=== PATIENT | female | born 1975 | race Caucasian/White ===

== ENCOUNTER 2019-03-28 16:01 | Outpatient (RCR) | payer OTHER, SELFPAY ==
--- NOTE | 2019-03-28 16:38 | PTOPEVAL ---
Thank you for referring this patient to [facility]. Please review, sign, date and return this plan of care DONALD. I agree with and certify that the following plan of care is medically necessary. Referring Physician Date Admitting Provider: Attending Provider: PHYSICIAN NOT ON STAFF Referring Provider: *PT Outpatient Evaluation Start: 03/28/19 16:12 Freq: Status: Active Protocol: Document 03/28/19 16:12 [facility] (Rec: 03/28/19 16:37 [facility] [id number]) Therapy Assessment Status Assessment Status Assessment Status Evaluation Outpatient Past Medical History Past Medical History Reason Unable to Obtain see patient intake form. Evaluation Information Problem Diagnosis L hip pain Onset 02/21/19 Subjective Information patient reports she has been Query Text:As Reported By Patient/ having pain in the L hip off Family and on for many years (since high school). she reports she feels like her hip pops in and out of socket. she reports she is on her feet at work daily which does not help. patient reports she does not remember any specifi injury. she reports the pain does affect her sleep - hurts more when she is laying down. Diagnostic Tests X-Rays For This Problem Yes Prior Level of Function Comments Additional Prior Level of Function patient reports the pain has Comments been off and on for years, but reports it has been flared up fro several months now. she reports she has difficulty standing at work, getting into and out of her car, sleeping, and walking. Pain Assessment Timing of Pain Assessment Timing of Pain Assessment Assessment Pain Scale Pain Scale Used Numeric (1 - 10) Self Report Pain Assessment Left Hip(s) Reported Pain Level 5 Pain Description Aching,Dull,Throbbing Pain Frequency Acute,Chronic,Continuous Current Pain Intensity 5 Lowest Pain Intensity 4 Greatest Pain Intensity 7 Pain Aggravating Factors Walking,Weight Bearing/ Standing Pain Score Pain Score 5: Self Report Lower Extremity Range of Motion Hip Range of Motion Left Reason Not Measured WNL/Right Hip Flexion Range of Motion - Active 120 Hip Medial Rota
--- NOTE | 2019-04-12 07:16 | PCPTNOTE ---
04/12/19- pt was a no show yesterday 04/11/19. vm was left for pt to call and reschedule. -SAPPHIRE.
--- NOTE | 2019-04-14 07:54 | PCPTNOTE ---
patient did not show for scheduled appt. PETER
--- NOTE | 2019-06-21 07:52 | PCPTNOTE ---
06/21/19 - mrs. wang has not been to skilled PT in over 2 months. as of this date, she will be dc'd from skilled PT services and all progress towards goals will be taken from her most recent evaluation/note. DEBBIE
== END 2019-04-08 09:13 | disposition home or self-care (01) ==
LOC: CHSPT 16:01
DX: M16.12 Unilateral primary osteoarthritis, left hip (principal)
CPT/HCPCS: 97014; 97110; 97140; 97161; G0283

== ENCOUNTER 2019-10-24 10:47 | Emergency (ER) | payer OTHER, SELFPAY ==
--- NOTE | ~2019-10-24 | XR_ITS ---
EXAMINATION: XR wrist LT 2V EXAM DATE: 10/24/2019 11:18 INDICATION: Initial encounter following injury, with pain of the left wrist. 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 TECHNIQUE: Frontal and lateral projections of the left wrist. There is no prior study for compariso n. FINDINGS: Scapholunate joint space is maintained. There are no acute fractures or dislocations ident ified. There is no subcutaneous gas. The soft tissue is unremarkable. There are no radiopaque for eign bodies. There are no bony erosions identified. IMPRESSION: 1. Unremarkable XR wrist LT 2V exam. Reviewed, dictated and finalized at location B.
[2019-10-24 11:00] VITALS: BP 120/75; PULSE 109; RESP 17; TEMP 36.9; O2SAT 99
--- NOTE | 2019-10-24 11:25 | ED.UPPEXIN ---
HPI - Extremity Injury (Upper) General Chief Complaint: Extremity Injury, Upper Stated Complaint: L wrist Pain Source: patient Mode of arrival: ambulatory Limitations: no limitations History of Present Illness HPI narrative: this is a 44-year-old female that presents with history of left wrist pain with movement after she was wrestling with her and twisted her wrist approximately 2 days ago, currently there is some mild swelling and decreased range of motion there is no numbness or tingling has a strong brisk radial pulse. complaint: injury to: left Onset (ago): day(s) Other Extremity Injury: Left: wrist Other injuries: none Handedness: right Place: home Severity: mild Severity scale (1-10): 2 Relieving factors: none and rest Exacerbating factors: none Context: other (Wrestling with her ) Associated symptoms: denies other symptoms Related Data Home Medications Medication Instructions Recorded Confirmed No Home Medications 10/24/19 10/24/19 Allergies Allergy/AdvReac Type Severity Reaction Status Date / Time No Known Allergies Allergy Unverified 09/08/14 13:20 Review of Systems Review of Systems: All systems reviewed & are unremarkable except as noted in HPI and below PMFSH Past Medical History Medical History Patient denies medical problems Exam Const: General: no acute distress and alert Orientation/consciousness: patient oriented x3 HENMT: Head: normal to inspection Eyes: Conjunctivae: conjunctivae normal Pupils: Equal, round and reactive pupils present Neck: Neck: normal visual inspection Chest: Chest palpation & inspection: normal inspection of the chest Resp: Effort & Inspection: normal respiratory effort Auscultation: clear to auscultation bilaterally Cardio: Rate: regular rate Rhythm: regular rhythm GI: GI Palp: Yes Soft to palpation Back/Spine/Pelvis: Back: no CVA tenderness Skin: General skin exam: normal color Rashes: no rashes Neuro: General: patient oriented x3 Extrem: Other: positive Lorenzo test tenderness lateral aspect of her left wrist Psych: Mental Status: mental status grossly normal Affect: normal affect Course Course Emergency Course: offered patient pain medication which she declined at this time, and inform patient that her wrist x-ray was negative and that she would benefit from an Valente wrap. Vital Signs Vital signs: Vital Signs Temperature 36.9 C 10/24/19 11:00 Pulse Rate 109 H 10/24/19 11:00 Respiratory Rate 17 10/24/19 11:00 Blood Pressure 120/75 10/24/19 11:00 Pulse Oximetry 99 10/24/19 11:00 Temperature 36.9 C 10/24/19 11:00 Pulse Rate 109 H 10/24/19 11:00 Respiratory Rate 17 10/24/19 11:00 Blood Pressure 120/75 10/24/19 11:00 Pulse Oximetry 99 10/24/19 11:00 MDM - Extremity Injury (Upper) Imaging Data Attestation: I personally reviewed and interpreted this imaging study as follows: Critical Care Time Critical Care Time Critical Care Time: No Discharge Plan Discharge Clinical Impression: Tendonitis Patient Disposition: Home, Self-Care Condition: Stable Instructions: Antibiotic Form, Tendinitis (ED) Additional Instructions: can take [id number] ibuprofen as needed for pain, follow-up with primary care physician if symptoms persist or worsen. Prescriptions: No Action No Home Medications RF: 0 Follow-up/Referrals: Rolo Katz MD [Primary Care Provider] - Stand Alone Forms: Work/School Release IP Time of Disposition: 11:33
[2019-10-24 11:41] VITALS: RESP 16
== END 2019-10-24 11:45 | disposition home or self-care (01) ==
PROVIDERS: Emergency Provider Emergency Medicine; PCP Family Medicine
DX: M77.9 Enthesopathy, unspecified (principal)
CPT/HCPCS: 73100; 99283

== ENCOUNTER 2019-12-12 15:05 | Outpatient (CLI) | payer OTHER, SELFPAY ==
[2019-12-12 21:30] LABS: SARS-CoV-2 RNA PCR Negative
== END 2019-12-12 15:06 | disposition home or self-care (01) ==
PROVIDERS: PCP Family Medicine; Visit Provider Family Medicine
DX: Z20.828 Contact with and (suspected) exposure to other viral communicable diseases (principal)
CPT/HCPCS: 87635; C9803; U0003

== ENCOUNTER 2020-03-21 21:33 | Emergency (ER) | payer OTHER, SELFPAY ==
[2020-03-21 21:46] VITALS: BP 136/83; PULSE 111; RESP 20; TEMP 36.7; O2SAT 100
--- NOTE | 2020-03-21 21:59 | ED.DENTAL ---
HPI - Dental/Oral General Chief complaint: Dental/Oral Stated complaint: swelling in face Source: patient Mode of arrival: ambulatory Limitations: no limitations History of Present Illness HPI Narrative: Sanjuanita presented to the ED with pain in her #11 tooth as well as pain and swelling in her cheek that have been getting much worse. She has dental issues and is working on getting them fixed but has not had the root canal completed yet. No throat swelling or issues breathing. No fevers or chills. Related Data Allergies Allergy/AdvReac Type Severity Reaction Status Date / Time No Known Allergies Allergy Unverified 03/21/20 21:59 Review of Systems Constitutional: Constitutional: Denies chills and Denies fever(s) Eyes: Eyes: Reports no additional eye complaints ENT: Reports as per HPI Cardiovascular: Cardiovascular: Reports no additional cardiovascular complaints Respiratory: Respiratory: Reports no additional respiratory complaints Gastrointestinal: Gastrointestinal: Reports no additional gastrointestinal complaints Genitourinary: Genitourinary: Reports no additional female genitourinary complaints Musculoskeletal: Musculoskeletal: Reports no additional musculoskeletal complaints Integumentary/Breasts: Skin/Breast: Reports system reviewed and no additional complaints, except as docu Neurologic: Reports system reviewed and no additional complaints, except as documented Psychiatric: Psychiatric: Reports no additional psychiatric complaints Endocrine: Endocrine: Reports no additional endocrine complaints Hematologic/Lymphatic: Hematologic/Lymphatic: Reports no additional hematologic/lymphatic complaints Allergic/Immunologic: Allergic/Immunologic: Reports no additional allergic/immunologic complaints [facility]LY [facility] Past Medical History Medical History (Updated 03/21/20 @ 22:08 by Jericho Fitch DO) Patient denies medical problems Social History Social History Gender identity (if verbalized by the patient): Female Exam Const: General: no acute distress and alert Orientation/consciousness: patient oriented x3 Limitations: No altered mental status HENMT: Head: atraumatic and other (Swelling in left cheek ) Teeth and gingiva: abnormal tooth and associated gingiva (Gum swelling around teeth 10 and 11 and they are very TTP ), caries and poor dentition Eyes: Conjunctivae: conjunctivae normal Pupils: Equal, round and reactive pupils present Neck: Neck: normal visual inspection Chest: Chest palpation & inspection: normal inspection of the chest Resp: Effort & Inspection: normal respiratory effort Cardio: Rate: regular rate Skin: General skin exam: normal color Rashes: no rashes Neuro: General: patient oriented x3 and moves all extremities Extrem: General: normal to inspection Psych: Mental Status: mental status grossly normal Course Course Emergency Course: Sanjuanita was evaluated. She was given a Mead and a dose of Augmentin. Vital Signs Vital signs: Vital Signs Temperature 98.1 F 03/21/20 21:46 Pulse Rate 111 H 03/21/20 21:46 Respiratory Rate 03/21/20 21:46 Blood Pressure 136/83 03/21/20 21:46 Pulse Oximetry 100 03/21/20 21:46 Temperature 98.1 F 03/21/20 21:46 Pulse Rate 111 H 03/21/20 21:46 Respiratory Rate 03/21/20 21:46 Blood Pressure 136/83 03/21/20 21:46 Pulse Oximetry 100 03/21/20 21:46 Discharge Plan Discharge Clinical Impression: Dental abscess Patient Disposition: Home, Self-Care Condition: Stable Instructions: Antibiotic Form, Dental Abscess (ED) Additional Instructions: Please return to the ED for any new, concerning, or worsening symptoms. Please follow up with a dentist DONALD. Prescriptions: New amoxicillin-pot clavulanate [Augmentin] 875-125 mg tablet 1 tablet PO Q12H Qty: 10 RF: 0 hydrocodone-acetaminophen [[place]] 5-325 mg tablet 1 tablet PO Q8H
[2020-03-21] MEDS: AMOXICILLIN/CLAVULANATE K 875-125 MG TAB 1 TABLET PO (22:03)
[2020-03-21] MEDS: HYDROcodone/acetaminophen (*CRX) 5-325 MG TABLET 1 TAB PO (22:04)
[2020-03-21 22:15] VITALS: PULSE 100; RESP 20; O2SAT 100
== END 2020-03-21 22:19 | disposition home or self-care (01) ==
PROVIDERS: Emergency Provider Family Medicine; PCP Family Medicine
DX: K04.7 Periapical abscess without sinus (principal)
CPT/HCPCS: 99283; A9270

== ENCOUNTER 2020-05-17 11:12 | Outpatient (CLI) | payer OTHER, SELFPAY ==
[2020-05-18 18:47] LABS: SARS-CoV-2 RNA PCR Negative
== END 2020-05-17 11:13 | disposition home or self-care (01) ==
LOC: CHSLAB 11:17
PROVIDERS: PCP Family Medicine; Visit Provider Obstetrics & Gynecology
DX: Z20.822 Contact with and (suspected) exposure to COVID-19 (principal)
CPT/HCPCS: C9803; U0003; U0005

== ENCOUNTER 2020-05-28 15:52 | Outpatient (CLI) | payer OTHER, SELFPAY ==
--- NOTE | 2020-05-28 15:00 | ECG_ITS ---
Measurements Intervals [place] Rate: 104 P: 56 AL: 130 QRS: 84 QRSD: 93 T: 58 QT: 338 QTc: 446 Interpretive Statements SINUS TACHYCARDIA BASELINE ARTIFACT- I, III, AVR, AVL, AVF BORDERLINE ECG Electronically Signed On 05-28-2020 16:30:04 [employer] by Liam Landry D.O.
[2020-05-28 15:51] LABS: Basophils Absolute Auto 0.1 K/mm3 (0.0-0.1); Basophils Percent Auto 1.4 % (0.2-1.2); Eosinophils Absolute Auto 0.3 K/mm3 (0-0.3); Eosinophils Percent Auto 2.7 % (0-4.4); Hematocrit 32.8 % (37.0-47.0); Hemoglobin 10.3 g/dL (12.0-15.0); Immature Granulocyte Absolute 0.04 K/mm3 (0.00-0.031); Immature Granulocyte Percent A 0.4 % (0-0.5); Lymphocytes Absolute Auto 4.02 K/mm3 (0.9-3.2); Lymphocytes Percent Auto 39.2 % (18.3-44.2); Mean Corpuscular HGB Conc 31.4 g/dl (32-36); Mean Corpuscular Hemoglobin 28.3 pg (26-34); Mean Corpuscular Volume 90.1 fl (80-100); Mean Platelet Volume 9.1 fl (7.4-10.4); Monocytes Absolute Auto 0.9 K/mm3 (0.1-0.6); Monocytes Percent Auto 8.5 % (2.6-8.5); Neutrophils Absolute Auto 4.9 K/mm3 (1.3-6.7); Neutrophils Percent Auto 47.8 % (45.5-73.1); Platelet Count Result 565 k/mm3 (150-375); Red Blood Count 3.64 M/mm3 (4.2-5.4); Red Cell Distribution Width 13.9 % (11.5-14.5); White Blood Count 10.3 K/mm3 (4.5-10.0)
[2020-05-28 16:39] LABS: Ovalocytes 1+ (NORMAL); Platelet Estimate Increased (Adequate); Target Cells 1+ (NORMAL)
[2020-05-28 16:40] LABS: Atypical Lymphocytes Present; Stomatocytes 1+ (NORMAL)
== END 2020-05-28 15:53 | disposition home or self-care (01) ==
LOC: ANHSURGERY 09-20 15:52
PROVIDERS: PCP Family Medicine; Visit Provider Obstetrics & Gynecology
DX: Z01.818 Encounter for other preprocedural examination (principal); Z87.42 Personal history of other diseases of the female genital tract; F17.200 Nicotine dependence, unspecified, uncomplicated
CPT/HCPCS: 36415; 85025; 86850; 86900; 86901; 93005

== ENCOUNTER 2020-05-29 01:59 | Outpatient (CLI) | payer OTHER, SELFPAY ==
[2020-05-29 18:13] LABS: SARS-CoV-2 RNA PCR Negative
== END 2020-05-29 02:00 | disposition home or self-care (01) ==
LOC: ANHCOVIDDT 02:00
PROVIDERS: PCP Family Medicine; Visit Provider Obstetrics & Gynecology
DX: Z01.812 Encounter for preprocedural laboratory examination (principal); Z20.822 Contact with and (suspected) exposure to COVID-19
CPT/HCPCS: C9803; U0003; U0005

== ENCOUNTER 2020-06-01 02:08 | Day surgery (SDC) | payer OTHER, SELFPAY ==
[2020-05-24 14:01] VITALS: BMI 25.1
--- NOTE | 2020-05-29 13:57 | PM.IMHP ---
H&P: HPI History of Present Illness Date/Time: 05/29/20 13:57 Chief Complaint: bleeding Narrative: Sanjuanita Pedersen is a 44 year old female Multiparous patient who is admitted for robotic total vaginal hysterectomy and bilateral salpingectomies. She has a large fibroid uterus with resulting heavy bleeds. Risks and benefits of this procedure reviewed including under exclusive, aspiration pneumonia, bleeding, transfusion, perforation injury to bladder ureters or other internal organs with need for laparotomy. She received the ACOG handout entitled hysterectomy well as the event she handout. She had all questions answered. She asked to proceed Review of Systems Review of Systems: All systems reviewed & are unremarkable except as noted in HPI and below PMFSH Past Medical History Medical History Patient denies medical problems Social History Social History Smoking packs per day: 1 Smoking cigarettes per day: 20.0 Years smoked: 28 Smoking pack-years: 28.00 Smoking status: Current every day smoker Tobacco type: cigarettes Gender identity (if verbalized by the patient): Female Spiritual care concerns: No Meds Home Medications and Allergies Home Medications Medication Instructions Recorded Confirmed Type No Home Medications 05/24/20 05/24/20 History Allergies Allergy/AdvReac Type Severity Reaction Status Date / Time hydrocodone Allergy Nausea and Verified 05/24/20 13:44 Vomiting Exam Const: General: no acute distress Eyes: General: appearance normal, both eyes and all related structures Neck: Neck: supple and no JVD Thyroid: thyroid normal Resp: Effort & Inspection: normal respiratory effort Auscultation: clear to auscultation bilaterally Cardio: Rate: regular rate Rhythm: regular rhythm GI: Inspection: non-distended GI Palp: Yes Soft to palpation, No Tenderness to palpation present (GI) and No Guarding due to palpation present (GI) Auscultation: normal bowel sounds : General: Yes bladder normal to palpation External Female Exam: normal external appearance Speculum Exam - Vagina: normal appearance of the vagina Speculum Exam - Cervix: normal appearance of the cervix Bimanual exam- vagina & uterus: enlarged and nodular Bimanual Exam- Adnexa, other: no masses Skin: General skin exam: no rashes or lesions noted Extrem: General: normal to inspection and no edema Psych: Mental Status: mental status grossly normal Affect: normal affect Assessment and Plan Additional Plan impression: Symptomatic uterine fibroids Plan: Robotic total vaginal hysterectomy and bilateral salpingectomies 1
--- NOTE | 2020-05-30 15:57 | WPDANESEPPF ---
Anes - Initial Pre Proc Eval Procedure: Operation Date: 06/01/20 09:30 Proposed Procedures p Robotic Assisted Total Vaginal Hysterectomy with Bilateral Salpingectomy - Wagner Flores MD Date/Time: 05/30/20 15:57 Surgeon: Wagner Flores MD Pre Op Diagnosis: heavy bleeding, fibroids,dysmennorhea Patient Data Age: 44 Gender: F Height: 1.73 m Weight: 74.89 kg Allergies Allergy/AdvReac Type Severity Reaction Status Date / Time hydrocodone AdvReac Intermediate Nausea and Verified 06/01/20 07:54 Vomiting Home Medications Medication Instructions Recorded Confirmed Type hydrocodone-acetaminophen [[place]] 1 tablet PO Q4H PRN #30 tablet 06/01/20 Rx ibuprofen 400 mg PO Q6H PRN 06/01/20 06/01/20 History Patient hx anesthesia problems: none Family hx anesthesia problems: none [facility] Past Medical History Medical History (Updated 06/01/20 @ 06:37 by Wagner Flores MD) Asthma no inhalers Surgical History Surgical History (Updated 05/30/20 @ 15:57 by Patrick Arshad DO) History of cholecystectomy Social History Social History Smoking packs per day: 1 Smoking cigarettes per day: 20.0 Years smoked: 28 Smoking pack-years: 28.00 Smoking status: Current every day smoker Tobacco type: cigarettes Living arrangements: with family Gender identity (if verbalized by the patient): Female Spiritual care concerns: No Anes - Eval Final PreProcedure Day of Procedure 05/30/20 15:57 Patient weight: overweight Heart: regular rate and rhythm Lungs: clear to auscultation and normal air movement Airway: Mallampati scale class II Neurological: alert and oriented Last oral intake: >/= 8 hours ASA classification: III Emergent: no Anesthetic plan: proceed Anesthesia type and monitoring: general ETT and standard monitoring Informed Consent: The patient's anesthetic plan and its attendant risks and benefits were discussed with the patient/family/POA. Questions were solicited and answers provided to the satisfaction of the patient/family/POA.
[2020-06-01] VITALS (18 sets, daily range): BP systolic 93–135; BP diastolic 44–81; PULSE 62–92; RESP 12–18; TEMP 36.4–36.8; O2SAT 95–100; BMI 25.8
--- NOTE | 2020-06-01 06:36 | WPDHPUPDATE1 ---
History and Physical Update Update Date/Time: 06/01/20 06:36 History and Physical has been reviewed, including an updated exam of the patient. There are NO changes in the patient's condition. Risks, benefits, and alternatives have been discussed and questions answered. Patient agrees to proceed with procedure.
[2020-06-01] MEDS: LACTATED RINGERS 1,000 ML 30 ML IV CONT ×2 (08:24→10:45)
[2020-06-01] MEDS: ACETAMINOPHEN 500 MG TABLET 1000 MG PO (08:26)
--- NOTE | 2020-06-01 09:13 | SUR.PREOP ---
0830; SPOKE TO DR FREN[place]. PT TOOK 400MG ADVIL THIS MORNING AT 0600, HE STATES PT MAY HAVE KETOROLAC 15MG IV
[2020-06-01] MEDS: ceFAZolin 2 GM/D5W 50 ML 2 GM/50 ML BAG IVPB (09:17)
--- NOTE | 2020-06-01 10:23 | SUR.OPER ---
Urine output= 100ml Ebl=25ml
--- NOTE | 2020-06-01 10:33 | P.OP_ITS ---
Procedure Note - Detailed Date of procedure: 06/01/20 Pre-op diagnosis: heavy bleeding, fibroids,dysmennorhea Surgeon: Wagner Flores MD Postop diagnosis: Heavy bleeding/uterine fibroids/dysmenorrhea/enlarged uterus Procedure: Robotic total vaginal hysterectomy and bilateral salpingectomies Anesthesia: General endotracheal EBL: 25cc Findings: Markedly enlarged fibroid uterus normal-appearing ovaries and tubes Complications: None Description of procedure: The patient was prepped and draped in the normal sterile fashion and placed in the dorsal lithotomy position. Under excellent general endotracheal anesthesia weighted speculum placed in posterior fornix of vagina. The anterior lip of the cervix was grasped with a single-tooth tenaculum. The uterus sounded to 11cm. Serial dilatation with fragmented dilators performed. This was followed by passage of 10. CHEPE and the 4. And half cold cup. A 16 [place] catheter was placed. The remaining instruments vagina were removed. The gloves were changed. A supraumbilical incision was made. Veress needle passed in the abdomen. The abdomen was filled with CO2 gas [id number]. The 8mm trocar was advanced in the abdomen. Downside visualized and no injury seen. The patient placed in Trendelenburg and right and left lateral quadrant incisions were made. 8mm trocars were advanced under direct visualization assuring injury. And with an 8mm trocar was advanced in the right upper quadrant incision. The robot was docked. Next Attention was turned to the correctional substance abuse counselor. The left round ligament was grasped, burned, cut. A bladder flap was formed by sharply dissecting the bladder away from the uterus and reflecting into caudally. This was brought to the opposite round ligament which was, burned, cut. Next the left fallopian tube was sharply dissected using monopolar cautery away from the ovary. This was repeated on the contralateral side by dissecting the right fallopian tube away from the ovarian complex. Next the left utero-ovarian ligament was skeletonized to conserve the left ovary was clamped, burned, cut and brought to the level of the previously cut ligament. In like fashion conserving the right ovary the utero-ovarian ligament was clamped, burned, cut and brought to the level of the previously cut round ligament the left cardinal broad ligaments were then serially skeletonized down lateral edge of the uterus and cervix these were clamped, burned, cut. The uterine vessels on the left were noted to be large and tortuous these were individually clamped, burned, cut. Next the right cardinal and broad ligaments were serially skeletonized. These were clamped, burned, cut and brought down the lateral edge of the cervix and uterus until the uterine vessels could be seen these were individually clamped, burned, cut until the uterine vessels could be seen there were individually clamped, burned, cut. Excellent blanching of the uterus was seen. Blood loss was estimated 25cc a colpotomy incision was then made and the cervix uterus and tubes removed through the vagina.. The vagina was then closed with continuous running 0V lock from lateral edge to lateral edge and back to the midline. Hemostasis was assured. The raw surface areas were closed with hematuria. The robot was undocked. The gas removed from the abdomen. The trocars removed and the incisions closed with 4 O Monocryl glue. The patient was awakened. She went to recovery in satisfactory condition. All sponge, needle, instrument counts were correct. There were no immediate complications
[2020-06-01] MEDS: KETOROLAC 30 MG/ML VIAL (*BKC) IV PUSH ×2 (12:24→19:22)
[2020-06-01] MEDS: DEXTROSE 5%/LACTATED RINGERS 1,000 ML 125 ML IV CONT (12:28)
--- NOTE | 2020-06-01 12:29 | PC.NURSE ---
To room 289 per stretcher from PACU.
[2020-06-01] MEDS: DOCUSATE SODIUM 100 MG CAPSULE PO (17:10)
[2020-06-01] MEDS: MORPHINE SULFATE (*CRX) 4 MG/ML INJ IV PUSH (17:35)
--- NOTE | 2020-06-02 03:43 | PC.NURSE ---
[address] Praneeth Méndez to report patient wanting to go home. Dr. Praneeth Méndez states that patient may be discharged home, but must either keep in wayne catheter and return to office for removal on Thursday, or, may have catheter removed now and must void prior to leaving. Patient is to return to office in 2 weeks for post operative follow up visit. 0120 Discontinued saline lock and wayne catheter. 0240 Patient called out to say she could not void. Offered to have her continue to try or to replace wayne catheter. Patient refuses and wants to sign out. 0251 Patient exited her room dressed with bags packed. Signed AMA paper and left unit. [ End ]
--- NOTE | 2020-06-02 04:28 | PC.NURSE ---
0251 Patient left AMA. See previous note.
--- NOTE | 2020-06-02 06:35 | P.DS_ITS ---
DS: Admitting Diagnosis Admitting Diagnosis Admitting Diagnosis: Symptomatic fibroids with resultant anemia DS: Summary Hospital Course Hospital Course: patient underwent unremarkable robotic total vaginal hysterec emily and bilateral salpingectomy on 06/01. She decided to leave [place] low. She had her catheter removed but was unable to urinate but refused to stay. Time Spent with Patient Time attestation: Total time spent providing and/or coordinating discharge services: Exam Const: General: no acute distress Eyes: General: appearance normal, both eyes and all related structures Neck: Neck: supple and no JVD Thyroid: thyroid normal Resp: Effort & Inspection: normal respiratory effort Auscultation: clear to auscultation bilaterally Cardio: Rate: regular rate Rhythm: regular rhythm GI: Inspection: non-distended GI Palp: Yes Soft to palpation, No Tenderness to palpation present (GI) and No Guarding due to palpation present (GI) Auscultation: normal bowel sounds : General: Yes bladder normal to palpation External Female Exam: normal external appearance Speculum Exam - Vagina: normal vaginal discharge and No vaginal bleeding Speculum Exam - Cervix: nontender Bimanual exam- vagina & uterus: bladder normal to palpation and No Cervical tenderness present OB/external & speculum: No vaginal bleeding Skin: General skin exam: no rashes or lesions noted Extrem: General: normal to inspection and no edema Psych: Mental Status: mental status grossly normal Affect: normal affect DS: Data Data Completed and Pending Pending studies at discharge: Pending at discharge 06/01/20 10:11 Surgical [PTH] Routine Discharge Plan Discharge Patient Disposition: Home, Self-Care Discharge Instructions: Call for appointment to follow up with Dr. Praneeth Méndez in 2 weeks. Stand Alone Forms: General Discharge Instructions Follow-up/Referrals: Wagner Flores MD [Physician] - Discharge Orders: Discharge Order (Routine); Ordered 06/02/20 Ordered By: Wagner Flores Discharge Medications: New hydrocodone-acetaminophen [[place]] 5-325 mg tablet 1 tablet PO Q4H PRN (Reason: pain) Qty: 30 RF: 0 No Action ibuprofen 200 mg Tablet 400 mg PO Q6H PRN (Reason: Headache) RF: 0
== END 2020-06-02 02:51 | disposition home or self-care (01) ==
LOC: ANHSURGERY 07:38 → ANHOB2 12:08
PROVIDERS: PCP Family Medicine; Visit Provider Obstetrics & Gynecology
PROC: (CPT 58552; principal; 2020-06-01 09:30)
DX: N93.9 Abnormal uterine and vaginal bleeding, unspecified (principal); F17.210 Nicotine dependence, cigarettes, uncomplicated; N73.6 Female pelvic peritoneal adhesions (postinfective)
CPT/HCPCS: 58552; S2900; 88307; 99199; A9270; J0690; J1100; J1170; J1885; J2250; J2270; J2405; J2704; J2710; J3010; J7030; J7120; J7121

== ENCOUNTER 2020-09-26 14:08 | Outpatient (CLI) | payer OTHER, SELFPAY ==
--- NOTE | ~2020-09-26 | MM_ITS ---
EXAMINATION: MM scrn aga implant BI w roman HISTORY: Screening mammogram TECHNIQUE: Craniocaudal and mediolateral oblique 3-D tomosynthesis images with implant displacement a nd synthetic 2-D images were generated. Craniocaudal and mediolateral oblique views of the breasts wi thout implant displacement were obtained using full field digital mammography. CAD analysis was submi tted and interpreted. COMPARISON: No prior mammogram is available for comparison at this institution. BREAST PARENCHYMAL COMPOSITION: The breasts are heterogeneously dense, which may obscure small masses . FINDINGS: Status post bilateral augmentation mammoplasty There is no evidence of suspicious mass, gabriel cification, or architectural distortion to suggest malignancy in either breast. There has been no edwar picious interval change. IMPRESSION: 1. No mammographic evidence of malignancy. 2. Recommend routine screening mammography in one year. BI-RADS Category 1: Negative Reviewed, dictated and finalized at location A.
== END 2020-09-26 14:09 | disposition home or self-care (01) ==
LOC: ANHIMG 14:16
PROVIDERS: PCP Family Medicine; Visit Provider Obstetrics & Gynecology
DX: Z12.31 Encounter for screening mammogram for malignant neoplasm of breast (principal)
CPT/HCPCS: 77063; 77067

== ENCOUNTER 2020-11-19 08:20 | Outpatient (CLI) | payer OTHER, SELFPAY ==
--- NOTE | ~2020-11-19 | XR_ITS ---
EXAMINATION: XR lumbar spine min 4V DATE: 11/19/2020 09:06 INDICATION: Low back pain TECHNIQUE: Anteroposterior, lateral, and bilateral oblique views of the lumbar spine, and cone-down l ateral view of the lumbosacral junction were obtained. COMPARISON: CT, 08/10/2016 FINDINGS: There is no fracture, dislocation, or subluxation. The vertebral body heights and alignment are normal. There is mild loss of intervertebral disc space height at L5-S1. Small degenerative oste ophytes project from the anterior endplates of multiple vertebral bodies. There are four stones of t he right kidney measuring 7 mm. The bowel gas pattern is normal. Cholecystectomy clips are noted in t he right upper quadrant. IMPRESSION: 1. Mild lumbar spondylosis without acute findings. Reviewed, dictated and finalized at location B.
--- NOTE | ~2020-11-19 | XR_ITS ---
EXAMINATION: XR pelvis 1-2V INDICATION: Back and pelvic pain TECHNIQUE: AP view of the pelvis is obtained. COMPARISON: None available FINDINGS: Bone alignment is normal. There is no fracture. There is mild osteoarthritis of the hips. T he soft tissues are unremarkable. IMPRESSION: 1. No acute osseous abnormality. Reviewed, dictated and finalized at location B.
== END 2020-11-19 08:21 | disposition home or self-care (01) ==
LOC: CHSIMG 08:22
PROVIDERS: Visit Provider Orthopaedic Surgery
DX: M54.9 Dorsalgia, unspecified (principal); M25.559 Pain in unspecified hip
CPT/HCPCS: 72110; 72170

== ENCOUNTER 2021-01-26 07:21 | Outpatient (CLI) | payer OTHER, SELFPAY ==
--- NOTE | ~2021-01-26 | MR_ITS ---
EXAMINATION: MR lumbar spine wo con EXAM DATE: 01/26/2021 08:14 INDICATION: M54.9 - Dorsalgia, unspecified, low back and bilateral leg pain. TECHNIQUE: Multi-sequential, multiplanar MR images of the lumbar spine were obtained without contrast . Sagittal T1, T2, T2 fat saturation images. Axial T2 weighted images. Correlation is made to lumba r x-ray 11/19/2020. FINDINGS: There is mild thoracolumbar dextroscoliosis. There is 3 mm retrolisthesis L5 on S1 with mil d to moderate disc disease at this level. Mild disc disease at the other lumbar levels. The conus med ullaris terminates at the L1 level and has normal signal intensity and morphology. There are no susp icious marrow signal abnormalities. Paraspinal soft tissue is unremarkable. Level by level evaluation: T12-L1: Disc does not extend beyond the endplate margin. Facet arthropathy: Mild bilateral. Neural foraminal stenosis: No stenosis. Central canal stenosis: No stenosis. L1-L2: Disc does not extend beyond the endplate margin. Facet arthropathy: Mild bilateral. Neural foraminal stenosis: No stenosis. Central canal stenosis: No stenosis. L2-L3: There is a minimal diffuse disc bulge. Facet arthropathy: Mild bilateral. Neural foraminal stenosis: No stenosis. Central canal stenosis: No stenosis. L3-L4: There is a mild diffuse disc bulge. Facet arthropathy: Mild bilateral. Neural foraminal stenosis: Mild bilateral. Central canal stenosis: Mild. L4-L5: There is a mild diffuse disc bulge. Facet arthropathy: Mild bilateral. Neural foraminal stenosis: Mild right. Central canal stenosis: Mild. L5-S1: There is a mild to moderate diffuse disc bulge. Facet arthropathy: Mild bilateral. Neural foraminal stenosis: Mild bilateral. Central canal stenosis: Mild to moderate. IMPRESSION: 1. Mild to moderate lower lumbar spondylosis. Reviewed, dictated and finalized at location A.
== END 2021-01-26 07:22 | disposition home or self-care (01) ==
LOC: CHSIMG 07:22
PROVIDERS: Visit Provider Orthopaedic Surgery
DX: M54.9 Dorsalgia, unspecified (principal)
CPT/HCPCS: 72148

== ENCOUNTER 2021-07-18 07:24 | Outpatient (CLI) | payer OTHER, SELFPAY ==
--- NOTE | ~2021-07-18 | US_ITS ---
EXAMINATION: US arterial duplex LE DATE: 07/18/2021 07:53 INDICATION: Peripheral vascular disease TECHNIQUE: Multiple grayscale and Doppler ultrasound images of the arteries of the bilateral lower li mbs were obtained. COMPARISON: None FINDINGS: Right lower limb: Triphasic arterial waveforms with brisk systolic upstrokes at the right common femoral, profunda femo ral, (proximal mid and distal) superficial femoral, popliteal and (proximal and distal) posterior tib ial arteries and biphasic waveforms with brisk systolic upstroke at the right dorsalis pedis artery. No evident significant stenosis or abrupt change in peak systolic velocities to suggest a significant stenosis in the arteries of the right lower limb. Left lower limb: Triphasic arterial waveforms with brisk systolic upstrokes at the left common femoral, profunda femor al, (proximal mid and distal) superficial femoral, popliteal and (proximal and distal) posterior tibi al and dorsalis pedis arteries. No evident significant stenosis or abrupt change in peak systolic mark ocities to suggest a significant stenosis in the arteries of the left lower limb. IMPRESSION: 1. No significant arterial occlusive disease in either lower limb. Reviewed, dictated and finalized at location A.
== END 2021-07-18 07:25 | disposition home or self-care (01) ==
LOC: CHSIMG 07:25
PROVIDERS: PCP Physician Assistant; Visit Provider Physician Assistant
DX: I73.9 Peripheral vascular disease, unspecified (principal)
CPT/HCPCS: 93925

== ENCOUNTER 2021-08-20 07:42 | Outpatient (RCR) | payer OTHER, SELFPAY ==
--- NOTE | 2021-08-20 08:31 | PTOPEVAL ---
Thank you for referring Sanjuanita Pedersen to [facility].? The patient is scheduled to be seen for therapy? ____x/week for ___ weeks. Please review, sign, date and return this plan of care DONALD. I agree with and certify that the following plan of care is medically necessary. Referring Physician Date Admitting Provider: Attending Provider: JERSON HUDDLESTON Referring Provider: *PT Outpatient Evaluation Start: 08/20/21 07:21 Freq: Status: Active Protocol: Document 08/20/21 07:30 [facility] (Rec: 08/20/21 08:30 [facility] [id number]) Therapy Assessment Status Assessment Status Assessment Status Evaluation Outpatient Past Medical History Neurological History Hx Neurological Disorders No Significant History Cardiovascular History Hx Cardiac Disorders No Significant History Respiratory History Hx Asthma Yes: NO INHALERS Gastrointestinal History Hx Cholecystectomy Yes Genitourinary History Hx Kidney Stones Yes Musculoskeletal History Hx Arthritis Yes: GENERALIZED Hx Crutches or Walker Use Yes: CRUTCHES Query Text:If Yes, Enter Crutches, Walker, or Both in the Comment Hx Orthopedic Surgery Yes: TOE, NOSE Hematological History Hx Hematological Disorders No Significant History Endocrine History Hx Endocrine Disorders No Significant History HEENT History Hx Tonsillectomy Yes Hx Ear Surgery Yes Integumentary History Hx Skin Disorders No Significant History Reproductive History Hx Section Yes Hx Other Reproductive Disorders Yes: BREAST AUGMENTATION. HEAVY BLEEDING ,FIBROIDS Psychosocial History Hx Psychiatric Disorders No Significant History Pain History History of Any Previous or Ongoing No Significant History Instance of Pain Anesthesia History Hx Anesthesia Reactions No Significant History Evaluation Information Problem Diagnosis low back and L hip pain Onset 08/15/21 Additional Evaluation Detail LEFS = 32% functionally declined Subjective Information patient reports she is having Query Text:As Reported By Patient/ lower back and hip pain Family bilaterally. she reports her hips are worse than her lower back. she reports she has always had issues with her back and hip off and on. she reports the hips began hurting worse about a year ago. she reports she has worked jobs on her feet all her life. she
--- NOTE | 2021-10-15 15:27 | PTOPEVAL ---
Thank you for referring Sanjuanita Pedersen to [facility].? The patient is scheduled to be seen for therapy? ____x/week for ___ weeks. Please review, sign, date and return this plan of care DONALD. I agree with and certify that the following plan of care is medically necessary. Referring Physician Date Admitting Provider: Attending Provider: JERSON HUDDLESTON Referring Provider: *PT Outpatient Evaluation Start: 08/20/21 07:21 Freq: Status: Active Protocol: Document 10/15/21 13:00 [facility] (Rec: 10/15/21 14:20 [facility] [id number]) Therapy Assessment Status Assessment Status Assessment Status Re-evaluation Outpatient Past Medical History Neurological History Hx Neurological Disorders No Significant History Cardiovascular History Hx Cardiac Disorders No Significant History Respiratory History Hx Asthma Yes: NO INHALERS Gastrointestinal History Hx Cholecystectomy Yes Genitourinary History Hx Kidney Stones Yes Musculoskeletal History Hx Arthritis Yes: GENERALIZED Hx Crutches or Walker Use Yes: CRUTCHES Query Text:If Yes, Enter Crutches, Walker, or Both in the Comment Hx Orthopedic Surgery Yes: TOE, NOSE Hematological History Hx Hematological Disorders No Significant History Endocrine History Hx Endocrine Disorders No Significant History HEENT History Hx Tonsillectomy Yes Hx Ear Surgery Yes Integumentary History Hx Skin Disorders No Significant History Reproductive History Hx Section Yes Psychosocial History Hx Psychiatric Disorders No Significant History Pain History History of Any Previous or Ongoing No Significant History Instance of Pain Anesthesia History Hx Anesthesia Reactions No Significant History Evaluation Information Problem Diagnosis low back and L hip pain Onset 08/15/21 Additional Evaluation Detail LEFS = 48.7% functionally declined Subjective Information Pt reports that since Query Text:As Reported By Patient/ beginning therapy, she has Family been feeling better. She used to have to require the assistance of her daughter to get into and out of a vehicle. She does not believe that the injection she was given at the end of August has helped her much. However, she believes that therapy has helped her hip to feel better. She states that simply laying
== END 2021-11-12 14:47 | disposition home or self-care (01) ==
LOC: CHSPT 07:42
PROVIDERS: PCP Physician Assistant
DX: M25.552 Pain in left hip (principal)
CPT/HCPCS: 97014; 97110; 97140; 97161; G0283

== ENCOUNTER 2021-08-20 10:01 | Outpatient (CLI) | payer OTHER, SELFPAY ==
--- NOTE | ~2021-08-20 | XR_ITS ---
EXAMINATION: XR chest 2V DATE: 08/20/2021 10:48 INDICATION: Chronic cough TECHNIQUE: PA and lateral views of the chest were obtained. COMPARISON: Chest radiograph dated 01/13/2007 FINDINGS: The lungs remain clear with no focal airspace opacities, pulmonary edema, pleural effusion or pneumot horax. The cardiomediastinal silhouette is normal. Bilateral breast implants. Cholecystectomy clips i n the upper abdomen. Mild lower thoracic levocurvature. Mild to moderate midthoracic spondylosis with chronic appearing minimal to mild anterior wedging of a couple midthoracic vertebral bodies, likely T7 and T8. IMPRESSION: 1. No acute cardiopulmonary disease. Reviewed, dictated and finalized at location A.
--- NOTE | ~2021-08-20 | XR_ITS ---
EXAMINATION: XR hip LT min 2V DATE: 08/20/2021 10:49 INDICATION: Dorsalgia with pain radiating down the right leg. TECHNIQUE: 2 views of left hip were obtained. COMPARISON: Pelvis radiograph 11/19/2020 FINDINGS: Bone alignment is normal. No fracture. There is mild left hip osteoarthritis. IMPRESSION: 1. Mild left hip osteoarthritis. Reviewed, dictated and finalized at location B.
--- NOTE | ~2021-08-20 | XR_ITS ---
EXAMINATION: XR sacroiliac joints min 3V DATE: 08/20/2021 10:48 INDICATION: Dorsalgia. Pain down left leg. TECHNIQUE: 3 views of the sacroiliac joints were obtained. COMPARISON: Pelvis radiograph 11/19/2020 FINDINGS: Bone alignment is normal. No fracture. There is mild osteoarthritis of the sacroiliac joint s. No evidence of inflammatory arthropathy. There are stones in right kidney. IMPRESSION: 1. Mild osteoarthritis of the sacroiliac joints. Reviewed, dictated and finalized at location B.
== END 2021-08-20 10:02 | disposition home or self-care (01) ==
LOC: CHSLAB 10:06 → CHSIMG 10:07
PROVIDERS: PCP Physician Assistant
DX: M25.552 Pain in left hip (principal); M54.9 Dorsalgia, unspecified; R05.3 Chronic cough
CPT/HCPCS: 71046; 72202; 73502

== ENCOUNTER 2021-09-08 15:13 | Emergency (ER) | payer OTHER, SELFPAY ==
[2021-09-08 15:40] VITALS: BP 152/97; PULSE 99; RESP 18; TEMP 36.3; O2SAT 100
--- NOTE | 2021-09-08 15:59 | ED.GENADULT ---
HPI - General Adult General Chief complaint: Ear Stated complaint: left ear pain Source: patient and family Mode of arrival: ambulatory Limitations: no limitations History of Present Illness HPI narrative: Sanjuanita is a 45F with a PMH of dental infections, asthma and back pain that presented to the ED with left ear pain worsening throughout the day. The ear is swollen and painful and is TTP. No drainage, fevers, chills or hearing changes. Related Data Home Medications Medication Instructions Recorded Confirmed furosemide 20 mg PO DAILY 09/08/21 09/08/21 Allergies Allergy/AdvReac Type Severity Reaction Status Date / Time hydrocodone AdvReac Intermediate Nausea and Verified 09/08/21 15:48 Vomiting Review of Systems Constitutional: Constitutional: Reports no additional constitutional complaints Eyes: Eyes: Reports no additional eye complaints ENT: Reports as per HPI Cardiovascular: Cardiovascular: Reports no additional cardiovascular complaints Respiratory: Respiratory: Reports no additional respiratory complaints Gastrointestinal: Gastrointestinal: Reports no additional gastrointestinal complaints Genitourinary: Genitourinary: Reports no additional female genitourinary complaints Musculoskeletal: Musculoskeletal: Reports no additional musculoskeletal complaints Integumentary/Breasts: Skin/Breast: Reports system reviewed and no additional complaints, except as docu Neurologic: Reports system reviewed and no additional complaints, except as documented Psychiatric: Psychiatric: Reports no additional psychiatric complaints Endocrine: Endocrine: Reports no additional endocrine complaints Hematologic/Lymphatic: Hematologic/Lymphatic: Reports no additional hematologic/lymphatic complaints Allergic/Immunologic: Allergic/Immunologic: Reports no additional allergic/immunologic complaints [facility] Past Medical History Medical History Asthma no inhalers Iliotibial band syndrome of both sides Lumbar radiculopathy, acute Vision changes Weight gain Surgical History Surgical History History of breast augmentation History of section History of cholecystectomy History of colonoscopy History of laparoscopy History of myringotomy History of robot-assisted laparoscopic hysterectomy History of surgery Fistulectomy History of tonsillectomy and adenoidectomy Family History Family History Other Arthritis Hypertension Paget disease of bone Social History Social History Smoking packs per day: 0.75 Smoking cigarettes per day: 15.0 Years smoked: 30 Smoking pack-years: 22.50 Tobacco type: cigarettes Alcohol intake: current Drinks per week: 3 Substance use: current Substance use type: does not use 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[employer] Gender identity (if verbalized by the patient): Female Spiritual care concerns: No Exam Const: General: no acute distress Orientation/consciousness: patient oriented x3 HENMT: Other: Left ear external canal was erythematous, swollen, TTP and had pre-auricular lymphadenopathy Eyes: Conjunctivae: conjunctivae normal Pupils: Equal, round and reactive pupils present Neck: Neck: normal visual inspection Chest: Chest palpation & inspection: normal inspection of the chest Resp: Effort & Inspection: normal respiratory effort, not labored and not tachypneic Cardio: Rate: regular rate Skin: General skin exam: normal color Rashes: no rashes Neuro: General: patient oriented x3 and moves all extremities Extrem: General: normal to inspection Psych: Mental Status: mental status grossly normal Course Course Emergency Course: Given toradol for pain and cipro PO (no ear drops in the ED) Gretel
[2021-09-08] MEDS: KETOROLAC 30 MG/ML VIAL (*BKC) IM (16:13)
[2021-09-08] MEDS: CIPROFLOXACIN 500 MG TAB PO (16:13)
== END 2021-09-08 16:25 | disposition home or self-care (01) ==
PROVIDERS: Emergency Provider Family Medicine; PCP Physician Assistant
DX: H60.92 Unspecified otitis externa, left ear (principal)
CPT/HCPCS: 96372; 99283; A9270; J1885

== ENCOUNTER 2021-12-24 18:09 | Outpatient (CLI) | payer OTHER, SELFPAY ==
[2021-12-24 18:49] LABS: Thyroid Stimulating Hormone 3.01 uIU/mL (0.36-3.74)
== END 2021-12-24 18:10 | disposition home or self-care (01) ==
LOC: CHSLAB 18:11
PROVIDERS: PCP Internal Medicine Endocrinology, Diabetes & Metabolism; Visit Provider Internal Medicine Endocrinology, Diabetes & Metabolism
DX: R79.89 Other specified abnormal findings of blood chemistry (principal)
CPT/HCPCS: 36415; 84443

== ENCOUNTER 2022-02-21 01:24 | Observation (INO) | payer OTHER, SELFPAY ==
--- NOTE | ~2022-02-21 | CT_ITS ---
EXAMINATION: CT abdomen pelvis w con DATE: 02/21/2022 04:08 INDICATION: Right upper and left upper quadrant abdominal pain. TECHNIQUE: Computed tomography (CT) of the abdomen and pelvis was performed with 100 cc Omnipaque 350 intravenous contrast. The dose-length product was 560.12 mGy-cm. Automated exposure control and iter ative reconstruction technique were employed. COMPARISON: CT dated 08/10/2016. FINDINGS: Lung bases are unremarkable. No significant pleural or pericardial effusion. Heart size nor mal. There is enlargement of the pancreas with surrounding fluid, consistent with acute pancreatitis. No evidence for pancreatic necrosis, abscess or pseudocyst formation. Status post cholecystectomy. There are right renal calcifications which are stable, possibly stones w ithin calyceal diverticula. No hydronephrosis. The liver, spleen, adrenal glands and left kidney are unremarkable. Nonobstructive bowel gas pattern. Normal appendix. No abnormal pelvic masses or fluid c ollections. Mild lumbar spondylosis. Mild osteoarthritis of the hips. There is dextroscoliosis. Small fat-containing umbilical hernia. There are breast implants. IMPRESSION: 1. Acute uncomplicated pancreatitis. 2: Right renal calcifications, possibly stones within calyceal diverticula. Reviewed, dictated and finalized at location A.
[2022-02-21 01:25] VITALS: BP 128/81; PULSE 108; RESP 18; TEMP 35.9; O2SAT 100
[2022-02-21] MEDS: SODIUM CHLORIDE 0.9% IV 1,000 ML 125 ML IV CONT (01:45)
[2022-02-21] MEDS: KETOROLAC 30 MG/ML VIAL (*BKC) IV PUSH (01:45)
[2022-02-21 03:25] VITALS: BP 125/84; PULSE 86; RESP 16; O2SAT 100
[2022-02-21] MEDS: HYDROmorphone HCL INJ (*CRX) 2 MG/ML VIAL 1 MG IV PUSH (03:45)
[2022-02-21 04:08] LABS: Alanine Aminotransferase 21 U/L (14-59); Albumin Level 3.4 g/dL (3.4-5.0); Alkaline Phosphatase 75 U/L (46-116); Anion Gap 5 mmol/L (8-16); Aspartate Amino Transferase 14 U/L (15-37); Bilirubin,Total 0.5 mg/dL (0.00-1.00); Blood Urea Nitrogen 14 mg/dL (7-18); Calcium 8.7 mg/dL (8.5-10.1); Carbon Dioxide 30 mmol/L (21-32); Chloride 101 mmol/L (98-108); Estimated Glomerular Filt Rate > 60; Glucose 90 mg/dL (70-99); Lactic Acid Reflex 1.3 mmol/L (0.4-2.0); Osmolality Calculated 282 mOsm/kg (285-295); Potassium 3.8 mmol/L (3.5-5.1); Sodium 136 mmol/L (136-145); Total Protein 6.8 g/dL (6.4-8.2); Troponin I 4.8 ng/L (0.00-60.4)
[2022-02-21 04:09] LABS: Lipase > 1500 U/L (73-393)
[2022-02-21 04:10] LABS: Basophils Absolute Auto 0.08 K/mm3 (0.00-0.10); Basophils Percent Auto 0.6 % (0.0-1.0); Eosinophils Absolute Auto 0.15 K/mm3 (0.02-0.50); Eosinophils Percent Auto 1.1 % (1.0-6.0); Hematocrit 42.3 % (35.0-49.0); Hemoglobin 13.9 g/dL (12.0-15.0); Immature Granulocyte Absolute 0.17 K/mm3 (0.00-0.00); Immature Granulocyte Percent A 1.2 % (0.0-0.0); Lymphocytes Absolute Auto 3.05 K/mm3 (1.10-4.50); Lymphocytes Percent Auto 21.5 % (18.0-42.0); Mean Corpuscular HGB Conc 32.9 g/dL (32.0-36.0); Mean Corpuscular Hemoglobin 30.5 pg (27.0-31.0); Mean Platelet Volume 9.3 fl (9.2-11.8); Monocytes Absolute Auto 1.01 K/mm3 (0.10-0.90); Monocytes Percent Auto 7.1 % (2.0-11.0); Neutrophils Absolute Auto 9.7 K/mm3 (1.7-7.2); Neutrophils Percent Auto 68.5 % (50.0-70.0); Platelet Count Result 424 K/mm3 (150-420); Red Blood Count 4.55 M/mm3 (4.20-5.40); Red Cell Distribution Width 12.6 % (11.6-14.4); White Blood Count 14.2 K/mm3 (4.8-10.8)
--- NOTE | 2022-02-21 04:17 | PC.NURSE ---
pt is currently resting on stretcher, nad noted. pt is awaiting erp decision at this time. ivf infusing as ordered without difficulty. pt reports pain has improved post medication. will continue to monitor.
--- NOTE | 2022-02-21 04:24 | ECG_ITS ---
Measurements Intervals [place] Rate: 78 P: -36 VT: 124 QRS: 85 QRSD: 105 T: 73 QT: 383 QTc: 438 Interpretive Statements SINUS RHYTHM INCOMPLETE RIGHT BUNDLE BRANCH BLOCK [90+ ms QRS DURATION, TERMINAL R IN V1/V2, 40+ ms S IN I/aVL/V4/V5/V6] CANNOT RULE OUT SEPTAL MYOCARDIAL INFARCTION , OF INDETERMINATE AGE [40+ ms Q WAVE IN V1/V2] COMPARED TO ECG 05/28/2020 16:04:55 HEART RATE IS REDUCED NO OTHER SIGNIFICANT CHANGE Electronically Signed On 02-21-2022 14:15:27 CDT by Nura Syed M.D.
--- NOTE | 2022-02-21 04:26 | PC.NURSE ---
0210 PT IS AWARE OF NEED FOR URINE SPECIMEN, CUP AT BEDSIDE. PT HAS IVF INFUSING ORDERED WITHOUT DIFFICULTY. WILL CONTINUE TO MONITOR. LATE ENTRIES DUE TO COMPUTERS BEING DOWN.
--- NOTE | 2022-02-21 04:27 | PC.NURSE ---
0230 CT NOTIFIED PT IS READY [address] AT THIS TIME, REPORTED PAIN WAS RETURNING, ERP NOTIFIED AND MEDICATIONS TO BE GIVEN UPON PT RETURN TO ER. WILL CONTINUE TO MONITOR. 0415 PT IS RESTING WITHOUT DIFFICULTY.
[2022-02-21 04:45] VITALS: BP 111/67; PULSE 77; RESP 14; O2SAT 100
--- NOTE | 2022-02-21 05:54 | ED.ABDPAIN ---
HPI - Abdominal Pain General Chief Complaint: Abdominal Pain Stated Complaint: Sickness Time Seen by Provider: 02/21/22 05:50 Source: patient Mode of arrival: ambulatory Limitations: no limitations History of Present Illness HPI narrative: this is a 46 year female with a history hypothyroidism and hypertension presents to the ER with abdominal pain and bloating sensation and fullness started earlier this morning patient tried to take [id number] preparations medications with minimal relief there is some nausea with no vomiting no diarrhea constipation there is no dysuria or hematuria no fever chills. The patient has a moderate alcohol history, status post cholecystectomy. MD elicited complaint: abdominal pain Onset (ago): hour(s) Pain Consistency: constant Location: [facility] Severity: severe Pain scale (0-10): 9 Quality: fullness Radiation: back Migration to: no migration Exacerbating factors: eating Related Data Home Medications Medication Instructions Recorded Confirmed furosemide 20 mg tablet 20 mg PO DAILY 09/08/21 02/21/22 levothyroxine 25 mcg tablet 25 mcg PO DAILY 02/21/22 02/21/22 lisinopril 10 mg tablet 10 mg PO DAILY 02/21/22 02/21/22 Allergies Allergy/AdvReac Type Severity Reaction Status Date / Time hydrocodone AdvReac Intermediate Nausea and Verified 02/21/22 04:16 Vomiting Review of Systems Review of Systems: All systems reviewed & are unremarkable except as noted in HPI and below PMFSH Past Medical History Medical History Acetabular labrum tear Asthma no inhalers Iliotibial band syndrome of both sides Lumbar radiculopathy, acute Vision changes Weight gain Surgical History Surgical History History of breast augmentation History of section History of cholecystectomy History of colonoscopy History of laparoscopy History of myringotomy History of robot-assisted laparoscopic hysterectomy History of surgery Fistulectomy History of tonsillectomy and adenoidectomy Family History Family History Other Arthritis Hypertension Paget disease of bone Social History Social History Smoking packs per day: 0.75 Smoking cigarettes per day: 15.0 Years smoked: 30 Smoking pack-years: 22.50 Smoking status: Current every day smoker Tobacco type: cigarettes Alcohol intake: current Drinks per week: 3 Substance use: current Substance use type: does not use 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[employer] Gender identity (if verbalized by the patient): Female Spiritual care concerns: No Exam Const: General: healthy appearing, no acute distress and alert Limitations: no limitations HENMT: Head: normal to inspection Face/Nose/Sinus: Normal external nose present Face and sinus: normal facial exam Mouth: Yes Normal oral and palatal mucosa present Eyes: Conjunctivae: conjunctivae normal Pupils: Equal, round and reactive pupils present Neck: Neck: normal visual inspection, no lymphadenopathy and no meningeal signs Chest: Chest palpation & inspection: normal inspection of the chest Resp: Effort & Inspection: normal respiratory effort Auscultation: clear to auscultation bilaterally Cardio: Rate: regular rate Rhythm: regular rhythm GI: GI Palp: Yes Soft to palpation, Yes Tenderness to palpation present (GI) and Yes Guarding due to palpation present (GI) : General: Yes bladder normal to palpation Back/Spine/Pelvis: Back: no CVA tenderness Skin: General skin exam: normal color Rashes: no rashes Wounds: no wounds Neuro: General: patient oriented x3, moves all extremities, no meningeal signs and no focal motor deficits Cranial nerves: Yes Nystagmus not present Extrem: General: normal to inspection, no clubbing, cy
--- NOTE | 2022-02-21 06:31 | PC.NURSE ---
pt has been accepted for admission to room 204. pt is resting without distress. will continue to monitor.
--- NOTE | 2022-02-21 06:38 | PC.NURSE ---
see down time forms
[2022-02-21 06:50] VITALS: BP 110/70; PULSE 70; RESP 14; O2SAT 99
--- NOTE | 2022-02-21 07:10 | PC.NURSE ---
Patient arrived on unit at 0710 via w/c from ED. Patient able to transfer from w/c to bed without assistance. Patient has I pad and cell phone with her in her room. Patient orientated to bed controls, hospital environment and call light. Verbalized understanding.
[2022-02-21] MEDS: HYDROmorphone HCL INJ (*CRX) 2 MG/ML VIAL 0.5 MG IV PUSH ×3 (09:08→18:17)
[2022-02-21 09:27] VITALS: BMI 24.1
--- NOTE | 2022-02-21 15:13 | PC.NURSE ---
Patient NPO all day r/t diagnosis. Tolerating well. Pain well controlled at this time. Patient resting comfortably.
[2022-02-21 16:00] VITALS: BP 117/69; PULSE 68; RESP 16; TEMP 36.3; O2SAT 98
--- NOTE | 2022-02-21 20:50 | PC.NURSE ---
Pt has stated twice now that if the DIRECTOR VISUAL is not present by 08:00 02/22/2022 she will sign AMA papers and leave. This RN communicated to the pt understanding of pt wanting to practice autonomy and explained that this RN will do with the greatest to his ability to make sure her stay is comfortable and needs are met. Charge nurse Bety ROMAN notified of pt statements. Pt is otherwise in a cooperative mood.
[2022-02-21] MEDS: MORPHINE SULFATE (*CRX) 2 MG/ML INJ IV PUSH (20:55)
[2022-02-21] MEDS: diphenhydrAMINE HCl INJ 50 MG/ML VIAL 25 MG IV PUSH (20:59)
[2022-02-21 23:02] VITALS: BP 105/66; PULSE 89; RESP 16; TEMP 36.5; O2SAT 98
[2022-02-22] MEDS: HYDROmorphone HCL INJ (*CRX) 2 MG/ML VIAL 0.5 MG IV PUSH ×3 (00:12→07:39)
[2022-02-22] MEDS: MORPHINE SULFATE (*CRX) 2 MG/ML INJ IV PUSH (02:20)
--- NOTE | 2022-02-22 02:39 | PC.NURSE ---
Pt expressed concern about her urine and stated My urine is potent. This RN communicated to charge nurse Bety ROMAN about pt's concerns and Luiz [employer] was messaged requesting an order for an UA at 02:33. Awaiting further orders.
[2022-02-22 05:35] LABS: Add Urine Microscopic? YES; Appearance Urine Cloudy (Clear); Bilirubin Urine Negative (Negative); Blood Urine 1+ (Negative); Color Urine Yellow (Yellow); Glucose Urine UA Negative (Negative); Ketones Urine Trace (Negative); Leukocyte Esterase Ur Negative (Negative); Nitrate Urine Positive (Negative); Protein Urine Negative (Negative); Specific Grav Ur 1.015 (1.010-1.020); Urobilinogen Urine 0.2 mg/dL (0.2-1.0)
[2022-02-22 05:41] LABS: Bacteria Urine 3+ /hpf; RBC Urine 21-50 /hpf (0-2); Squamous Epithelial Cell Urine Few /hpf (Few)
[2022-02-22 06:52] LABS: Hematocrit 43.2 % (35.0-49.0); Mean Corpuscular HGB Conc 32.4 g/dL (32.0-36.0); Mean Corpuscular Hemoglobin 30.9 pg (27.0-31.0); Mean Corpuscular Volume 95.4 fL (78.0-102.0); Platelet Count Result 410 K/mm3 (150-420); Red Blood Count 4.53 M/mm3 (4.20-5.40); Red Cell Distribution Width 12.9 % (11.6-14.4); White Blood Count 11.8 K/mm3 (4.8-10.8)
[2022-02-22 07:08] LABS: Alanine Aminotransferase 24 U/L (14-59); Albumin Level 3.2 g/dL (3.4-5.0); Alkaline Phosphatase 80 U/L (46-116); Anion Gap 7 mmol/L (8-16); Aspartate Amino Transferase 16 U/L (15-37); Bilirubin,Total 0.9 mg/dL (0.00-1.00); Blood Urea Nitrogen 18 mg/dL (7-18); Calcium 8.1 mg/dL (8.5-10.1); Carbon Dioxide 28 mmol/L (21-32); Chloride 104 mmol/L (98-108); Estimated CRCL calculation 86 ml/min; Estimated Glomerular Filt Rate > 60; Glucose 55 mg/dL (70-99); Magnesium 1.9 mg/dL (1.8-2.4); Osmolality Calculated 287 mOsm/kg (285-295); Potassium 4.2 mmol/L (3.5-5.1); Sodium 139 mmol/L (136-145); Total Protein 6.6 g/dL (6.4-8.2)
[2022-02-22 07:19] LABS: Lipase 4107 U/L (73-393)
--- NOTE | 2022-02-22 07:34 | PM.SD2 ---
Same Day Admit/Disch: HPI History of Present Illness Chief complaint: Acute Pancreatitis Narrative: Sanjuanita Pedersen is a 46 year old female that reported to the emergency department with abdominal pain and lower back pain. Patient has a past medical history of hypertension and occasional peripheral edema. According to patient she woke up yesterday morning with pain to her lower back in pain to her upper right and left quadrant of her abdomen. She denies any other associated symptoms. Imaging indicated acute pancreatitis without complications and a renal stone which is not new to the patient. Patient notes that she has a kidney stone and a cyst that is not new to her. WBCs 14.2, hemoglobin 13.9, hematocrit 42.3, platelets 424, sodium 136, potassium 3.8, BUN 14, creatinine 0.73, lactic acid 1.3, total bilirubin 0.5, AST 14, ALT 21, troponin 4.8, lipase 1500. Patient is very aggravated and notes that if we will let her go smoke a cigarette she will remain as an inpatient today explained hospital policies. Patient has to leave AMA. Patient will be given pain medication along with Levaquin to treat her urinary tract infection along with her pancreatitis she was instructed to drink plenty of fluids. [facility] Past Medical History Medical History Acetabular labrum tear Asthma no inhalers Iliotibial band syndrome of both sides Lumbar radiculopathy, acute Vision changes Weight gain Surgical History Surgical History History of breast augmentation History of section History of cholecystectomy History of colonoscopy History of laparoscopy History of myringotomy History of robot-assisted laparoscopic hysterectomy History of surgery Fistulectomy History of tonsillectomy and adenoidectomy Family History Family History Other Arthritis Hypertension Paget disease of bone Social History Social History Smoking packs per day: 0.75 Smoking cigarettes per day: 15.0 Years smoked: 30 Smoking pack-years: 22.50 Smoking status: Current every day smoker Tobacco type: cigarettes Second hand tobacco smoke exposure: Yes Alcohol intake: current Drinks per week: 1 Substance use: former Substance use type: former substance user Other substance usage details: cocaine Additional occupation/education comments: [employer] Gender identity (if verbalized by the patient): Female Spiritual care concerns: No Same Day Admit/Disch: Med Pre-admit Medications Home Medications Medication Instructions Recorded Confirmed Type furosemide 20 mg tablet 20 mg PO DAILY 09/08/21 02/21/22 History lisinopril 10 mg tablet 10 mg PO DAILY 02/21/22 02/21/22 History levofloxacin 750 mg tablet 750 mg PO DAILY 10 days #10 tabs 02/22/22 Rx tramadol 100 mg tablet 100 mg PO Q4-6H PRN pain #10 tabs 02/22/22 Rx Exam Narrative: GENERAL: This is a well-nourished, well-developed patient, in no apparent distress. HEAD: normocephalic, atraumatic. EYES: PERRL. Sclera clear/white. Vision is grossly intact. EARS: External ears normal, auditory canals clear and without drainage, TMs normal without perforation. Hearing grossly intact. NOSE: External nose normal with no obvious nasal discharge, nares without redness, no rhinorrhea. THROAT: Mucous membranes moist, posterior pharynx clear. NECK: Neck supple, non-tender without lymphadenopathy, masses or thyromegaly. CARDIOVASCULAR: Regular rate and rhythm without murmurs, gallops, or rubs. RESPIRATORY: Clear to auscultation. Breath sounds equal bilaterally. No wheezes, rales, or rhonchi. GASTROINTESTINAL: Epigastric with right upper quadrant tenderness bowel sounds are active. No hepato-splenomegaly, or palpable masses. No guarding. SKIN: warm, intact with no suspiciou
[2022-02-22 07:35] VITALS: BP 112/64; PULSE 92; RESP 18; TEMP 36.3; O2SAT 100
[2022-02-22] MEDS: levoFLOXacin 500 MG TABLET PO (07:42)
--- NOTE | 2022-02-22 08:30 | PC.NURSE ---
Luiz MANAGER LABOR DELIVERY spoke with patient about care plan. Patient states she wants to leave now. States I appreciate what you all have done for me, but I have to be able to smoke. Patient offered nicotine patch, denied it. This nurse discussed what AMA means and the risks associated. Patient states understanding. IV site removed, tip intact. dressing applied to site. All belongings gathered together and sent home with patient. AMA paper work signed by gila, witnessed by this nurse and signed by Luiz CARDENAS. Patient denies any questions at discharge.
--- NOTE | 2022-02-24 11:23 | PC.NURSE ---
Pt states she received and understood her discharge instructions. Pt states she is not on thyroid medicine and wants it removed from her medication reconciliation.
== END 2022-02-22 08:30 | disposition left against medical advice (07) ==
LOC: CHSED 06:29 → CHS2ND 06:39
PROVIDERS: Nurse Practitioner; Admitting Provider Internal Medicine; Emergency Provider Emergency Medicine; PCP Internal Medicine Endocrinology, Diabetes & Metabolism; Visit Provider Internal Medicine
DX: K85.90 Acute pancreatitis without necrosis or infection, unspecified (principal); N39.0 Urinary tract infection, site not specified; E03.9 Hypothyroidism, unspecified; I10 Essential (primary) hypertension; J45.909 Unspecified asthma, uncomplicated; N20.0 Calculus of kidney; B96.20 Unspecified Escherichia coli [E. coli] as the cause of diseases classified elsewhere; F17.210 Nicotine dependence, cigarettes, uncomplicated; Z90.49 Acquired absence of other specified parts of digestive tract
CPT/HCPCS: 36415; 74177; 80053; 81001; 83605; 83690; 83735; 84484; 85025; 85027; 87077; 87086; 87088; 87186; 93005; 96361; 96374; 96375; 96376; 99285; A9270; G0378; G0379; J1170; J1200; J1885; J2270; J7030; Q9967

== ENCOUNTER 2022-05-14 07:54 | Outpatient (RCR) | payer OTHER, SELFPAY ==
--- NOTE | 2022-05-14 07:34 | PTOPEVAL1 ---
Assessment and note entered by Nura Villanueva Evaluation Information Assessment Status Evaluation Diagnosis right shoulder pain Onset 03/14/22 Subjective Information Pt. reports that she woke with right shoulder pain about 2 months ago. She describes pain in both the front and back of the right shoulder. She states that reaching behind her back and reaching overhead increase her pain. She states that putting on a bra is painful and difficult. She reports that she cannot sleep on the right side due to pain. She reports that her activity level has decreased due to shoulder pain. She reports that her goal is to reduce her pain in the right shoulder. Pt. is left hand dominant. Reported Pain Level Pain Score 2: Self Report Assessment PT Clinical Summary Pt. is a 46 year old female who enters the clinic with right shoulder pain. She presents with indications of impingement syndrome on this date. Pt. currently presents with right shoulder stiffness, impaired postural awareness, weakness and pain. Continued treatment is indicated in order to improve these areas to allow for improved comfort with IADL performance. Plan of Care Interventions Electrical Stimulation,Hot Pack/Cold Pack,Manual Therapy,Neuro Re-education,Therapeutic Activities, Therapeutic Exercise PT Services Indicated Yes Treatment Frequency and 2x/week x 10 visits Duration These treatments will address the objective and functional deficits as defined above. The patient will be advanced safely and appropriately in order for the patient to progress towards his/her prior level of function. Additional exercises will be introduced and as well as a comprehensive home exercise program upon discharge, if needed, ?to ensure carryover of functional gains achieved in the clinic. This treatment plan has been reviewed and agreement upon by the patient.
--- NOTE | 2022-06-30 12:48 | PCPTNOTE ---
Pt. attended 1 treatment session on 05/14/22. She has failed to return to the clinic and cannot be contacted via telephone. Refer to intial evaluation for pt. discharge status.
== END 2022-05-14 15:47 | disposition home or self-care (01) ==
LOC: CHSPT 07:54
PROVIDERS: Visit Provider Orthopaedic Surgery
DX: M25.811 Other specified joint disorders, right shoulder (principal); M75.81 Other shoulder lesions, right shoulder
CPT/HCPCS: 97014; 97110; 97161; G0283

== ENCOUNTER 2023-06-27 23:42 | Observation (INO) | payer OTHER, SELFPAY ==
--- NOTE | ~2023-06-27 | CT_ITS ---
EXAMINATION: CT abdomen pelvis w con DATE: 06/28/2023 01:38 INDICATION: Generalized abdominal pain TECHNIQUE: Computed tomography (CT) of the abdomen and pelvis was performed with 100 cc Omnipaque 350 intravenous contrast. The dose-length product was 490.75 mGy-cm. Automated exposure control and iter ative reconstruction technique were employed. COMPARISON: CT dated 02/21/2022 FINDINGS: There is dependent atelectasis. There are groundglass opacities in the lower lobes. There a re breast implants. Heart size normal. There is thickening of the pancreas with surrounding fluid, consistent with acute pancreatitis. No ev idence for pancreatic necrosis or pseudocyst formation. There are calyceal cyst stones in the right k [place]ney. The liver, spleen, left adrenal gland and left kidney are unremarkable. Status post cholecyste ctomy. Small fat-containing umbilical hernia. There is low-density mass right adrenal gland mass nina uring 2.2 cm, likely benign adenoma. IMPRESSION: 1. Acute pancreatitis. Reviewed, dictated and finalized at location A. DELIVERY PROFESSIONAL IMPRESSION: 1. Acute pancreatitis.
[2023-06-27 23:42] VITALS: TEMP 36.4
[2023-06-28] VITALS (34 sets, daily range): BP systolic 107–138; BP diastolic 59–86; PULSE 68–86; RESP 16–18; TEMP 36.2–37; O2SAT 82–100; BMI 28.1
--- NOTE | 2023-06-28 00:18 | PC.NURSE ---
PT ON BEDSIDE COMMODE, DELAY WITH TX DUE TO PT REQUESTING COMMODE. PT HAS BEEN INSTRUCTED MULTIPLE TIMES TO CHANGE INTO HOSPITAL GOWN FOR TREATMENT. PT REMAINS IN STREET CLOTHES. WILL CONTINUE TO MONITOR.
[2023-06-28] MEDS: SODIUM CHLORIDE 0.9% IV 1,000 ML 999 ML IV CONT ×2 (00:33→04:40)
[2023-06-28] MEDS: ONDANSETRON INJ 4 MG/2 ML VIAL IV PUSH (00:35)
[2023-06-28] MEDS: MORPHINE SULFATE (*CRX) 4 MG/ML INJ IV PUSH (00:36)
--- NOTE | 2023-06-28 00:45 | PC.NURSE ---
PT IS NOW LYING STILL ON STRETCHER, REPORTS PAIN IS MUCH BETTER 2/10. PT HAS IVF INFUSING ORDERED WITHOUT DIFFICULTY. PT IS AWAITING LAB RESULTS AND CT. PT IS PLACED ON O2 DUE TO STAT OF 82% POST MORPHINE ADMINISTRATION. WILL CONTINUE TO MONITOR.
[2023-06-28 00:54] LABS: Hematocrit 40.8 % (35.0-49.0); Hemoglobin 13.1 g/dL (12.0-15.0); Mean Corpuscular HGB Conc 32.1 g/dL (32.0-36.0); Mean Corpuscular Hemoglobin 29.5 pg (27.0-31.0); Mean Corpuscular Volume 91.9 fL (78.0-102.0); Mean Platelet Volume 9.1 fl (9.2-11.8); Platelet Count Result 392 K/mm3 (150-420); Red Blood Count 4.44 M/mm3 (4.20-5.40); Red Cell Distribution Width 13.3 % (11.6-14.4); White Blood Count 15.5 K/mm3 (4.8-10.8)
[2023-06-28 00:59] LABS: Alanine Aminotransferase 65 U/L (14-59); Albumin Level 3.4 g/dL (3.4-5.0); Alkaline Phosphatase 73 U/L (46-116); Anion Gap 6 mmol/L (8-16); Aspartate Amino Transferase 46 U/L (15-37); Bilirubin,Total 0.3 mg/dL (0.00-1.00); Blood Urea Nitrogen 18 mg/dL (7-18); Calcium 8.5 mg/dL (8.5-10.1); Carbon Dioxide 30 mmol/L (21-32); Chloride 101 mmol/L (98-108); Estimated CRCL calculation 64 ml/min; Estimated Glomerular Filt Rate > 60; Glucose 104 mg/dL (70-99); Osmolality Calculated 285 mOsm/kg (285-295); Potassium 3.7 mmol/L (3.5-5.1); Sodium 137 mmol/L (136-145); Total Protein 6.8 g/dL (6.4-8.2)
[2023-06-28 01:02] LABS: Lactic Acid Reflex 0.9 mmol/L (0.4-2.0)
[2023-06-28 01:06] LABS: Bilirubin Urine Negative (Negative); Blood Urine 2+ (Negative); Glucose Urine UA Negative (Negative); Ketones Urine Trace (Negative); Leukocyte Esterase Ur 3+ LEU/UL (Negative); Nitrate Urine Positive (Negative); Protein Urine Negative (Negative); Urobilinogen Urine 0.2 mg/dL (0.2-1.0)
[2023-06-28 01:14] LABS: Add Urine Microscopic? YES; Amorphous Sediment Urine Heavy; Appearance Urine Turbid (Clear); Bacteria Urine 2+ /hpf; Color Urine Yellow (Yellow); Squamous Epithelial Cell Urine Occasional /hpf (Few)
[2023-06-28 01:17] LABS: Lipase 1930 U/L (16-77)
--- NOTE | 2023-06-28 01:36 | PC.NURSE ---
PT IS RESTING ON STRETCHER, HAS RETURNED FROM CT. MOTHER IS AT BEDSIDE. PT IS AWAITING RESULTS AT THIS TIME. WILL CONTINUE TO MONITOR.
[2023-06-28 01:48] LABS: Total Cells Counted 100
[2023-06-28 01:49] LABS: Band Neutrophils Percent 0 % (0-6); Basophils Absolute Manual 0.15 K/mm3 (0-0.1); Basophils Percent Manual 1 % (0-1); Eosinophils Absolute Manual 0.31 K/mm3 (0.02-0.5); Eosinophils Percent Manual 2 % (1-6); Lymphocytes Absolute Manual 5.42 K/mm3 (1.1-4.5); Lymphocytes Percent Manual 35 % (18-44); Monocytes Absolute Manual 1.08 K/mm3 (0.1-0.90); Monocytes Percent Manual 7 % (3-9); Neutrophils Absolute Manual 8.52 K/mm3 (1.7-7.2); Neutrophils Percent Manual 55 % (46-73); Platelet Estimate Adequate (Adequate); Schistocytes None Seen (NORMAL)
--- NOTE | 2023-06-28 02:50 | PC.NURSE ---
NO CHANGE IN PT STATUS. MOTHER REMAINS AT BEDSIDE. PT IS CURRENTLY SLEEPING ON STRETCHER. PT IS WAITING CT RESULTS. WILL CONTINUE TO MONITOR.
--- NOTE | 2023-06-28 04:14 | PC.NURSE ---
no change in pt status. pt is sleeping on stretcher with mother at bedside. ct results were finalized and erp has reviewed. pt is to be admitted to [facility] for treatment. pt to be admitted to room 204. will continue to monitor.
--- NOTE | 2023-06-28 04:15 | ED.ABDPAIN ---
HPI - Abdominal Pain General Chief Complaint: Abdominal Pain Stated Complaint: ABD Pain Time Seen by Provider: 06/28/23 00:00 Source: patient Mode of arrival: ambulatory Limitations: no limitations History of Present Illness HPI narrative: Year old female with a significant past medical history that presents today for abdominal pain. Patient does have a history pancreatitis she is a drinker. She states this feels the same like last time she had pancreatitis. She says she has abdominal pain that is diffuse. She does admit to drinking recently. She denies any other systemic symptoms. MD elicited complaint: abdominal pain Pertinent past history: other (Pancreatitis) Onset (ago): hour(s) Pain Consistency: constant Location: diffuse Severity: severe Pain scale (0-10): 8 Quality: cramping and stabbing Exacerbating factors: eating and movement Relieving factors: rest Associated symptoms: denies other symptoms Treatments prior to arrival: NSAIDs Related Data Home Medications Medication Instructions Recorded Confirmed No Home Medications 06/27/23 06/27/23 Allergies Allergy/AdvReac Type Severity Reaction Status Date / Time hydrocodone AdvReac Intermediate Nausea and Verified 06/27/23 23:46 Vomiting Review of Systems Review of Systems: All systems reviewed & are unremarkable except as noted in HPI and below Constitutional: Constitutional: Reports no additional constitutional complaints Eyes: Eyes: Reports no additional eye complaints ENT: Reports system reviewed and no additional complaints, except as documented Cardiovascular: Cardiovascular: Reports no additional cardiovascular complaints Respiratory: Respiratory: Reports no additional respiratory complaints Gastrointestinal: Gastrointestinal: Reports as per HPI Genitourinary: Genitourinary: Reports no additional female genitourinary complaints Musculoskeletal: Musculoskeletal: Reports no additional musculoskeletal complaints Integumentary/Breasts: Skin/Breast: Reports system reviewed and no additional complaints, except as docu Neurologic: Reports system reviewed and no additional complaints, except as documented Psychiatric: Psychiatric: Reports no additional psychiatric complaints Endocrine: Endocrine: Reports no additional endocrine complaints Hematologic/Lymphatic: Hematologic/Lymphatic: Reports no additional hematologic/lymphatic complaints Allergic/Immunologic: Allergic/Immunologic: Reports no additional allergic/immunologic complaints PMFSH Past Medical History Medical History Acetabular labrum tear Asthma no inhalers Iliotibial band syndrome of both sides Impingement of right shoulder Lumbar radiculopathy, acute Pancreatitis Right rotator cuff tendinitis Vision changes Weight gain Surgical History Surgical History History of breast augmentation History of section History of cholecystectomy History of colonoscopy History of laparoscopy History of myringotomy History of robot-assisted laparoscopic hysterectomy History of surgery Fistulectomy History of tonsillectomy and adenoidectomy Family History Family History Other Arthritis Hypertension Paget disease of bone Social History Social History Smoking packs per day: 1 Smoking cigarettes per day: 20.0 Years smoked: 30 Smoking pack-years: 30.00 Smoking status: Current every day smoker Tobacco type: cigarettes Second hand tobacco smoke exposure: Yes Alcohol intake: current Drinks per week: 1 Substance use: former Substance use type: does not use Other substance usage details: cocaine Do You Feel Safe in your Home?: Yes Lack of Transportation: No Lack of Food: Sometimes True Current Housing: I Have Housing Concer
[2023-06-28] MEDS: MORPHINE SULFATE (*CRX) 2 MG/ML INJ IV PUSH ×2 (05:26→09:50)
--- NOTE | 2023-06-28 07:41 | PM.IMHP ---
H&P: HPI History of Present Illness Date/Time: 06/28/23 07:41 Chief Complaint: Abdominal pain Narrative: This is a 47-year-old female With a significant past medical history of asthma, Pancreatitis, half a pack per day smoker who presented to the hospital today with abdominal pain. patient stated that she started have an abdominal pain yesterday with associated nausea and abdominal bloating. she is reporting some flank pain. She denies any fever, chills, vomiting, diarrhea, chest pain, shortness a breath. She does endorse constipation, abdominal pain, nausea. She states she had 1 episode of acute pancreatitis a couple years back which was the last 1 she was worked up for. She does see GI doctor however she has not been to the GI doctor in a while. She does get regular colonoscopies with polyp removal every 2 years as she has had polyps adenomas. She does report some leg swelling in the past as well and was supposed to follow-up with a warp yarn sorter but could never find the time to get to [place] and see the doctor. She states her only past medical history is asthma which she does not take an inhaler for. I talked to her about the use of a rescue inhaler especially with spring season coming up. We will discharge her with 1 tomorrow. Workup in the hospital includes a CT of the abdomen pelvis with contrast which revealed acute pancreatitis. Initial labs revealed a white blood cell count of 15.5, absolute neutrophils 8.52, AST 46, ALT 65, total bili 0.3, lipase 1930. Patient also had a UA which shows trace ketones, 2+ blood, positive nitrate, 3+ leukocytes, 6-10 urine RBCs, 10-15 urine wbc's, 2+ bacteria. Urine culture was obtained and is pending. Patient was given 2 L of normal saline while in the ED along with pain medication and nausea medication. She was not started on any antibiotics at that time. I went ahead and ordered Rocephin 1 g daily while we await the urine cultures. When reviewing her past history she did have E coli in her urine on 02/22/2022. Review of Systems Review of Systems: All systems reviewed & are unremarkable except as noted in HPI and below Constitutional: Constitutional: Reports as per HPI and Reports no additional constitutional complaints Eyes: Eyes: Reports as per HPI and Reports no additional eye complaints ENT: Reports system reviewed and no additional complaints, except as documented and Reports as per HPI Cardiovascular: Cardiovascular: Reports as per HPI and Reports no additional cardiovascular complaints Respiratory: Respiratory: Reports as per HPI and Reports no additional respiratory complaints Gastrointestinal: Gastrointestinal: Reports as per HPI and Reports no additional gastrointestinal complaints Genitourinary: Genitourinary: Reports no additional female genitourinary complaints and Reports as per HPI Musculoskeletal: Musculoskeletal: Reports no additional musculoskeletal complaints and Reports as per HPI Integumentary/Breasts: Skin/Breast: Reports system reviewed and no additional complaints, except as docu and Reports as per HPI Neurologic: Reports system reviewed and no additional complaints, except as documented and Reports as per HPI Psychiatric: Psychiatric: Reports no additional psychiatric complaints and Reports as per HPI [facility] Past Medical History Medical History Acetabular labrum tear Asthma no inhalers Iliotibial band syndrome of both sides Impingement of right shoulder Lumbar radiculopathy, acute Pancreatitis Right rotator cuff tendinitis Vision changes Weight gain Surgical History Surgical History History of breast augmentation History of section History of cholecystectomy History of colonoscopy History of laparoscopy History of myringotomy History of robot-assisted laparoscopic hysterectomy History of surgery Fistulectomy History of t
[2023-06-28] MEDS: FUROSEMIDE 10 MG TABLET PO (16:22)
--- NOTE | 2023-06-28 17:23 | PC.NURSE ---
Pt called out and stated she wanted her IV out and to go home. This RN went to the room and pt stated she wanted to leave. She said there was no problems, she just wanted to be at home. Pt's IV was removed and risk and benefits were explained regarding leaving AMA. Pt signed paperwork and ambulated self out of hospital. RONALD Albert notified by charge nurse.
--- NOTE | 2023-06-29 11:05 | P.PNCROSS_ITS ---
Event Note Event Note Event Note: I was called by nursing and they stated that patient left AMA of unknown reaso n. She was being treated for acute urinary tract infection and acute pancreatitis. She was on Rocephin IV and urine cultures were pending at the time of her leaving. Cefdinir and rescue inhaler for her asthma were called in to her pharmacy hopefully she did pick those up and is continuing them at home. Urine culture today is still pending. Final diagnosis: acute urinary tract infection, acute pancreatitis
--- NOTE | 2023-06-29 11:43 | PC.NURSE ---
Discharge call back attempted, phone not accepting calls at this time
--- NOTE | 2023-06-30 09:09 | PC.NURSE ---
Discharge call back attempted, not accepting calls
--- NOTE | 2023-07-02 09:10 | PC.NURSE ---
Unable to contact for dc call back, phone is not accepting callers
== END 2023-06-28 17:23 | disposition left against medical advice (07) ==
LOC: CHSED 06-28 04:15 → CHS2ND 06-28 04:18
PROVIDERS: Admitting Provider Internal Medicine; Emergency Provider Family Medicine; Visit Provider Internal Medicine
DX: N39.0 Urinary tract infection, site not specified (principal); K85.90 Acute pancreatitis without necrosis or infection, unspecified; F17.210 Nicotine dependence, cigarettes, uncomplicated
CPT/HCPCS: 36415; 74177; 80053; 81001; 83605; 83690; 85025; 87077; 87086; 87088; 87186; 96361; 96365; 96374; 96375; 96376; 99285; A9270; G0378; G0379; J0696; J2270; J2405; J7030; Q9967

== ENCOUNTER 2023-11-25 21:58 | Emergency (ER) | payer OTHER, SELFPAY ==
--- NOTE | ~2023-11-25 | XR_ITS ---
EXAMINATION: XR chest 1V portable Exam Date/Time: 11/25/2023 23:00 CDT HISTORY: left chest pain Comparison: 08/20/2021. RESULT: Lines, tubes, and devices: Bilateral breast implants. Lungs and pleura: Clear. Cardiomediastinal silhouette: Stable. Other: No acute osseous or upper abdominal finding. IMPRESSION: No acute cardiopulmonary process. Reviewed, dictated and finalized at location K.
[2023-11-25 22:00] VITALS: BP 143/96; PULSE 107; RESP 20; TEMP 36.5; O2SAT 100
--- NOTE | 2023-11-25 22:38 | ED.NECK ---
HPI - Neck Pain/Injury General Chief Complaint: Neck Pain/Injury Stated Complaint: shoulder pain Source: patient Mode of arrival: ambulatory Limitations: no limitations History of Present Illness HPI Narrative: 39 old smoker with history of COPD/ asthma, pancreatitis, colonic polyps, chronic back pain, rotator cuff tendinitis presents to the ED with Related Data Home Medications Medication Instructions Recorded Confirmed No Home Medications 06/27/23 06/27/23 Allergies Allergy/AdvReac Type Severity Reaction Status Date / Time hydrocodone AdvReac Intermediate Nausea and Verified 06/27/23 23:46 Vomiting PMFSH Past Medical History Medical History Acetabular labrum tear Asthma no inhalers Iliotibial band syndrome of both sides Impingement of right shoulder Lumbar radiculopathy, acute Pancreatitis Right rotator cuff tendinitis Vision changes Weight gain Surgical History Surgical History History of breast augmentation History of section History of cholecystectomy History of colonoscopy History of laparoscopy History of myringotomy History of robot-assisted laparoscopic hysterectomy History of surgery Fistulectomy History of tonsillectomy and adenoidectomy Family History Family History Other Arthritis Hypertension Paget disease of bone Social History Social History Smoking packs per day: 1 Smoking cigarettes per day: 20.0 Years smoked: 30 Smoking pack-years: 30.00 Smoking status: Current every day smoker Tobacco type: cigarettes Second hand tobacco smoke exposure: Yes Alcohol intake: current Drinks per week: 1 Substance use: former Substance use type: does not use Other substance usage details: cocaine Do You Feel Safe in your Home?: Yes Lack of Transportation: No Lack of Food: Sometimes True Current Housing: I Have Housing Concerned About Future Housing: No Difficulty Paying Gas/Electric Bills: No Difficulty Paying for Meds: No Currently Unemployed: No Education: Trade/Vocational Certificate Difficulty w/ Childcare or Family Care: No Living arrangements: with family Occupation/Education: occupation 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 Gender identity (if verbalized by the patient): Female Spiritual care concerns: No Course Vital Signs Vital signs: Vital Signs Temperature 36.5 C 11/25/23 22:00 Pulse Rate 107 H 11/25/23 22:00 Respiratory Rate 20 11/25/23 22:00 Blood Pressure 143/96 H 11/25/23 22:00 Pulse Oximetry 100 11/25/23 22:00 Oxygen Delivery Room Air 11/25/23 22:00 Temperature 36.5 C 11/25/23 22:00 Pulse Rate 107 H 11/25/23 22:00 Respiratory Rate 20 11/25/23 22:00 Blood Pressure 143/96 H 11/25/23 22:00 Pulse Oximetry 100 11/25/23 22:00 Oxygen Delivery Room Air 11/25/23 22:00 Discharge Plan Discharge Prescriptions: No Action No Home Medications Follow-up/Referrals: UNKNOWN,DOCTOR [Non-Staff] -
--- NOTE | 2023-11-25 22:49 | PC.NURSE ---
2234 dr bermudez in with pt [id number] report to JIM gonzalez. pt updated on staff change. no needs at this time
--- NOTE | 2023-11-25 22:49 | ED.CHESTPAIN ---
HPI - Chest Pain General Chief Complaint: Neck Pain/Injury Stated Complaint: shoulder pain Source: patient Mode of arrival: ambulatory Limitations: no limitations History of Present Illness HPI narrative: 48-year-old female smoker with a history of asthma / COPD, colonic polyps, back pain, rotator cuff tendinitis presents to the ED with a 1 day history of -- left-sided chest pain which starts around the clavicle and radiates down. Pain is pleuritic and made worse by deep breathing and coughing. -- Nonproductive cough no fever or chills. No mucopurulent sputum. No shortness of breath MD complaint: chest pain Onset (ago): hour(s) ( 12 hours) Timing of current episode: episodic Prior episodes: No Onset: during rest Pain location: left chest Pain radiation: none Severity: severe Quality: sharp Exacerbating factors: inspiration Associated symptoms: cough Treatment prior to arrival: none Risk Factors Coronary artery disease risk factors: smoking history Related Data On Oral Contraceptives: No Allergies Allergy/AdvReac Type Severity Reaction Status Date / Time hydrocodone AdvReac Intermediate Nausea and Verified 06/27/23 23:46 Vomiting Review of Systems Review of Systems: All systems reviewed & are unremarkable except as noted in HPI and below Constitutional: Constitutional: Reports as per HPI and Reports no additional constitutional complaints Eyes: Eyes: Reports as per HPI and Reports no additional eye complaints ENT: Reports system reviewed and no additional complaints, except as documented and Reports as per HPI Cardiovascular: Cardiovascular: Reports as per HPI, Reports no additional cardiovascular complaints and Reports chest pain Respiratory: Respiratory: Reports as per HPI and Reports no additional respiratory complaints Comments: left chest wall pain which is made worse by deep breathing/ coughing Gastrointestinal: Gastrointestinal: Reports as per HPI and Reports no additional gastrointestinal complaints Genitourinary: Genitourinary: Reports no additional female genitourinary complaints and Reports as per HPI Musculoskeletal: Musculoskeletal: Reports no additional musculoskeletal complaints and Reports as per HPI Integumentary/Breasts: Skin/Breast: Reports system reviewed and no additional complaints, except as docu and Reports as per HPI Neurologic: Reports system reviewed and no additional complaints, except as documented and Reports as per HPI Psychiatric: Psychiatric: Reports no additional psychiatric complaints and Reports as per HPI Endocrine: Endocrine: Reports no additional endocrine complaints and Reports as per HPI Hematologic/Lymphatic: Hematologic/Lymphatic: Reports no additional hematologic/lymphatic complaints and Reports as per HPI Allergic/Immunologic: Allergic/Immunologic: Reports no additional allergic/immunologic complaints and Reports as per HPI [facility] Past Medical History Medical History Acetabular labrum tear Asthma no inhalers Iliotibial band syndrome of both sides Impingement of right shoulder Lumbar radiculopathy, acute Pancreatitis Right rotator cuff tendinitis Vision changes Weight gain Surgical History Surgical History History of breast augmentation History of section History of cholecystectomy History of colonoscopy History of laparoscopy History of myringotomy History of robot-assisted laparoscopic hysterectomy History of surgery Fistulectomy History of tonsillectomy and adenoidectomy Family History Family History Other Arthritis Hypertension Paget disease of bone Social History Social History Smoking packs per day: 1 Smoking cigarettes per day: 20.0 Years smoked: 30 Smoking pack-years: 30.[address]
--- NOTE | 2023-11-25 22:55 | ECG_ITS ---
Test Date: 2023-11-25 23:03:21 Measurements Intervals [place] Rate: 100 P: 24 NE: 132 QRS: 62 QRSD: 99 T: 56 QT: 347 QTc: 448 Interpretive Statements SINUS TACHYCARDIA BASELINE ARTIFACT- I, II, AVR, AVL BORDERLINE ECG No previous ECG available for comparison Electronically Signed On 11-26-2023 06:19:58 CDT by Liam Landry D.O.
[2023-11-25] MEDS: KETOROLAC 30 MG/ML VIAL (*BKC) IM (23:07)
[2023-11-25 23:12] LABS: Basophils Absolute Auto 0.08 K/mm3 (0.00-0.10); Basophils Percent Auto 0.5 % (0.0-1.0); Eosinophils Absolute Auto 0.12 K/mm3 (0.02-0.50); Eosinophils Percent Auto 0.8 % (1.0-6.0); Hemoglobin 13.8 g/dL (12.0-15.0); Immature Granulocyte Absolute 0.05 K/mm3 (0.00-0.00); Immature Granulocyte Percent A 0.3 % (0.0-0.0); Lymphocytes Absolute Auto 3.05 K/mm3 (1.10-4.50); Lymphocytes Percent Auto 19.6 % (18.0-42.0); Mean Corpuscular HGB Conc 33.7 g/dL (32-36); Mean Corpuscular Hemoglobin 31.7 pg (27.0-31.0); Mean Platelet Volume 8.9 fl (9.2-11.8); Monocytes Absolute Auto 1.73 K/mm3 (0.10-0.90); Monocytes Percent Auto 11.1 % (2.0-11.0); Neutrophils Absolute Auto 10.51 K/mm3 (1.70-7.20); Neutrophils Percent Auto 67.7 % (50.0-70.0); Platelet Count Result 373 K/mm3 (150-420); Red Blood Count 4.36 M/mm3 (4.20-5.40); Red Cell Distribution Width 13.3 % (11.6-14.4); White Blood Count 15.5 K/mm3 (4.8-10.8)
[2023-11-25 23:17] VITALS: BP 139/88; PULSE 101; RESP 18; O2SAT 100
[2023-11-25 23:32] LABS: Alanine Aminotransferase 51 U/L (14-59); Albumin Level 3.4 g/dL (3.4-5.0); Alkaline Phosphatase 93 U/L (46-116); Anion Gap 4 mmol/L (4-12); Aspartate Amino Transferase 29 U/L (15-37); Bilirubin,Total 0.3 mg/dL (0.00-1.00); Blood Urea Nitrogen 15 mg/dL (7-18); Calcium 8.9 mg/dL (8.5-10.1); Carbon Dioxide 31 mmol/L (21-32); Chloride 102 mmol/L (98-108); Estimated CRCL calculation 84 ml/min; Estimated Glomerular Filt Rate > 60; Glucose 69 mg/dL (70-99); Lactic Acid Reflex 1.2 mmol/L (0.4-2.0); Osmolality Calculated 282 mOsm/kg (285-295); Potassium 4.2 mmol/L (3.5-5.1); Sodium 137 mmol/L (136-145); Total Protein 6.8 g/dL (6.4-8.2)
[2023-11-25 23:33] LABS: Troponin I < 4.0 ng/L (0.00-60.4)
[2023-11-25 23:48] LABS: Influenza A QL RT-PCR Negative (Negative); Influenza B QL RT-PCR Negative (Negative); RSV RNA, RT-PCR Negative (Negative); SARS-CoV-2 RNA PCR Negative (Negative)
[2023-11-26] VITALS: BP 126/75; PULSE 83; RESP 18; O2SAT 100
[2023-11-26] MEDS: IPRATROPIUM 0.5 MG/ALBUTEROL SULFATE 2.5 MG AMPUL.NEB 3 ML INHALATION (00:19)
[2023-11-26] MEDS: AZITHROMYCIN 250 MG TABLET 500 MG PO (00:20)
[2023-11-26 00:43] VITALS: BP 111/74; PULSE 92; RESP 16; O2SAT 100
== END 2023-11-26 00:45 | disposition home or self-care (01) ==
PROVIDERS: Emergency Provider Internal Medicine Critical Care Medicine; PCP Physician Assistant
DX: R09.1 Pleurisy (principal); J44.9 Chronic obstructive pulmonary disease, unspecified; F17.210 Nicotine dependence, cigarettes, uncomplicated; Z20.822 Contact with and (suspected) exposure to COVID-19
CPT/HCPCS: 36415; 71045; 80053; 83605; 84484; 85025; 87637; 93005; 96372; 99284; A9270; J1885

== ENCOUNTER 2024-07-14 12:14 | Emergency (ER) | payer OTHER, SELFPAY ==
--- NOTE | ~2024-07-14 | XR_ITS ---
EXAMINATION: XR foot LT min 3V DATE: 07/14/2024 12:57 INDICATION: Left foot and ankle injury. TECHNIQUE: 4 views of left foot were obtained. COMPARISON: None. FINDINGS: Alignment is normal. No fracture. There is moderate osteoarthritis of first metatarsophalan geal joint and first interphalangeal joint. IMPRESSION: 1. Polyarticular osteoarthritis. Reviewed, dictated and finalized at location B.
--- NOTE | ~2024-07-14 | XR_ITS ---
Left ankle Technique: AP, oblique, and lateral views were obtained. Clinical History: Injury Findings: No acute fracture or dislocation is seen. Osseous alignment is anatomic. Ankle mortise and other visualized joint spaces are preserved. Soft tissues are otherwise unremarkable. Impression: Unremarkable left ankle. Reviewed, dictated and finalized at location . Impression: Unremarkable left ankle.
[2024-07-14 12:18] VITALS: BP 123/84; PULSE 106; RESP 18; TEMP 36.1; O2SAT 99
--- NOTE | 2024-07-14 13:09 | ED.LOWEXIN ---
HPI - Extremity Injury (Lower) General Chief Complaint: Extremity Injury, Lower Stated Complaint: foot swelling Source: patient Mode of arrival: ambulatory Limitations: no limitations History of Present Illness HPI Narrative: this is a 48-year-old female with no significant past medical history presents with some left foot and ankle swelling with erythema and redness after she tripped over a dog's leash yesterday, patient has swelling and pain with palpation and movement otherwise there is no calf pain or tenderness no calf swelling no fever chills no shortness of breath. MD complaint: ankle injury and foot injury Onset (ago): day(s) Injury: Left: ankle ( Redness with swelling and tenderness) and foot Severity: mild Severity scale (1-10): 3 Relieving factors: NSAID and immobilization Related Data Allergies Allergy/AdvReac Type Severity Reaction Status Date / Time hydrocodone AdvReac Intermediate Nausea and Verified 07/14/24 13:12 Vomiting Review of Systems Review of Systems: All systems reviewed & are unremarkable except as noted in HPI and below PMFSH Past Medical History Medical History Pancreatitis Right rotator cuff tendinitis Impingement of right shoulder Acetabular labrum tear Vision changes Weight gain Iliotibial band syndrome of both sides Lumbar radiculopathy, acute Asthma no inhalers Surgical History Surgical History History of laparoscopy History of section History of tonsillectomy and adenoidectomy History of myringotomy History of colonoscopy History of surgery Fistulectomy History of breast augmentation History of robot-assisted laparoscopic hysterectomy History of cholecystectomy Family History Family History Other Arthritis Hypertension Paget disease of bone Social History Social History Smoking packs per day: 1 Smoking cigarettes per day: 20.0 Years smoked: 30 Smoking pack-years: 30.00 Smoking status: Current every day smoker Tobacco type: cigarettes Second hand tobacco smoke exposure: Yes Alcohol intake: current Drinks per week: 1 Substance use: former Substance use type: does not use Other substance usage details: cocaine Do You Feel Safe in your Home?: Yes Lack of Transportation: No Lack of Food: Sometimes True Current Housing: I Have Housing Concerned About Future Housing: No Difficulty Paying Gas/Electric Bills: No Difficulty Paying for Meds: No Currently Unemployed: No Education: Trade/Vocational Certificate Difficulty w/ Childcare or Family Care: No Living arrangements: with family Occupation/Education: occupation 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 Gender identity (if verbalized by the patient): Female Spiritual care concerns: No Exam Const: General: healthy appearing and no acute distress Nutritional Appearance: well nourished Orientation/consciousness: patient oriented x3 Limitations: no limitations Resp: Effort & Inspection: normal respiratory effort Auscultation: clear to auscultation bilaterally Cardio: Rate: regular rate Rhythm: regular rhythm GI: GI Palp: Yes Soft to palpation Auscultation: normal bowel sounds Urinary Catheter: Urinary Catheter: patent and draining Back/Spine/Pelvis: Back: no CVA tenderness Skin: Other: erythema around the left foot and ankle with swelling and pain with palpation Extrem: General: no pedal edema Course Course Emergency Course: x-rays performed show no acute fractures will send prescription antibiotics patient's pharmacy. Advised follow-up with primary Vital Signs Vital signs: Vital Signs Temperature 36.1 C L 07/14/24 12:18 Pulse Rate 106 H 07/14/24 12:18 Respiratory Rate 18 07/14/24 12:18 Blood Pressure 123/84 07/14/24 12:18 Pulse Oximetry 99 07/14/24 12:18 Oxygen Delivery Room Air 07/14/24 12:18 Temperature 36.1 C L 07/14/24 12:18 Pulse Rate 106 H 07/14/24 12:18 Respiratory Rate 18 07/14/24 12:18 Blood Pressure 123/84 07/14/24 12:18 Pulse Oximetry 99 07/14/24 12:18 Oxygen Delivery Room Air 07/14/24 12:18 Critical Care Time Critical Care Time Critical Care Time: No Discharge Plan Discharge Clinical Impression: Ankle sprain Qualifiers: Encounter type: initial encounter Involved ligament of ankle: unspecified ligament Laterality: left Qualified Code(s): S93.402A - Sprain of unspecified ligament of left ankle, initial encounter Cellulitis Qualifiers: Site of cellulitis: extremity Site of cellulitis of extremity: lower extremity Laterality: left Qualified Code(s): L03.116 - Cellulitis of left lower limb Patient Disposition: Home, Self-Care Condition: Stable Instructions: Antibiotic Form, Ankle Sprain (ED), Cellulitis (ED) Additional Instructions: advise follow-up within 1 to 2 weeks with primary, take medication as prescribed. Patient Language: Romanian Prescriptions: New amoxicillin-pot clavulanate [Augmentin] 500-125 mg tablet 1 tablet PO TID Qty: 30 0RF No Action azithromycin [Zithromax] 250 mg tablet 250 mg PO DAILY 4 Days Qty: 4 0RF Rx Instructions: start on day 2 of therapy albuterol sulfate 90 mcg/actuation HFA aerosol inhaler 1 inh inhalation QID PRN (Reason: shortness of breath or wheezing) Qty: 8.5 0RF Follow-up/Referrals: Emilio,KOBE Pierre [Primary Care Provider] - Time of Disposition: 13:14
[2024-07-14 13:20] VITALS: BP 110/83; PULSE 101; RESP 20; TEMP 36.4; O2SAT 100
--- OUTSIDE RECORDS SUMMARY | 2024-07-14 13:49 | XMS_ITS ---
Care Plan - [facility] Created on: July 14, 2024 DANA WONG : 1975 Sex: Female Author Organization [facility] Address [address] [place] [id number] Phone Care Team Providers Care Assembly Inspector Name Role Phone SABAS RODRÍGUEZ PA-C Primary Care Provider [phone] ZEKE GOMEZ MD Unavailable [phone]
--- OUTSIDE RECORDS SUMMARY | 2024-07-14 13:49 | XMS_ITS | Clinical Summary ---
Author Organization [facility] Address [address] [place] [address] Phone Care Team Providers Care Core Analysis Operator Name Role Phone MARCOS TAYLOR, SABAS Primary Care Provider [phone] ZEKE GOMEZ MD Unavailable [phone] Reason for Visit and Chief Complaint CHART UPDATE Problems Includes: Problems addressed during this encounter and other active Problems No Active Problems Plan of Treatment Referrals To Diagnosis Orthopedic [facility] - [address] [place] [id number] - Unspecified sprain of left hip, sequela Note: Dr Yosi Paredes [place] hip report and last chart notes Last Documented On 4 1:10PM ; [facility] Assessments Includes: Assessments from this encounter Findings - [S73.102S - Unspecified sprain of left hip, sequela] Sprain of the left hip - Last Documented On 11/08/2021 11:39AM ; [facility] Medical Equipment - Implanted Devices Includes: Current Devices No Medical Equipment Recorded Medications Includes: Medications discussed during this encounter and other current Medications Current Medications (continue as prescribed) Furosemide 20 MG Oral Tablet 10/10/2021 Provider: Diagnosis: Last Documented On 2 3:55PM By JERSON STOREY ; [facility] Medications Administered Includes: Administered Medications from this encounter No Administered Medications Recorded Results Includes: Results discussed during this encounter No Results Recorded For Specified Dates History of Present Illness Includes: History of Present Illness from this encounter No History of Present Illness Recorded Social History Description Last Updated Current smoker 08/15/2021 Last Documented On 2 11:32AM ; [facility] Alcohol Social 08/15/2021 Last Documented On 2 11:32AM ; [facility] 08/15/2021 Last Documented On 2 11:32AM ; [facility] Not using drugs 08/15/2021 Last Documented On 2 11:32AM ; [facility] Occupation 08/15/2021 Last Documented On 2 11:32AM ; [facility] Tobacco use 08/15/2021 Last Documented On 2 11:32AM ; [facility] Smoking Status Unknown Procedures and Surgical History Surgical History Last Updated History of cholecystectomy 08/15/2021 Last Documented On 2 11:32AM ; [facility] History of hysterectomy 08/15/2021 Last Documented On 2 11:32AM ; [facility] History of tonsillectomy 08/15/2021 Last Documented On 2 11:32AM ; [facility] Prior surgery Ears [id number] ~Tonsinils 1979 ~Toes 1981 ~Colonoscopy *10 ~Csection 2006 ~Hysterectomy 2020 ~BLT breast 2008 08/15/2021 Last Documented On 2 11:32AM ; [facility] Medical History Includes: Medical History addressed during this encounter Description Last Updated Denies a fear of falling. 08/15/2021 Last Documented On 2 11:32AM ; [facility] Has had no fall in the last 12 months. 0 08/15/2021 Last Documented On 2 11:32AM ; [facility] Currently wearing eyeglasses 08/15/2021 Last Documented On 2 11:32AM ; [facility] Exposure to dust 08/15/2021 Last Documented On 2 11:32AM ; [facility] Exposure to fumes 08/15/2021 Last Documented On 2 11:32AM ; [facility] History of extraction of wisdom tooth Last Documented On 2 11:32AM ; [facility] Last mammogram date: 202008/15/2021 Last Documented On 2 11:32AM ; [facility] Surgery 08/15/2021 Last Documented On 2 11:32AM ; [facility] Family History Includes: Family History addressed during this encounter Description Last Updated Family history of alcoholism 08/15/2021 Last Documented On 2 11:32AM ; [facility] Family history of diabetes mellitus 08/02 Last Documented On 2 11:32AM ; [facility] Family history of genetic disease 2021 Last Documented On 2 11:32AM ; [facility] Family history of heart disease 08/16/19 22 Last Documented On 2 11:32AM ; [facility] Family history of kidney disease 022 Last Documented On 2 11:32AM ; [facility] Family history of mental illness (not in tellectual disabilities) 08/15/2021 Last Documented On 2 11:32AM ; [facility] Family medical history Pagets Mother, Gr andmother, and multiple others 08/15/2021 Last Documented On 2 11:32AM ; [facility] Father 0.73 years old 08/15/2021 Last Documented On 2 11:32AM ; [facility] Mother 73 years old 08/15/2021 Last Documented On 2 11:32AM ; [facility] No family history of defects 08/15 Last Documented On 2 11:32AM ; [facility] No family history of bleeding problems 0 08/15/2021 Last Documented On 2 11:32AM ; [facility] No family history of cancer 08/15/2021 Last Documented On 2 11:32AM ; [facility] Review of Systems Includes: Review of Systems from this encounter No Review of Systems Recorded Mental Status Includes: Mental Status from this encounter No Mental Status Recorded Functional Status Includes: Functional Status from this encounter No Functional Status Recorded Physical Exam Includes: Physical Exam from this encounter No Physical Exam Recorded Allergies Includes: Active Allergies No Known Allergies Encounters Encounter Provider Location Date Check-In Time Check-Out Time Diagnosis CHART UPDATE 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
--- OUTSIDE RECORDS SUMMARY | 2024-07-14 13:49 | XMS_ITS | Clinical Summary ---
Author Organization [facility] Address [address] [place] [address] Phone Care Team Providers Care Restaurant District Manager Name Role Phone MARCOS TAYLOR, SABAS Primary Care Provider [phone] ZEKE GOMEZ MD Unavailable [phone] Reason for Visit and Chief Complaint The Chief Complaint is: Ref by M52.599 Hip Blt hips. and lumbar spine Problems Includes: Problems addressed during this encounter and other active Problems No Active Problems Plan of Treatment Referrals To Diagnosis Pain Management [facility] - [address] [place] [address] - Pain in left hip Note: consent for Left Hip I ntra-articular steroid inijection under ultrasound guidanceNo hold NSAIDs/ASA Last Documented On 2 11:14AM ; [facility] Instructions to patient Intervention and counseling on cessation of tobacco use : Patient recieved smoking cessation handout Last Documented On 2 8:51AM ; [facility] Assessments Includes: Assessments from this encounter Findings - [R60.9 - Edema, unspecified] Edema - Last Documented On 08/16/2021 1:51PM ; [facility] - [M25.552 - Pain in left hip] Left Hip pain - Last Documented On 08/16/2021 1:51PM ; [facility] - [M54.9 - Dorsalgia, unspecified] DORSALGIA - Last Documented On 08/16/2021 1:51PM ; [facility] - [M51.26 - Other intervertebral disc displacement, lumbar region] Bulging lumbar disc - Last Documented On 08/16/2021 1:51PM ; [facility] - [M47.896 - Other spondylosis, lumbar region] Lumbar spondylosis - Last Documented On 08/16/2021 1:51PM ; [facility] - [M48.07 - Spinal stenosis, lumbosacral region] Lumbosacral spinal stenosis - Last Documented On 08/16/2021 1:51PM ; [facility] Instructions Includes: Instructions from this encounter Instructions to patient Intervention and counseling on cessation of tobacco use : Patient recieved smoking cessation handout Last Documented On 2 8:51AM ; [facility] Medical Equipment - Implanted Devices Includes: Current Devices No Medical Equipment Recorded Medications Includes: Medications discussed during this encounter and other current Medications New / Renewed during this visit DELLA CORONEL on 08/15/2021 hydroCHLOROthiazide 25 MG Or al Tablet Provider: DELLA CORONEL 30 day supply: 30 tablet, 0 refills Diagnosis: Edema, unspecified One tablet daily Pharmacy: [address] [id number] - Last Documented On 2 3:33PM By JERSON HULL ; [facility] Current Medications (continue as prescribed) Furosemide 20 MG Oral Tablet 10/10/2021 Provider: Diagnosis: Last Documented On 2 3:55PM By JERSON HULL ; [facility] Medications Administered Includes: Administered Medications from this encounter No Administered Medications Recorded Vital Signs Includes: Vital Signs from this encounter Vital Name 08/15/2021 08:53A Blood Pressure Sitting L 124/82 BP Cuff Size Regular Pulse Rate-Sitting (bpm) 88 Temp-Temporal 97.7 Height (in) 68 Weight (lb) 161 Body Mass Index (kg/m2) 24.5 Body Surface Area (m2) 1.9 Pain Level 3 Oxygen Saturation (%) 99 Last Documented: On 08/15/2021 8:55AM ; [facility] Results Includes: Results discussed during this encounter No Results Recorded For Specified Dates History of Present Illness Includes: History of Present Illness from this encounter HPI PHQ-9 Score: 8 Date:08/15/2021PI Score: Date:MiDAS Score: Date:SOAPP-R Score: 11 Moderate Date:08/15/2021ain Location: Blt hips, Lumbar back. Quality: Aches, Radiation: NOSeverity: Timing: Over a yearAssociated Sx: NoAggravating Factors:Driving, Sitting for long periods of time. Alleviating Factors: Movieng positions. Past Tx: injections in lower back., physical therapy, no pain management. DANA WONG is a 45 year old female. - Allergy list reviewed - Problem list reviewed - Medication reconciliation performed - Medication list reviewed - Primary Care Provider: Sabas Jhaveri - Last dose of medication? - No vertigo Discussion: Patient presents today for chronic low back and hip pain. She was referred by the orthopedic surgeon. She states she has had chronic low back pain for several years. Her back pain is mostly axial in nature however she does get some numbness and tingling in her feet that may be related to her back. She denies diabetes, no history of B12 deficiency, or excessive alcohol use. However, most bothersome to her is her left hip pain. 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 She had no specific injury to these areas. She reports clicking occasionally in the left hip. No locking. Her pain wakes her up at night at times. She has not had physical therapy. An x-ray of her pelvis was unremarkable. When she has severe pain she will take Tylenol or use Voltaren gel or bio freeze. She does not like taking medication so does not take anything very often. 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 We discussed starting PT and scheduling her for a steroid injection in the left hip to see if this helps with pain. Imaging: All relevant imaging available was personally reviewed with the patient today with the following tests and results noted: X-ray lumbar spine 11/19/2020 Impression: Mild lumbar spondylosis without acute findings. X-ray pelvis 11/19/2020 Impression: No acute osseous abnormality. Mild bilateral hip osteoarthritis. MRI lumbar spine 01/26/2021 Impression: Mild to moderate lower lumbar spondylosis. Mild neural foraminal stenosis and mild central canal stenosis noted at L3-4 and L4-5. Mild bilateral neural foraminal stenosis and mild to moderate canal canal stenosis at L5 - S1. Social History Description Last Updated Current smoker 08/15/2021 Last Documented On 2 1:51PM ; [facility] Alcohol Social 08/15/2021 Last Documented On 2 1:51PM ; [facility] 08/15/2021 Last Documented On 2 1:51PM ; [facility] Not using drugs 08/15/2021 Last Documented On 2 1:51PM ; [facility] Occupation 08/15/2021 Last Documented On 2 1:51PM ; [facility] Tobacco use 08/15/2021 Last Documented On 2 1:51PM ; [facility] Smoking Status Unknown Procedures and Surgical History Includes: Procedures from this encounter Procedures Code Diagnosis Performing Provider Service L ocation Service Date intervention and counseling on cessation of tobacco use : Patient recieved smoking cessation handout 4000F Last Documented On 2 8:51AM ; [facility] use of tobacco assessment performed 1000F Last Documented On 2 8:34AM ; [facility] review of medications documented 1160F Last Documented On 2 8:34AM ; [facility] screening for adult depression: impressi on and score eight Last Documented On 2 8:51AM ; [facility] standardized depression screening: posit mariola for symptoms Last Documented On 2 8:51AM ; [facility] Clinical summary provided to patient Last Documented On 2 8:34AM ; [facility] Surgical History Last Updated History of cholecystectomy 08/15/2021 Last Documented On 2 1:51PM ; [facility] History of hysterectomy 08/15/2021 Last Documented On 2 1:51PM ; [facility] History of tonsillectomy 08/15/2021 Last Documented On 2 1:51PM ; [facility] Prior surgery Ears [id number] ~Tonsinils 1979 ~Toes 1981 ~Colonoscopy *10 ~Csection 2006 ~Hysterectomy 2020 ~BLT breast 2008 08/15/2021 Last Documented On 2 1:51PM ; [facility] Medical History Includes: Medical History addressed during this encounter Description Last Updated Denies a fear of falling. 08/15/2021 Last Documented On 2 1:51PM ; [facility] Has had no fall in the last 12 months. 0 08/15/2021 Last Documented On 2 1:51PM ; [facility] Currently wearing eyeglasses 08/15/2021 Last Documented On 2 1:51PM ; [facility] Exposure to dust 08/15/2021 Last Documented On 2 1:51PM ; [facility] Exposure to fumes 08/15/2021 Last Documented On 2 1:51PM ; [facility] History of extraction of wisdom tooth Last Documented On 2 1:51PM ; [facility] Last mammogram date: 202008/15/2021 Last Documented On 2 1:51PM ; [facility] Surgery 08/15/2021 Last Documented On 2 1:51PM ; [facility] Family History Includes: Family History addressed during this encounter Description Last Updated Family history of alcoholism 08/15/2021 Last Documented On 2 1:51PM ; [facility] Family history of diabetes mellitus 08/02 Last Documented On 2 1:51PM ; [facility] Family history of genetic disease 2021 Last Documented On 2 1:51PM ; [facility] Family history of heart disease 08/16/19 22 Last Documented On 2 1:51PM ; [facility] Family history of kidney disease 022 Last Documented On 2 1:51PM ; [facility] Family history of mental illness (not in tellectual disabilities) 08/15/2021 Last Documented On 2 1:51PM ; [facility] Family medical history Pagets Mother, Gr andmother, and multiple others 08/15/2021 Last Documented On 2 1:51PM ; [facility] Father 0.73 years old 08/15/2021 Last Documented On 2 1:51PM ; [facility] Mother 73 years old 08/15/2021 Last Documented On 2 1:51PM ; [facility] No family history of defects 08/15 Last Documented On 2 1:51PM ; [facility] No family history of bleeding problems 0 08/15/2021 Last Documented On 2 1:51PM ; [facility] No family history of cancer 08/15/2021 Last Documented On 2 1:51PM ; [facility] Review of Systems Includes: Review of Systems from this encounter Systemic: No systemic symptoms other then noted. Feeling tired. No recent weight loss. Head: No head symptoms other then noted. Neck: No neck pain. Otolaryngeal: No otolaryngeal symptoms other than noted. Hearing loss. Cardiovascular: No cardiovascular symptoms other than noted. Pulmonary: No pulmonary symptoms other than noted. Gastrointestinal: No difficulty chewing and no dysphagia. Nausea. Genitourinary: No genitourinary symptoms other than noted. Endocrine: No endocrine symptoms other than noted. Muscle weakness. Hematologic: No easy bleeding and no tendency for easy bruising. Musculoskeletal: No musculoskeletal symptoms other than noted. Back pain, muscle aches, pain localized to one or more joints, and joint swelling localized to one or more joints. Neurological: No neurological symptoms other than noted and no fainting passing out with needles or medical procedures. Numbness. Psychological: No sleep apnea. Skin: No skin symptoms other than noted. Mental Status Includes: Mental Status from this encounter No Mental Status Recorded Functional Status Includes: Functional Status from this encounter No Functional Status Recorded Physical Exam Includes: Physical Exam from this encounter Allergies Includes: Active Allergies No Known Allergies Encounters Encounter Provider Location Date Check-In Time Check-Out Time Diagnosis PAIN MANAGEMENT NEW CONSULT JERSON HUDDLESTON [employer], REGIONAL GEODETIC ADVISOR-BC [facility] ON 022 8:33AM 10:00AM Left Hip Pain,Bulging Intervertebral Disc Lumbar,Spinal Stenosis Lumbosacral,Lumba r Spondylosis,Edema ,Dorsalgia Insurance Includes: Active Insurance Policies Plan Name Member ID Group # Subscriber Relationship Effect mariola Dates - [facility] [id number] DANA WONG Self Clinical Notes Includes: Clinical Notes from this encounter No Clinical Notes Recorded
--- OUTSIDE RECORDS SUMMARY | 2024-07-14 13:49 | XMS_ITS | Clinical Summary ---
Author Organization [facility] Address [address] [place] [address] Care Team Providers Care Dietary Assistant Name Role Phone Trina Tracy MD Unavailable [phone] Wagner Jhaveri Primary Care Provider [phone] Allergies Active Allergy Reactions Criticality Noted Date Comments Adhesive Itching,Swelling Medium 09/22/2016 Rash Hydrocodone Nausea & Vomiting Low 12/13/2021 Medications ciprofloxacin-de xAMETHasone (CIPRODEX) otic suspension 2 Active furosemide (LASIX) 20 mg tablet 2 Active hydroCHLOROthiaz malachi (HYDRODIURIL) 25 mg tablet 2 Active lisinopriL (PRINIVIL,ZESTRI L) 10 mg tablet 2 Active meloxicam (MOBIC) 15 mg tabletIndication s:Left hip pain,Labral tear of hip, degenerative Take 1 tablet (15 mg total) by mouth daily 30 tablet 1 2 Active Additional Information Patient not taking.Reported on 12/26/2021 Active Problems Problem Noted Date Diagnosed Date Elevated TSH 05/21/2021 Assessment & Plan (12/26/2021 1:47 PM CDT): Patient with family history of thyroid disease. She was found to have TSH of 6. On 04/15/21 No thyromegaly Repeat labs : TSH 4.9 with normal free T4 on 05/09/21 TSH normal at 3.0 on 12/23/21 Plan: Patient informed that her thyroid levels are normal, and she doesn't need treatment at this point. She may develop thyroid dysfunction in the future I recommend annual TSH for screening. I will be happy to see her in the future if needed. 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 She was found to have TSH of 6. On 04/15/21 No thyromegaly This could be subclinical hypothyroidism Plan: The abnormality on thyroid test reviewed and explained to patient We will re-check levels in June Discussed with patient that she may need to start thyroid hormone replacement if tests confirmed diagnosis and levels getting worse. Follow up and further recommendation will be decided after we obtain above test results. Bilateral edema of lower extremity 09/22/2016 Smoker 09/22/2016 Surgical History Surgery Date Site/Laterality Comments MYRINGOTOMY TONSILLECTOMY AND ADENOIDECTOMY SECTION COMBINED AUGMENTATION MAMMAPLASTY AND ABDOMINOPLASTY COLONOSCOPY Medical History Medical History Date Comments Hypertension Poor circulation Peripheral neuropathy Kidney stone Depression Family History Medical History Relation Name Comments Alcohol abuse Other Diabetes Other Hypertension Other Lung disease Other Relation Name Status Comments Other Social History Tobacco Use Types Packs/Day Years Used Date Smoking Tobacco: Every Day Smokeless Tobacco: Never Personal Safety Answer Date Recorded Getting School Help Needed Not on file 07/04 Comments Unknown Sex and Gender Information Value Date Recorded Sex Assigned at Not on file Legal Sex Female 9:46 AM 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 Gender Identity Not on file Sexual Orientation Not on file Obstetrics History Last Filed Vital Signs Vital Sign Reading Time Taken Comments Blood Pressure 132/70 12/26/2021 1:24 PM CDT Pulse 103 12/13/2021 11:56 AM CDT Temperature - - Respiratory Rate - - Oxygen Saturation - - Inhaled Oxygen Concentration - - Weight 77.5 kg (170 lb 12.8 oz) 12/26/2021 1:24 PM CDT Height 172.7 cm (5' 8 ) 12/26/2021 1:24 PM CDT Body Mass Index 25.97 12/26/2021 1:24 PM CDT Plan of Treatment Health Maintenance Due Date Last Done Comments Breast Cancer Screening-Mammogram 1974 Cervical Cancer Screening 1974 Colon Cancer Screening-Colonoscopy 1974 Depression Screening 1974 Hepatitis C Screening 1974 DTaP/Tdap/Td Vaccine (1 - Tdap) 1985 Hepatitis B Screening 1992 Regular Well Visit/Exam 18-64 1992 Pneumococcal vaccine <65 (1 of 2 - PCV) 1993 Influenza Vaccine (#1) 2024 04/08/2017 Insurance [facility] Care Teams Dietary Assistant Relationship Specialty Start Date End Date Wagner Jhaveri PA [address] [place] [address] PCP - General Family Practice 09/11/21 Trina Tracy MD Surgeon Vascular Surgery 09/11/21
--- OUTSIDE RECORDS SUMMARY | 2024-07-14 13:49 | XMS_ITS | Clinical Summary ---
Author Organization [facility] Address [address] [place] [address] Phone Care Team Providers Care Dispatcher [employer] Name Role Phone SABAS RODRÍGUEZ PA-C Primary Care Provider [phone] ZEKE ARCINIEGA MD Unavailable [phone] Reason for Visit and Chief Complaint The Chief Complaint is: pt here for LT hip steroid injection with ultrasound Problems Includes: Problems addressed during this encounter and other active Problems No Active Problems Plan of Treatment PROCEDURE: LEFT INTRA-ARTICULAR HIP STEROID INJECTION UNDER ULTRASOUND GUIDANCE INFORMED CONSENT: The procedure was described in detail to the patient. Alternatives to procedure, including doing nothing, and potential benefits described in detail. Risks explained included but were not limited to systemic or local infection, bleeding/bruising, deformity, allergic reaction to medication, failure to treat pain, increased pain, need for hospitalization, surgery or decreased mobility. The patient has also had an explanation of the side effects of corticosteroid. Allergies confirmed. The patient has had an opportunity to have all questions answered both on the day of initial consultation and again today. The patient wishes to proceed, agrees that potential for benefit outweighs the risk of harm, PROCEDURE IN DETAIL: The patient assumed the supine position with left thigh flexed at 15 degrees. Area widely cleansed with chlorhexidine prep solution using aseptic technique and draped in a sterile fashion. Anesthesia was provided by infiltration of 0.5% PF lidocaine via 27-gauge, 1.5 inch standard needle. Under ultrasound visualization in the transverse axial view using the curvalinear transducer at 10-12MHz, a 22g 3.5 inch quincke spinal needle was advanced until periosteum was contacted at the juncture of the femoral head and neck. After negative aspiration for blood or bodily fluid, a 10ml solution containing 10mg PF dexamethasone mixed with 0.5% Bupivacaine was injected into the appropriate tissue plane as verified by live ultrasonography. Needle withdrawn completely intact without difficulty. The patient appeared to tolerate the procedure well. Sterile bandage was applied. No evidence of complication. Post-procedural instructions, including wound care, activity restrictiojns, explanation of signs and symptoms of complications such as infection, emergency instructions and follow up, were conveyed to the patient. All questions answered to the patient's satisfaction. Patient was discharged after an appropriate recovery period under their own power with no evidence of complication. - Last Documented On 08/28/2021 3:39PM ; [facility] Assessments Includes: Assessments from this encounter Findings - [M16.9 - Osteoarthritis of hip, unspecified] Osteoarthritis of left hip - Last Documented On 08/28/2021 3:39PM ; [facility] - [M25.552 - Pain in left hip] Left Hip pain - Last Documented On 08/28/2021 3:39PM ; [facility] Medical Equipment - Implanted Devices Includes: Current Devices No Medical Equipment Recorded Medications Includes: Medications discussed during this encounter and other current Medications Current Medications (continue as prescribed) Furosemide 20 MG Oral Tablet 10/10/2021 Provider: Diagnosis: Last Documented On 2 3:55PM By [facility] ; [facility] Medications Administered Includes: Administered Medications from this encounter Medications Administered Diagnosis Date Pro vider Xylocaine 1% IJ SOLN 08/28/2021 ZEKE ARCINIEGA MD administered by Dr. Arciniega for local Last Documented On 2 2:16PM By Michelle Chase RN ; [facility] Sodium Chloride 0.9% IJ SOLN 08/28/2021 ZEKE ARCINIEGA MD administered by Dr. Arciniega for local Last Documented On 2 2:18PM By Michelle Chase RN ; [facility] dexAMETHasone Sodium Phosphate 10 MG/ML IJ SOLN 08/28/2021 ZEKE ARCINIEGA MD administered by Dr. Arciniega in left hip Last Documented On 2 2:19PM By Michelle Chase RN ; [facility] Xylocaine 2% IJ SOLN 08/28/2021 ZEKE ARCINIEGA MD administered by Dr. Arciniega in left hip Last Documented On 2 2:20PM By Michelle Chase RN ; [facility] Vital Signs Includes: Vital Signs from this encounter Vital Name 08/28/2021 01:51P Blood Pressure Sitting R 129/95 BP Cuff Size Regular Pulse Rate-Sitting (bpm) 84 Pulse Rhythm Regular Respiration Rate (breaths/min) 20 Height (in) 68 Weight (lb) 160 Body Mass Index (kg/m2) 24.3 Body Surface Area (m2) 1.9 Pain Level 4 Oxygen Saturation (%) 99 Last Documented: On 08/28/2021 1:52PM ; [facility] Results Includes: Results discussed during this encounter No Results Recorded For Specified Dates History of Present Illness Includes: History of Present Illness from this encounter DENNY WONG is a 45 year old female. - Allergy list reviewed - Medication list reviewed Social History Description Last Updated Current smoker 08/15/2021 Last Documented On 2 1:49PM ; [facility] Alcohol Social 08/15/2021 Last Documented On 2 1:49PM ; [facility] 08/15/2021 Last Documented On 2 1:49PM ; [facility] Not using drugs 08/15/2021 Last Documented On 2 1:49PM ; [facility] Occupation 08/15/2021 Last Documented On 2 1:49PM ; [facility] Tobacco use 08/15/2021 Last Documented On 2 1:49PM ; [facility] Smoking Status Unknown Procedures and Surgical History Includes: Procedures from this encounter Procedures Code Diagnosis Performing Provider Service L ocation Service Date use of tobacco assessment performed 1000F Last Documented On 2 1:51PM ; [facility] review of medications documented 1160F Last Documented On 2 1:51PM ; [facility] Surgical History Last Updated History of cholecystectomy 08/15/2021 Last Documented On 2 1:49PM ; [facility] History of hysterectomy 08/15/2021 Last Documented On 2 1:49PM ; [facility] History of tonsillectomy 08/15/2021 Last Documented On 2 1:49PM ; [facility] Prior surgery Ears 8417-6979 ~Tonsinils 1979 ~Toes 1981 ~Colonoscopy *10 ~Csection 2007 ~Hysterectomy 2020 ~BLT breast 2008 08/15/2021 Last Documented On 2 1:49PM ; [facility] Medical History Includes: Medical History addressed during this encounter Description Last Updated Denies a fear of falling. 08/15/2021 Last Documented On 2 1:49PM ; [facility] Has had no fall in the last 12 months. 0 08/15/2021 Last Documented On 2 1:49PM ; [facility] Currently wearing eyeglasses 08/15/2021 Last Documented On 2 1:49PM ; [facility] Exposure to dust 08/15/2021 Last Documented On 2 1:49PM ; [facility] Exposure to fumes 08/15/2021 Last Documented On 2 1:49PM ; [facility] History of extraction of wisdom tooth Last Documented On 2 1:49PM ; [facility] Last mammogram date: 202008/15/2021 Last Documented On 2 1:49PM ; [facility] Surgery 08/15/2021 Last Documented On 2 1:49PM ; [facility] Family History Includes: Family History addressed during this encounter Description Last Updated Family history of alcoholism 08/15/2021 Last Documented On 2 1:49PM ; [facility] Family history of diabetes mellitus 08/02 Last Documented On 2 1:49PM ; [facility] Family history of genetic disease 2021 Last Documented On 2 1:49PM ; [facility] Family history of heart disease 08/16/19 22 Last Documented On 2 1:49PM ; [facility] Family history of kidney disease 022 Last Documented On 2 1:49PM ; [facility] Family history of mental illness (not in tellectual disabilities) 08/15/2021 Last Documented On 2 1:49PM ; [facility] Family medical history Pagets Mother, Gr andmother, and multiple others 08/15/2021 Last Documented On 2 1:49PM ; [facility] Father 0.73 years old 08/15/2021 Last Documented On 2 1:49PM ; [facility] Mother 73 years old 08/15/2021 Last Documented On 2 1:49PM ; [facility] No family history of defects 08/15 Last Documented On 2 1:49PM ; [facility] No family history of bleeding problems 0 08/15/2021 Last Documented On 2 1:49PM ; [facility] No family history of cancer 08/15/2021 Last Documented On 2 1:49PM ; [facility] Review of Systems Includes: Review of [...] Location Date Check-In Time Check-Out Time Diagnosis INJECTION ZEKE ARCINIEGA MD [facility] 08/29/19 22 1:34PM 2:14PM Osteoarthritis Hip Left,Left Hip Pain Insurance Includes: Active Insurance Policies Plan Name Member ID Group # Subscriber Relationship Effect mariola Dates - [facility] [id number] DANA WONG Self Clinical Notes Includes: Clinical Notes from this encounter No Clinical Notes Recorded
--- OUTSIDE RECORDS SUMMARY | 2024-07-14 13:49 | XMS_ITS | Referral Summary ---
Author Organization [facility] Address [address] [place] [address] Care Team Providers Care Payment Analyst Name Role Phone Trina Tracy MD Unavailable [phone] Wagner Jhaveri Primary Care Provider [phone] Allergies Active Allergy Reactions Criticality Noted Date [...] needed. Assessment & Plan (05/21/2021 3:15 PM BUSINESS ADMINISTRATION PROGRAM CHAIR): Patient with family history of thyroid disease. [...] edema of lower extremity 09/22/2016 Smoker 09/22/2016 Social History Tobacco Use Types Packs/Day Years Used Date Smoking Tobacco: Every Day Smokeless Tobacco: Never Personal Safety Answer Date Recorded Getting School Help Needed Not on file 07/04 Comments Unknown Sex and Gender Information Value Date Recorded Sex Assigned at Not on file Legal Sex Female 9:46 AM BUSINESS ADMINISTRATION PROGRAM CHAIR Gender Identity Not on file Sexual Orientation Not on file Last Filed Vital Signs Vital Sign Reading [...] 12/26/2021 1:24 PM CDT Plan of Treatment Not on file Insurance [facility] Care Teams Payment Analyst Relationship Specialty Start Date End Date Wagner Jhaveri PA [address] [place] [address] PCP - General Family Practice 09/11/21 Trina Tracy MD Surgeon Vascular Surgery 09/11/21
--- OUTSIDE RECORDS SUMMARY | 2024-07-14 13:49 | XMS_ITS | Data Portability ---
Author Organization [facility] Address [address] [facility] [place] [address] Care Team Providers Care Software Controls Engineer Name Role Phone SABAS JHAVERI Primary Care Provider Assessment No assessment recorded. Plan of Treatment Reminders Order Date Submit Date Provider Last Modified By Organization Details Last Modified Time Details Appointments ANY 15 2024 11:00A Reggie Jhaveri PA-C Not available Not available Not available Lab uric acid, serum or plasma 2024 025 [facility], [address] [place] [address], [address], 07/14/2024 12:41:36 CBC 2024 025 [facility], [address] [place] [address] 2, [place], [address], 07/14/2024 12:41:36 CMP, serum or plasma 2024 025 [facility], [address] [place] [address] [address], [place], [address], 07/14/2024 12:41:35 lipid panel, serum 2024 025 [facility], [address] [facility], [facility] [address], [place], [address], 07/14/2024 12:41:35 HbA1c (hemoglo bin A1c), blood 2024 025 [facility] In-Office Order, Internal Use Only DO Not Attach Compendium DO Not Attach Compendium, Do Not Delete/merge, [id number] 07/14/2024 13:02:23 amylase + lipase, serum 2024 025 [facility], [address] [facility] [address], [place], [address], 07/14/2024 12:41:36 amylase + lipase, serum 2021 022 [email or web address], [address] [facility] [address], [place], [address], 07/08/2022 16:38:[address] referral 2021 022 jarrett Marsh, [address] [place] [address], [facility] [address], [place], [address], 04/21/2022 12:45:40 Procedures None recorded . Surgeries None recorded . Imaging None recorded . Medication Orders ondanset kailash HCl 4 mg tablet 2023 024 [email or web address], [address], [place], [id number], 07/14/2024 12:10:42 Cipro 500 mg tablet 2023 024 [email or web address] [facility], [address], [place], [id number], 07/14/2024 12:10:39 Guaiatus sin AC 10 mg-100 mg/5 mL oral liquid 2022 023 [email or web address] [facility], [address], [place], [id number], 01/13/2023 15:37:40 Patient TargetsNo targets recorded. Patient Instructions Encounter Date Encounter Id Patient Instructions Last Modified By Organization Details Last Modified Time 08/08/2022 [id number] osteoarthritis: care instructions jnanney Not available 08/08/2022 14:49:12 A healthy lifestyle: care instructions jnanney Not available 08/08/2022 14:45:31 01/13/2023 [id number] A healthy lifestyle: care instructions jnanney Not available 01/13/2023 15:54:51 07/01/2023 [id number] A healthy lifestyle: care instructions jnanney Not available 07/01/2023 12:09:09 nausea and vomiting: care instructions jnanney Not available 07/01/2023 12:09:09 pancreatitis: care instructions jnanney Not available 07/01/2023 12:09:09 07/14/2024 [id number] A healthy lifestyle: care instructions jnanney Not available 07/14/2024 12:36:29 pancreatitis: care instructions jnanney Not available 07/14/2024 12:41:28 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 [address] [place], [address], 11/26/2023 09:18:23 07/15/1907/14/2024 imagi ng/di agnos tic resul t No observ ation record ed. [facility] [address] [place], [address], 07/14/2024 14:36:21 07/15/1907/14/2024 imagi ng/di agnos tic resul t No observ ation record ed. [facility] [address] [place], [address], 07/14/2024 14:36:22 Result Notes None recorded. Procedures Surgical History Date Name Laterality Status Provider Name and Address Organization Details Recorded Time 10/03/19 22 Date of Last Mammogram completed Kaela Ontiveros [place] [facility] 03/03/2022 14:49:26 05/04/19 21 Date of Last Pap Smear completed Tabitha Pimentel MA [facility] 04/02/2021 10:09:12 05/04/19 21 Total hysterectomy completed Tabitha Pimentel MA [facility] 12/01/2023 14:49:43 01/03/20 20 colonoscopy completed Tabitha Pimentel [facility] 04/02/2021 10:12:50 05/04/19 14 Cholecystectomy completed Tabitha Pimentel MA [facility] 04/02/2021 10:11:45 05/04/19 08 Breast augmentation w/implt completed Tabitha Pimentel MA [facility] 04/02/2021 10:13:45 tonsilectomy/adenoi ds completed Tabitha Pimentel MA [facility] 04/02/2021 10:12:04 Imaging Results Imaging Date Name Status LastModified by Organiz ation Details LastModified Time 11/25/2023 [email or web address] [address] [place], [address], 11/26/2023 09:18:23 07/14/2024 imaging/diag nostic result active [facility] [address] [place], [address], 07/14/2024 14:36:21 07/14/2024 imaging/diag nostic result active [facility] [address] [place], [address], 07/14/2024 14:36:22 Procedure Notes None recorded. Medical Equipment None Reported. Allergies Allergen ID Allergen Name Allergen Category Reaction Reaction Severity Criticality Documentation Date Start Date Code Code System Note Provider Name and Address Organization Details Recorded Time 325221 acetamino phen / hydrocodo ne medicatio n nausea Not available Not available 04/02/2021 35606 2 RxNorm Not Available Not Available Not Available Medications Name Sig Start Date Stop Date Status Note LastModified by Organization Details LastModified Time medroxyprog esterone 10 mg tablet 04/02 completed Not Available Not Available Not Available ondansetron HCl 4 mg tablet Take 1 tablet twice a day by oral route for 10 days. 07/14 completed Not Available Not Available Not Available ciprofloxac in 500 mg tablet Take 1 tablet every 12 hours by oral route for 10 days. 07/14 completed Not Available Not Available Not Available sulfamethox azole 800 mg-trimetho prim 160 mg tablet 04/02 completed Not Available Not Available Not Available tramadol 50 mg tablet 03/03 completed Not Available Not Available Not Available levothyroxi ne 25 mcg tablet Take 1 tablet every day by oral route for 90 days. 08/23 completed Not Available Not Available Not Available lisinopril 10 mg tablet 01/13 completed Not Available Not Available Not Available hydroxyzine HCl 25 mg tablet Take 1 tablet 3 times a day by oral route as directed for 30 days. 07/01 completed Not Available Not Available Not Available codeine 10 mg-guaifene sin 100 mg/5 mL oral liquid Take 10 mL every 4 hours by oral route as needed. 01/13 completed Not Available Not Available Not Available hydrochloro thiazide 25 mg tablet TAKE ONE TABLET BY MOUTH DAILY 03/03 completed Not Available Not Available Not Available furosemide 20 mg tablet TAKE ONE TABLET BY MOUTH DAILY 07/01 completed Not Available Not Available Not Available levofloxaci n 750 mg tablet 03/03 completed Not Available Not Available Not Available naproxen 500 mg tablet 01/13 completed Not Available Not Available Not Available amoxicillin 875 mg-potassiu m clavulanate 125 mg tablet 01/13 completed Not Available Not Available Not Available ciprofloxac in 0.3 %-dexametha sone 0.1 % ear drops,suspe nsion 03/03 completed Not Available Not Available Not Available Paxlovid 300 mg (150 mg x 2)-100 mg tablets in a dose pack TAKE 3 TABLETS BY MOUTH TWICE A DAY X 5 DAYS DIRECTED 01/13 completed Not Available Not Available Not Available Vitals Date Recorded Body height Body mass index (BMI) Body weight Body temperature Oxygen saturation Oxygen saturation in Arterial blood by Pulse oximetry Heart rate Systolic blood pressure Diastolic blood pressure Provider Name and Address Organization Details Last Updated DateTime 2 173.99 cm 25.5 kg/m2 18636.7 g 97.9 [degF] 95 % 95 % 109 /min 126 mm[Hg] 68 mm[Hg] Kaela meza MA [facility] 2 14:49:02 Date Recorded Body height Body mass index (BMI) Body weight Oxygen saturation Oxygen saturation in Arterial blood by Pulse oximetry Heart rate Body temperature Systolic blood pressure Diastolic blood pressure Provider Name and Address Organization Details Last Updated DateTime 3 173.99 cm 25.9 kg/m2 89867.4 8 g 98 % 98 % 78 /min 98.2 [degF] 119 mm[Hg] 81 mm[Hg] Kaela meza MA [facility] 3 14:30:37 Date Recorded Body height Body mass index (BMI) Body weight Oxygen saturation Oxygen saturation in Arterial blood by Pulse oximetry Heart rate Systolic blood pressure Diastolic blood pressure Provider Name and Address Organization Details Last Updated DateTime 3 173.99 cm 24.1 kg/m2 91709.3 7 g 100 % 100 % 114 /min 113 mm[Hg] 81 mm[Hg] Tabitha Pimentel MA [facility] 3 15:41:44 Date Recorded Body height Body mass index (BMI) Body weight Oxygen saturation Oxygen saturation in Arterial blood by Pulse oximetry Heart rate Respiratory rate Body temperature Systolic blood pressure Diastolic blood pressure Provider Name and Address Organization Details Last Updated DateTime 4 173.99 cm 25.2 kg/m2 74262.5 2 g 100 % 100 % 89 /min 18 /min 97.6 [degF] 140 mm[Hg] 92 mm[Hg] Andreia Bill MA [facility] 4 11:53:12 Date Recorded Body height Body mass index (BMI) Body weight Oxygen saturation Oxygen saturation in Arterial blood by Pulse oximetry Heart rate Respiratory rate Systolic blood pressure Diastolic blood pressure Provider Name and Address Organization Details Last Updated DateTime 5 173.99 cm 28.6 kg/m2 47341.1 4 g 98 % 98 % 97 /min 16 /min 130 mm[Hg] 82 mm[Hg] Andreia Bill MA [facility] 5 12:13:29 Social History Question Answer Notes LastModified by Organizat ion Details LastModified Time Tobacco Smoking Status Current Every Day Smoker Tabitha Pimentel MA [facility], [place] [facility] 04/02/2021 10:10:18 What Is Your Level Of Alcohol Consumption? Occasional Rarely Information not available 07/01/2023 Are You Blind Or Do You Have Difficulty Seeing? Yes Glasses Information not available 03/03/2022 What Is Your Level Of Caffeine Consumption? Moderate Information not available 04/02/2021 In The 14 Days Before Symptom Onset, Have You Had Close Contact With A Laboratory-confir med COVID-19 While That Case Was Ill? No Information not available 04/02/2021 In The 14 Days Before Symptom Onset, Have You Had Close Contact With A Person Who Is Under Investigation For COVID-19 While That Person Was Ill? No Information not available 04/02/2021 Have You Been To An Area Known To Be High Risk For COVID-19? No Information not available 04/02/2021 Are You Currently Employed? Yes Information not available 04/02/2021 Are You Deaf Or Do You Have Serious Difficulty Hearing? No Information not available 03/03/2022 What Type Of Diet Are You Following? REGULAR Information not available 04/02/2021 What Is Your Occupation? [employer] Information not available 07/01/2023 What Was The Date Of Your Most Recent Tobacco Screening? 07/14/2024 Information not available 07/14/2024 What Is Your Relationship Status? Information not available 04/02/2021 Do You Have Smoke And Carbon Monoxide Detectors In Your Home? Yes Information not available 04/02/2021 Are You Passively Exposed To Smoke? Yes Information no t available 04/02/2021 How Much Tobacco Do You Smoke? 0.5 PPD Information not available 07/01/2023 Do You Feel Stressed (tense, Restless, Nervous, Or Anxious, Or Unable To Sleep At Night)? [id number] Information not available 04/02/2021 Do You Use Any Illicit Or Recreational Drugs? No Information not available 04/02/2021 Has Tobacco Cessation Counseling Been Provided? Yes Information not available 04/02/2021 On What Date Was Tobacco Cessation Counseling Provided? 07/14/2024 Information not available 07/14/2024 Do You Or Have You Ever Used Any Other Forms Of Tobacco Or Nicotine? No Information not available 04/02/2021 Sex: Female Functional Status Question Answer Note LastModified by Organizat ion Details LastModified Time Are you able to care for yourself? Yes Information not available 04/02/2021 What is your exercise level? Occasional Information not available 03/03/2022 Mental Status None recorded. Family History Nothing Reported. Medical History Condition Response Coronary Artery Disease N Other N Atrial Fibrillation N High Blood Pressure N Depression Y COPD Y Blood Clots N Anxiety Disorder N Muscle, Joint, or Bone Problems Y Acid Reflux (GERD) N Cancer Y Stroke N ADHD Y High Cholesterol N Liver Disease Y Schizophrenia N Headaches N Thyroid Problems N Kidney or Bladder Problems N GI Problems Y Eating Disorder N Skin Problems N Anemia Y Heart Attack ([place]) N Diabetes N Seizures/Epilepsy N Asthma Y Allergies Y Substance Abuse Y Hepatitis N Heart Failure N Osteoporosis N Gynecological History Statement/Question Response Date of Last Pap Smear 05/04/2020 Date of Last Mammogram 10/02/2021 Date of LMP 05/04/2020 Obstetrics History GPAL:G 0 P 0 0 0 0 Immunizations Vaccine Type Date Status Note Provider Nam e and Address Organization Details Recorded Time Influenza, split virus, quadrivalent, PF 12/20/2022 completed Tabitha Pimentel MA [facility] [place] [facility] 12/22/2022 10:20:01 Past Encounters Encounter ID Performer Location Encounter Start Date Encounter Closed Date Diagnosis/Indication Diagnosis SNOMED-CT Code Diagnosis ICD10 Code Diagnosis Note [id number] Tabitha Pimentel MA [facility] [address] [place] [address] 04/02/2021 10:03:23 04/02/2021 12:05:38 Adult health examination 875330859 Z00.00 Long-term drug therapy 822321395 Z79.899 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 Chronic ob structive pulmonary disease 96447818 J41.0 [id number] Sabas Jhaveri PA-C [facility] [address] [place] [address] 04/23/2021 17:24:09 04/23/2021 19:13:43 Thyroid stimulating hormone level above reference range 277128827 R79.89 [id number] Sabas Jhaveri PA-C [facility] [address] [place] [address] 06/24/2021 17:17:04 06/24/2021 18:06:10 Peripheral vascular disease 419843786 I73.89 Pain in le ft lower limb 096938295 M79.605 Peripheral arterial insufficiency 1082379391 72365 I73.9 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.3 [id number] Sabas Jhaveri PA-C [facility] [address] [place] [address] 08/23/2021 10:42:03 08/23/2021 11:32:39 Edema of lower extremity 516258348 R60.0 Peripheral vascular disease 744460603 I73.89 [id number] Sabas Jhaveri PA-C [facility] [address] [place] [address] 03/03/2022 14:42:15 03/03/2022 15:27:48 History of pancreatitis 2961500778 9107 Z87.19 lipase was extremely elevated [id number] Sabas Jhaveri PA-C [facility] [address] [place] [address] 08/08/2022 14:26:15 08/11/2022 12:17:23 Persistent cough 972364788 R05.3 Overweight 573454317 E66 .3 Osteoarthritis 256933192 M15.0 [id number] Sabas Jhaveri PA-C [facility] [address] [place] [address] 01/13/2023 15:30:03 01/15/2023 15:30:53 COVID-19 396656731 U07.1 Overweight 664817172 E66 .3 [id number] CLAUDIA Mccabe [facility] [address] [place] [address] 07/01/2023 11:30:07 07/02/2023 11:34:31 Acute urinary tract infection 612489623 N10 Acute pancreatitis 81453 6007 K85.00 urged patient to return to hospital but she refuses Nausea 150319725 R11.0 Overweight 700552374 E66 .3 [id number] Sabas Jhaveri PA-C [facility] [address] [facility] [place] [address] 07/14/2024 12:04:54 07/14/2024 12:42:42 Pain of left ankle joint 2646043031 0942315 M25.572 go to ER rule out DVT gout or injury Overweight 941365251 E66 .3 Chronic pancreatitis 235 555547 K86.1 Health Concerns Section Related Observation LastModified by Organization Detai ls LastModified Time None Recorded Concern Status LastModified by Organization Details LastModified Time None Recorded Advance Directives Directive None Recorded Payers Encounter Date Sequence Insurance Name Policy Number Policy Blas Covered Member ID Blas Member ID Guarantor Name 03/03/[address] [facility] ON OR AFTER 11/01/20 (MEDICAID REPLACEMENT - HMO) Sanjuanita Dequasie [id number] Sanjuanita Dequasie 08/08/[address] [facility] ON OR AFTER 11/01/20 (MEDICAID REPLACEMENT - HMO) Sanjuanita Dequasie [id number] Sanjuanita Dequasie 01/13/[address] [facility] ON OR AFTER 11/01/20 (MEDICAID REPLACEMENT - HMO) Sanjuanita Dequasie [id number] Sanjuanita Dequasie 07/01/[address] [facility] ON OR AFTER 11/01/20 (MEDICAID REPLACEMENT - HMO) Sanjuanita Dequasie [id number] Sanjuanita Dequasie 07/14/[address] [facility] ON OR AFTER 11/01/20 (MEDICAID REPLACEMENT - HMO) Sanjuanita Dequasie [id number] Sanjuanita Dequasie Notes Date Note Type Note Provider Name and Address Organization Details Recorded Time 03/03/2022 text/html hospital follow...pancrea titis...kidney stones...left ama...last week...no ETOH use... Sabas Jhaveri PA-C Attn: Accounting,[address] [facility], [place], [address], [facility] 03/03/2022 15:12:54 08/08/2022 text/html cough wont stop...impingeme nt in rt shoulder..injure d rt ring finger somehow... Sabas Jhaveri PA-C Attn: Accounting,[address] [facility], [place], [place], [address] [place] [address], [facility] 08/08/2022 14:50:47 01/13/2023 text/html paperwork for med time off... Sabas Jhaveri PA-C Attn: Accounting,[address] [place], [place], [address] [place] [address], [facility] 01/13/2023 15:54:54 07/01/2023 text/html reports severe pancreatitis..al so reports uti...was admitted got rocephin and morphine then checked out ama... Sabas Jhaveri PA-C Attn: Accounting,[address] [place], [address], [facility] 07/01/2023 12:10:21 07/14/2024 text/html last night her dog ([place] Islander Bulldog) hit her ankle with a chain and caused immediate pain and today redness and swelling... Sabas Jhaveri PA-C Attn: Accounting,[address] [place], [address], [facility] 07/14/2024 12:42:38 OBGyn Episode No OBEpisode recorded.
--- OUTSIDE RECORDS SUMMARY | 2024-07-14 13:49 | XMS_ITS ---
Author Organization [facility] Address [address] [place] [address] Phone Care Team Providers Care Geospatial Analyst Name Role Phone MARCOS TAYLOR, SABAS Primary Care Provider [phone] ZEKE ARCINIEGA MD Unavailable [phone] Problems Includes: Active, inactive, and resolved Problems No Active Problems Plan of Treatment Referrals To Diagnosis Pain Management [facility] - [address] [place] [address] - Pain in left hip Note: consent for Left Hip I ntra-articular steroid inijection under ultrasound guidanceNo hold NSAIDs/ASA Last Documented On 2 11:14AM ; [facility] [address] [place] [id number] - Unspecified sprain of left hip, sequela Note: Dr Yosi Paredes RI hip report and last chart notes Last Documented On 4 1:10PM ; [facility] Instructions to patient Intervention and counseling on cessation of tobacco use : Patient recieved smoking cessation handout Last Documented On 2 3:05PM ; [facility] Intervention and counseling on cessation of tobacco use : Patient recieved smoking cessation handout Last Documented On 2 8:51AM ; [facility] Assessments Includes: Assessments for all patient encounters Findings Encounter Date [S73.102S - Unspecified spra in of left hip, sequela] sprain of the left hip CHART UPDATE with JERSON HUDDLESTON SUTURE WINDER HAND-FPA, AIRPORT SALES AGENT-BC 11/08/2021 Last Documented On 2 11:39AM ; [facility] Bulging lumbar disc PAIN MANAGEMENT FOLL OW UP with JERSON G FLAQUITO SUTURE WINDER HAND-FPA, AIRPORT SALES AGENT-BC 10/10/2021 Last Documented On 2 4:19PM ; [facility] DORSALGIA PAIN MANAGEMENT FOLLOW UP with Reggie Ely FLAQUITO SUTURE WINDER HAND-FPA, AIRPORT SALES AGENT-BC 10/10/2021 Last Documented On 2 4:19PM ; [facility] Left Hip pain PAIN MANAGEMENT FOLL OW UP with JERSON G FLAQUITO SUTURE WINDER HAND-FPA, AIRPORT SALES AGENT-BC 10/10/2021 Last Documented On 2 4:19PM ; [facility] Lumbar spondylosis PAIN MANAGEMENT FOLL OW UP with JERSON G FLAQUITO SUTURE WINDER HAND-FPA, AIRPORT SALES AGENT-BC 10/10/2021 Last Documented On 2 4:19PM ; [facility] Lumbosacral spinal stenosis PAIN MANAGEM ENT FOLLOW UP with JERSON G FLAQUITO SUTURE WINDER HAND-FPA, AIRPORT SALES AGENT-BC 10/10/2021 Last Documented On 2 4:19PM ; [facility] Nicotine dependence PAIN MANAGEMENT FOLL OW UP with JERSON G FLAQUITO SUTURE WINDER HAND-FPA, AIRPORT SALES AGENT-BC 10/10/2021 Last Documented On 2 4:19PM ; [facility] Sacroiliitis PAIN MANAGEMENT FOLL OW UP with JERSON G FLAQUITO SUTURE WINDER HAND-FPA, AIRPORT SALES AGENT-BC 10/10/2021 Last Documented On 2 4:19PM ; [facility] Left Hip pain INJECTION with ZEKE ARCINIEGA MD 08/28/2021 Last Documented On 2 3:39PM ; [facility] Osteoarthritis of left hip INJECTION with SARAI ARCINIEGA MD 08/28/2021 Last Documented On 2 3:39PM ; [facility] Bulging lumbar disc PAIN MANAGEMENT NEW CONSULT with JERSON G FLAQUITO SUTURE WINDER HAND-FPA, AIRPORT SALES AGENT-BC 08/15/2021 Last Documented On 2 1:51PM ; [facility] DORSALGIA PAIN MANAGEMENT NEW CONSULT with JERSON G FLAQUITO SUTURE WINDER HAND-FPA, AIRPORT SALES AGENT-BC 08/15/2021 Last Documented On 2 1:51PM ; [facility] Edema PAIN MANAGEMENT NEW CONSULT with JERSON HUDDLESTON APRN-FPEricka AIRPORT SALES AGENT-BC 08/15/2021 Last Documented On 2 1:51PM ; [facility] Left Hip pain PAIN MANAGEMENT NEW CONSULT with JERSON HUDDLESTON SUTURE WINDER HAND-FPEricka, AIRPORT SALES AGENT-BC 08/15/2021 Last Documented On 2 1:51PM ; [facility] Lumbar spondylosis PAIN MANAGEMENT NEW CONSULT with JERSON Jhoana FLAQUITO SUTURE WINDER HAND-FPA, AIRPORT SALES AGENT-BC 08/15/2021 Last Documented On 2 1:51PM ; [facility] Lumbosacral spinal stenosis PAIN MANAGEM ENT NEW CONSULT with JERSON HUDDLESTON SUTURE WINDER HAND-FPEricka, AIRPORT SALES AGENT-BC 08/15/2021 Last Documented On 2 1:51PM ; [facility] Instructions Includes: Instructions for all patient encounters Instructions to patient Intervention and counseling on cessation of tobacco use : Patient recieved smoking cessation handout Last Documented On 2 3:05PM ; [facility] Intervention and counseling on cessation of tobacco use : Patient recieved smoking cessation handout Last Documented On 2 8:51AM ; [facility] Medical Equipment - Implanted Devices Includes: Current and historical Devices No Medical Equipment Recorded Medications Includes: Current and historical Medications Current Medications (continue as prescribed) Furosemide 20 MG Oral Tablet 10/10/2021 Provider: Diagnosis: Last Documented On 2 3:55PM By JERSON HULL ; [facility] Past Medications on file hydroCHLOROthiazide 25 MG Oral Tablet 08/15/2021 - 08/15/2021 Provider: DELLA CORONEL Diagnosis: Edema, unspecifi ed One tablet daily Last Documented On 2 1:51PM By JERSON HULL ; [facility] hydroCHLOROthiazide 25 MG Oral Tablet 08/15/2021 - 10/10/2021 Provider: DELLA CORONEL Diagnosis: Edema, unspecifi ed One tablet daily Last Documented On 2 3:33PM By JERSON PUENTEP-BC ; [facility] Medications Administered Includes: Administered Medications in patient's chart Medications Administered Diagnosis Date Pro vider Xylocaine 1% IJ SOLN 08/28/2021 ZEKE ARCINIEGA MD administered by Dr. Arciniega for local Last Documented On 2 2:16PM By Michelle Chase RN ; [facility] Sodium Chloride 0.9% IJ SOLN 08/28/2021 ZEKE ARCINIEGA MD administered by Dr. Arciniega for local Last Documented On 2 2:18PM By Michelle Chase RN ; [facility] dexAMETHasone Sodium Phosphate 10 MG/ML IJ SOLN 08/28/2021 ZEKE ARCINIEGA MD administered by Dr. Arciniega in left hip Last Documented On 2 2:19PM By Michelle Chase RN ; [facility] Xylocaine 2% IJ SOLN 08/28/2021 ZEKE ARCINIEGA MD administered by Dr. Arciniega in left hip Last Documented On 2 2:20PM By Michelle Chase RN ; [facility] Results Includes: Results from 07/15/2023 through 07/14/2024 No Results Recorded For Specified Dates History of Present Illness History of Present Illness not supported for this document type No History of Present Illness Recorded Social History Description Last Updated Current smoker 08/15/2021 Last Documented On 2 1:51PM ; [facility] Alcohol Social 08/15/2021 Last Documented On 2 1:51PM ; [facility] 08/15/2021 Last Documented On 2 1:51PM ; [facility] Not using drugs 08/15/2021 Last Documented On 2 1:51PM ; [facility] Occupation 08/15/2021 Last Documented On 2 1:51PM ; [facility] Tobacco use 08/15/2021 Last Documented On 2 1:51PM ; [facility] Smoking Status Unknown Procedures and Surgical History Surgical History Last Updated History of cholecystectomy 08/15/2021 Last Documented On 2 1:51PM ; [facility] History of hysterectomy 08/15/2021 Last Documented On 2 1:51PM ; [facility] History of tonsillectomy 08/15/2021 Last Documented On 2 1:51PM ; [facility] Prior surgery Ears [id number] ~Tonsinils 1979 ~Toes 1981 ~Colonoscopy *10 ~Csection 2007 ~Hysterectomy 2020 ~BLT breast 2008 08/15/2021 Last Documented On 2 1:51PM ; [facility] Medical History Includes: Medical History in patient's chart Description Last Updated Denies a fear of falling. 08/15/2021 Last Documented On 2 1:51PM ; [facility] Has had no fall in the last 12 months. 0 08/15/2021 Last Documented On 2 1:51PM ; [facility] Currently wearing eyeglasses 08/15/2021 Last Documented On 2 1:51PM ; [facility] Exposure to dust 08/15/2021 Last Documented On 2 1:51PM ; [facility] Exposure to fumes 08/15/2021 Last Documented On 2 1:51PM ; [facility] History of extraction of wisdom tooth Last Documented On 2 1:51PM ; [facility] Last mammogram date: 202008/15/2021 Last Documented On 2 1:51PM ; [facility] Surgery 08/15/2021 Last Documented On 2 1:51PM ; [facility] Family History Includes: Family History in patient's chart Description Last Updated Family history of alcoholism 08/15/2021 Last Documented On 2 1:51PM ; [facility] Family history of diabetes mellitus 08/02 Last Documented On 2 1:51PM ; [facility] Family history of genetic disease 2021 Last Documented On 2 1:51PM ; [facility] Family history of heart disease 08/16/19 22 Last Documented On 2 1:51PM ; [facility] Family history of kidney disease 022 Last Documented On 2 1:51PM ; [facility] Family history of mental illness (not in tellectual disabilities) 08/15/2021 Last Documented On 2 1:51PM ; [facility] Family medical history Pagets Mother, Gr andmother, and multiple others 08/15/2021 Last Documented On 2 1:51PM ; [facility] Father 0.73 years old 08/15/2021 Last Documented On 2 1:51PM ; [facility] Mother 73 years old 08/15/2021 Last Documented On 2 1:51PM ; [facility] No family history of defects 08/15 Last Documented On 2 1:51PM ; [facility] No family history of bleeding problems 0 08/15/2021 Last Documented On 2 1:51PM ; [facility] No family history of cancer 08/15/2021 Last Documented On 2 1:51PM ; [facility] Review of Systems Review of Systems not supported for this document type No Review of Systems Recorded Mental Status No Mental Status Recorded Functional Status No Functional Status Recorded Physical Exam Physical Exam not supported for this document type No Physical Exam Recorded Allergies Includes: Active, inactive, and resolved Allergies No Known Allergies Insurance Includes: Active Insurance Policies Plan Name Member ID Group # Subscriber Relationship Effect mariola Dates - [facility] [id number] DANA WONG Self Clinical Notes Includes: Signed Clinical Notes starting from 05/23/2022 No Clinical Notes Recorded
--- OUTSIDE RECORDS SUMMARY | 2024-07-14 13:49 | XMS_ITS | Clinical Summary ---
Author Organization [facility] Address [address] [place] [address] Phone Care Team Providers Care Batch Unit Treater Name Role Phone MARCOS TAYLOR, SABAS Primary Care Provider [phone] ZEKE GOMEZ MD Unavailable [phone] Reason for Visit and Chief Complaint The Chief Complaint is: Follow up afterL hip injection 08/28/2021 ~0% with 0% ongoing Problems Includes: Problems addressed during this encounter and other active Problems No Active Problems Plan of Treatment Instructions to patient Intervention and counseling on cessation of tobacco use : Patient recieved smoking cessation handout Last Documented On 3:05PM ; [facility] Assessments Includes: Assessments from this encounter Findings - [M46.1 - Sacroiliitis, not elsewhere classified] Sacroiliitis - Last Documented On 10/10/2021 4:19PM ; [facility] - [M25.552 - Pain in left hip] Left Hip pain - Last Documented On 10/10/2021 4:19PM ; [facility] - [M54.9 - Dorsalgia, unspecified] DORSALGIA - Last Documented On 10/10/2021 4:19PM ; [facility] - [M51.26 - Other intervertebral disc displacement, lumbar region] Bulging lumbar disc - Last Documented On 10/10/2021 4:19PM ; [facility] - [M47.896 - Other spondylosis, lumbar region] Lumbar spondylosis - Last Documented On 10/10/2021 4:19PM ; [facility] - [M48.07 - Spinal stenosis, lumbosacral region] Lumbosacral spinal stenosis - Last Documented On 10/10/2021 4:19PM ; [facility] - [F17.200 - Nicotine dependence, unspecified, uncomplicated] Nicotine dependence - Last Documented On 10/10/2021 4:19PM ; [facility] Instructions Includes: Instructions from this encounter Instructions to patient Intervention and counseling on cessation of tobacco use : Patient recieved smoking cessation handout Last Documented On 2 3:05PM ; [facility] Medical Equipment - Implanted Devices Includes: Current Devices No Medical Equipment Recorded Medications Includes: Medications discussed during this encounter and other current Medications Discontinued / Stopped on this date DELLA CORONEL on 08/15/2021 hydroCHLOROthiazide 25 MG Or al Tablet Provider: DELLA CORONEL Diagnosis: Edema, unspecifi ed Last Documented On 2 3:33PM By JERSON HULL ; [facility] Current Medications (continue as prescribed) Furosemide 20 MG Oral Tablet 10/10/2021 Provider: Diagnosis: Last Documented On 2 3:55PM By JERSON HULL ; [facility] Medications Administered Includes: Administered Medications from this encounter No Administered Medications Recorded Vital Signs Includes: Vital Signs from this encounter Vital Name 10/10/2021 03:09P Blood Pressure Sitting L 126/80 BP Cuff Size Regular Pulse Rate-Sitting (bpm) 106 Temp-Temporal 98.1 Height (in) 68 Pain Level 6 Oxygen Saturation (%) 99 Last Documented: On 10/10/2021 3:12PM ; [facility] Results Includes: Results discussed during this [...] lower back., physical therapy, no pain management. L hip Intra-articular steroid injection 08/28/21 DANA WONG is a 46 year old female. - Allergy list reviewed - Problem list reviewed - Medication reconciliation performed - Medication list reviewed - Primary Care Provider: Sabas Jhaveri - Prescription Drug Monitoring Program website checked. 06/08/2021 - How much of the medication are you taking a day? Noone - Last dose of medication? - No vertigo Discussion: Patient presents today for a follow-up of her left hip pain. Unfortunately, the intra-articular steroid injection that she received did not help her at all. She is benefiting from physical therapy. She has noted a little bit of improvement in her pain and range of motion. She continues to take Tylenol or Ibuprofen and uses Voltaren gel as needed. She has been in PT for more than 6 weeks attending two visits weekly. We will get a MRI for further evaluation of this patients' hip pain. We can consider femoral obturator nerve block with progression to RFA. FIRST VISIT: Patient presents today for chronic low back [...] hip pain. 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 X-ray L Hip 08/20/2018 Impression: Mild left hip osteoarthritis X-ray lumbar spine 11/19/2020 Impression: Mild lumbar [...] Current smoker 08/15/2021 Last Documented On 2 3:05PM ; [facility] Alcohol Social 08/15/2021 Last Documented On 2 3:05PM ; [facility] 08/15/2021 Last Documented On 2 3:05PM ; [facility] Not using drugs 08/15/2021 Last Documented On 2 3:05PM ; [facility] Occupation 08/15/2021 Last Documented On 2 3:05PM ; [facility] Tobacco use 08/15/2021 Last Documented On 2 3:05PM ; [facility] Smoking Status Unknown Procedures and Surgical History Includes: Procedures from this encounter Procedures Code Diagnosis Performing Provider Service L ocation Service Date intervention and counseling on cessation of tobacco use : Patient recieved smoking cessation handout 4000F Last Documented On 2 3:05PM ; [facility] use of tobacco assessment performed 1000F Last Documented On 2 3:05PM ; [facility] patient screened for future fall risk: documentation of any fall with injury in past year 1100F Last Documented On 2 3:07PM ; [facility] review of medications documented 1160F Last Documented On 2 3:05PM ; [facility] screening for adult depression: impressi on and score eight Last Documented On 2 3:05PM ; [facility] standardized depression screening: posit mariola for symptoms Last Documented On 2 3:05PM ; [facility] Clinical summary provided to patient Last Documented On 2 3:05PM ; [facility] Surgical History Last Updated History of cholecystectomy 08/15/2021 Last Documented On 2 3:05PM ; [facility] History of hysterectomy 08/15/2021 Last Documented On 2 3:05PM ; [facility] History of tonsillectomy 08/15/2021 Last Documented On 2 3:05PM ; [facility] Prior surgery Ears [id number] ~Tonsinils 1979 ~Toes 1981 ~Colonoscopy *10 ~Csection 2006 ~Hysterectomy 2020 ~BLT breast 2008 08/15/2021 Last Documented On 2 3:05PM ; [facility] Medical History Includes: Medical History addressed during this encounter Description Last Updated Denies a fear of falling. 08/15/2021 Last Documented On 2 3:05PM ; [facility] Has had no fall in the last 12 months. 0 08/15/2021 Last Documented On 2 3:05PM ; [facility] Currently wearing eyeglasses 08/15/2021 Last Documented On 2 3:05PM ; [facility] Exposure to dust 08/15/2021 Last Documented On 2 3:05PM ; [facility] Exposure to fumes 08/15/2021 Last Documented On 2 3:05PM ; [facility] History of extraction of wisdom tooth Last Documented On 2 3:05PM ; [facility] Last mammogram date: 202008/15/2021 Last Documented On 2 3:05PM ; [facility] Surgery 08/15/2021 Last Documented On 2 3:05PM ; [facility] Family History Includes: Family History addressed during this encounter Description Last Updated Family history of alcoholism 08/15/2021 Last Documented On 2 3:05PM ; [facility] Family history of diabetes mellitus 08/02 Last Documented On 2 3:05PM ; [facility] Family history of genetic disease 2021 Last Documented On 2 3:05PM ; [facility] Family history of heart disease 08/16/19 Last Documented On 2 3:05PM ; [facility] Family history of kidney disease 022 Last Documented On 2 3:05PM ; [facility] Family history of mental illness (not in tellectual disabilities) 08/15/2021 Last Documented On 2 3:05PM ; [facility] Family medical history Pagets Mother, Gr andmother, and multiple others 08/15/2021 Last Documented On 2 3:05PM ; [facility] Father 0.73 years old 08/15/2021 Last Documented On 2 3:05PM ; [facility] Mother 73 years old 08/15/2021 Last Documented On 2 3:05PM ; [facility] No family history of defects 08/15 Last Documented On 2 3:05PM ; [facility] No family history of bleeding problems 0 08/15/2021 Last Documented On 2 3:05PM ; [facility] No family history of cancer 08/15/2021 Last Documented On 2 3:05PM ; [facility] Review of Systems Includes: Review of [...] Check-In Time Check-Out Time Diagnosis PAIN MANAGEMENT FOLLOW UP JERSON HUDDLESTON CORPORATE AFFAIRS MANAGER-FPA, SQL SERVER ARCHITECT-BC [facility] ON 022 3:01PM 3:41PM Lumbar Spondylosis,Bulgi ng Intervertebral Disc Lumbar,Spinal Stenosis Lumbosacral,Left Hip Pain,Dorsalgia,Sa croiliitis,Nicoti ne Dependence Insurance Includes: Active Insurance Policies Plan Name Member ID Group # Subscriber Relationship Effect mariola Dates 1 - [facility] [id number] DANA WONG Self Clinical Notes Includes: Clinical Notes from this encounter No Clinical Notes Recorded
--- OUTSIDE RECORDS SUMMARY | 2024-07-14 13:49 | XMS_ITS | Clinical Summary ---
Author Organization [facility] Address [address] [place] [phone] Phone Care Team Providers Care Conceptor Name Role Phone MARCOS TAYLOR, SABAS Primary Care Provider [phone] ZEKE GOMEZ MD Unavailable [phone] Reason for Visit and Chief Complaint * PHONE CALL Problems Includes: Problems addressed during this encounter and other active Problems No Active Problems Plan of Treatment No Plan of Treatment Recorded Assessments Includes: Assessments from this encounter No Assessments Recorded Medical Equipment - Implanted Devices Includes: Current Devices No Medical Equipment Recorded Medications Includes: Medications discussed during this encounter and other current Medications Current Medications (continue as prescribed) Furosemide 20 MG Oral Tablet 10/10/2021 Provider: Diagnosis: Last Documented On 2 3:55PM By JERSON STOREY ; [facility] Medications Administered Includes: Administered Medications from this encounter No Administered Medications Recorded Results Includes: Results discussed during this encounter No Results Recorded For Specified Dates History of Present Illness Includes: History of Present Illness from this encounter No History of Present Illness Recorded Social History Description Last Updated Current smoker 08/15/2021 Last Documented On 2 12:58PM ; [facility] Alcohol Social 08/15/2021 Last Documented On 2 12:58PM ; [facility] 08/15/2021 Last Documented On 2 12:58PM ; [facility] Not using drugs 08/15/2021 Last Documented On 2 12:58PM ; [facility] Occupation 08/15/2021 Last Documented On 2 12:58PM ; [facility] Tobacco use 08/15/2021 Last Documented On 2 12:58PM ; [facility] Smoking Status Unknown Procedures and Surgical History Surgical History Last Updated History of cholecystectomy 08/15/2021 Last Documented On 2 12:58PM ; [facility] History of hysterectomy 08/15/2021 Last Documented On 2 12:58PM ; [facility] History of tonsillectomy 08/15/2021 Last Documented On 2 12:58PM ; [facility] Prior surgery Ears [id number] ~Tonsinils 1980 ~Toes 1981 ~Colonoscopy *10 ~Csection 2007 ~Hysterectomy 2020 ~BLT breast 2008 08/15/2021 Last Documented On 2 12:58PM ; [facility] Medical History Includes: Medical History addressed during this encounter Description Last Updated Denies a fear of falling. 08/15/2021 Last Documented On 2 12:58PM ; [facility] Has had no fall in the last 12 months. 0 08/15/2021 Last Documented On 2 12:58PM ; [facility] Currently wearing eyeglasses 08/15/2021 Last Documented On 2 12:58PM ; [facility] Exposure to dust 08/15/2021 Last Documented On 2 12:58PM ; [facility] Exposure to fumes 08/15/2021 Last Documented On 2 12:58PM ; [facility] History of extraction of wisdom tooth Last Documented On 2 12:58PM ; [facility] Last mammogram date: 202008/15/2021 Last Documented On 2 12:58PM ; [facility] Surgery 08/15/2021 Last Documented On 2 12:58PM ; [facility] Family History Includes: Family History addressed during this encounter Description Last Updated Family history of alcoholism 08/15/2021 Last Documented On 2 12:58PM ; [facility] Family history of diabetes mellitus 08/02 Last Documented On 2 12:58PM ; [facility] Family history of genetic disease 2021 Last Documented On 2 12:58PM ; [facility] Family history of heart disease 08/16/19 22 Last Documented On 2 12:58PM ; [facility] Family history of kidney disease 022 Last Documented On 2 12:58PM ; [facility] Family history of mental illness (not in tellectual disabilities) 08/15/2021 Last Documented On 2 12:58PM ; [facility] Family medical history Pagets Mother, Gr andmother, and multiple others 08/15/2021 Last Documented On 2 12:58PM ; [facility] Father 0.73 years old 08/15/2021 Last Documented On 2 12:58PM ; [facility] Mother 73 years old 08/15/2021 Last Documented On 2 12:58PM ; [facility] No family history of defects 08/15 Last Documented On 2 12:58PM ; [facility] No family history of bleeding problems 0 08/15/2021 Last Documented On 2 12:58PM ; [facility] No family history of cancer 08/15/2021 Last Documented On 2 12:58PM ; [facility] Review of Systems Includes: Review of Systems [...] Location Date Check-In Time Check-Out Time Diagnosis * PHONE CALL JERSON Jhaona H[employer]DLE[employer] PRINT LINE TAILER-FPA, REHAB AIDE-BC 10/29/2021 12:58PM 11:59PM Insurance Includes: Active Insurance Policies Plan Name Member ID Group # Subscriber Relationship Effect mariola Dates - [facility] [id number] DANA WONG Self Clinical Notes Includes: Clinical Notes from this encounter No Clinical Notes Recorded
--- OUTSIDE RECORDS SUMMARY | 2024-07-14 13:50 | XMS_ITS | Encounter Summary ---
Author Organization [facility] Address [facility] [place] [address] Care Team Providers Care Retail Business Development Manager Name Role Phone Joe Shepard MD Primary Care Provider [phone] Juan Manuel Elam MD Unavailable Encounter Details Date Type Department Care Team (Late st Contact Info) Description 10/09/2018 Abstract SFL CONVERSION [address] [place] [address] , Generic MD Nicolas Social History Tobacco Use Types Packs/Day Years Used Date Smoking Tobacco: Every Day Cigarettes Smokeless Tobacco: Never Alcohol Use Standard Drinks/Week Comments No 0 (1 standard drink = 0.6 oz pur e alcohol) Comments Unknown Sex and Gender Information Value Date Recorded Sex Assigned at Not on file Legal Sex Female 5:21 PM CDT Gender Identity Not on file Sexual Orientation Not on file documented as of this encounter Plan of Treatment Not on file documented as of this encounter Visit Diagnoses Not on filedocumented in this encounter Care Teams Retail Business Development Manager Relationship Specialty Start Date End Date Joe Shepard MD [address] [place] [phone] PCP - General FAMILY PRACTICE 09/18/16 [place] [phone] INTERNAL MEDICINE 09/18/16 documented as of this encounter
--- OUTSIDE RECORDS SUMMARY | 2024-07-14 13:50 | XMS_ITS | Continuity of Care Document ---
Author Organization [facility] Address [address] [place] [address] Care Team Providers Care Packing Room Worker Name Role Phone SABAS JHAVERI Primary Care Provider [phone] Assessment No assessment recorded. Plan of Treatment Reminders Order Date Submit Date Provider Last Modified By Organization Details Last Modified Time Details Appointments ANY 15 2024 11:00A Reggie Jhaveri PA-C Not available Not available Not available Lab uric acid, serum or plasma 2024 025 [facility], [address] [place] [address], [address], 07/14/2024 12:41:36 CBC 2024 025 [facility], [address] [place] [address] 2, [place], [address], 07/14/2024 12:41:36 CMP, serum or plasma 2024 025 [facility], [address] [place] [address] 2, [place], [address], 07/14/2024 12:41:35 lipid panel, serum 2024 025 [facility], [address] [facility], [facility] [address], [place], [address], 07/14/2024 12:41:35 HbA1c (hemoglo bin A1c), blood 2024 025 [facility] In-Office Order, Internal Use Only DO Not Attach Compendium DO Not Attach Compendium, Do Not Delete/merge, [id number] 07/14/2024 13:02:23 amylase + lipase, serum 2024 025 [facility], [address] [place] [address] 2, [place], [address], 07/14/2024 12:41:36 Referral None recorded . Procedures None recorded . Surgeries None recorded . Imaging None recorded . Medication Orders None recorded . Patient TargetsNo targets recorded. Patient Instructions Encounter Date Encounter Id Patient Instructions Last Modified By Organization Details Last Modified Time 07/14/2024 [id number] A healthy lifestyle: care instructions jnanney Not available 07/14/2024 12:36:29 pancreatitis: care instructions jnanney Not available 07/14/2024 12:41:28 Reason for Referral None Reported. Results Created Date Observation Date Name Description Value Unit Range Abnormal Flag Note LastModifiedBy Organization Detail LastModifiedTime 07/15/1907/14/2024 imagi ng/di agnos tic resul t No observ ation record ed. [facility] [address] [place], [address], 07/14/2024 14:36:21 07/15/19 25 07/14/2024 imagi ng/di agnos tic resul t No observ ation record ed. [facility] [address] [place], [address], 07/14/2024 14:36:22 Result Notes None recorded. Procedures Surgical History Date Name Laterality Status Provider Name and Address Organization Details Recorded Time 10/03/19 22 Date of Last Mammogram completed HEIDI Diaz 03/03/2022 14:49:26 05/04/19 21 Date of Last Pap Smear completed HEIDI Andrew 04/02/2021 10:09:12 05/04/19 21 Total hysterectomy completed HEIDI Andrew 12/01/2023 14:49:43 01/03/20 20 colonoscopy completed HEIDI Andrew 04/02/2021 10:12:50 05/04/19 14 Cholecystectomy completed HEIDI AndrewF 04/02/2021 10:11:45 05/04/19 08 Breast augmentation w/implt completed Tabitha Pimentel [place] - [facility] 04/02/2021 10:13:45 tonsilectomy/adenoi ds completed HEIDI Andrew - [facility] 04/02/2021 10:12:04 Imaging Results None recorded. Procedure Notes None recorded. Medical Equipment None Reported. Allergies Allergen ID Allergen Name Allergen Category Reaction Reaction Severity Criticality Documentation Date Start Date Code Code System Note Provider Name and Address Organization Details Recorded Time 607470 acetamino phen / hydrocodo ne medicatio n nausea Not available Not available 04/02/2021 72456 2 RxNorm Not Available Not Available Not [...] Available Not Available Not Available amoxicillin 875 mg-potluu m clavulanate 125 mg tablet 01/13 completed [...] Updated DateTime 5 173.99 cm 28.6 kg/m2 34699.1 4 g 98 % 98 % 97 /min 16 /min 130 mm[Hg] 82 mm[Hg] Andreia Bill MA [facility] 5 12:13:29 Social History Question Answer Notes LastModified by Organizat ion Details LastModified Time Tobacco Smoking Status Current Every Day Smoker Tabitha Pimentel MA [facility], [place] - [facility] 04/02/2021 10:10:18 What Is Your [...] Anxious, Or Unable To Sleep At Night)? [id number] Information not available 04/02/2021 Do You Use [...] Response Coronary Artery Disease N Other N High Blood Pressure N Atrial Fibrillation N Kidney or Bladder Problems N Thyroid Problems N Depression Y COPD Y Blood Clots N GI Problems Y Skin Problems N Eating Disorder N Anemia Y Heart Attack (PA) N Anxiety Disorder N Diabetes N Muscle, Joint, or Bone Problems Y Seizures/Epilepsy N Acid Reflux (GERD) N Cancer Y Stroke N Asthma Y Allergies Y ADHD Y Substance Abuse Y High Cholesterol N Hepatitis N Liver Disease Y Headaches N Schizophrenia N Osteoporosis N Heart Failure N Gynecological History Statement/Question Response Date of Last Pap Smear 05/04/2020 Date of Last Mammogram 10/02/2021 Date of LMP 05/04/2020 Obstetrics History GPAL:G 0 P 0 0 0 0 Immunizations Vaccine Type Date Status Note Provider Nam e and Address Organization Details Recorded Time Influenza, split virus, quadrivalent, PF 12/20/2022 completed Tabitha Pimentel [place], [place] - [facility] 12/22/2022 10:20:01 Past Encounters Encounter ID Performer Location Encounter Start Date Encounter Closed Date Diagnosis/Indication Diagnosis SNOMED-CT Code Diagnosis ICD10 Code Diagnosis Note [id number] Sabas Jhaveri PA-C [facility] [address] [place] [address] 07/14/2024 12:04:54 07/14/2024 12:42:42 Pain of left ankle joint 2970855796 2433786 M25.572 go to ER rule out DVT gout or injury Overweight 722924727 E66 .3 Chronic pancreatitis 235 457100 K86.1 Health Concerns Section Related Observation LastModified by Organization Detai ls LastModified Time None Recorded Concern Status LastModified by Organization Details LastModified Time None Recorded Payers Encounter Date Sequence Insurance Name Policy Number Policy Blas Covered Member ID Blas Member ID Guarantor Name 07/14/2024 1 [facility] - DOS ON OR AFTER 20 (MEDICAID REPLACEMENT - HMO) Sanjuanita Dequasie [id number] Sanjuanita Dequasie Notes Date Note Type Note Provider Name and Address Organization Details Recorded Time 07/14/2024 text/html last night her dog (Croatian Bulldog) hit her ankle with a chain and caused immediate pain and today redness and swelling... Sabas Jhaveri PA-C Attn: Accounting,[address] [facility], [place], [address], [facility] 07/14/2024 12:42:38 OBGyn Episode No OBEpisode recorded.
--- OUTSIDE RECORDS SUMMARY | 2024-07-14 13:50 | XMS_ITS | Clinical Summary ---
Author Organization [facility] Address [facility] [place] [address] Care Team Providers Care Senior Production Manager Name Role Phone Joe Shepard MD Primary Care Provider [phone] Juan Manuel Elam MD Unavailable Allergies Active Allergy Reactions Criticality Noted Date Comments Tape Itching,Swelling 09/22/2016 Rash Medications furosemide 40 MG tablet Take 40 mg by mouth daily. Active COMPRESSION STOCKINGS 20-30 mmhg Compression Stocking Knee High Dx I83.893 R60.9 1 Container 6 7 Active Active Problems Problem Noted Date Diagnosed Date Bilateral edema of lower extremity 09/22/2016 Smoker 09/22/2016 Family History Relation Status Comments Father Alive Maternal Grandfather Maternal Grandmother Mother Alive Paternal Grandfather Paternal Grandmother Social History Tobacco Use Types Packs/Day Years [...] Sign Reading Time Taken Comments Blood Pressure 120/72 09/22/2016 2:38 PM CDT Pulse 76 09/22/2016 2:37 PM CDT Temperature - - Respiratory Rate 16 09/22/2016 2:37 PM CDT Oxygen Saturation - - Inhaled Oxygen Concentration - - Weight 70.3 kg (155 lb) 09/22/2016 2:37 PM CDT Height 172.7 cm (5' 8 ) 09/22/2016 2:37 PM CDT Body Mass Index 23.57 09/22/2016 2:37 PM CDT Plan of Treatment Health Maintenance Due Date Last Done Comments Cervical Cancer Screening Pa p Smear (Age 30 to 64) Every 3 Years 1974 Colorectal Cancer Screening Colonoscopy (10 Years) 1974 Annual Physical 1977 Pneumococcal Vaccine: Pediat rics (0 to 5 Years) and At-Risk Patients (6 to 64 Years) (1 of 2 - PCV) 1980 Hepatitis C 1992 DTaP, Tdap and Td Vaccines ( 1 - Tdap) 1993 Hepatitis B Vaccines (1 of 3 - 19+ 3-dose series) 1993 Cervical Cancer Screening Pa p with HPV Testing (Age 30 to 64) Every 5 Years 2004 Cervical Cancer Screening with HPV 2004 Mammogram Screening 2014 COVID-19 Vaccine ( - 2023-2 5 season) 2024 Influenza Adult (#1) 2024 Meningococcal B Vaccine Aged Out No l onger eligible based on patient's age to complete this topic Meningococcal Vaccine Aged Out No raz mariann eligible based on patient's age to complete this topic RSV Immunizations Under 20 Months Aged Out No longer eligible based on patient's age to complete this topic Procedures Procedure Name Priority Date/Time Associated Diagnosis Comments COLONOSCOPY Routine DISTRICT COURT JUDGE from Last 3 Months or Most Recently Relevant to Health Maintenance Results * Colonoscopy ( DISTRICT COURT JUDGE) Narrative [facility] TO EPIC CONVERSION - DISTRICT COURT JUDGE Documented hx of procedure Procedure Note Md Generic Conversion, - 03/07/2018 Documented hx of procedure us Generic Conversion Md MD [place] PROCEDURE ORDERABLES Final Result [facility] TO EPIC CONVERSION from Last 3 Months or Most Recently Relevant to Health Maintenance Insurance MEDICAID MEDICAID Member Subscriber Plan / Payer (Ef fective 2017-Present) Name:Sanjuanita Pedersen Relation to Subscriber:Self Name:Sanjuanita Pedersen Payer ID:Not on file Group ID:Not on file Type:Not on file [address] Care Teams Senior Production Manager Relationship Specialty Start Date End Date Joe Shepard MD [address] [place] [phone] PCP - General FAMILY PRACTICE 09/18/16 Juan Manuel Elam MD [address] [place] [phone] INTERNAL MEDICINE 09/18/16
== END 2024-07-14 13:27 | disposition home or self-care (01) ==
PROVIDERS: Emergency Provider Emergency Medicine; PCP Physician Assistant
DX: S93.402A Sprain of unspecified ligament of left ankle, initial encounter (principal); L03.116 Cellulitis of left lower limb; F17.210 Nicotine dependence, cigarettes, uncomplicated; W01.0XXA Fall on same level from slipping, tripping and stumbling without subsequent striking against object, initial encounter
CPT/HCPCS: 73610; 73630; 99283

== ENCOUNTER 2024-07-26 17:26 | Outpatient (CLI) | payer OTHER, SELFPAY ==
[2024-07-26 18:44] LABS: Erythrocyte Sedimentation Rate 17 mm/hr (0-15)
--- OUTSIDE RECORDS SUMMARY | 2024-07-26 18:49 | XMS_ITS | Clinical Summary ---
Author Organization [facility] Address [address] [place] [address] Phone Care Team Providers Care Assistant Professor Of Criminal Justice Name Role Phone MARCOS TAYLOR, SABAS Primary Care Provider [phone] ZEKE GOMEZ MD Unavailable [phone] Reason for Visit and Chief [...] On 2 3:55PM By JERSON STOREY ; [facility] Medications Administered Includes: Administered Medications from this encounter No Administered Medications Recorded Results Includes: Results discussed during this encounter No Results Recorded For Specified Dates History of Present Illness Includes: History of Present Illness from this encounter No History of Present Illness Recorded Social History Description Last Updated Current smoker 08/15/2021 Last Documented On 2 12:58PM ; [facility] Alcohol Social 08/15/2021 Last Documented On 2 12:58PM ; [facility] 08/15/2021 Last Documented On 2 12:58PM ; [facility] Not using drugs 08/15/2021 Last Documented On 2 12:58PM ; [facility] Occupation 08/15/2021 Last Documented On 2 12:58PM ; [facility] Tobacco use 08/15/2021 Last Documented On 2 12:58PM ; [facility] Smoking Status Unknown Procedures and Surgical History Surgical History Last Updated History of cholecystectomy 08/15/2021 Last Documented On 2 12:58PM ; [facility] History of hysterectomy 08/15/2021 Last Documented On 2 12:58PM ; [facility] History of tonsillectomy 08/15/2021 Last Documented On 2 12:58PM ; [facility] Prior surgery Ears [id number] ~Tonsinils 1980 ~Toes 1981 ~Colonoscopy *10 ~Csection 2007 ~Hysterectomy 2020 ~BLT breast 2008 08/15/2021 Last Documented On 2 12:58PM ; [facility] Medical History Includes: Medical History addressed during this encounter Description Last Updated Denies a fear of falling. 08/15/2021 Last Documented On 2 12:58PM ; [facility] Has had no fall in the last 12 months. 0 08/15/2021 Last Documented On 2 12:58PM ; [facility] Currently wearing eyeglasses 08/15/2021 Last Documented On 2 12:58PM ; [facility] Exposure to dust 08/15/2021 Last Documented On 2 12:58PM ; [facility] Exposure to fumes 08/15/2021 Last Documented On 2 12:58PM ; [facility] History of extraction of wisdom tooth Last Documented On 2 12:58PM ; [facility] Last mammogram date: 202008/15/2021 Last Documented On 2 12:58PM ; [facility] Surgery 08/15/2021 Last Documented On 2 12:58PM ; [facility] Family History Includes: Family History addressed during this encounter Description Last Updated Family history of alcoholism 08/15/2021 Last Documented On 2 12:58PM ; [facility] Family history of diabetes mellitus 08/02 Last Documented On 2 12:58PM ; [facility] Family history of genetic disease 2021 Last Documented On 2 12:58PM ; [facility] Family history of heart disease 08/16/19 22 Last Documented On 2 12:58PM ; [facility] Family history of kidney disease 022 Last Documented On 2 12:58PM ; [facility] Family history of mental illness (not in tellectual disabilities) 08/15/2021 Last Documented On 2 12:58PM ; [facility] Family medical history Pagets Mother, Gr andmother, and multiple others 08/15/2021 Last Documented On 2 12:58PM ; [facility] Father 0.73 years old 08/15/2021 Last Documented On 2 12:58PM ; [facility] Mother 73 years old 08/15/2021 Last Documented On 2 12:58PM ; [facility] No family history of defects 08/15 Last Documented On 2 12:58PM ; [facility] No family history of bleeding problems 0 08/15/2021 Last Documented On 2 12:58PM ; [facility] No family history of cancer 08/15/2021 Last Documented On 2 12:58PM ; [facility] Review of Systems Includes: Review of [...] Check-Out Time Diagnosis * PHONE CALL JERSON Jhoana H[employer]DLE[employer] SENIOR INTEGRATION DEVELOPER-FPA, ENVIRONMENTAL HEALTH SAFETY MANAGER-BC 10/29/2021 12:58PM 11:59PM Insurance Includes: Active Insurance Policies Plan Name Member ID Group # Subscriber Relationship Effect mariola Dates - [facility] [id number] DANA WONG Self Clinical Notes Includes: Clinical Notes from this encounter No Clinical Notes Recorded
--- OUTSIDE RECORDS SUMMARY | 2024-07-26 18:50 | XMS_ITS ---
Care Plan - [facility] Created on: July 26, 2024 DANA WONG : 1975 Sex: Female Author Organization [facility] Address [address] [place] [phone] Phone Care Team Providers Care Smoking Pipe Repairer Name Role Phone SABAS RODRÍGUEZ PA-C Primary Care Provider [phone] ZEKE GOMEZ MD Unavailable [phone]
--- OUTSIDE RECORDS SUMMARY | 2024-07-26 18:50 | XMS_ITS | Clinical Summary ---
Author Organization [facility] Address [address] [place] [address] Phone Care Team Providers Care Oracle Adf Developer Name Role Phone MARCOS TAYLOR, SABAS Primary Care Provider [phone] ZEKE GOMEZ MD Unavailable [phone] Reason for Visit and Chief Complaint CHART UPDATE Problems Includes: Problems addressed during this encounter and other active Problems No Active Problems Plan of Treatment Referrals To Diagnosis Orthopedic [facility] - [address] [place] [id number] - Unspecified sprain of left hip, sequela Note: Dr Yosi Paredes [place] hip report and last chart notes Last Documented On 4 1:10PM ; [facility] Assessments Includes: Assessments from this encounter Findings - [S73.102S - Unspecified sprain of left hip, sequela] Sprain of the left hip - Last Documented On 11/08/2021 11:39AM ; [facility] Medical Equipment - Implanted Devices Includes: Current Devices No Medical Equipment Recorded Medications Includes: Medications discussed during this encounter and other current Medications Current Medications (continue as prescribed) Furosemide 20 MG Oral Tablet 10/10/2021 Provider: Diagnosis: Last Documented On 2 3:55PM By JERSON STOREY ; [facility] Medications Administered Includes: Administered Medications from this encounter No Administered Medications Recorded Results Includes: Results discussed during this encounter No Results Recorded For Specified Dates History of Present Illness Includes: History of Present Illness from this encounter No History of Present Illness Recorded Social History Description Last Updated Current smoker 08/15/2021 Last Documented On 2 11:32AM ; [facility] Alcohol Social 08/15/2021 Last Documented On 2 11:32AM ; [facility] 08/15/2021 Last Documented On 2 11:32AM ; [facility] Not using drugs 08/15/2021 Last Documented On 2 11:32AM ; [facility] Occupation 08/15/2021 Last Documented On 2 11:32AM ; [facility] Tobacco use 08/15/2021 Last Documented On 2 11:32AM ; [facility] Smoking Status Unknown Procedures and Surgical History Surgical History Last Updated History of cholecystectomy 08/15/2021 Last Documented On 2 11:32AM ; [facility] History of hysterectomy 08/15/2021 Last Documented On 2 11:32AM ; [facility] History of tonsillectomy 08/15/2021 Last Documented On 2 11:32AM ; [facility] Prior surgery Ears [id number] ~Tonsinils 1979 ~Toes 1981 ~Colonoscopy *10 ~Csection 2006 ~Hysterectomy 2020 ~BLT breast 2008 08/15/2021 Last Documented On 2 11:32AM ; [facility] Medical History Includes: Medical History addressed during this encounter Description Last Updated Denies a fear of falling. 08/15/2021 Last Documented On 2 11:32AM ; [facility] Has had no fall in the last 12 months. 0 08/15/2021 Last Documented On 2 11:32AM ; [facility] Currently wearing eyeglasses 08/15/2021 Last Documented On 2 11:32AM ; [facility] Exposure to dust 08/15/2021 Last Documented On 2 11:32AM ; [facility] Exposure to fumes 08/15/2021 Last Documented On 2 11:32AM ; [facility] History of extraction of wisdom tooth Last Documented On 2 11:32AM ; [facility] Last mammogram date: 202008/15/2021 Last Documented On 2 11:32AM ; [facility] Surgery 08/15/2021 Last Documented On 2 11:32AM ; [facility] Family History Includes: Family History addressed during this encounter Description Last Updated Family history of alcoholism 08/15/2021 Last Documented On 2 11:32AM ; [facility] Family history of diabetes mellitus 08/02 Last Documented On 2 11:32AM ; [facility] Family history of genetic disease 2021 Last Documented On 2 11:32AM ; [facility] Family history of heart disease 08/16/19 22 Last Documented On 2 11:32AM ; [facility] Family history of kidney disease 022 Last Documented On 2 11:32AM ; [facility] Family history of mental illness (not in tellectual disabilities) 08/15/2021 Last Documented On 2 11:32AM ; [facility] Family medical history Pagets Mother, Gr andmother, and multiple others 08/15/2021 Last Documented On 2 11:32AM ; [facility] Father 0.73 years old 08/15/2021 Last Documented On 2 11:32AM ; [facility] Mother 73 years old 08/15/2021 Last Documented On 2 11:32AM ; [facility] No family history of defects 08/15 Last Documented On 2 11:32AM ; [facility] No family history of bleeding problems 0 08/15/2021 Last Documented On 2 11:32AM ; [facility] No family history of cancer 08/15/2021 Last Documented On 2 11:32AM ; [facility] Review of Systems Includes: Review [...] Check-Out Time Diagnosis CHART UPDATE JERSON HUDDLESTON CONTENT EDITOR-FPA, GRAV[employer] METER OBSERVER-BC 2 11:32AM 11:59PM Hip Sprain Left Insurance Includes: Active Insurance Policies Plan Name Member ID Group # Subscriber Relationship Effect mariola Dates 1 - [facility] [id number] DANA WONG Self Clinical Notes Includes: Clinical Notes from this encounter No Clinical Notes Recorded
--- OUTSIDE RECORDS SUMMARY | 2024-07-26 18:50 | XMS_ITS | Data Portability ---
[facility] Address [address] [facility] [address] Care Team Providers Care Acquisition Marketing Coordinator Name Role Phone SABAS JHAVERI Primary Care Provider Assessment No assessment recorded. Plan of Treatment Reminders Order Date Submit Date Provider Last Modified By Organization Details Last Modified Time Details Appointments ANY 15 2024 04:30P M Sabas Jhaveri PA-C Not available Not available Not available Lab ESR (erythro cyte sediment ation rate), blood 2024 025 [facility], [address] [place] [address], [id number], 07/26/2024 17:59:54 uric acid, serum or plasma 2024 025 [facility], [address] [place] [address], [address], 07/15/2024 06:21:11 CBC 2024 025 [facility], [address] [place] [address], [address], 07/15/2024 06:21:12 CMP, serum or plasma 2024 025 [facility], [address] [place] [address], [address], 07/15/2024 06:21:09 lipid panel, serum 2024 025 [facility], [address] [place] [address], [id number], 07/15/2024 06:21:08 HbA1c (hemoglo bin A1c), blood 2024 025 [facility] In-Office Order, Internal Use Only DO Not Attach Compendium DO Not Attach Compendium, Do Not Delete/merge, [id number] 07/14/2024 13:02:23 amylase + lipase, serum 2024 025 [facility], [address] [place] [address], [address], 07/15/2024 13:11:24 Referral None recorded . Procedures None recorded . Surgeries None recorded . Imaging None recorded . Medication Orders Depo-Med rol 80 mg/mL suspensi on for injectio n 2024 025 [email or web address] Not available 07/26/2024 18:13:52 ondanset kailash HCl 4 mg tablet 2023 024 [email or web address] [facility], [address], [place], [id number], 07/14/2024 12:10:42 Cipro 500 mg tablet 2023 024 [email or web address] [facility], [facility] [address], [place], [id number], 07/14/2024 12:10:39 Guaiatus sin AC 10 mg-100 mg/5 mL oral liquid 2022 023 [email or web address] [facility], [address], [place], [id number], 01/13/2023 15:37:40 Patient TargetsNo targets recorded. Patient Instructions Encounter Date Encounter Id Patient Instructions Last Modified By Organization Details Last Modified Time 08/08/2022 [id number] osteoarthritis: care instructions jnanney Not available 08/08/2022 14:49:12 A healthy lifestyle: care instructions jnanney Not available 08/08/2022 14:45:31 01/13/2023 [id number] A healthy lifestyle: care instructions jnanney Not available 01/13/2023 15:54:51 07/01/2023 [id number] A healthy lifestyle: care instructions jnanney Not available 07/01/2023 12:09:09 nausea and vomiting: care instructions jnanney Not available 07/01/2023 12:09:09 pancreatitis: care instructions jnanney Not available 07/01/2023 12:09:09 07/14/2024 [id number] A healthy lifestyle: care instructions jnanney Not available 07/14/2024 12:36:29 pancreatitis: care instructions jnanney Not available 07/14/2024 12:41:28 07/26/2024 [id number] A healthy lifestyle: care instructions jnanney Not available 07/26/2024 18:00:04 Reason for Referral None Reported. Results Created Date Observation Date Name Description Value Unit Range Abnormal Flag Note LastModifiedBy Organization Detail LastModifiedTime 07/15/1907/15/2024 LIPID PANEL cholesterol, total 180 mg/dL 100-19 9 Not Available [address], [address], 07/15/2024 06:21:08 07/15/1907/15/2024 LIPID PANEL triglyceride s 93 mg/dL 0-149 Not Available [address], [address], 07/15/2024 06:21:08 07/15/1907/15/2024 LIPID PANEL HDL cholesterol 63 mg/dL 40-999 Not Available [address], [address], 07/15/2024 06:21:08 07/15/1907/15/2024 LIPID PANEL VLDL cholesterol gabriel 19 mg/dL 5-40 Not Available [address], [address], 07/15/2024 06:21:08 07/15/1907/15/2024 LIPID PANEL LDL chol calc (nih) 111 mg/dL 0-99 above high normal Not Available [address], [address], 07/15/2024 06:21:08 07/15/19 25 07/15/2024 COMP. METAB OLIC PANEL (14) glucose 84 mg/dL 70-99 Not Available [address], [address], 07/15/2024 06:21:09 07/15/19 25 07/15/2024 COMP. METAB OLIC PANEL (14) BUN 14 mg/dL 6-24 Not Available [address], [address], 07/15/2024 06:21:09 07/15/19 25 07/15/2024 COMP. METAB OLIC PANEL (14) creatinine 0.74 mg/dL 0.76-1 .27 below low normal Not Available [address], [address], 07/15/2024 06:21:09 07/15/1907/15/2024 COMP. METAB OLIC PANEL (14) eGFR 99 >=60 Units for eGFR value s are mL/mi n/1.7 3 The eGFR Calcu latio n has not been valid ated for patie nts under the age of 18. If test resul ts are displ ayed for a patie nt under the age of 18, disre barbara that value . Not Available [address], [address], 07/15/2024 06:21:09 07/15/1907/15/2024 COMP. METAB OLIC PANEL (14) BUN/creatini ne ratio 19 9-23 Not Available [address], [address], 07/15/2024 06:21:09 07/15/19 25 07/15/2024 COMP. METAB OLIC PANEL (14) sodium 142 mmol/ L 134-14 4 Not Available [address], [address], 07/15/2024 06:21:09 07/15/19 25 07/15/2024 COMP. METAB OLIC PANEL (14) potassium 4.6 mmol/ L 3.5-5. 2 Not Available [address], [address], 07/15/2024 06:21:09 07/15/1907/15/2024 COMP. METAB OLIC PANEL (14) chloride 104 mmol/ L 96-106 Not Available [address], [address], 07/15/2024 06:21:09 07/15/19 25 07/15/2024 COMP. METAB OLIC PANEL (14) carbon dioxide, total 25 mmol/ L 20-29 Not Available [address], [address], 07/15/2024 06:21:09 07/15/19 25 07/15/2024 COMP. METAB OLIC PANEL (14) calcium 9.3 mg/dL 8.7-10 .2 Not Available [address], [address], 07/15/2024 06:21:09 07/15/1907/15/2024 COMP. METAB OLIC PANEL (14) protein, total 6.8 g/dL 6.0-8. 5 Not Available [address], [address], 07/15/2024 06:21:09 07/15/19 25 07/15/2024 COMP. METAB OLIC PANEL (14) albumin 4.3 g/dL 3.9-4. 9 Not Available [address], [address], 07/15/2024 06:21:09 07/15/19 25 07/15/2024 COMP. METAB OLIC PANEL (14) globulin, total 2.5 g/dL 1.5-4. 5 Not Available [address], [address], 07/15/2024 06:21:09 07/15/19 25 07/15/2024 COMP. METAB OLIC PANEL (14) A/G ratio 2.0 1.2-2. 2 Not Available [address], [address], 07/15/2024 06:21:09 07/15/19 25 07/15/2024 COMP. METAB OLIC PANEL (14) bilirubin, total 0.6 mg/dL 0.0-1. 2 Not Available [address], [address], 07/15/2024 06:21:09 07/15/19 25 07/15/2024 COMP. METAB OLIC PANEL (14) alkaline phosphatase 109 IU/L 44-121 Not Available [address], [address], 07/15/2024 06:21:09 07/15/19 25 07/15/2024 COMP. METAB OLIC PANEL (14) AST (SGOT) 27 U/L 0-40 Not Available [address], [address], 07/15/2024 06:21:09 07/15/19 25 07/15/2024 COMP. METAB OLIC PANEL (14) ALT (SGPT) 35 IU/L 0-32 above high normal Not Available [address], [address], 07/15/2024 06:21:09 07/15/19 25 07/15/2024 CARDI OVASC ULAR REPOR T interpretati on Note Suppl summer aj is avail able. Not Available [address], [address], 07/15/2024 06:21:10 07/15/19 25 07/15/2024 CARDI OVASC ULAR REPOR T pdf . Not Available [facility] & [address], [address], 07/15/2024 06:21:10 07/15/1907/15/2024 URIC ACID uric acid 4.7 mg/dL 2.5-7. 1 Not Available [address], [address], 07/15/2024 06:21:11 07/15/19 25 07/14/2024 CBC, PLATE LET, NO DIFFE RENTI AL WBC 11.4 x10e3 /uL 3.4-10 .8 above high normal Not Available [address], [address], 07/15/2024 06:21:12 07/15/19 25 07/14/2024 CBC, PLATE LET, NO DIFFE RENTI AL RBC 4.93 x10e6 /uL 3.77-5 .28 Not Available [address], [address], 07/15/2024 06:21:12 07/15/1907/14/2024 CBC, PLATE LET, NO DIFFE RENTI AL hemoglobin 15.3 g/dL 11.1-1 5.9 Not Available [address], [address], 07/15/2024 06:21:12 07/15/19 25 07/14/2024 CBC, PLATE LET, NO DIFFE RENTI AL hematocrit 46.3 % 34.0-4 6.6 Not Available [address], [address], 07/15/2024 06:21:12 07/15/1907/14/2024 CBC, PLATE LET, NO DIFFE RENTI AL MCV 94 fL 79-97 Not Available [address], [address], 07/15/2024 06:21:12 07/15/1907/14/2024 CBC, PLATE LET, NO DIFFE RENTI AL MCH 31.0 pg 26.6-3 3.0 Not Available [address], [address], 07/15/2024 06:21:12 07/15/1907/14/2024 CBC, PLATE LET, NO DIFFE RENTI AL MCHC 33.0 g/dL 31.5-3 5.7 Not Available [address], [address], 07/15/2024 06:21:12 07/15/1907/14/2024 CBC, PLATE LET, NO DIFFE RENTI AL RDW 13.8 % 11.5-1 4.5 Not Available [address], [address], 07/15/2024 06:21:12 07/15/1907/14/2024 CBC, PLATE LET, NO DIFFE RENTI AL platelets 479 x10e3 /uL 150-45 0 above high normal Mean Plate let Volum e 9.3 fL 8.9-1 2.7 N Not Available [address], [address], 07/15/2024 06:21:12 07/15/1907/14/2024 CBC, PLATE LET, NO DIFFE RENTI AL NRBC 0 % 0-0 Not Available [facility] [address] [facility], [place], [address], 07/15/2024 06:21:12 07/15/19 25 07/15/2024 NUVIA+L IPASE amylase 51 U/L 31-110 Not Available [facility] ([facility]) [address] [place], [address], 07/15/2024 13:11:24 07/15/19 25 07/15/2024 NUVIA+L IPASE lipase 37 U/L 14-72 Not Available [facility] ([facility]) [address] [place], [address], 07/15/2024 13:11:24 07/15/19 25 07/14/2024 HbA1c (hemo globi n A1c), blood HbA1c 5.5 Not Available In-Office Order Internal Use Only DO Not Attach Compendium DO Not Attach Compendium, Do Not Delete/merge, [id number] 07/14/2024 12:40:43 11/26/19 24 11/25/2023 [facility] [address] [place], [address], 11/26/2023 09:18:23 07/15/19 25 07/14/2024 XR, ankle No observ [facility]ion [facility] [address] [place], [address], 07/14/2024 15:18:33 07/15/19 25 07/14/2024 XR, foot No observ ation record ed. [facility] [address] [place], [address], 07/14/2024 15:18:48 Result Notes None recorded. Procedures Surgical History Date Name Laterality Status Provider Name and Address Organization Details Recorded Time 10/03/19 22 Date of Last Mammogram completed Kaela Ontiveros MA [facility] 03/03/2022 14:49:26 05/04/19 21 Date of Last Pap Smear completed Tabitha Pimentel MA [facility] 04/02/2021 10:09:12 05/04/19 21 Total hysterectomy completed Tabitha Pimentel MA [facility] 12/01/2023 14:49:43 01/03/20 20 colonoscopy completed Tabitha Pimentel MA [facility] 04/02/2021 10:12:50 05/04/19 14 Cholecystectomy completed Tabitha Pimentel MA [facility] 04/02/2021 10:11:45 05/04/19 08 Breast augmentation w/implt completed Tabitha Pimentel MA [facility] 04/02/2021 10:13:45 tonsilectomy/adenoi ds completed Tabitha Pimentel MA [facility] 04/02/2021 10:12:04 Imaging Results Imaging Date Name Status LastModified by Organiz ation Details LastModified Time 11/25/2023 XR, chest completed [facility] [address] [place], [address], 11/26/2023 09:18:23 07/14/2024 XR, ankle completed [facility] [address] [place], [address], 07/14/2024 15:18:33 07/14/2024 XR, foot completed [facility] [address] [place], [address], 07/14/2024 15:18:48 Procedure Notes None recorded. Medical Equipment None Reported. Allergies Allergen ID Allergen Name Allergen Category Reaction Reaction Severity Criticality Documentation Date Start Date Code Code System Note Provider Name and Address Organization Details Recorded Time 441023 acetamino phen / hydrocodo ne medicatio n nausea Not available Not available 04/02/2021 49298 2 RxNorm Not Available Not Available Not [...] completed Not Available Not Available Not Available Depo-Medrol 80 mg/mL suspension for injection Take 1 mL by injection route. 2024 active Not Available Not Available Not Avai lable levothyroxi ne 25 mcg tablet Take 1 [...] Updated DateTime 3 173.99 cm 25.9 kg/m2 07321.4 8 g 98 % 98 % 78 /min 98.2 [degF] 119 mm[Hg] 81 mm[Hg] Kaela meza MA [facility] 3 14:30:37 Date Recorded Body height Body mass index (BMI) Body weight Oxygen saturation Oxygen saturation in Arterial blood by Pulse oximetry Heart rate Systolic blood pressure Diastolic blood pressure Provider Name and Address Organization Details Last Updated DateTime 3 173.99 cm 24.1 kg/m2 77890.3 7 g 100 % 100 % 114 /min 113 mm[Hg] 81 mm[Hg] Tabitha Pimentel MA [facility] 3 15:41:44 Date Recorded Body height Body mass index (BMI) Body weight Oxygen saturation Oxygen saturation in Arterial blood by Pulse oximetry Heart rate Respiratory rate Body temperature Systolic blood pressure Diastolic blood pressure Provider Name and Address Organization Details Last Updated DateTime 4 173.99 cm 25.2 kg/m2 45489.5 2 g 100 % 100 % 89 /min 18 /min 97.6 [degF] 140 mm[Hg] 92 mm[Hg] Andreia Bill MA [facility] 4 11:53:12 Date Recorded Body height Body mass index (BMI) Body weight Oxygen saturation Oxygen saturation in Arterial blood by Pulse oximetry Heart rate Respiratory rate Systolic blood pressure Diastolic blood pressure Provider Name and Address Organization Details Last Updated DateTime 5 173.99 cm 28.6 kg/m2 27838.1 4 g 98 % 98 % 97 /min 16 /min 130 mm[Hg] 82 mm[Hg] Andreia Bill MA [facility] 5 12:13:29 Date Recorded Body height Body mass index (BMI) Body weight Respiratory rate Oxygen saturation Oxygen saturation in Arterial blood by Pulse oximetry Heart rate Systolic blood pressure Diastolic blood pressure Provider Name and Address Organization Details Last Updated DateTime 5 173.99 cm 28.7 kg/m2 74801.0 2 g 16 /min 98 % 98 % 92 /min 126 mm[Hg] 80 mm[Hg] Andreia Bill [place] - [facility] 5 17:30:39 Social History Question Answer Notes LastModified by Organizat ion Details LastModified Time Tobacco Smoking Status Current Every Day Smoker Tabitha Pimentel [place] null, [place] [facility] 04/02/2021 10:10:18 What Is Your [...] Date Of Your Most Recent Tobacco Screening? 07/26/2024 Information not available 07/26/2024 What Is Your Relationship Status? Information not [...] Anxious, Or Unable To Sleep At Night)? [id number] Information not available 04/02/2021 Do You Use Any Illicit Or Recreational Drugs? No Information not available 04/02/2021 Has Tobacco Cessation Counseling Been Provided? Yes Information not available 04/02/2021 On What Date Was Tobacco Cessation Counseling Provided? 07/26/2024 Information not available 07/26/2024 Do You Or Have You Ever Used [...] Skin Problems N Anemia Y Heart Attack ([place]) N Diabetes N Seizures/Epilepsy N Asthma Y [...] Influenza, split virus, quadrivalent, PF 12/20/2022 completed HEIDI Andrew [place] - [facility] 12/22/2022 10:20:01 Past Encounters Encounter ID Performer Location Encounter Start Date Encounter Closed Date Diagnosis/Indication Diagnosis SNOMED-CT Code Diagnosis ICD10 Code Diagnosis Note [id number] Tabitha Pimentel MA [facility] [address] [place] [address] 04/02/2021 10:03:23 04/02/2021 12:05:38 Adult health examination 281674235 Z00.00 Long-term drug therapy 496480476 Z79.899 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 Chronic ob structive pulmonary disease 85793811 J41.0 [id number] Sabas Jhaveri PA-C [facility] [address] [place] [address] 04/23/2021 17:24:09 04/23/2021 19:13:43 Thyroid stimulating hormone level above reference range 471502429 R79.89 [id number] Sabas Jhaveri PA-C [facility] [address] [place] [address] 06/24/2021 17:17:04 06/24/2021 18:06:10 Peripheral vascular disease 019609449 I73.89 Pain in le ft lower limb 831141614 M79.605 Peripheral arterial insufficiency 6282296532 70568 I73.9 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 [id number] Sabas Jhaveri PA-C [facility] [address] [place] [address] 08/23/2021 10:42:03 08/23/2021 11:32:39 Edema of lower extremity 742861408 R60.0 Peripheral vascular disease 014113210 I73.89 [id number] Sabas Jhaveri PA-C [facility] [address] [place] [address] 03/03/2022 14:42:15 03/03/2022 15:27:48 History of pancreatitis 8787057319 9107 Z87.19 lipase was extremely elevated [id number] Sabas Jhaveri PA-C [facility] [address] [place] [address] 08/08/2022 14:26:15 08/11/2022 12:17:23 Persistent cough 824130658 R05.3 Overweight 738841976 E66 .3 Osteoarthritis 555736584 M15.0 [id number] Sabas Jhaveri PA-C [facility] [address] [place] [address] 01/13/2023 15:30:03 01/15/2023 15:30:53 COVID-19 913009966 U07.1 Overweight 099632103 E66 .3 [id number] Sabas Jhaveri PA-C [facility] [address] [place] [address] 07/01/2023 11:30:07 07/02/2023 11:34:31 Acute urinary tract infection 732464419 N10 Acute pancreatitis 43059 6007 K85.00 urged patient to return to hospital but she refuses Nausea 062612592 R11.0 Overweight 192951087 E66 .3 [id number] Sabas Jhaveri PA-C [facility] [address] [place] [address] 07/14/2024 12:04:54 07/15/2024 08:49:51 Pain of left ankle joint 1497301304 4640764 M25.572 go to ER rule out DVT gout or injury Overweight 060369107 E66 .3 Chronic pancreatitis 235 800329 K86.1 [id number] Sabas Jhaveri PA-C [facility] [address] [place] [address] 07/26/2024 17:25:07 07/26/2024 18:01:52 Bilateral foot joint pain 7417985137 4005820 M79.672 Overweight 851559162 E66 .3 Health Concerns Section Related Observation LastModified by Organization Detai ls LastModified Time None Recorded Concern Status LastModified by Organization Details LastModified Time None Recorded Advance Directives Directive None Recorded Payers Encounter Date Sequence Insurance Name Policy Number Policy Blas Covered Member ID Blas Member ID Guarantor Name 08/08/2022 1 [facility] ON OR AFTER 11/01/20 (MEDICAID REPLACEMENT - HMO) Sanjuanita Dequasie [id number] Sanjuanita Dequasie 01/13/2023 1 [facility] ON OR AFTER 11/01/20 (MEDICAID REPLACEMENT - HMO) Sanjuanita Dequasie [id number] Sanjuanita Dequasie 07/01/2023 1 [facility] ON OR AFTER 11/01/20 (MEDICAID REPLACEMENT - HMO) Sanjuanita Dequasie [id number] Sanjuanita Dequasie 07/14/2024 1 [facility] - DOS ON OR AFTER 20 (MEDICAID REPLACEMENT - HMO) Sanjuanita Dequasie [id number] Sanjuanita Dequasie 07/26/2024 1 [facility] - DOS ON OR AFTER 20 (MEDICAID REPLACEMENT - HMO) Sanjuanita Dequasie [id number] Sanjuanita Dequasie Notes Date Note Type Note Provider Name and Address Organization Details Recorded Time 08/08/2022 text/html cough wont stop...impingeme nt in rt shoulder..injure d rt ring finger somehow... Sabas Jhaveri PA-C Attn: [facility],[address] [place], [address], [facility] 08/08/2022 14:50:47 01/13/2023 text/html paperwork for med time off... Sabas Jhaveri PA-C Attn: [facility],[address] [place], [address], [facility] 01/13/2023 15:54:54 07/01/2023 text/html reports severe pancreatitis..al so reports uti...was admitted got rocephin and morphine then checked out ama... Sabas Jhaveri PA-C Attn: [facility],[address] [place], [address], [facility] 07/01/2023 12:10:21 07/14/2024 text/html last night her dog (Hungarian Bulldog) hit her ankle with a chain and caused immediate pain and today redness and swelling... Sabas Jhaveri PA-C Attn: [facility],[address] [place], [address], [facility] 07/14/2024 12:42:38 07/26/2024 text/html see note from 3-13...now both feet are red and a little puffy...painful and parts are numb Sabas Jhaveri PA-C Attn: [facility],[address] [place], [address], [place] - [facility] 07/26/2024 18:01:49 OBGyn Episode No OBEpisode recorded.
--- OUTSIDE RECORDS SUMMARY | 2024-07-26 18:50 | XMS_ITS ---
Author Organization [facility] Address [address] [place] [address] Phone Care Team Providers Care Wallpaperer Name Role Phone MARCOS TAYLOR, SABAS Primary Care Provider [phone] ZEKE ARCINIEGA MD Unavailable [phone] Problems Includes: Active, inactive, and resolved Problems No Active Problems Plan of Treatment Referrals To Diagnosis Pain Management [facility] - [address] [place] [address] - Pain in left hip Note: consent for Left Hip I ntra-articular steroid inijection under ultrasound guidanceNo hold NSAIDs/ASA Last Documented On 2 11:14AM ; [facility] Orthopedic [facility] - [facility] [address] [place] [id number] - Unspecified sprain of left hip, sequela Note: Dr Yosi Paredes RI hip report and last chart notes Last Documented On 4 1:10PM ; [facility] Instructions to patient Intervention and counseling on cessation of tobacco use : Patient recieved smoking cessation handout Last Documented On 2 3:05PM ; [facility] Intervention and counseling on cessation of tobacco use : Patient recieved smoking cessation handout Last Documented On 2 8:51AM ; [facility] Assessments Includes: Assessments for all patient encounters Findings Encounter Date [S73.102S - Unspecified spra in of left hip, sequela] sprain of the left hip CHART UPDATE with JERSON HUDDLESTON BUSINESS SERVICES DIRECTOR-FPA, THERMITE BOMB LOADER-BC 11/08/2021 Last Documented On 2 11:39AM ; [facility] Bulging lumbar disc PAIN MANAGEMENT FOLL OW UP with JERSON G FLAQUITO BUSINESS SERVICES DIRECTOR-FPA, THERMITE BOMB LOADER-BC 10/10/2021 Last Documented On 2 4:19PM ; [facility] DORSALGIA PAIN MANAGEMENT FOLLOW UP with Reggie Ely FLAQUITO BUSINESS SERVICES DIRECTOR-FPA, THERMITE BOMB LOADER-BC 10/10/2021 Last Documented On 2 4:19PM ; [facility] Left Hip pain PAIN MANAGEMENT FOLL OW UP with JERSON G FLAQUITO BUSINESS SERVICES DIRECTOR-FPA, THERMITE BOMB LOADER-BC 10/10/2021 Last Documented On 2 4:19PM ; [facility] Lumbar spondylosis PAIN MANAGEMENT FOLL OW UP with JERSON G FLAQUITO BUSINESS SERVICES DIRECTOR-FPA, THERMITE BOMB LOADER-BC 10/10/2021 Last Documented On 2 4:19PM ; [facility] Lumbosacral spinal stenosis PAIN MANAGEM ENT FOLLOW UP with JERSON G FLAQUITO BUSINESS SERVICES DIRECTOR-FPA, THERMITE BOMB LOADER-BC 10/10/2021 Last Documented On 2 4:19PM ; [facility] Nicotine dependence PAIN MANAGEMENT FOLL OW UP with JERSON G FLAQUITO BUSINESS SERVICES DIRECTOR-FPA, THERMITE BOMB LOADER-BC 10/10/2021 Last Documented On 2 4:19PM ; [facility] Sacroiliitis PAIN MANAGEMENT FOLL OW UP with JERSON G FLAQUITO BUSINESS SERVICES DIRECTOR-FPA, THERMITE BOMB LOADER-BC 10/10/2021 Last Documented On 2 4:19PM ; [facility] Left Hip pain INJECTION with ZEKE ARCINIEGA MD 08/28/2021 Last Documented On 2 3:39PM ; [facility] Osteoarthritis of left hip INJECTION with SARAI ARCINIEGA MD 08/28/2021 Last Documented On 2 3:39PM ; [facility] Bulging lumbar disc PAIN MANAGEMENT NEW CONSULT with JERSON G FLAQUITO BUSINESS SERVICES DIRECTOR-FPA, THERMITE BOMB LOADER-BC 08/15/2021 Last Documented On 2 1:51PM ; [facility] DORSALGIA PAIN MANAGEMENT NEW CONSULT with JERSON G FLAQUITO BUSINESS SERVICES DIRECTOR-FPA, THERMITE BOMB LOADER-BC 08/15/2021 Last Documented On 2 1:51PM ; [facility] Edema PAIN MANAGEMENT NEW CONSULT with JERSON HUDDLESTON APRN-FPEricka THERMITE BOMB LOADER-BC 08/15/2021 Last Documented On 2 1:51PM ; [facility] Left Hip pain PAIN MANAGEMENT NEW CONSULT with JERSON HUDDLESTON BUSINESS SERVICES DIRECTOR-FPEricka, THERMITE BOMB LOADER-BC 08/15/2021 Last Documented On 2 1:51PM ; [facility] Lumbar spondylosis PAIN MANAGEMENT NEW CONSULT with JERSON Jhoana FLAQUITO BUSINESS SERVICES DIRECTOR-FPA, THERMITE BOMB LOADER-BC 08/15/2021 Last Documented On 2 1:51PM ; [facility] Lumbosacral spinal stenosis PAIN MANAGEM ENT NEW CONSULT with JERSON HUDDLESTON BUSINESS SERVICES DIRECTOR-FPEricka, THERMITE BOMB LOADER-BC 08/15/2021 Last Documented On 2 1:51PM ; [facility] Instructions Includes: Instructions for all patient encounters Instructions to patient Intervention and counseling on cessation of tobacco use : Patient recieved smoking cessation handout Last Documented On 2 3:05PM ; [facility] Intervention and counseling on cessation of tobacco use : Patient recieved smoking cessation handout Last Documented On 2 8:51AM ; [facility] Medical Equipment - Implanted Devices Includes: Current and historical Devices No Medical Equipment Recorded Medications Includes: Current and historical Medications Current Medications (continue as prescribed) Furosemide 20 MG Oral Tablet 10/10/2021 Provider: Diagnosis: Last Documented On 2 3:55PM By JERSON HULL ; [facility] Past Medications on file hydroCHLOROthiazide 25 MG Oral Tablet 08/15/2021 - 08/15/2021 Provider: DELLA CORONEL Diagnosis: Edema, unspecifi ed One tablet daily Last Documented On 2 1:51PM By JERSON HULL ; [facility] hydroCHLOROthiazide 25 MG Oral Tablet 08/15/2021 - 10/10/2021 Provider: DELLA CORONEL Diagnosis: Edema, unspecifi ed One tablet daily Last Documented On 2 3:33PM By JERSON PUENTEP-BC ; [facility] Medications Administered Includes: Administered Medications in patient's chart Medications Administered Diagnosis Date Pro vider Xylocaine 1% IJ SOLN 08/28/2021 ZEKE ARCINIEGA MD administered by Dr. Arciniega for local Last Documented On 2 2:16PM By Michelle Chase RN ; [facility] Sodium Chloride 0.9% IJ SOLN 08/28/2021 ZEKE ARCINIEGA MD administered by Dr. Arciniega for local Last Documented On 2 2:18PM By Michelle Chase RN ; [facility] dexAMETHasone Sodium Phosphate 10 MG/ML IJ SOLN 08/28/2021 ZEKE ARCINIEGA MD administered by Dr. Arciniega in left hip Last Documented On 2 2:19PM By Michelle Chase RN ; [facility] Xylocaine 2% IJ SOLN 08/28/2021 ZEKE ARCINIEGA MD administered by Dr. Arciniega in left hip Last Documented On 2 2:20PM By Michelle Chase RN ; [facility] Results Includes: Results from 07/27/2023 through 07/26/2024 No Results Recorded For Specified Dates History of Present Illness History of Present Illness not supported for this document type No History of Present Illness Recorded Social History Description Last Updated Current smoker 08/15/2021 Last Documented On 2 1:51PM ; [facility] Alcohol Social 08/15/2021 Last Documented On 2 1:51PM ; [facility] 08/15/2021 Last Documented On 2 1:51PM ; [facility] Not using drugs 08/15/2021 Last Documented On 2 1:51PM ; [facility] Occupation 08/15/2021 Last Documented On 2 1:51PM ; [facility] Tobacco use 08/15/2021 Last Documented On 2 1:51PM ; [facility] Smoking Status Unknown Procedures and Surgical History Surgical History Last Updated History of cholecystectomy 08/15/2021 Last Documented On 2 1:51PM ; [facility] History of hysterectomy 08/15/2021 Last Documented On 2 1:51PM ; [facility] History of tonsillectomy 08/15/2021 Last Documented On 2 1:51PM ; [facility] Prior surgery Ears [id number] ~Tonsinils 1979 ~Toes 1981 ~Colonoscopy *10 ~Csection 2007 ~Hysterectomy 2020 ~BLT breast 2008 08/15/2021 Last Documented On 2 1:51PM ; [facility] Medical History Includes: Medical History in patient's chart Description Last Updated Denies a fear of falling. 08/15/2021 Last Documented On 2 1:51PM ; [facility] Has had no fall in the last 12 months. 0 08/15/2021 Last Documented On 2 1:51PM ; [facility] Currently wearing eyeglasses 08/15/2021 Last Documented On 2 1:51PM ; [facility] Exposure to dust 08/15/2021 Last Documented On 2 1:51PM ; [facility] Exposure to fumes 08/15/2021 Last Documented On 2 1:51PM ; [facility] History of extraction of wisdom tooth Last Documented On 2 1:51PM ; [facility] Last mammogram date: 202008/15/2021 Last Documented On 2 1:51PM ; [facility] Surgery 08/15/2021 Last Documented On 2 1:51PM ; [facility] Family History Includes: Family History in patient's chart Description Last Updated Family history of alcoholism 08/15/2021 Last Documented On 2 1:51PM ; [facility] Family history of diabetes mellitus 08/02 Last Documented On 2 1:51PM ; [facility] Family history of genetic disease 2021 Last Documented On 2 1:51PM ; [facility] Family history of heart disease 08/16/19 22 Last Documented On 2 1:51PM ; [facility] Family history of kidney disease 022 Last Documented On 2 1:51PM ; [facility] Family history of mental illness (not in tellectual disabilities) 08/15/2021 Last Documented On 2 1:51PM ; [facility] Family medical history Pagets Mother, Gr andmother, and multiple others 08/15/2021 Last Documented On 2 1:51PM ; [facility] Father 0.73 years old 08/15/2021 Last Documented On 2 1:51PM ; [facility] Mother 73 years old 08/15/2021 Last Documented On 2 1:51PM ; [facility] No family history of defects 08/15 Last Documented On 2 1:51PM ; [facility] No family history of bleeding problems 0 08/15/2021 Last Documented On 2 1:51PM ; [facility] No family history of cancer 08/15/2021 Last Documented On 2 1:51PM ; [facility] Review of Systems Review of Systems not [...] # Subscriber Relationship Effect mariola Dates - [facility] [id number] DANA WONG Self Clinical Notes Includes: Signed Clinical Notes starting from 05/23/2022 No Clinical Notes Recorded
--- OUTSIDE RECORDS SUMMARY | 2024-07-26 18:50 | XMS_ITS | Clinical Summary ---
Author Organization [facility] Medical [facility] Building A Address [address] [place] [address] Care Team Providers Care Bender Machine Operator Name Role Phone Trina Tracy MD Unavailable [phone] Wagner Jhaveri Primary Care Provider [phone] Allergies Active Allergy Reactions Criticality Noted Date [...] needed. Assessment & Plan (05/21/2021 3:15 PM JIG BORE OPERATOR): Patient with family history of thyroid disease. [...] on file Legal Sex Female 9:46 AM JIG BORE OPERATOR Gender Identity Not on file Sexual Orientation [...] 1993 Influenza Vaccine (#1) 2024 04/08/2017 Insurance [facility] Care Teams Bender Machine Operator Relationship Specialty Start Date End Date Wagner Jhaveri PA [address] [place] [address] PCP - General Family Practice 09/11/21 Trina Tracy MD Surgeon Vascular Surgery 09/11/21
--- OUTSIDE RECORDS SUMMARY | 2024-07-26 18:50 | XMS_ITS | Clinical Summary ---
Author Organization [facility] Address [address] [place] [address] Phone Care Team Providers Care Nat Instructor Name Role Phone SABAS RODRÍGUEZ PA-C Primary Care Provider [phone] ZEKE ARCINIEGA MD Unavailable [phone] Reason for Visit and Chief [...] - Last Documented On 08/28/2021 3:39PM ; [facility] Assessments Includes: Assessments from this encounter Findings - [M16.9 - Osteoarthritis of hip, unspecified] Osteoarthritis of left hip - Last Documented On 08/28/2021 3:39PM ; [facility] - [M25.552 - Pain in left hip] Left Hip pain - Last Documented On 08/28/2021 3:39PM ; [facility] Medical Equipment - Implanted Devices Includes: Current Devices No Medical Equipment Recorded Medications Includes: Medications discussed during this encounter and other current Medications Current Medications (continue as prescribed) Furosemide 20 MG Oral Tablet 10/10/2021 Provider: Diagnosis: Last Documented On 2 3:55PM By JERSON HUDDLESTON [facility] ; [facility] Medications Administered Includes: Administered Medications from this encounter Medications Administered Diagnosis Date Pro vider Xylocaine 1% IJ SOLN 08/28/2021 ZEKE ARCINIEGA MD administered by Dr. Arciniega for local Last Documented On 2 2:16PM By Michelle Chase RN ; [facility] Sodium Chloride 0.9% IJ SOLN 08/28/2021 ZEKE ARCINIEGA MD administered by Dr. Arciniega for local Last Documented On 2 2:18PM By Michelle Chase RN ; [facility] dexAMETHasone Sodium Phosphate 10 MG/ML IJ SOLN 08/28/2021 ZEKE ARCINIEGA MD administered by Dr. Arciniega in left hip Last Documented On 2 2:19PM By Michelle Chase RN ; [facility] Xylocaine 2% IJ SOLN 08/28/2021 ZEKE ARCINIEGA MD administered by Dr. Arciniega in left hip Last Documented On 2 2:20PM By Michelle Chase RN ; [facility] Vital Signs Includes: Vital Signs from this encounter Vital Name 08/28/2021 01:51P Blood Pressure Sitting R 129/95 BP Cuff Size Regular Pulse Rate-Sitting (bpm) 84 Pulse Rhythm Regular Respiration Rate (breaths/min) 20 Height (in) 68 Weight (lb) 160 Body Mass Index (kg/m2) 24.3 Body Surface Area (m2) 1.9 Pain Level 4 Oxygen Saturation (%) 99 Last Documented: On 08/28/2021 1:52PM ; [facility] Results Includes: Results discussed during this encounter No Results Recorded For Specified Dates History of Present Illness Includes: History of Present Illness from this encounter DENNY WONG is a 45 year old female. - Allergy list reviewed - Medication list reviewed Social History Description Last Updated Current smoker 08/15/2021 Last Documented On 2 1:49PM ; [facility] Alcohol Social 08/15/2021 Last Documented On 2 1:49PM ; [facility] 08/15/2021 Last Documented On 2 1:49PM ; [facility] Not using drugs 08/15/2021 Last Documented On 2 1:49PM ; [facility] Occupation 08/15/2021 Last Documented On 2 1:49PM ; [facility] Tobacco use 08/15/2021 Last Documented On 2 1:49PM ; [facility] Smoking Status Unknown Procedures and Surgical History Includes: Procedures from this encounter Procedures Code Diagnosis Performing Provider Service L ocation Service Date use of tobacco assessment performed 1000F Last Documented On 2 1:51PM ; [facility] review of medications documented 1160F Last Documented On 2 1:51PM ; [facility] Surgical History Last Updated History of cholecystectomy 08/15/2021 Last Documented On 2 1:49PM ; [facility] History of hysterectomy 08/15/2021 Last Documented On 2 1:49PM ; [facility] History of tonsillectomy 08/15/2021 Last Documented On 2 1:49PM ; [facility] Prior surgery Ears [id number] ~Tonsinils 1979 ~Toes 1981 ~Colonoscopy *10 ~Csection 2007 ~Hysterectomy 2020 ~BLT breast 2008 08/15/2021 Last Documented On 2 1:49PM ; [facility] Medical History Includes: Medical History addressed during this encounter Description Last Updated Denies a fear of falling. 08/15/2021 Last Documented On 2 1:49PM ; [facility] Has had no fall in the last 12 months. 0 08/15/2021 Last Documented On 2 1:49PM ; [facility] Currently wearing eyeglasses 08/15/2021 Last Documented On 2 1:49PM ; [facility] Exposure to dust 08/15/2021 Last Documented On 2 1:49PM ; [facility] Exposure to fumes 08/15/2021 Last Documented On 2 1:49PM ; [facility] History of extraction of wisdom tooth Last Documented On 2 1:49PM ; [facility] Last mammogram date: 202008/15/2021 Last Documented On 2 1:49PM ; [facility] Surgery 08/15/2021 Last Documented On 2 1:49PM ; [facility] Family History Includes: Family History addressed during this encounter Description Last Updated Family history of alcoholism 08/15/2021 Last Documented On 2 1:49PM ; [facility] Family history of diabetes mellitus 08/02 Last Documented On 2 1:49PM ; [facility] Family history of genetic disease 2021 Last Documented On 2 1:49PM ; [facility] Family history of heart disease 08/16/19 22 Last Documented On 2 1:49PM ; [facility] Family history of kidney disease 022 Last Documented On 2 1:49PM ; [facility] Family history of mental illness (not in tellectual disabilities) 08/15/2021 Last Documented On 2 1:49PM ; [facility] Family medical history Pagets Mother, Gr andmother, and multiple others 08/15/2021 Last Documented On 2 1:49PM ; [facility] Father 0.73 years old 08/15/2021 Last Documented On 2 1:49PM ; [facility] Mother 73 years old 08/15/2021 Last Documented On 2 1:49PM ; [facility] No family history of defects 08/15 Last Documented On 2 1:49PM ; [facility] No family history of bleeding problems 0 08/15/2021 Last Documented On 2 1:49PM ; [facility] No family history of cancer 08/15/2021 Last Documented On 2 1:49PM ; [facility] Review of Systems Includes: Review of Systems [...] Check-Out Time Diagnosis INJECTION ZEKE ARCINIEGA MD [facility] 08/29/19 22 1:34PM 2:14PM Osteoarthritis Hip Left,Left Hip Pain Insurance Includes: Active Insurance Policies Plan Name Member ID Group # Subscriber Relationship Effect mariola Dates - [facility] [id number] DANA WONG Self Clinical Notes Includes: Clinical Notes from this encounter No Clinical Notes Recorded
--- OUTSIDE RECORDS SUMMARY | 2024-07-26 18:50 | XMS_ITS | Clinical Summary ---
Author Organization [facility] Address [address] [place] [address] Phone Care Team Providers Care Hooker Operator Name Role Phone MARCOS TAYLOR, SABAS Primary Care Provider [phone] ZEKE GOMEZ MD Unavailable [phone] Reason for Visit and Chief Complaint The Chief Complaint is: Ref by M52.599 Hip Blt hips. and lumbar spine Problems Includes: Problems addressed during this encounter and other active Problems No Active Problems Plan of Treatment Referrals To Diagnosis Pain Management [facility] - [address] [place] [address] - Pain in left hip Note: consent for Left Hip I ntra-articular steroid inijection under ultrasound guidanceNo hold NSAIDs/ASA Last Documented On 2 11:14AM ; [facility] Instructions to patient Intervention and counseling on cessation of tobacco use : Patient recieved smoking cessation handout Last Documented On 2 8:51AM ; [facility] Assessments Includes: Assessments from this encounter Findings - [R60.9 - Edema, unspecified] Edema - Last Documented On 08/16/2021 1:51PM ; [facility] - [M25.552 - Pain in left hip] Left Hip pain - Last Documented On 08/16/2021 1:51PM ; [facility] - [M54.9 - Dorsalgia, unspecified] DORSALGIA - Last Documented On 08/16/2021 1:51PM ; [facility] - [M51.26 - Other intervertebral disc displacement, lumbar region] Bulging lumbar disc - Last Documented On 08/16/2021 1:51PM ; [facility] - [M47.896 - Other spondylosis, lumbar region] Lumbar spondylosis - Last Documented On 08/16/2021 1:51PM ; [facility] - [M48.07 - Spinal stenosis, lumbosacral region] Lumbosacral spinal stenosis - Last Documented On 08/16/2021 1:51PM ; [facility] Instructions Includes: Instructions from this encounter Instructions to patient Intervention and counseling on cessation of tobacco use : Patient recieved smoking cessation handout Last Documented On 2 8:51AM ; [facility] Medical Equipment - Implanted Devices Includes: Current Devices No Medical Equipment Recorded Medications Includes: Medications discussed during this encounter and other current Medications New / Renewed during this visit DELLA CORONEL on 08/15/2021 hydroCHLOROthiazide 25 MG Or al Tablet Provider: DELLA CORONEL 30 day supply: 30 tablet, 0 refills Diagnosis: Edema, unspecified One tablet daily Pharmacy: [address] [id number] - Last Documented On 2 3:33PM By JERSON HULL ; [facility] Current Medications (continue as prescribed) Furosemide 20 MG Oral Tablet 10/10/2021 Provider: Diagnosis: Last Documented On 2 3:55PM By JERSON HULL ; [facility] Medications Administered Includes: Administered Medications from [...] 99 Last Documented: On 08/15/2021 8:55AM ; [facility] Results Includes: Results discussed during this encounter [...] hip pain. 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 [...] 08/15/2021 Last Documented On 2 1:51PM ; [facility] Alcohol Social 08/15/2021 Last Documented On 2 1:51PM ; [facility] 08/15/2021 Last Documented On 2 1:51PM ; [facility] Not using drugs 08/15/2021 Last Documented On 2 1:51PM ; [facility] Occupation 08/15/2021 Last Documented On 2 1:51PM ; [facility] Tobacco use 08/15/2021 Last Documented On 2 1:51PM ; [facility] Smoking Status Unknown Procedures and Surgical History Includes: Procedures from this encounter Procedures Code Diagnosis Performing Provider Service L ocation Service Date intervention and counseling on cessation of tobacco use : Patient recieved smoking cessation handout 4000F Last Documented On 2 8:51AM ; [facility] use of tobacco assessment performed 1000F Last Documented On 2 8:34AM ; [facility] review of medications documented 1160F Last Documented On 2 8:34AM ; [facility] screening for adult depression: impressi on and score eight Last Documented On 2 8:51AM ; [facility] standardized depression screening: posit mariola for symptoms Last Documented On 2 8:51AM ; [facility] Clinical summary provided to patient Last Documented On 2 8:34AM ; [facility] Surgical History Last Updated History of cholecystectomy 08/15/2021 Last Documented On 2 1:51PM ; [facility] History of hysterectomy 08/15/2021 Last Documented On 2 1:51PM ; [facility] History of tonsillectomy 08/15/2021 Last Documented On 2 1:51PM ; [facility] Prior surgery Ears [id number] ~Tonsinils 1979 ~Toes 1981 ~Colonoscopy *10 ~Csection 2006 ~Hysterectomy 2020 ~BLT breast 2008 08/15/2021 Last Documented On 2 1:51PM ; [facility] Medical History Includes: Medical History addressed during this encounter Description Last Updated Denies a fear of falling. 08/15/2021 Last Documented On 2 1:51PM ; [facility] Has had no fall in the last 12 months. 0 08/15/2021 Last Documented On 2 1:51PM ; [facility] Currently wearing eyeglasses 08/15/2021 Last Documented On 2 1:51PM ; [facility] Exposure to dust 08/15/2021 Last Documented On 2 1:51PM ; [facility] Exposure to fumes 08/15/2021 Last Documented On 2 1:51PM ; [facility] History of extraction of wisdom tooth Last Documented On 2 1:51PM ; [facility] Last mammogram date: 202008/15/2021 Last Documented On 2 1:51PM ; [facility] Surgery 08/15/2021 Last Documented On 2 1:51PM ; [facility] Family History Includes: Family History addressed during this encounter Description Last Updated Family history of alcoholism 08/15/2021 Last Documented On 2 1:51PM ; [facility] Family history of diabetes mellitus 08/02 Last Documented On 2 1:51PM ; [facility] Family history of genetic disease 2021 Last Documented On 2 1:51PM ; [facility] Family history of heart disease 08/16/19 22 Last Documented On 2 1:51PM ; [facility] Family history of kidney disease 022 Last Documented On 2 1:51PM ; [facility] Family history of mental illness (not in tellectual disabilities) 08/15/2021 Last Documented On 2 1:51PM ; [facility] Family medical history Pagets Mother, Gr andmother, and multiple others 08/15/2021 Last Documented On 2 1:51PM ; [facility] Father 0.73 years old 08/15/2021 Last Documented On 2 1:51PM ; [facility] Mother 73 years old 08/15/2021 Last Documented On 2 1:51PM ; [facility] No family history of defects 08/15 Last Documented On 2 1:51PM ; [facility] No family history of bleeding problems 0 08/15/2021 Last Documented On 2 1:51PM ; [facility] No family history of cancer 08/15/2021 Last Documented On 2 1:51PM ; [facility] Review of Systems Includes: Review [...] Diagnosis PAIN MANAGEMENT NEW CONSULT JERSON HUDDLESTON PEANUT SEPARATOR-FPA, SAND CONDITIONER MACHINE-BC [facility] ON 022 8:33AM 10:00AM Left Hip Pain,Bulging Intervertebral Disc Lumbar,Spinal Stenosis Lumbosacral,Lumba r Spondylosis,Edema ,Dorsalgia Insurance Includes: Active Insurance Policies Plan Name Member ID Group # Subscriber Relationship Effect mariola Dates - [facility] [id number] DANA WONG Self Clinical Notes Includes: Clinical Notes from this encounter No Clinical Notes Recorded
--- OUTSIDE RECORDS SUMMARY | 2024-07-26 18:50 | XMS_ITS | Continuity of Care Document ---
Author Organization [facility] Address [address] [place] [address] Care Team Providers Care Flavor Room Worker Name Role Phone SABAS JHAVERI Primary Care Provider [phone] Assessment No assessment recorded. Plan of Treatment Reminders Order Date Submit Date Provider Last Modified By Organization Details Last Modified Time Details Appointments ANY 15 2024 04:30P M Sabas Jhaveri PA-C Not available Not available Not available Lab ESR (erythro cyte sediment ation rate), blood 2024 025 [facility], [address] [place] [address], [address], 07/26/2024 17:59:54 Referral None recorded . Procedures None recorded . Surgeries None recorded . Imaging None recorded . Medication Orders Depo-Med rol 80 mg/mL suspensi on for injectio n 2024 025 [email or web address] Not available 07/26/2024 18:13:52 Patient TargetsNo targets recorded. Patient Instructions Encounter Date Encounter Id Patient Instructions Last Modified By Organization Details Last Modified Time 07/26/2024 [id number] A healthy lifestyle: care instructions [email or web address] Not available 07/26/2024 18:00:04 Reason for Referral None Reported. Results Created Date Observation Date Name Description Value Unit Range Abnormal Flag Note LastModifiedBy Organization Detail LastModifiedTime 07/15/1907/14/2024 XR, ankle No observ ation record ed. [email or web address] [facility] [address] [facility], [place], [address], 07/14/2024 15:18:33 07/15/1907/14/2024 XR, foot No observ ation record ed. [email or web address] [address] [place], [address], 07/14/2024 15:18:48 Result Notes None recorded. Procedures Surgical History Date Name Laterality Status Provider Name and Address Organization Details Recorded Time 10/03/19 22 Date of Last Mammogram completed Kaela Ontiveros MA [facility] 03/03/2022 14:49:26 05/04/19 21 Date of Last Pap Smear completed HEIDI Andrew [facility] 04/02/2021 10:09:12 05/04/19 21 Total hysterectomy completed HEIDI Andrew [facility] 12/01/2023 14:49:43 01/03/20 20 colonoscopy completed HEIDI Andrew [facility] 04/02/2021 10:12:50 05/04/19 14 Cholecystectomy completed HEIDI Andrew [facility] 04/02/2021 10:11:45 05/04/19 08 Breast augmentation w/implt completed Tabitha Pimentel MA [facility] 04/02/2021 10:13:45 tonsilectomy/adenoi ds completed HEIDI Andrew [facility] 04/02/2021 10:12:04 Imaging Results None recorded. Procedure Notes None recorded. Medical Equipment None Reported. Allergies Allergen ID Allergen Name Allergen Category Reaction Reaction Severity Criticality Documentation Date Start Date Code Code System Note Provider Name and Address Organization Details Recorded Time 146847 acetamino phen / hydrocodo ne medicatio n nausea Not available Not available 04/02/2021 09351 2 RxNorm Not Available Not Available Not [...] Updated DateTime 5 173.99 cm 28.7 kg/m2 32504.0 2 g 16 /min 98 % 98 % 92 /min 126 mm[Hg] 80 mm[Hg] Andreia Bill MA [facility] 17:30:39 Social History Question Answer Notes LastModified by Organizat ion Details LastModified Time Tobacco Smoking Status Current Every Day Smoker Tabitha Pimentel MA null, [facility] 04/02/2021 10:10:18 What Is Your Level Of [...] Anxious, Or Unable To Sleep At Night)? [id number] Information not available 04/02/2021 Do You Use [...] High Blood Pressure N Atrial Fibrillation N Thyroid Problems N Kidney or Bladder Problems N GI Problems Y Depression Y COPD Y Blood Clots N Skin Problems N Eating Disorder N Anemia Y Heart Attack (NE) N Diabetes N Anxiety Disorder N Muscle, Joint, or Bone Problems Y Seizures/Epilepsy N Acid Reflux (GERD) N Cancer Y Stroke N Asthma Y Allergies Y ADHD Y Substance Abuse Y High Cholesterol N Hepatitis N Liver Disease Y Schizophrenia N Headaches N Osteoporosis N Heart Failure N Gynecological History Statement/Question Response Date of Last Pap Smear 05/04/2020 Date of Last Mammogram 10/02/2021 Date of LMP 05/04/2020 Obstetrics History GPAL:G 0 P 0 0 0 0 Immunizations Vaccine Type Date Status Note Provider Nam e and Address Organization Details Recorded Time Influenza, split virus, quadrivalent, PF 12/20/2022 completed Tabitha Pimentel [place] null, [place] - [facility] 12/22/2022 10:20:01 Past Encounters Encounter ID Performer Location Encounter Start Date Encounter Closed Date Diagnosis/Indication Diagnosis SNOMED-CT Code Diagnosis ICD10 Code Diagnosis Note [id number] Sabas Jhaveri PA-C [facility] [address] [place] [address] 07/14/2024 12:04:54 07/15/2024 08:49:51 Pain of left ankle joint [id number] 4036217 M25.572 go to ER rule out DVT gout or injury Overweight 239839866 E66 .3 Chronic pancreatitis 235 619809 K86.1 [id number] Sabas Jhaveri PA-C [facility] [address] [facility] [place] [address] 07/26/2024 17:25:07 07/26/2024 18:01:52 Bilateral foot joint pain [id number] 3752564 M79.672 Overweight 835219291 E66 .3 Health Concerns Section Related Observation LastModified by Organization Detai ls LastModified Time None Recorded Concern Status LastModified by Organization Details LastModified Time None Recorded Payers Encounter Date Sequence Insurance Name Policy Number Policy Blas Covered Member ID Blas Member ID Guarantor Name 07/26/2024 1 [facility] ON OR AFTER 11/01/20 (MEDICAID REPLACEMENT - HMO) Sanjuanita Pedersen [id number] Sanjuanita Pedersen Notes Date Note Type Note Provider Name and Address Organization Details Recorded Time 07/26/2024 text/html see note from 3-13...now both feet are red and a little puffy...painfu l and parts are numb Sabas Jhaveri PA-C Attn: Accounting,[address] [place], [address], [facility] 07/26/2024 18:01:49 OBGyn Episode No OBEpisode recorded.
--- OUTSIDE RECORDS SUMMARY | 2024-07-26 18:50 | XMS_ITS | Referral Summary ---
Author Organization [facility] Address [address] [place] [address] Care Team Providers Care Switch Cleaner Name Role Phone Trina Tracy MD Unavailable [phone] Wagner Jhaveri Primary Care Provider [phone] Allergies Active Allergy Reactions Criticality Noted Date [...] needed. Assessment & Plan (05/21/2021 3:15 PM PACKING LINE WORKER): Patient with family history of thyroid disease. [...] on file Legal Sex Female 9:46 AM PACKING LINE WORKER Gender Identity Not on file Sexual Orientation [...] Plan of Treatment Not on file Insurance [facility] Care Teams Switch Cleaner Relationship Specialty Start Date End Date Wagner Jhaveri PA [address] [place] [address] PCP - General Family Practice 09/11/21 Trina Tracy MD Surgeon Vascular Surgery 09/11/21
--- OUTSIDE RECORDS SUMMARY | 2024-07-26 18:50 | XMS_ITS | Clinical Summary ---
Author Organization [facility] Address [address] [place] [address] Phone Care Team Providers Care E Commerce Solution Architect Name Role Phone MARCOS TAYLOR, SABAS Primary Care Provider [phone] ZEKE GOMEZ MD Unavailable [phone] Reason for Visit and Chief Complaint The Chief Complaint is: Follow up afterL hip injection 08/28/2021 ~0% with 0% ongoing Problems Includes: Problems addressed during this encounter and other active Problems No Active Problems Plan of Treatment Instructions to patient Intervention and counseling on cessation of tobacco use : Patient recieved smoking cessation handout Last Documented On 3:05PM ; [facility] Assessments Includes: Assessments from this encounter Findings - [M46.1 - Sacroiliitis, not elsewhere classified] Sacroiliitis - Last Documented On 10/10/2021 4:19PM ; [facility] - [M25.552 - Pain in left hip] Left Hip pain - Last Documented On 10/10/2021 4:19PM ; [facility] - [M54.9 - Dorsalgia, unspecified] DORSALGIA - Last Documented On 10/10/2021 4:19PM ; [facility] - [M51.26 - Other intervertebral disc displacement, lumbar region] Bulging lumbar disc - Last Documented On 10/10/2021 4:19PM ; [facility] - [M47.896 - Other spondylosis, lumbar region] Lumbar spondylosis - Last Documented On 10/10/2021 4:19PM ; [facility] - [M48.07 - Spinal stenosis, lumbosacral region] Lumbosacral spinal stenosis - Last Documented On 10/10/2021 4:19PM ; [facility] - [F17.200 - Nicotine dependence, unspecified, uncomplicated] Nicotine dependence - Last Documented On 10/10/2021 4:19PM ; [facility] Instructions Includes: Instructions from this encounter Instructions to patient Intervention and counseling on cessation of tobacco use : Patient recieved smoking cessation handout Last Documented On 2 3:05PM ; [facility] Medical Equipment - Implanted Devices Includes: Current Devices No Medical Equipment Recorded Medications Includes: Medications discussed during this encounter and other current Medications Discontinued / Stopped on this date DELLA CORONEL on 08/15/2021 hydroCHLOROthiazide 25 MG Or al Tablet Provider: DELLA CORONEL Diagnosis: Edema, unspecifi ed Last Documented On 2 3:33PM By JERSON HULL ; [facility] Current Medications (continue as prescribed) Furosemide 20 MG Oral Tablet 10/10/2021 Provider: Diagnosis: Last Documented On 2 3:55PM By JERSON HULL ; [facility] Medications Administered Includes: Administered Medications from this encounter No Administered Medications Recorded Vital Signs Includes: Vital Signs from this encounter Vital Name 10/10/2021 03:09P Blood Pressure Sitting L 126/80 BP Cuff Size Regular Pulse Rate-Sitting (bpm) 106 Temp-Temporal 98.1 Height (in) 68 Pain Level 6 Oxygen Saturation (%) 99 Last Documented: On 10/10/2021 3:12PM ; [facility] Results Includes: Results discussed during this [...] 08/15/2021 Last Documented On 2 3:05PM ; [facility] Alcohol Social 08/15/2021 Last Documented On 2 3:05PM ; [facility] 08/15/2021 Last Documented On 2 3:05PM ; [facility] Not using drugs 08/15/2021 Last Documented On 2 3:05PM ; [facility] Occupation 08/15/2021 Last Documented On 2 3:05PM ; [facility] Tobacco use 08/15/2021 Last Documented On 2 3:05PM ; [facility] Smoking Status Unknown Procedures and Surgical History Includes: Procedures from this encounter Procedures Code Diagnosis Performing Provider Service L ocation Service Date intervention and counseling on cessation of tobacco use : Patient recieved smoking cessation handout 4000F Last Documented On 2 3:05PM ; [facility] use of tobacco assessment performed 1000F Last Documented On 2 3:05PM ; [facility] patient screened for future fall risk: documentation of any fall with injury in past year 1100F Last Documented On 2 3:07PM ; [facility] review of medications documented 1160F Last Documented On 2 3:05PM ; [facility] screening for adult depression: impressi on and score eight Last Documented On 2 3:05PM ; [facility] standardized depression screening: posit mariola for symptoms Last Documented On 2 3:05PM ; [facility] Clinical summary provided to patient Last Documented On 2 3:05PM ; [facility] Surgical History Last Updated History of cholecystectomy 08/15/2021 Last Documented On 2 3:05PM ; [facility] History of hysterectomy 08/15/2021 Last Documented On 2 3:05PM ; [facility] History of tonsillectomy 08/15/2021 Last Documented On 2 3:05PM ; [facility] Prior surgery Ears 2645-1884 ~Tonsinils 1979 ~Toes 1981 ~Colonoscopy *10 ~Csection 2006 ~Hysterectomy 2020 ~BLT breast 2008 08/15/2021 Last Documented On 2 3:05PM ; [facility] Medical History Includes: Medical History addressed during this encounter Description Last Updated Denies a fear of falling. 08/15/2021 Last Documented On 2 3:05PM ; [facility] Has had no fall in the last 12 months. 0 08/15/2021 Last Documented On 2 3:05PM ; [facility] Currently wearing eyeglasses 08/15/2021 Last Documented On 2 3:05PM ; [facility] Exposure to dust 08/15/2021 Last Documented On 2 3:05PM ; [facility] Exposure to fumes 08/15/2021 Last Documented On 2 3:05PM ; [facility] History of extraction of wisdom tooth Last Documented On 2 3:05PM ; [facility] Last mammogram date: 202008/15/2021 Last Documented On 2 3:05PM ; [facility] Surgery 08/15/2021 Last Documented On 2 3:05PM ; [facility] Family History Includes: Family History addressed during this encounter Description Last Updated Family history of alcoholism 08/15/2021 Last Documented On 2 3:05PM ; [facility] Family history of diabetes mellitus 08/02 Last Documented On 2 3:05PM ; [facility] Family history of genetic disease 2021 Last Documented On 2 3:05PM ; [facility] Family history of heart disease 08/16/19 Last Documented On 2 3:05PM ; [facility] Family history of kidney disease 022 Last Documented On 2 3:05PM ; [facility] Family history of mental illness (not in tellectual disabilities) 08/15/2021 Last Documented On 2 3:05PM ; [facility] Family medical history Pagets Mother, Gr andmother, and multiple others 08/15/2021 Last Documented On 2 3:05PM ; [facility] Father 0.73 years old 08/15/2021 Last Documented On 2 3:05PM ; [facility] Mother 73 years old 08/15/2021 Last Documented On 2 3:05PM ; [facility] No family history of defects 08/15 Last Documented On 2 3:05PM ; [facility] No family history of bleeding problems 0 08/15/2021 Last Documented On 2 3:05PM ; [facility] No family history of cancer 08/15/2021 Last Documented On 2 3:05PM ; [facility] Review of Systems Includes: Review of [...] Diagnosis PAIN MANAGEMENT FOLLOW UP JERSON HUDDLESTON ENGLISH ADJUNCT FACULTY-FPA, MANAGER INSTALLATION-BC [facility] ON 022 3:01PM 3:41PM Lumbar Spondylosis,Bulgi ng Intervertebral Disc Lumbar,Spinal Stenosis Lumbosacral,Left Hip Pain,Dorsalgia,Sa croiliitis,Nicoti ne Dependence Insurance Includes: Active Insurance Policies Plan Name Member ID Group # Subscriber Relationship Effect mariola Dates 1 - [facility] [id number] DANA WONG Self Clinical Notes Includes: Clinical Notes from this encounter No Clinical Notes Recorded
--- OUTSIDE RECORDS SUMMARY | 2024-07-26 18:51 | XMS_ITS | Clinical Summary ---
Author Organization [facility] Address [facility] [place] [address] Care Team Providers Care Catcher Filter Tip Name Role Phone Joe Shepard MD Primary Care Provider [phone] Juan Manuel Elam MD Unavailable Allergies Active [...] Priority Date/Time Associated Diagnosis Comments COLONOSCOPY Routine FIXED WING PILOT from Last 3 Months or Most Recently Relevant to Health Maintenance Results * Colonoscopy ( FIXED WING PILOT) Narrative [facility] TO EPIC CONVERSION - FIXED WING PILOT Documented hx of procedure Procedure Note Md [...] ID:Not on file Type:Not on file [address] Care Teams Catcher Filter Tip Relationship Specialty Start Date End Date Joe Shepard MD [address] [place] [phone] PCP - General FAMILY PRACTICE 09/18/16 Juan Manuel Elam MD [address] [place] [address] [phone] INTERNAL MEDICINE 09/18/16
--- OUTSIDE RECORDS SUMMARY | 2024-07-26 18:51 | XMS_ITS | Encounter Summary ---
Author Organization [facility] Address [facility] [place] [address] Care Team Providers Care Chicle Grinder Feeder Name Role Phone Joe Shepard MD Primary Care Provider [phone] Juan Manuel Elam MD Unavailable Encounter Details Date Type Department Care Team (Late st Contact Info) Description 10/09/2018 Abstract SFL CONVERSION [address] [place] [address] , Generic MD Nicolas Social History [...] on filedocumented in this encounter Care Teams Chicle Grinder Feeder Relationship Specialty Start Date End Date Joe Shepard MD [address] [place] [place] [id number] PCP - General FAMILY PRACTICE 09/18/16 Juan [place] [phone] INTERNAL MEDICINE 09/18/16 documented as of this encounter
== END 2024-07-26 17:27 | disposition home or self-care (01) ==
LOC: CHSLAB 17:27
PROVIDERS: PCP Physician Assistant; Visit Provider Physician Assistant
DX: M79.672 Pain in left foot (principal)
CPT/HCPCS: 36415; 85652

== ENCOUNTER 2024-08-30 12:31 | Outpatient (CLI) | payer OTHER, SELFPAY ==
--- NOTE | ~2024-08-30 | US_ITS ---
EXAMINATION: US venous doppler LE RT DATE: 08/30/2024 12:57 INDICATION: Lower limb swelling TECHNIQUE: Grayscale ultrasound images without and with compression and Doppler ultrasound images of the right lower extremity veins were obtained. COMPARISON: None. FINDINGS: The visualized portions of right common femoral vein, profunda (deep) femoral vein, femoral vein, pop liteal vein, posterior tibial veins, peroneal veins, gastrocnemius vein and greater saphenous vein ou tflow are patent. IMPRESSION: 1. No deep venous thrombosis in the right lower limb. Reviewed, dictated and finalized at location B.
--- OUTSIDE RECORDS SUMMARY | 2024-08-30 13:31 | XMS_ITS ---
Author Organization [facility] Address [address] [place] [address] Phone Care Team Providers Care Junction Maker Name Role Phone MARCOS TAYLOR, SABAS Primary Care Provider [phone] ZEKE ARCINIEGA MD Unavailable [phone] Problems Includes: Active, inactive, and resolved Problems No Active Problems Plan of Treatment Referrals To Diagnosis Pain Management [facility] - [address] [place] [address] - Pain in left hip Note: consent for Left Hip I ntra-articular steroid inijection under ultrasound guidanceNo hold NSAIDs/ASA Last Documented On 2 11:14AM ; [facility] Orthopedic [facility] [address] [place] [id number] - Unspecified sprain of left hip, sequela Note: Dr Yosi Paredes RI hip report and last chart notes Last Documented On 4 1:10PM ; [facility] Instructions to patient Intervention and counseling on cessation of tobacco use : Patient recieved smoking cessation handout Last Documented On 2 3:05PM ; [facility] Intervention and counseling on cessation of tobacco use : Patient recieved smoking cessation handout Last Documented On 2 8:51AM ; [facility] Assessments Includes: Assessments for all patient encounters Findings Encounter Date [S73.102S - Unspecified spra in of left hip, sequela] sprain of the left hip CHART UPDATE with JERSON HUDDLESTON TOBACCO DRUMMER-FPA, ROLLING UP MACHINE OPERATOR-BC 11/08/2021 Last Documented On 2 11:39AM ; [facility] Bulging lumbar disc PAIN MANAGEMENT FOLL OW UP with JERSON G FLAQUITO TOBACCO DRUMMER-FPA, ROLLING UP MACHINE OPERATOR-BC 10/10/2021 Last Documented On 2 4:19PM ; [facility] DORSALGIA PAIN MANAGEMENT FOLLOW UP with Reggie Ely FLAQUITO TOBACCO DRUMMER-FPA, ROLLING UP MACHINE OPERATOR-BC 10/10/2021 Last Documented On 2 4:19PM ; [facility] Left Hip pain PAIN MANAGEMENT FOLL OW UP with JERSON G FLAQUITO TOBACCO DRUMMER-FPA, ROLLING UP MACHINE OPERATOR-BC 10/10/2021 Last Documented On 2 4:19PM ; [facility] Lumbar spondylosis PAIN MANAGEMENT FOLL OW UP with JERSON G FLAQUITO TOBACCO DRUMMER-FPA, ROLLING UP MACHINE OPERATOR-BC 10/10/2021 Last Documented On 2 4:19PM ; [facility] Lumbosacral spinal stenosis PAIN MANAGEM ENT FOLLOW UP with JERSON G FLAQUITO TOBACCO DRUMMER-FPA, ROLLING UP MACHINE OPERATOR-BC 10/10/2021 Last Documented On 2 4:19PM ; [facility] Nicotine dependence PAIN MANAGEMENT FOLL OW UP with JERSON G FLAQUITO TOBACCO DRUMMER-FPA, ROLLING UP MACHINE OPERATOR-BC 10/10/2021 Last Documented On 2 4:19PM ; [facility] Sacroiliitis PAIN MANAGEMENT FOLL OW UP with JERSON G FLAQUITO TOBACCO DRUMMER-FPA, ROLLING UP MACHINE OPERATOR-BC 10/10/2021 Last Documented On 2 4:19PM ; [facility] Left Hip pain INJECTION with ZEKE ARCINIEGA MD 08/28/2021 Last Documented On 2 3:39PM ; [facility] Osteoarthritis of left hip INJECTION with SARAI ARCINIEGA MD 08/28/2021 Last Documented On 2 3:39PM ; [facility] Bulging lumbar disc PAIN MANAGEMENT NEW CONSULT with JERSON G FLAQUITO TOBACCO DRUMMER-FPA, ROLLING UP MACHINE OPERATOR-BC 08/15/2021 Last Documented On 2 1:51PM ; [facility] DORSALGIA PAIN MANAGEMENT NEW CONSULT with JERSON G FLAQUITO TOBACCO DRUMMER-FPA, ROLLING UP MACHINE OPERATOR-BC 08/15/2021 Last Documented On 2 1:51PM ; [facility] Edema PAIN MANAGEMENT NEW CONSULT with JERSON HUDDLESTON APRN-FPEricka ROLLING UP MACHINE OPERATOR-BC 08/15/2021 Last Documented On 2 1:51PM ; [facility] Left Hip pain PAIN MANAGEMENT NEW CONSULT with JERSON HUDDLESTON TOBACCO DRUMMER-FPEricka, ROLLING UP MACHINE OPERATOR-BC 08/15/2021 Last Documented On 2 1:51PM ; [facility] Lumbar spondylosis PAIN MANAGEMENT NEW CONSULT with JERSON Jhoana FLAQUITO TOBACCO DRUMMER-FPA, ROLLING UP MACHINE OPERATOR-BC 08/15/2021 Last Documented On 2 1:51PM ; [facility] Lumbosacral spinal stenosis PAIN MANAGEM ENT NEW CONSULT with JERSON HUDDLESTON TOBACCO DRUMMER-FPEricka, ROLLING UP MACHINE OPERATOR-BC 08/15/2021 Last Documented On 2 1:51PM ; [facility] Instructions Includes: Instructions for all patient encounters Instructions to patient Intervention and counseling on cessation of tobacco use : Patient recieved smoking cessation handout Last Documented On 2 3:05PM ; [facility] Intervention and counseling on cessation of tobacco use : Patient recieved smoking cessation handout Last Documented On 2 8:51AM ; [facility] Medical Equipment - Implanted Devices Includes: Current and historical Devices No Medical Equipment Recorded Medications Includes: Current and historical Medications Current Medications (continue as prescribed) Furosemide 20 MG Oral Tablet 10/10/2021 Provider: Diagnosis: Last Documented On 2 3:55PM By JERSON HULL ; [facility] Past Medications on file hydroCHLOROthiazide 25 MG Oral Tablet 08/15/2021 - 08/15/2021 Provider: DELLA CORONEL Diagnosis: Edema, unspecifi ed One tablet daily Last Documented On 2 1:51PM By JERSON HULL ; [facility] hydroCHLOROthiazide 25 MG Oral Tablet 08/15/2021 - 10/10/2021 Provider: DELLA CORONEL Diagnosis: Edema, unspecifi ed One tablet daily Last Documented On 2 3:33PM By JERSON PUENTEP-BC ; [facility] Medications Administered Includes: Administered Medications in patient's chart Medications Administered Diagnosis Date Pro vider Xylocaine 1% IJ SOLN 08/28/2021 ZEKE ARCINIEGA MD administered by Dr. Arciniega for local Last Documented On 2 2:16PM By Michelle Chase RN ; [facility] Sodium Chloride 0.9% IJ SOLN 08/28/2021 ZEKE ARCINIEGA MD administered by Dr. Arciniega for local Last Documented On 2 2:18PM By Michelle Chase RN ; [facility] dexAMETHasone Sodium Phosphate 10 MG/ML IJ SOLN 08/28/2021 ZEKE ARCINIEGA MD administered by Dr. Arciniega in left hip Last Documented On 2 2:19PM By Michelle Chase RN ; [facility] Xylocaine 2% IJ SOLN 08/28/2021 ZEKE ARCINIEGA MD administered by Dr. Arciniega in left hip Last Documented On 2 2:20PM By Michelle Chase RN ; [facility] Results Includes: Results from 08/31/2023 through 08/30/2024 No Results Recorded For Specified Dates History of Present Illness History of Present Illness not supported for this document type No History of Present Illness Recorded Social History Description Last Updated Current smoker 08/15/2021 Last Documented On 2 1:51PM ; [facility] Alcohol Social 08/15/2021 Last Documented On 2 1:51PM ; [facility] 08/15/2021 Last Documented On 2 1:51PM ; [facility] Not using drugs 08/15/2021 Last Documented On 2 1:51PM ; [facility] Occupation 08/15/2021 Last Documented On 2 1:51PM ; [facility] Tobacco use 08/15/2021 Last Documented On 2 1:51PM ; [facility] Smoking Status Unknown Procedures and Surgical History Surgical History Last Updated History of cholecystectomy 08/15/2021 Last Documented On 2 1:51PM ; [facility] History of hysterectomy 08/15/2021 Last Documented On 2 1:51PM ; [facility] History of tonsillectomy 08/15/2021 Last Documented On 2 1:51PM ; [facility] Prior surgery Ears [id number] ~Tonsinils 1979 ~Toes 1981 ~Colonoscopy *10 ~Csection 2007 ~Hysterectomy 2020 ~BLT breast 2008 08/15/2021 Last Documented On 2 1:51PM ; [facility] Medical History Includes: Medical History in patient's chart Description Last Updated Denies a fear of falling. 08/15/2021 Last Documented On 2 1:51PM ; [facility] Has had no fall in the last 12 months. 0 08/15/2021 Last Documented On 2 1:51PM ; [facility] Currently wearing eyeglasses 08/15/2021 Last Documented On 2 1:51PM ; [facility] Exposure to dust 08/15/2021 Last Documented On 2 1:51PM ; [facility] Exposure to fumes 08/15/2021 Last Documented On 2 1:51PM ; [facility] History of extraction of wisdom tooth Last Documented On 2 1:51PM ; [facility] Last mammogram date: 202008/15/2021 Last Documented On 2 1:51PM ; [facility] Surgery 08/15/2021 Last Documented On 2 1:51PM ; [facility] Family History Includes: Family History in patient's chart Description Last Updated Family history of alcoholism 08/15/2021 Last Documented On 2 1:51PM ; [facility] Family history of diabetes mellitus 08/02 Last Documented On 2 1:51PM ; [facility] Family history of genetic disease 2021 Last Documented On 2 1:51PM ; [facility] Family history of heart disease 08/16/19 22 Last Documented On 2 1:51PM ; [facility] Family history of kidney disease 022 Last Documented On 2 1:51PM ; [facility] Family history of mental illness (not in tellectual disabilities) 08/15/2021 Last Documented On 2 1:51PM ; [facility] Family medical history Pagets Mother, Gr andmother, and multiple others 08/15/2021 Last Documented On 2 1:51PM ; [facility] Father 0.73 years old 08/15/2021 Last Documented On 2 1:51PM ; [facility] Mother 73 years old 08/15/2021 Last Documented On 2 1:51PM ; [facility] No family history of defects 08/15 Last Documented On 2 1:51PM ; [facility] No family history of bleeding problems 0 08/15/2021 Last Documented On 2 1:51PM ; [facility] No family history of cancer 08/15/2021 Last Documented On 2 1:51PM ; [facility] Review of Systems Review of Systems not [...] # Subscriber Relationship Effect mariola Dates - [facility] [id number] DANA WONG Self Clinical Notes Includes: Signed Clinical Notes starting from 05/23/2022 No Clinical Notes Recorded
--- OUTSIDE RECORDS SUMMARY | 2024-08-30 13:31 | XMS_ITS | Clinical Summary ---
Author Organization [facility] Address [address] [place] [phone] Phone Care Team Providers Care Sap Bobj Developer Name Role Phone MARCOS TAYLOR, SABAS Primary Care Provider [phone] ZEKE GOMEZ MD Unavailable [phone] Reason for Visit and Chief [...] On 2 3:55PM By JERSON STOREY ; [facility] Medications Administered Includes: Administered Medications from this encounter No Administered Medications Recorded Results Includes: Results discussed during this encounter No Results Recorded For Specified Dates History of Present Illness Includes: History of Present Illness from this encounter No History of Present Illness Recorded Social History Description Last Updated Current smoker 08/15/2021 Last Documented On 2 12:58PM ; [facility] Alcohol Social 08/15/2021 Last Documented On 2 12:58PM ; [facility] 08/15/2021 Last Documented On 2 12:58PM ; [facility] Not using drugs 08/15/2021 Last Documented On 2 12:58PM ; [facility] Occupation 08/15/2021 Last Documented On 2 12:58PM ; [facility] Tobacco use 08/15/2021 Last Documented On 2 12:58PM ; [facility] Smoking Status Unknown Procedures and Surgical History Surgical History Last Updated History of cholecystectomy 08/15/2021 Last Documented On 2 12:58PM ; [facility] History of hysterectomy 08/15/2021 Last Documented On 2 12:58PM ; [facility] History of tonsillectomy 08/15/2021 Last Documented On 2 12:58PM ; [facility] Prior surgery Ears [id number] ~Tonsinils 1980 ~Toes 1981 ~Colonoscopy *10 ~Csection 2007 ~Hysterectomy 2020 ~BLT breast 2008 08/15/2021 Last Documented On 2 12:58PM ; [facility] Medical History Includes: Medical History addressed during this encounter Description Last Updated Denies a fear of falling. 08/15/2021 Last Documented On 2 12:58PM ; [facility] Has had no fall in the last 12 months. 0 08/15/2021 Last Documented On 2 12:58PM ; [facility] Currently wearing eyeglasses 08/15/2021 Last Documented On 2 12:58PM ; [facility] Exposure to dust 08/15/2021 Last Documented On 2 12:58PM ; [facility] Exposure to fumes 08/15/2021 Last Documented On 2 12:58PM ; [facility] History of extraction of wisdom tooth Last Documented On 2 12:58PM ; [facility] Last mammogram date: 202008/15/2021 Last Documented On 2 12:58PM ; [facility] Surgery 08/15/2021 Last Documented On 2 12:58PM ; [facility] Family History Includes: Family History addressed during this encounter Description Last Updated Family history of alcoholism 08/15/2021 Last Documented On 2 12:58PM ; [facility] Family history of diabetes mellitus 08/02 Last Documented On 2 12:58PM ; [facility] Family history of genetic disease 2021 Last Documented On 2 12:58PM ; [facility] Family history of heart disease 08/16/19 22 Last Documented On 2 12:58PM ; [facility] Family history of kidney disease 022 Last Documented On 2 12:58PM ; [facility] Family history of mental illness (not in tellectual disabilities) 08/15/2021 Last Documented On 2 12:58PM ; [facility] Family medical history Pagets Mother, Gr andmother, and multiple others 08/15/2021 Last Documented On 2 12:58PM ; [facility] Father 0.73 years old 08/15/2021 Last Documented On 2 12:58PM ; [facility] Mother 73 years old 08/15/2021 Last Documented On 2 12:58PM ; [facility] No family history of defects 08/15 Last Documented On 2 12:58PM ; [facility] No family history of bleeding problems 0 08/15/2021 Last Documented On 2 12:58PM ; [facility] No family history of cancer 08/15/2021 Last Documented On 2 12:58PM ; [facility] Review of Systems Includes: Review [...] * PHONE CALL JERSON Jhoana HUDDLESTON SENIOR SYSTEMS ARCHITECT-FPA, CLOTH CUTTING MACHINE OPERATOR-BC 10/29/2021 12:58PM 11:59PM Insurance Includes: Active Insurance Policies Plan Name Member ID Group # Subscriber Relationship Effect mariola Dates - [facility] [id number] DANA WONG Self Clinical Notes Includes: Clinical Notes from this encounter No Clinical Notes Recorded
--- OUTSIDE RECORDS SUMMARY | 2024-08-30 13:31 | XMS_ITS ---
Care Plan - [facility] Created on: August 30, 2024 DANA WONG : 1975 Sex: Female Author Organization [facility] Address [address] [place] [phone] Phone Care Team Providers Care Chief Safety Officer Name Role Phone SABAS RODRÍGUEZ PA-C Primary Care Provider [phone] ZEKE GOMEZ MD Unavailable [phone]
--- OUTSIDE RECORDS SUMMARY | 2024-08-30 13:31 | XMS_ITS | Data Portability ---
Author Organization [facility] Address [address] [place] [address] Care Team Providers Care Estimating Manager Name Role Phone SABAS JHAVERI Primary Care Provider [phone] Assessment No assessment recorded. Plan of Treatment Reminders Order Date Submit Date Provider Last Modified By Organization Details Last Modified Time Details Appointments None recorde d. Lab ESR (erythr ocyte sedimen tation rate), blood 2024 025 [facility], [address] [place] [address], [address], 5 07:44:10 uric acid, serum or plasma 2024 025 [facility], [address] [place] [address], [address], 5 06:21:11 CBC 2024 025 [facility], [address] [place] [address] 2, [place], [address], 5 06:21:12 CMP, serum or plasma 2024 025 [facility], [address] [facility] [place], [address], 5 06:21:09 lipid panel, serum 2024 025 [facility], [address] [facility], [facility], [place], [address], 5 06:21:08 HbA1c (hemogl obin A1c), blood 2024 025 [facility] In-Office Order, Internal Use Only DO Not Attach Compendium DO Not Attach Compendium, Do Not Delete/merge, [id number] 13:02:23 amylase + lipase, serum 2024 025 [facility], [address] [facility], [facility] 2, [place], [address], 5 13:11:24 Referral vascula r surgeon referra l 2024 025 [facility], [address] , [facility] [address], [place], [address], 5 09:25:14 Procedures None recorde d. Surgeries None recorde d. Imaging US, doppler , venous [address] [facility], [address] [place], [address], 5 09:25:14 Medication Orders furosem malachi 20 mg tablet 2024 025 [facility], [address], [place], [id number], 5 12:16:15 Depo-Me drol 80 mg/mL suspens ion for injecti on 2024 025 dturnerma Not available 11:46:34 ondanse shavon HCl 4 mg tablet 2023 024 [email or web address] [facility], [address], [place], [id number], 5 12:10:42 Cipro 500 mg tablet 2023 024 [email or web address] [facility], [address], [place], [id number], 12:10:39 Patient TargetsNo targets recorded. Patient Instructions Encounter Date Encounter Id Patient Instructions Last Modified By Organization Details Last Modified Time 01/13/2023 [id number] A healthy lifestyle: care instructions jnanney Not available 01/13/2023 15:54:51 07/01/2023 [id number] A healthy lifestyle: care instructions jnanney Not available 07/01/2023 12:09:09 nausea and vomiting: care instructions jnanney Not available 07/01/2023 12:09:09 pancreatitis: care instructions jnanney Not available 07/01/2023 12:09:09 07/14/2024 [id number] A healthy lifestyle: care instructions jnanney Not available 07/14/2024 12:36:29 pancreatitis: care instructions jnanney Not available 07/14/2024 12:41:28 07/26/2024 [id number] A healthy lifestyle: care instructions jnanney Not available 07/26/2024 18:00:04 Reason for Referral Vascular Surgeon 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 Referring Physician: Sabas Jhaveri, Family Medicine, Encounter Date: 08/23/2024 Results Created Date Observation Date Name Description Value Unit Range Abnormal Flag Note LastModifiedBy Organization Detail LastModifiedTime 07/15/1907/15/2024 LIPID PANEL cholesterol, total 180 mg/dL 100-19 9 Not Available [facility] [address] [place], [address], 07/15/2024 06:21:08 07/15/1907/15/2024 LIPID PANEL triglyceride s 93 mg/dL 0-149 Not Available [facility] [address] [place], [address], 07/15/2024 06:21:08 07/15/1907/15/2024 LIPID PANEL HDL cholesterol 63 mg/dL 40-999 Not Available [facility] [address] [place], [address], 07/15/2024 06:21:08 07/15/19 07/15/2024 LIPID PANEL VLDL cholesterol gabriel 19 mg/dL 5-40 Not Available [address], [address], 07/15/2024 06:21:08 07/15/19 25 07/15/2024 LIPID PANEL LDL chol calc (nih) 111 mg/dL 0-99 above high normal Not Available [address], [address], 07/15/2024 06:21:08 07/15/19 25 07/15/2024 COMP. METAB OLIC PANEL (14) glucose 84 mg/dL 70-99 Not Available [address], [address], 07/15/2024 06:21:09 07/15/19 25 07/15/2024 COMP. METAB OLIC PANEL (14) BUN 14 mg/dL 6-24 Not Available [address], [address], 07/15/2024 06:21:09 07/15/19 25 07/15/2024 COMP. METAB OLIC PANEL (14) creatinine 0.74 mg/dL 0.76-1 .27 below low normal Not Available [address], [address], 07/15/2024 06:21:09 07/15/1907/15/2024 COMP. METAB OLIC PANEL (14) eGFR 99 >=60 Units for eGFR value s are mL/mi n/1.7 3 The eGFR Calcu latio n has not been valid ated for patie nts under the age of 18. If test resul ts are displ ayed for a patie nt under the age of 18, disre barbara that value . Not Available [address], [address], 07/15/2024 06:21:09 07/15/19 25 07/15/2024 COMP. METAB OLIC PANEL (14) BUN/creatini ne ratio 19 9-23 Not Available [address], [address], 07/15/2024 06:21:09 07/15/19 25 07/15/2024 COMP. METAB OLIC PANEL (14) sodium 142 mmol/ L 134-14 4 Not Available [address], [address], 07/15/2024 06:21:09 07/15/19 25 07/15/2024 COMP. METAB OLIC PANEL (14) potassium 4.6 mmol/ L 3.5-5. 2 Not Available [address], [address], 07/15/2024 06:21:09 07/15/19 25 07/15/2024 COMP. METAB OLIC PANEL (14) chloride 104 mmol/ L 96-106 Not Available [address], [address], 07/15/2024 06:21:09 07/15/19 25 07/15/2024 COMP. METAB OLIC PANEL (14) carbon dioxide, total 25 mmol/ L 20-29 Not Available [address], [address], 07/15/2024 06:21:09 07/15/19 25 07/15/2024 COMP. METAB OLIC PANEL (14) calcium 9.3 mg/dL 8.7-10 .2 Not Available [address], [address], 07/15/2024 06:21:09 07/15/19 25 07/15/2024 COMP. METAB OLIC PANEL (14) protein, total 6.8 g/dL 6.0-8. 5 Not Available [address], [address], 07/15/2024 06:21:09 07/15/19 25 07/15/2024 COMP. METAB OLIC PANEL (14) albumin 4.3 g/dL 3.9-4. 9 Not Available [address], [address], 07/15/2024 06:21:09 07/15/19 25 07/15/2024 COMP. METAB OLIC PANEL (14) globulin, total 2.5 g/dL 1.5-4. 5 Not Available [address], [address], 07/15/2024 06:21:09 07/15/19 25 07/15/2024 COMP. METAB OLIC PANEL (14) A/G ratio 2.0 1.2-2. 2 Not Available [address], [address], 07/15/2024 06:21:09 07/15/1907/15/2024 COMP. METAB OLIC PANEL (14) bilirubin, total 0.6 mg/dL 0.0-1. 2 Not Available [address], [address], 07/15/2024 06:21:09 07/15/19 25 07/15/2024 COMP. METAB OLIC PANEL (14) alkaline phosphatase 109 IU/L 44-121 Not Available [address], [address], 07/15/2024 06:21:09 07/15/19 25 07/15/2024 COMP. METAB OLIC PANEL (14) AST (SGOT) 27 U/L 0-40 Not Available [address], [address], 07/15/2024 06:21:09 07/15/19 25 07/15/2024 COMP. METAB OLIC PANEL (14) ALT (SGPT) 35 IU/L 0-32 above high normal Not Available [facility] & [address], [address], 07/15/2024 06:21:09 07/15/1907/15/2024 CARDI OVASC ULAR REPOR T interpretati on Note Suppl emevangelist al repor t is avail able. Not Available [address], [address], 07/15/2024 06:21:10 07/15/1907/15/2024 CARDI OVASC ULAR REPOR T pdf . Not Available [address], [address], 07/15/2024 06:21:10 07/15/1907/15/2024 URIC ACID uric acid 4.7 mg/dL 2.5-7. 1 Not Available [address], [address], 07/15/2024 06:21:11 07/15/19 25 07/14/2024 CBC, PLATE LET, NO DIFFE RENTI AL WBC 11.4 x10e3 /uL 3.4-10 .8 above high normal Not Available [address], [address], 07/15/2024 06:21:12 07/15/1907/14/2024 CBC, PLATE LET, NO DIFFE RENTI AL RBC 4.93 x10e6 /uL 3.77-5 .28 Not Available [address], [address], 07/15/2024 06:21:12 07/15/1907/14/2024 CBC, PLATE LET, NO DIFFE RENTI AL hemoglobin 15.3 g/dL 11.1-1 5.9 Not Available [address], [address], 07/15/2024 06:21:12 07/15/1907/14/2024 CBC, PLATE LET, NO DIFFE RENTI AL hematocrit 46.3 % 34.0-4 6.6 Not Available [address], [address], 07/15/2024 06:21:12 07/15/1907/14/2024 CBC, PLATE LET, NO DIFFE RENTI AL MCV 94 fL 79-97 Not Available [address], [address], 07/15/2024 06:21:12 07/15/1907/14/2024 CBC, PLATE LET, NO DIFFE RENTI AL MCH 31.0 pg 26.6-3 3.0 Not Available [address], [address], 07/15/2024 06:21:12 07/15/1907/14/2024 CBC, PLATE LET, NO DIFFE RENTI AL MCHC 33.0 g/dL 31.5-3 5.7 Not Available [address], [address], 07/15/2024 06:21:12 07/15/1907/14/2024 CBC, PLATE LET, NO DIFFE RENTI AL RDW 13.8 % 11.5-1 4.5 Not Available [address], [address], 07/15/2024 06:21:12 07/15/1907/14/2024 CBC, PLATE LET, NO DIFFE RENTI AL platelets 479 x10e3 /uL 150-45 0 above high normal Mean Plate let Volum e 9.3 fL 8.9-1 2.7 N Not Available [facility] [address] [place], [address], 07/15/2024 06:21:12 07/15/19 25 07/14/2024 CBC, PLATE LET, NO DIFFE RENTI AL NRBC 0 % 0-0 Not Available [facility] [address] [place], [address], 07/15/2024 06:21:12 07/15/19 25 07/15/2024 NUVIA+L IPASE amylase 51 U/L 31-110 Not Available [facility]) [address] [facility] [address], [place], [address], 07/15/2024 13:11:24 07/15/19 25 07/15/2024 NUVIA+L IPASE lipase 37 U/L 14-72 Not Available [facility] ([facility]) [address] [facility] [address], [place], [address], 07/15/2024 13:11:24 07/15/19 25 07/14/2024 HbA1c (hemo globi n A1c), blood HbA1c 5.5 Not Available In-Office Order Internal Use Only DO Not Attach Compendium DO Not Attach Compendium, Do Not Delete/merge, [id number] 07/14/2024 12:40:43 11/26/19 24 11/25/2023 XR, chest [facility] [address] [place], [address], 11/26/2023 09:18:23 07/15/19 25 07/14/2024 XR, ankle No observ [facility]ion record ed. [facility] [address] [place], [address], 07/14/2024 15:18:33 07/15/19 25 07/14/2024 XR, foot No observ ation record ed. [facility] [address] [place], [address], 07/14/2024 15:18:48 Result Notes None recorded. Procedures Surgical History Date Name Laterality Status Provider Name and Address Organization Details Recorded Time 10/03/19 22 Date of Last Mammogram completed Kaela Ontiveros MA [facility] 03/03/2022 14:49:26 05/04/19 21 Date of Last Pap Smear completed Tabitha Pimentel MA [facility] 04/02/2021 10:09:12 05/04/19 21 Total hysterectomy completed Tabitha Pimentel MA [facility] 12/01/2023 14:49:43 01/03/20 20 colonoscopy completed Tabitha Pimentel MA [facility] 04/02/2021 10:12:50 05/04/19 14 Cholecystectomy completed Tabitha Pimentel MA [facility] 04/02/2021 10:11:45 05/04/19 08 Breast augmentation w/implt completed Tabitha Pimentel MA [facility] 04/02/2021 10:13:45 tonsilectomy/adenoi ds completed Tabitha Pimentel MA [facility] 04/02/2021 10:12:04 Imaging Results Imaging Date Name Status LastModified by Organiz [facility] Details LastModified Time 11/25/2023 XR, chest completed [facility] [address] [place], [address], 11/26/2023 09:18:23 07/14/2024 XR, ankle completed [facility] [address] [place], [address], 07/14/2024 15:18:33 07/14/2024 XR, foot completed [facility] [address] [place], [address], 07/14/2024 15:18:48 Procedure Notes None recorded. Medical Equipment None Reported. Allergies Allergen ID Allergen Name Allergen Category Reaction Reaction Severity Criticality Documentation Date Start Date Code Code System Note Provider Name and Address Organization Details Recorded Time 502655 acetamino phen / hydrocodo ne medicatio n nausea Not available Not available 04/02/2021 52977 2 RxNorm Not Available Not Available Not [...] injection Take 1 mL by injection route. 08/23 completed Not Available Not Available Not [...] Available Not Available furosemide 20 mg tablet Take 1 tablet every day by oral route for 90 days. 2024 active Not Available Not Available Not Avai lable levofloxaci n 750 mg tablet 03/03 completed [...] Updated DateTime 3 173.99 cm 24.1 kg/m2 84639.3 7 g 100 % 100 % 114 /min 113 mm[Hg] 81 mm[Hg] Tabitha Pimentel [place] [facility] 3 15:41:44 Date Recorded Body height Body mass index (BMI) Body weight Oxygen saturation Oxygen saturation in Arterial blood by Pulse oximetry Heart rate Respiratory rate Body temperature Systolic blood pressure Diastolic blood pressure Provider Name and Address Organization Details Last Updated DateTime 4 173.99 cm 25.2 kg/m2 04528.5 2 g 100 % 100 % 89 /min 18 /min 97.6 [degF] 140 mm[Hg] 92 mm[Hg] Andreia Bill [place] [facility] 4 11:53:12 Date Recorded Body height Body mass index (BMI) Body weight Oxygen saturation Oxygen saturation in Arterial blood by Pulse oximetry Heart rate Respiratory rate Systolic blood pressure Diastolic blood pressure Provider Name and Address Organization Details Last Updated DateTime 5 173.99 cm 28.6 kg/m2 18338.1 4 g 98 % 98 % 97 /min 16 /min 130 mm[Hg] 82 mm[Hg] Andreia Bill [place] [facility] 5 12:13:29 Date Recorded Body height Body mass index (BMI) Body weight Respiratory rate Oxygen saturation Oxygen saturation in Arterial blood by Pulse oximetry Heart rate Systolic blood pressure Diastolic blood pressure Provider Name and Address Organization Details Last Updated DateTime 5 173.99 cm 28.7 kg/m2 86894.0 2 g 16 /min 98 % 98 % 92 /min 126 mm[Hg] 80 mm[Hg] Anrdeia Bill MA [facility] 5 17:30:39 Date Recorded Body height Body mass index (BMI) Body weight Oxygen saturation Oxygen saturation in Arterial blood by Pulse oximetry Heart rate Systolic blood pressure Diastolic blood pressure Provider Name and Address Organization Details Last Updated DateTime 5 173.99 cm 29.5 kg/m2 90901.7 g 98 % 98 % 98 /min 128 mm[Hg] 78 mm[Hg] Tabitha Pimentel MA [facility] 5 11:48:41 Social History Question Answer Notes LastModified by Organizat ion Details LastModified Time Tobacco Smoking Status Current Every Day Smoker Tabitha Pimentel MA null, [facility] 04/02/2021 10:10:18 What Is Your Level Of [...] Date Of Your Most Recent Tobacco Screening? 08/23/2024 Information not available 08/23/2024 What Is Your Relationship Status? Information not [...] Anxious, Or Unable To Sleep At Night)? [id number] Information not available 04/02/2021 Do You Use Any Illicit Or Recreational Drugs? No Information not available 04/02/2021 Has Tobacco Cessation Counseling Been Provided? Yes Information not available 04/02/2021 On What Date Was Tobacco Cessation Counseling Provided? 08/23/2024 Information not available 08/23/2024 Do You Or Have You Ever Used Any Other Forms Of Tobacco Or Nicotine? No Information not available 04/02/2021 Sex: Female Functional Status Question Answer Note LastModified by Tiger Pistol[employer] ion Details LastModified Time Are you able to care for yourself? Yes Information not available 04/02/2021 What is your exercise level? Occasional Information not available 03/03/2022 Mental Status None recorded. Family History Nothing Reported. Medical History Condition Response Coronary Artery Disease N Other N Atrial Fibrillation N High Blood Pressure N Thyroid Problems N Kidney or Bladder Problems N GI Problems Y Depression Y COPD Y Blood Clots N Eating Disorder N Skin Problems N Anemia Y Heart Attack (ND) N Anxiety Disorder N Diabetes N Muscle, Joint, or Bone Problems Y Seizures/Epilepsy N Acid Reflux (GERD) N Cancer Y Stroke N Asthma Y Allergies Y ADHD Y Substance Abuse Y High Cholesterol N Hepatitis N Liver Disease Y Schizophrenia N Headaches N Heart Failure N Osteoporosis N Gynecological History Statement/Question Response Date of Last Pap Smear 05/04/2020 Date of Last Mammogram 10/02/2021 Date of LMP 05/04/2020 Obstetrics History GPAL:G 0 P 0 0 0 0 Immunizations Vaccine Type Date Status Note Provider Nam e and Address Organization Details Recorded Time Influenza, split virus, quadrivalent, PF 12/20/2022 completed Tabitha Pimentel MA [facility], [place] [facility] 12/22/2022 10:20:01 Past Encounters Encounter ID Performer Location Encounter Start Date Encounter Closed Date Diagnosis/Indication Diagnosis SNOMED-CT Code Diagnosis ICD10 Code Diagnosis Note [id number] Tabitha Pimentel MA [facility] [address] [place] [address] 04/02/2021 10:03:23 04/02/2021 12:05:38 Adult health examination 436236723 Z00.00 Long-term drug therapy 575653625 Z79.899 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 Chronic ob structive pulmonary disease 46004548 J41.0 [id number] Sabas Jhaveri PA-C [facility] [address] [place] [address] 04/23/2021 17:24:09 04/23/2021 19:13:43 Thyroid stimulating hormone level above reference range 417926280 R79.89 [id number] Sabas Jhaveri PA-C [facility] [address] [place] [address] 06/24/2021 17:17:04 06/24/2021 18:06:10 Peripheral vascular disease 438106550 I73.89 Pain in le ft lower limb 861862609 M79.605 Peripheral arterial insufficiency 1631554884 59541 I73.9 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 [id number] Sabas Jhaveri PA-C [address] [address] 08/23/2021 10:42:03 08/23/2021 11:32:39 Edema of lower extremity 739379370 R60.0 Peripheral vascular disease 433012810 I73.89 [id number] Sabas Jhaveri PA-C [address] [address] 03/03/2022 14:42:15 03/03/2022 15:27:48 History of pancreatitis 4741494798 9107 Z87.19 lipase was extremely elevated [id number] Sabas Jhaveri PA-C [facility] [address] [place] [address] 08/08/2022 14:26:15 08/11/2022 12:17:23 Persistent cough 338860496 R05.3 Overweight 863046537 E66 .3 Osteoarthritis 258036859 M15.0 [id number] Sabas Jhaveri PA-C [facility] [address] [place] [address] 01/13/2023 15:30:03 01/15/2023 15:30:53 COVID-19 965481704 U07.1 Overweight 766372708 E66 .3 [id number] Sabas Jhaveri PA-C [facility] [address] [place] [address] 07/01/2023 11:30:07 07/02/2023 11:34:31 Acute urinary tract infection 118225487 N10 Acute pancreatitis 80948 6007 K85.00 urged patient to return to hospital but she refuses Nausea 693566618 R11.0 Overweight 822205067 E66 .3 [id number] Sabas Jhaveri PA-C [facility] [address] [place] [address] 07/14/2024 12:04:54 07/15/2024 08:49:51 Pain of left ankle joint 9685953132 4994290 M25.572 go to ER rule out DVT gout or injury Overweight 142572871 E66 .3 Chronic pancreatitis 235 354138 K86.1 [id number] CLAUDIA Mccabe [facility] [address] [place] [address] 07/26/2024 17:25:07 07/29/2024 09:14:12 Bilateral foot joint pain 5802312037 2387319 M79.672 Overweight 473332620 E66 .3 [id number] Sabas Jhaveri PA-C [facility] [address] [place] [address] 08/23/2024 11:40:51 08/26/2024 09:25:14 Idiopathic livedo reticularis 321468642 R23.1 Bilateral lower limb edema 121681021 R60.0 Edema of l ower extremity 057403221 R60.0 Health Concerns Section Related Observation LastModified by Organization Detai ls LastModified Time None Recorded Concern Status LastModified by Organization Details LastModified Time None Recorded Advance Directives Directive None Recorded Payers Encounter Date Sequence Insurance Name Policy Number Policy Blas Covered Member ID Blas Member ID Guarantor Name 01/13/2023 1 [facility] ON OR AFTER 11/01/20 (MEDICAID REPLACEMENT - HMO) Sanjuanita Dequasie [id number] Sanjuanita Dequasie 07/01/2023 1 [facility] ON OR AFTER 11/01/20 (MEDICAID REPLACEMENT - HMO) Sanjuanita Dequasie [id number] Sanjuanita Dequasie 07/14/2024 1 [facility] ON OR AFTER 11/01/20 (MEDICAID REPLACEMENT - HMO) Sanjuanita Dequasie [id number] Sanjuanita Dequasie 07/26/2024 1 [facility] ON OR AFTER 11/01/20 (MEDICAID REPLACEMENT - HMO) Sanjuanita Dequasie [id number] Sanjuanita Dequasie 08/23/2024 1 [facility] ON OR AFTER 11/01/20 (MEDICAID REPLACEMENT - HMO) Sanjuanita Dequasie [id number] Sanjuanita Dequasie Notes Date Note Type Note Provider Name and Address Organization Details Recorded Time 01/13/2023 text/html paperwork for med time off... Sabas Jhaveri PA-C Attn: Accounting,[address] [place], [address], [facility] 01/13/2023 15:54:54 07/01/2023 text/html reports severe pancreatitis..al so reports uti...was admitted got rocephin and morphine then checked out ama... Sabas Jhaveri PA-C Attn: Accounting,[address] [place], [address], [facility] 07/01/2023 12:10:21 07/14/2024 text/html last night her dog (Burmese Bulldog) hit her ankle with a chain and caused immediate pain and today redness and swelling... Sabas Jhaveri PA-C Attn: Accounting,[address] [facility] [place], [address], [facility] 07/14/2024 12:42:38 07/26/2024 text/html see note from 3-13...now both feet are red and a little puffy...painful and parts are numb Sabas Jhaveri PA-C Attn: Accounting,[address] [place], [address], [facility] 07/26/2024 18:01:49 08/23/2024 text/html now rt foot is swollen...edema. ..bilateral skin mottling and delayed cap refill... Sabas Jhaveri PA-C Attn: Accounting,[address] [place], [address], [facility] 08/23/2024 12:15:48 OBGyn Episode No OBEpisode recorded.
--- OUTSIDE RECORDS SUMMARY | 2024-08-30 13:31 | XMS_ITS | Clinical Summary ---
Author Organization [facility] Address [address] [place] [address] Phone Care Team Providers Care Skiing Instructor Name Role Phone MARCOS TAYLOR, SABAS Primary Care Provider [phone] ZEKE GOMEZ MD Unavailable [phone] Reason for Visit and Chief Complaint CHART UPDATE Problems Includes: Problems addressed during this encounter and other active Problems No Active Problems Plan of Treatment Referrals To Diagnosis Orthopedic [facility] - [address] [place] [id number] - Unspecified sprain of left hip, sequela Note: Dr Yosi Paredes RI hip report and last chart notes Last Documented On 4 1:10PM ; [facility] Assessments Includes: Assessments from this encounter Findings - [S73.102S - Unspecified sprain of left hip, sequela] Sprain of the left hip - Last Documented On 11/08/2021 11:39AM ; [facility] Medical Equipment - Implanted Devices Includes: Current Devices No Medical Equipment Recorded Medications Includes: Medications discussed during this encounter and other current Medications Current Medications (continue as prescribed) Furosemide 20 MG Oral Tablet 10/10/2021 Provider: Diagnosis: Last Documented On 2 3:55PM By JERSON STOREY ; [facility] Medications Administered Includes: Administered Medications from this encounter No Administered Medications Recorded Results Includes: Results discussed during this encounter No Results Recorded For Specified Dates History of Present Illness Includes: History of Present Illness from this encounter No History of Present Illness Recorded Social History Description Last Updated Current smoker 08/15/2021 Last Documented On 2 11:32AM ; [facility] Alcohol Social 08/15/2021 Last Documented On 2 11:32AM ; [facility] 08/15/2021 Last Documented On 2 11:32AM ; [facility] Not using drugs 08/15/2021 Last Documented On 2 11:32AM ; [facility] Occupation 08/15/2021 Last Documented On 2 11:32AM ; [facility] Tobacco use 08/15/2021 Last Documented On 2 11:32AM ; [facility] Smoking Status Unknown Procedures and Surgical History Surgical History Last Updated History of cholecystectomy 08/15/2021 Last Documented On 2 11:32AM ; [facility] History of hysterectomy 08/15/2021 Last Documented On 2 11:32AM ; [facility] History of tonsillectomy 08/15/2021 Last Documented On 2 11:32AM ; [facility] Prior surgery Ears [id number] ~Tonsinils 1979 ~Toes 1981 ~Colonoscopy *10 ~Csection 2006 ~Hysterectomy 2020 ~BLT breast 2008 08/15/2021 Last Documented On 2 11:32AM ; [facility] Medical History Includes: Medical History addressed during this encounter Description Last Updated Denies a fear of falling. 08/15/2021 Last Documented On 2 11:32AM ; [facility] Has had no fall in the last 12 months. 0 08/15/2021 Last Documented On 2 11:32AM ; [facility] Currently wearing eyeglasses 08/15/2021 Last Documented On 2 11:32AM ; [facility] Exposure to dust 08/15/2021 Last Documented On 2 11:32AM ; [facility] Exposure to fumes 08/15/2021 Last Documented On 2 11:32AM ; [facility] History of extraction of wisdom tooth Last Documented On 2 11:32AM ; [facility] Last mammogram date: 202008/15/2021 Last Documented On 2 11:32AM ; [facility] Surgery 08/15/2021 Last Documented On 2 11:32AM ; [facility] Family History Includes: Family History addressed during this encounter Description Last Updated Family history of alcoholism 08/15/2021 Last Documented On 2 11:32AM ; [facility] Family history of diabetes mellitus 08/02 Last Documented On 2 11:32AM ; [facility] Family history of genetic disease 2021 Last Documented On 2 11:32AM ; [facility] Family history of heart disease 08/16/19 22 Last Documented On 2 11:32AM ; [facility] Family history of kidney disease 022 Last Documented On 2 11:32AM ; [facility] Family history of mental illness (not in tellectual disabilities) 08/15/2021 Last Documented On 2 11:32AM ; [facility] Family medical history Pagets Mother, Gr andmother, and multiple others 08/15/2021 Last Documented On 2 11:32AM ; [facility] Father 0.73 years old 08/15/2021 Last Documented On 2 11:32AM ; [facility] Mother 73 years old 08/15/2021 Last Documented On 2 11:32AM ; [facility] No family history of defects 08/15 Last Documented On 2 11:32AM ; [facility] No family history of bleeding problems 0 08/15/2021 Last Documented On 2 11:32AM ; [facility] No family history of cancer 08/15/2021 Last Documented On 2 11:32AM ; [facility] Review of Systems Includes: Review [...] Check-Out Time Diagnosis CHART UPDATE JERSON HUDDLESTON TUNNEL ELASTIC OPERATOR ZIGZAG-FPA, BRIM BLOCKER-BC 2 11:32AM 11:59PM Hip Sprain Left Insurance Includes: Active Insurance Policies Plan Name Member ID Group # Subscriber Relationship Effect mariola Dates 1 - [facility] [id number] DANA WONG Self Clinical Notes Includes: Clinical Notes from this encounter No Clinical Notes Recorded
--- OUTSIDE RECORDS SUMMARY | 2024-08-30 13:31 | XMS_ITS | Clinical Summary ---
Author Organization [facility] Address [address] [place] [address] Phone Care Team Providers Care Tile Inspector Name Role Phone MARCOS TAYLOR, SABAS Primary Care Provider [phone] ZEKE GOMEZ MD Unavailable [phone] Reason for Visit and Chief Complaint The Chief Complaint is: Follow up afterL hip injection 08/28/2021 ~0% with 0% ongoing Problems Includes: Problems addressed during this encounter and other active Problems No Active Problems Plan of Treatment Instructions to patient Intervention and counseling on cessation of tobacco use : Patient recieved smoking cessation handout Last Documented On 3:05PM ; [facility] Assessments Includes: Assessments from this encounter Findings - [M46.1 - Sacroiliitis, not elsewhere classified] Sacroiliitis - Last Documented On 10/10/2021 4:19PM ; [facility] - [M25.552 - Pain in left hip] Left Hip pain - Last Documented On 10/10/2021 4:19PM ; [facility] - [M54.9 - Dorsalgia, unspecified] DORSALGIA - Last Documented On 10/10/2021 4:19PM ; [facility] - [M51.26 - Other intervertebral disc displacement, lumbar region] Bulging lumbar disc - Last Documented On 10/10/2021 4:19PM ; [facility] - [M47.896 - Other spondylosis, lumbar region] Lumbar spondylosis - Last Documented On 10/10/2021 4:19PM ; [facility] - [M48.07 - Spinal stenosis, lumbosacral region] Lumbosacral spinal stenosis - Last Documented On 10/10/2021 4:19PM ; [facility] - [F17.200 - Nicotine dependence, unspecified, uncomplicated] Nicotine dependence - Last Documented On 10/10/2021 4:19PM ; [facility] Instructions Includes: Instructions from this encounter Instructions to patient Intervention and counseling on cessation of tobacco use : Patient recieved smoking cessation handout Last Documented On 2 3:05PM ; [facility] Medical Equipment - Implanted Devices Includes: Current Devices No Medical Equipment Recorded Medications Includes: Medications discussed during this encounter and other current Medications Discontinued / Stopped on this date DELLA CORONEL on 08/15/2021 hydroCHLOROthiazide 25 MG Or al Tablet Provider: DELLA CORONEL Diagnosis: Edema, unspecifi ed Last Documented On 2 3:33PM By JERSON HULL ; [facility] Current Medications (continue as prescribed) Furosemide 20 MG Oral Tablet 10/10/2021 Provider: Diagnosis: Last Documented On 2 3:55PM By JERSON HULL ; [facility] Medications Administered Includes: Administered Medications from this encounter No Administered Medications Recorded Vital Signs Includes: Vital Signs from this encounter Vital Name 10/10/2021 03:09P Blood Pressure Sitting L 126/80 BP Cuff Size Regular Pulse Rate-Sitting (bpm) 106 Temp-Temporal 98.1 Height (in) 68 Pain Level 6 Oxygen Saturation (%) 99 Last Documented: On 10/10/2021 3:12PM ; [facility] Results Includes: Results discussed during this [...] 08/15/2021 Last Documented On 2 3:05PM ; [facility] Alcohol Social 08/15/2021 Last Documented On 2 3:05PM ; [facility] 08/15/2021 Last Documented On 2 3:05PM ; [facility] Not using drugs 08/15/2021 Last Documented On 2 3:05PM ; [facility] Occupation 08/15/2021 Last Documented On 2 3:05PM ; [facility] Tobacco use 08/15/2021 Last Documented On 2 3:05PM ; [facility] Smoking Status Unknown Procedures and Surgical History Includes: Procedures from this encounter Procedures Code Diagnosis Performing Provider Service L ocation Service Date intervention and counseling on cessation of tobacco use : Patient recieved smoking cessation handout 4000F Last Documented On 2 3:05PM ; [facility] use of tobacco assessment performed 1000F Last Documented On 2 3:05PM ; [facility] patient screened for future fall risk: documentation of any fall with injury in past year 1100F Last Documented On 2 3:07PM ; [facility] review of medications documented 1160F Last Documented On 2 3:05PM ; [facility] screening for adult depression: impressi on and score eight Last Documented On 2 3:05PM ; [facility] standardized depression screening: posit mariola for symptoms Last Documented On 2 3:05PM ; [facility] Clinical summary provided to patient Last Documented On 2 3:05PM ; [facility] Surgical History Last Updated History of cholecystectomy 08/15/2021 Last Documented On 2 3:05PM ; [facility] History of hysterectomy 08/15/2021 Last Documented On 2 3:05PM ; [facility] History of tonsillectomy 08/15/2021 Last Documented On 2 3:05PM ; [facility] Prior surgery Ears [id number] ~Tonsinils 1979 ~Toes 1981 ~Colonoscopy *10 ~Csection 2006 ~Hysterectomy 2020 ~BLT breast 2008 08/15/2021 Last Documented On 2 3:05PM ; [facility] Medical History Includes: Medical History addressed during this encounter Description Last Updated Denies a fear of falling. 08/15/2021 Last Documented On 2 3:05PM ; [facility] Has had no fall in the last 12 months. 0 08/15/2021 Last Documented On 2 3:05PM ; [facility] Currently wearing eyeglasses 08/15/2021 Last Documented On 2 3:05PM ; [facility] Exposure to dust 08/15/2021 Last Documented On 2 3:05PM ; [facility] Exposure to fumes 08/15/2021 Last Documented On 2 3:05PM ; [facility] History of extraction of wisdom tooth Last Documented On 2 3:05PM ; [facility] Last mammogram date: 202008/15/2021 Last Documented On 2 3:05PM ; [facility] Surgery 08/15/2021 Last Documented On 2 3:05PM ; [facility] Family History Includes: Family History addressed during this encounter Description Last Updated Family history of alcoholism 08/15/2021 Last Documented On 2 3:05PM ; [facility] Family history of diabetes mellitus 08/02 Last Documented On 2 3:05PM ; [facility] Family history of genetic disease 2021 Last Documented On 2 3:05PM ; [facility] Family history of heart disease 08/16/19 Last Documented On 2 3:05PM ; [facility] Family history of kidney disease 022 Last Documented On 2 3:05PM ; [facility] Family history of mental illness (not in tellectual disabilities) 08/15/2021 Last Documented On 2 3:05PM ; [facility] Family medical history Pagets Mother, Gr andmother, and multiple others 08/15/2021 Last Documented On 2 3:05PM ; [facility] Father 0.73 years old 08/15/2021 Last Documented On 2 3:05PM ; [facility] Mother 73 years old 08/15/2021 Last Documented On 2 3:05PM ; [facility] No family history of defects 08/15 Last Documented On 2 3:05PM ; [facility] No family history of bleeding problems 0 08/15/2021 Last Documented On 2 3:05PM ; [facility] No family history of cancer 08/15/2021 Last Documented On 2 3:05PM ; [facility] Review of Systems Includes: Review of [...] Diagnosis PAIN MANAGEMENT FOLLOW UP JERSON HUDDLESTON BULK TANK CAR UNLOADER-FPA, BEND UP-BC [facility]–1983 ON 022 3:01PM 3:41PM Lumbar Spondylosis,Bulgi ng Intervertebral Disc Lumbar,Spinal Stenosis Lumbosacral,Left Hip Pain,Dorsalgia,Sa croiliitis,Nicoti ne Dependence Insurance Includes: Active Insurance Policies Plan Name Member ID Group # Subscriber Relationship Effect mariola Dates 1 - [facility] [id number] DANA WONG Self Clinical Notes Includes: Clinical Notes from this encounter No Clinical Notes Recorded
--- OUTSIDE RECORDS SUMMARY | 2024-08-30 13:31 | XMS_ITS | Clinical Summary ---
Author Organization [facility] Address [address] [place] [address] Care Team Providers Care Instrument Operator Name Role Phone Wagner Jhaveri Primary Care Provider [phone] Source Comments [facility],non-[facility] Affiliates and Associated Physician Practices is amultiple site organization consisting of ambulatory clinics and hospital sitesin [place], [place], [place] and [place]. This disclosure is being madepursuant to the Care Everywhere program and may not contain all information available regarding this patient. Last updated 18.[facility] Social History Tobacco Use Types Packs/Day Years Used Date Smoking Tobacco: Never Assessed Comments Unknown Sex and Gender Information Value Date Recorded Sex Assigned at Not on file Legal Sex Female 6:27 AM MEDICAL OFFICE RECEPTIONIST ASSISTANT Gender Identity Not on file Sexual Orientation Not on file Plan of Treatment Upcoming Encounters Date Type Department Care Team (Late st Contact Info) Description 09/01/2024 9:45 AM CDT Office Visit [facility] - Surgery [address], [address] [place] [address] [place] [address] [place] [address] Health Maintenance Due Date Last Done Comments COLOGUARD (AGES 45-75) - COL ON CA SCREENING 1974 COLON MONITORING 1974 COLONOSCOPY - COLON CA SCREENING 1974 CT COLONOGRAPHY - COLON CA SCREENING 1974 Colorectal Cancer Screening 1974 FIT - COLON CA SCREENING 1974 FLEX SIG - COLON CA SCREENING 1974 LIPID TESTING 1974 MAMMOGRAM 1974 PAP SMEAR 1974 HIV SCREENING 1989 HEPATITIS C SCREENING 09/18/1992 DTAP/TDAP/TD VACCINES (1 - Tdap) 1993 HEPATITIS B VACCINE (1 of 3 - 19+ 3-dose series) 1993 COVID-19 VACCINE (1 - 2023-2 5 season) 2024 DEPRESSION SCREENING 05/04/2024 ZOSTER VACCINE (1 of 2) 2024 INFLUENZA VACCINE (Season Ended) 2025 HIB VACCINE Aged Out No longer eligi ble based on patient's age to complete this topic HPV VACCINE Aged Out No longer eligi ble based on patient's age to complete this topic MENINGOCOCCAL (Group B) VACC INE SHARED DECISION-MAKING Aged Out No longer eligibl e based on patient's age to complete this topic MENINGOCOCCAL GROUPS A/C/Y/W VACCINE Aged Out No longer eligible b ased on patient's age to complete this topic [place] [address] [address] [place] [address] Care Teams Instrument Operator Relationship Specialty Start Date End Date Wagner Jhaveri PA [address] [place] [address] PCP - General 10/08/21
--- OUTSIDE RECORDS SUMMARY | 2024-08-30 13:32 | XMS_ITS | Encounter Summary ---
Author Organization [facility] Address [facility] [place] [address] Care Team Providers Care Bilingual Middle School Teacher Name Role Phone Joe Shepard MD Primary Care Provider [phone] Juan Manuel Elam MD Unavailable Encounter Details Date Type Department Care Team (Late st Contact Info) Description 10/09/2018 Abstract [facility]FL CONVERSION [address] [place] [address] , Generic MD Nicolas Social History [...] on filedocumented in this encounter Care Teams Bilingual Middle School Teacher Relationship Specialty Start Date End Date Joe Shepard MD [address] [place] [place] [address] PCP - General FAMILY PRACTICE 09/18/16 [place] [address] [phone] INTERNAL MEDICINE 09/18/16 documented as of this encounter
--- OUTSIDE RECORDS SUMMARY | 2024-08-30 13:32 | XMS_ITS | Clinical Summary ---
Author Organization [facility] Building [facility] Address [address] [place] [address] Care Team Providers Care Kaitara Taraka Name Role Phone Trina Tracy MD Unavailable [phone] Wagner Jhaveri Primary Care Provider [phone] Allergies Active Allergy Reactions Criticality Noted Date [...] needed. Assessment & Plan (05/21/2021 3:15 PM FOOD SAFETY AUDITOR): Patient with family history of thyroid disease. [...] on file Legal Sex Female 9:46 AM FOOD SAFETY AUDITOR Gender Identity Not on file Sexual Orientation [...] 1993 Influenza Vaccine (#1) 2024 04/08/2017 Insurance [facility] Care Teams Kaitara Taraka Relationship Specialty Start Date End Date Wagner Jhaveri PA [address] [place] [address] PCP - General Family Practice 09/11/21 Trina Tracy MD Surgeon Vascular Surgery 09/11/21
--- OUTSIDE RECORDS SUMMARY | 2024-08-30 13:32 | XMS_ITS | Clinical Summary ---
Author Organization [facility] Address [facility] [place] [address] Care Team Providers Care Chemical Project Engineer Name Role Phone Joe Shepard MD Primary Care Provider [phone] Juan Manuel Elam MD Unavailable Allergies Active [...] Colonoscopy (10 Years) 1974 Annual Physical 1977 Hepatitis C 1992 DTaP, Tdap and Td Vaccines ( 1 - Tdap) 1993 Hepatitis B Vaccines (1 of 3 - 19+ 3-dose series) 1993 Pneumococcal Vaccine: Pediat rics (0 to 5 Years) and At-Risk Patients (6 to 49 Years) (1 of 2 - PCV) 1993 Cervical Cancer Screening Pa p with HPV Testing (Age 30 to 64) Every 5 Years 2004 Cervical Cancer Screening with HPV 2004 Mammogram Screening 2014 COVID-19 Vaccine (2023-2 5 season) 2024 Meningococcal B Vaccine Aged Out No l onger eligible based on patient's age to complete this topic Meningococcal Vaccine Aged Out No raz mariann eligible based on patient's age to complete this topic RSV Immunizations Under 20 Months Aged Out No longer eligible based on patient's age to complete this topic Procedures Procedure Name Priority Date/Time Associated Diagnosis Comments COLONOSCOPY Routine CERTIFIED MEDICAL CODER from Last 3 Months or Most Recently Relevant to Health Maintenance Results * Colonoscopy ( CERTIFIED MEDICAL CODER) Narrative [facility] TO EPIC CONVERSION - CERTIFIED MEDICAL CODER Documented hx of procedure Procedure Note , Generic ConversionMD - 03/07/2018 Documented hx of procedure Generic Conversion Md [facility] GI PROCEDURE ORDERABLES Final Result [facility] TO EPIC CONVERSION from Last 3 Months or Most Recently Relevant to Health Maintenance Insurance MEDICAID MEDICAID [place] Care Teams Chemical Project Engineer Relationship Specialty Start Date End Date Joe Shepard MD [address] [place] [address] [phone] PCP - General FAMILY PRACTICE 09/18/16 Juan Manuel Elam MD [address] [place] [address] [phone] INTERNAL MEDICINE 09/18/16
--- OUTSIDE RECORDS SUMMARY | 2024-08-30 13:32 | XMS_ITS | Clinical Summary ---
Author Organization [facility] Address [address] [place] [address] Phone Care Team Providers Care Merchandise Team Manager Name Role Phone SABAS RODRÍGUEZ PA-C Primary Care Provider [phone] ZEKE ARCINIEGA MD Unavailable [phone] Reason for Visit and Chief [...] - Last Documented On 08/28/2021 3:39PM ; [facility] Assessments Includes: Assessments from this encounter Findings - [M16.9 - Osteoarthritis of hip, unspecified] Osteoarthritis of left hip - Last Documented On 08/28/2021 3:39PM ; [facility] - [M25.552 - Pain in left hip] Left Hip pain - Last Documented On 08/28/2021 3:39PM ; [facility] Medical Equipment - Implanted Devices Includes: Current Devices No Medical Equipment Recorded Medications Includes: Medications discussed during this encounter and other current Medications Current Medications (continue as prescribed) Furosemide 20 MG Oral Tablet 10/10/2021 Provider: Diagnosis: Last Documented On 2 3:55PM By [facility] ; [facility] Medications Administered Includes: Administered Medications from this encounter Medications Administered Diagnosis Date Pro vider Xylocaine 1% IJ SOLN 08/28/2021 ZEKE ARCINIEGA MD administered by Dr. Arciniega for local Last Documented On 2 2:16PM By Michelle Chase RN ; [facility] Sodium Chloride 0.9% IJ SOLN 08/28/2021 ZEKE ARCINIEGA MD administered by Dr. Arciniega for local Last Documented On 2 2:18PM By Michelle Chase RN ; [facility] dexAMETHasone Sodium Phosphate 10 MG/ML IJ SOLN 08/28/2021 ZEKE ARCINIEGA MD administered by Dr. Arciniega in left hip Last Documented On 2 2:19PM By Michelle Chase RN ; [facility] Xylocaine 2% IJ SOLN 08/28/2021 ZEKE ARCINIEGA MD administered by Dr. Arciniega in left hip Last Documented On 2 2:20PM By Michelle Chase RN ; [facility] Vital Signs Includes: Vital Signs from this encounter Vital Name 08/28/2021 01:51P Blood Pressure Sitting R 129/95 BP Cuff Size Regular Pulse Rate-Sitting (bpm) 84 Pulse Rhythm Regular Respiration Rate (breaths/min) 20 Height (in) 68 Weight (lb) 160 Body Mass Index (kg/m2) 24.3 Body Surface Area (m2) 1.9 Pain Level 4 Oxygen Saturation (%) 99 Last Documented: On 08/28/2021 1:52PM ; [facility] Results Includes: Results discussed during this encounter No Results Recorded For Specified Dates History of Present Illness Includes: History of Present Illness from this encounter DENNY WONG is a 45 year old female. - Allergy list reviewed - Medication list reviewed Social History Description Last Updated Current smoker 08/15/2021 Last Documented On 2 1:49PM ; [facility] Alcohol Social 08/15/2021 Last Documented On 2 1:49PM ; [facility] 08/15/2021 Last Documented On 2 1:49PM ; [facility] Not using drugs 08/15/2021 Last Documented On 2 1:49PM ; [facility] Occupation 08/15/2021 Last Documented On 2 1:49PM ; [facility] Tobacco use 08/15/2021 Last Documented On 2 1:49PM ; [facility] Smoking Status Unknown Procedures and Surgical History Includes: Procedures from this encounter Procedures Code Diagnosis Performing Provider Service L ocation Service Date use of tobacco assessment performed 1000F Last Documented On 2 1:51PM ; [facility] review of medications documented 1160F Last Documented On 2 1:51PM ; [facility] Surgical History Last Updated History of cholecystectomy 08/15/2021 Last Documented On 2 1:49PM ; [facility] History of hysterectomy 08/15/2021 Last Documented On 2 1:49PM ; [facility] History of tonsillectomy 08/15/2021 Last Documented On 2 1:49PM ; [facility] Prior surgery Ears [id number] ~Tonsinils 1979 ~Toes 1981 ~Colonoscopy *10 ~Csection 2007 ~Hysterectomy 2020 ~BLT breast 2008 08/15/2021 Last Documented On 2 1:49PM ; [facility] Medical History Includes: Medical History addressed during this encounter Description Last Updated Denies a fear of falling. 08/15/2021 Last Documented On 2 1:49PM ; [facility] Has had no fall in the last 12 months. 0 08/15/2021 Last Documented On 2 1:49PM ; [facility] Currently wearing eyeglasses 08/15/2021 Last Documented On 2 1:49PM ; [facility] Exposure to dust 08/15/2021 Last Documented On 2 1:49PM ; [facility] Exposure to fumes 08/15/2021 Last Documented On 2 1:49PM ; [facility] History of extraction of wisdom tooth Last Documented On 2 1:49PM ; [facility] Last mammogram date: 202008/15/2021 Last Documented On 2 1:49PM ; [facility] Surgery 08/15/2021 Last Documented On 2 1:49PM ; [facility] Family History Includes: Family History addressed during this encounter Description Last Updated Family history of alcoholism 08/15/2021 Last Documented On 2 1:49PM ; [facility] Family history of diabetes mellitus 08/02 Last Documented On 2 1:49PM ; [facility] Family history of genetic disease 2021 Last Documented On 2 1:49PM ; [facility] Family history of heart disease 08/16/19 22 Last Documented On 2 1:49PM ; [facility] Family history of kidney disease 022 Last Documented On 2 1:49PM ; [facility] Family history of mental illness (not in tellectual disabilities) 08/15/2021 Last Documented On 2 1:49PM ; [facility] Family medical history Pagets Mother, Gr andmother, and multiple others 08/15/2021 Last Documented On 2 1:49PM ; [facility] Father 0.73 years old 08/15/2021 Last Documented On 2 1:49PM ; [facility] Mother 73 years old 08/15/2021 Last Documented On 2 1:49PM ; [facility] No family history of defects 08/15 Last Documented On 2 1:49PM ; [facility] No family history of bleeding problems 0 08/15/2021 Last Documented On 2 1:49PM ; [facility] No family history of cancer 08/15/2021 Last Documented On 2 1:49PM ; [facility] Review of Systems Includes: Review of Systems [...] Check-Out Time Diagnosis INJECTION ZEKE ARCINIEGA MD [facility] 08/29/19 22 1:34PM 2:14PM Osteoarthritis Hip Left,Left Hip Pain Insurance Includes: Active Insurance Policies Plan Name Member ID Group # Subscriber Relationship Effect mariola Dates - [facility] [id number] DANA WONG Self Clinical Notes Includes: Clinical Notes from this encounter No Clinical Notes Recorded
--- OUTSIDE RECORDS SUMMARY | 2024-08-30 13:32 | XMS_ITS | Referral Summary ---
Author Organization [facility] Address [address] [place] [address] Care Team Providers Care Hatchery Laborer Name Role Phone Trina Tracy MD Unavailable [phone] Wagner Jhaveri Primary Care Provider [phone] Allergies Active Allergy Reactions Criticality Noted Date [...] needed. 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
--- OUTSIDE RECORDS SUMMARY | 2024-08-30 13:32 | XMS_ITS | Clinical Summary ---
Author Organization [facility] Address [address] [place] [address] Phone Care Team Providers Care Search Engine Marketing Specialist Name Role Phone MARCOS TAYLOR, SABAS Primary Care Provider [phone] ZEKE GOMEZ MD Unavailable [phone] Reason for Visit and Chief Complaint The Chief Complaint is: Ref by M52.599 Hip Blt hips. and lumbar spine Problems Includes: Problems addressed during this encounter and other active Problems No Active Problems Plan of Treatment Referrals To Diagnosis Pain Management [facility] - [address] [place] [address] - Pain in left hip Note: consent for Left Hip I ntra-articular steroid inijection under ultrasound guidanceNo hold NSAIDs/ASA Last Documented On 2 11:14AM ; [facility] Instructions to patient Intervention and counseling on cessation of tobacco use : Patient recieved smoking cessation handout Last Documented On 2 8:51AM ; [facility] Assessments Includes: Assessments from this encounter Findings - [R60.9 - Edema, unspecified] Edema - Last Documented On 08/16/2021 1:51PM ; [facility] - [M25.552 - Pain in left hip] Left Hip pain - Last Documented On 08/16/2021 1:51PM ; [facility] - [M54.9 - Dorsalgia, unspecified] DORSALGIA - Last Documented On 08/16/2021 1:51PM ; [facility] - [M51.26 - Other intervertebral disc displacement, lumbar region] Bulging lumbar disc - Last Documented On 08/16/2021 1:51PM ; [facility] - [M47.896 - Other spondylosis, lumbar region] Lumbar spondylosis - Last Documented On 08/16/2021 1:51PM ; [facility] - [M48.07 - Spinal stenosis, lumbosacral region] Lumbosacral spinal stenosis - Last Documented On 08/16/2021 1:51PM ; [facility] Instructions Includes: Instructions from this encounter Instructions to patient Intervention and counseling on cessation of tobacco use : Patient recieved smoking cessation handout Last Documented On 2 8:51AM ; [facility] Medical Equipment - Implanted Devices Includes: Current Devices No Medical Equipment Recorded Medications Includes: Medications discussed during this encounter and other current Medications New / Renewed during this visit DELLA CORONEL on 08/15/2021 hydroCHLOROthiazide 25 MG Or al Tablet Provider: DELLA CORONEL 30 day supply: 30 tablet, 0 refills Diagnosis: Edema, unspecified One tablet daily Pharmacy: [address] [phone] - Last Documented On 2 3:33PM By JERSON HULL ; [facility] Current Medications (continue as prescribed) Furosemide 20 MG Oral Tablet 10/10/2021 Provider: Diagnosis: Last Documented On 2 3:55PM By JERSON HULL ; [facility] Medications Administered Includes: Administered Medications [...] 99 Last Documented: On 08/15/2021 8:55AM ; [facility] Results Includes: Results discussed during [...] hip pain. 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 [...] 08/15/2021 Last Documented On 2 1:51PM ; [facility] Alcohol Social 08/15/2021 Last Documented On 2 1:51PM ; [facility] 08/15/2021 Last Documented On 2 1:51PM ; [facility] Not using drugs 08/15/2021 Last Documented On 2 1:51PM ; [facility] Occupation 08/15/2021 Last Documented On 2 1:51PM ; [facility] Tobacco use 08/15/2021 Last Documented On 2 1:51PM ; [facility] Smoking Status Unknown Procedures and Surgical History Includes: Procedures from this encounter Procedures Code Diagnosis Performing Provider Service L ocation Service Date intervention and counseling on cessation of tobacco use : Patient recieved smoking cessation handout 4000F Last Documented On 2 8:51AM ; [facility] use of tobacco assessment performed 1000F Last Documented On 2 8:34AM ; [facility] review of medications documented 1160F Last Documented On 2 8:34AM ; [facility] screening for adult depression: impressi on and score eight Last Documented On 2 8:51AM ; [facility] standardized depression screening: posit mariola for symptoms Last Documented On 2 8:51AM ; [facility] Clinical summary provided to patient Last Documented On 2 8:34AM ; [facility] Surgical History Last Updated History of cholecystectomy 08/15/2021 Last Documented On 2 1:51PM ; [facility] History of hysterectomy 08/15/2021 Last Documented On 2 1:51PM ; [facility] History of tonsillectomy 08/15/2021 Last Documented On 2 1:51PM ; [facility] Prior surgery Ears [id number] ~Tonsinils 1979 ~Toes 1981 ~Colonoscopy *10 ~Csection 2006 ~Hysterectomy 2020 ~BLT breast 2008 08/15/2021 Last Documented On 2 1:51PM ; [facility] Medical History Includes: Medical History addressed during this encounter Description Last Updated Denies a fear of falling. 08/15/2021 Last Documented On 2 1:51PM ; [facility] Has had no fall in the last 12 months. 0 08/15/2021 Last Documented On 2 1:51PM ; [facility] Currently wearing eyeglasses 08/15/2021 Last Documented On 2 1:51PM ; [facility] Exposure to dust 08/15/2021 Last Documented On 2 1:51PM ; [facility] Exposure to fumes 08/15/2021 Last Documented On 2 1:51PM ; [facility] History of extraction of wisdom tooth Last Documented On 2 1:51PM ; [facility] Last mammogram date: 202008/15/2021 Last Documented On 2 1:51PM ; [facility] Surgery 08/15/2021 Last Documented On 2 1:51PM ; [facility] Family History Includes: Family History addressed during this encounter Description Last Updated Family history of alcoholism 08/15/2021 Last Documented On 2 1:51PM ; [facility] Family history of diabetes mellitus 08/02 Last Documented On 2 1:51PM ; [facility] Family history of genetic disease 2021 Last Documented On 2 1:51PM ; [facility] Family history of heart disease 08/16/19 22 Last Documented On 2 1:51PM ; [facility] Family history of kidney disease 022 Last Documented On 2 1:51PM ; [facility] Family history of mental illness (not in tellectual disabilities) 08/15/2021 Last Documented On 2 1:51PM ; [facility] Family medical history Pagets Mother, Gr andmother, and multiple others 08/15/2021 Last Documented On 2 1:51PM ; [facility] Father 0.73 years old 08/15/2021 Last Documented On 2 1:51PM ; [facility] Mother 73 years old 08/15/2021 Last Documented On 2 1:51PM ; [facility] No family history of defects 08/15 Last Documented On 2 1:51PM ; [facility] No family history of bleeding problems 0 08/15/2021 Last Documented On 2 1:51PM ; [facility] No family history of cancer 08/15/2021 Last Documented On 2 1:51PM ; [facility] Review of Systems Includes: [...] Diagnosis PAIN MANAGEMENT NEW CONSULT JERSON [facility] CHANNEL CEMENTER OUTSOLE MACHINE-FPA, EXPANSION JOINT FINISHER-BC [facility] ON 022 8:33AM 10:00AM Left Hip Pain,Bulging Intervertebral Disc Lumbar,Spinal Stenosis Lumbosacral,Lumba r Spondylosis,Edema ,Dorsalgia Insurance Includes: Active Insurance Policies Plan Name Member ID Group # Subscriber Relationship Effect mariola Dates - [facility] [id number] DANA WONG Self Clinical Notes Includes: Clinical Notes from this encounter No Clinical Notes Recorded
== END 2024-08-30 12:32 | disposition home or self-care (01) ==
PROVIDERS: PCP Physician Assistant; Visit Provider Physician Assistant
DX: R60.0 Localized edema (principal)
CPT/HCPCS: 93971

== ENCOUNTER 2024-10-18 14:30 | Outpatient (CLI) | payer OTHER, SELFPAY ==
[2024-10-18 15:19] LABS: Alanine Aminotransferase 51 U/L (6-35); Albumin Level 4.3 g/dL (3.5-5.1); Alkaline Phosphatase 91 U/L (38-126); Anion Gap 4 mmol/L (4-12); Aspartate Amino Transferase 39 U/L (14-36); Bilirubin,Total 0.6 mg/dL (0.2-1.3); Blood Urea Nitrogen 18 mg/dL (7-17); Calcium 9.1 mg/dL (8.4-10.2); Carbon Dioxide 28 mmol/L (22-30); Chloride 106 mmol/L (98-107); Estimated Glomerular Filt Rate > 60; Glucose 100 mg/dL (65-110); Osmolality Calculated 287 mOsm/kg (285-295); Potassium 4.4 mmol/L (3.4-5.0); Sodium 138 mmol/L (137-145); Total Protein 7.2 g/dL (6.3-8.2)
[2024-10-18 15:28] LABS: NT Pro B Type Natriuretic Pept 68 pg/mL (19.9-100)
--- OUTSIDE RECORDS SUMMARY | 2024-10-18 15:28 | XMS_ITS | Referral Summary ---
Author Organization [facility] Address [address] [place] [address] Care Team Providers Care Hydroelectric Machinery Mechanic Name Role Phone Trina Tracy MD Unavailable [phone] Wagner Jhaveri Primary Care Provider [phone] Allergies Active Allergy Reactions Criticality Noted Date [...] needed. Assessment & Plan (05/21/2021 3:15 PM LEGAL ANALYST): Patient with family history of thyroid disease. [...] on file Legal Sex Female 9:46 AM LEGAL ANALYST Gender Identity Not on file Sexual Orientation [...] 1:24 PM CDT Height 172.7 cm (5' 8) 12/26/2021 1:24 PM CDT Body Mass Index 25.97 12/26/2021 1:24 PM CDT Plan of Treatment Not on file Insurance [facility] Care Teams Hydroelectric Machinery Mechanic Relationship Specialty Start Date End Date Wagner Jhaveri PA [address] [place] [address] PCP - General Family Practice 09/11/21 Trina Tracy MD Surgeon Vascular Surgery 09/11/21
--- OUTSIDE RECORDS SUMMARY | 2024-10-18 15:28 | XMS_ITS | Data Portability ---
Author Organization [facility] Address [address] [place] [address] Care Team Providers Care Timers Inspector Name Role Phone SABAS JHAVERI Primary Care Provider Assessment No assessment recorded. Plan of Treatment Reminders Order Date Submit Date Provider Last Modified By Organization Details Last Modified Time Details Appointments ANY 15 2024 09:15A Reggie Dietrich MD Not available Not available Not available Lab CMP, serum or plasma 2024 025 [facility] (Lab), [address] [place], [address], 10/18/2024 15:40:41 pro BNP (pro B-type natriure tic peptide) , serum or plasma 2024 025 [facility] (Lab), [address] [place] [address], [address], 10/18/2024 15:35:24 ESR (erythro cyte sediment ation rate), blood 2024 025 [facility], [address] [place] [address] [place], [place], [address], 07/27/2024 07:44:10 uric acid, serum or plasma 2024 025 [facility], [address] [place] [address] 2, [place], [address], 07/15/2024 06:21:11 CBC 2024 025 [facility], [address] [place] [address] 2, [place], [address], 07/15/2024 06:21:12 CMP, serum or plasma 2024 025 [facility], [address] [facility], [facility] 2, [place], [address], 07/15/2024 06:21:09 lipid panel, serum 2024 025 [facility], [address] [facility], [facility] 2, [place], [address], 07/15/2024 06:21:08 HbA1c (hemoglo bin A1c), blood 2024 025 [place] In-Office Order, Internal Use Only DO Not Attach Compendium DO Not Attach Compendium, Do Not Delete/merge, [id number] 07/14/2024 13:02:23 amylase + lipase, serum 2024 025 [facility], [address] [facility], [facility] 2, [place], [address], 07/15/2024 13:11:24 Referral vascular surgeon referral 2024 025 [facility], [address] [facility] [address], [facility] [address], [place], [address], 09/02/2024 20:36:11 Procedures None recorded . Surgeries None recorded . Imaging electroc ardiogra m 2024 025 [email or web address] In-Office Order, Internal Use Only DO Not Attach Compendium DO Not Attach Compendium, Do Not Delete/merge, [id number] 10/07/2024 10:58:36 US, echocard iogram, transtho racic, complete , w/ color flow 2024 025 [email or web address] [facility], [address], [address], [place], [address], 10/07/2024 11:02:12 US, doppler, venous 2024 025 [facility], [address] [place], [address], 08/30/2024 18:19:40 Medication Orders Lasix 20 mg tablet 2024 025 [facility], [address] [place], [address], 10/07/2024 10:58:37 Klor-Con M20 mEq tablet,e xtended release 2024 025 [facility], [address] [place], [address], 10/07/2024 10:58:37 furosemi de 20 mg tablet 2024 025 [facility], [facility] [place], [address], 10/07/2024 10:21:05 Depo-Med rol 80 mg/mL suspensi on for injectio n 2024 025 [email or web address] Not available 08/23/2024 11:46:34 [email or web address] kailash HCl 4 mg tablet 2023 024 [facility], [facility] [place], [address], 07/14/2024 12:10:42 Cipro 500 mg tablet 2023 024 [email or web address], [facility] [place], [address], 07/14/2024 12:10:39 Patient TargetsNo targets recorded. Patient Instructions Encounter Date Encounter Id Patient Instructions Last Modified By Organization Details Last Modified Time 07/01/2023 [id number] A healthy lifestyle: care instructions [email or web address] Not available 07/01/2023 12:09:09 nausea and vomiting: care instructions jnanney Not available 07/01/2023 12:09:09 pancreatitis: care instructions jnanney Not available 07/01/2023 12:09:09 07/14/2024 [id number] A healthy lifestyle: care instructions jnanney Not available 07/14/2024 12:36:29 pancreatitis: care instructions jnanney Not available 07/14/2024 12:41:28 07/26/2024 [id number] A healthy lifestyle: care instructions jnanney Not available 07/26/2024 18:00:04 10/07/2024 [id number] Quitting Tobacco : Care Instructions [email or web address] Not available 10/07/2024 10:58:36 A healthy lifestyle: care instructions [email or web address] Not available 10/12/2024 15:39:49 Reason for Referral Vascular Surgeon 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 Referring Physician: Sabas Jhaveri, Family Medicine, Encounter Date: 08/23/2024 Results Created Date Observation Date Name Description Value Unit Range Abnormal Flag Note LastModifiedBy Organization Detail LastModifiedTime 07/15/1907/15/2024 LIPID PANEL cholesterol, total 180 mg/dL 100-19 9 Not Available [facility] & [address], [address], 07/15/2024 06:21:08 07/15/1907/15/2024 LIPID PANEL triglyceride s 93 mg/dL 0-149 Not Available [facility] [address] [place], [address], 07/15/2024 06:21:08 07/15/1907/15/2024 LIPID PANEL HDL cholesterol 63 mg/dL 40-999 Not Available [facility] [address] [place], [address], 07/15/2024 06:21:08 07/15/1907/15/2024 LIPID PANEL VLDL cholesterol gabriel 19 mg/dL 5-40 Not Available [facility] [address] [place], [address], 07/15/2024 06:21:08 07/15/19 25 07/15/2024 LIPID PANEL LDL chol calc ([facility]) 111 mg/dL 0-99 above high normal Not Available [address], [address], 07/15/2024 06:21:08 07/15/19 25 07/15/2024 COMP. METAB OLIC PANEL (14) glucose 84 mg/dL 70-99 Not Available [facility] & [address], [address], 07/15/2024 06:21:09 07/15/19 25 07/15/2024 COMP. METAB OLIC PANEL (14) BUN 14 mg/dL 6-24 Not Available [address], [address], 07/15/2024 06:21:09 07/15/19 25 07/15/2024 COMP. METAB OLIC PANEL (14) creatinine 0.74 mg/dL 0.76-1 .27 below low normal Not Available [address], [address], 07/15/2024 06:21:09 07/15/19 25 07/15/2024 COMP. METAB OLIC PANEL (14) eGFR 99 >=60 Units for eGFR value s are mL/mi n/1.7 3 The eGFR Calcu latio n has not been valid ated for patie nts under the age of 18. If test resul ts are displ ayed for a patie nt under the age of 18, disre barbara that value . Not Available [address], [address], 07/15/2024 06:21:09 07/15/19 25 07/15/2024 COMP. METAB OLIC PANEL (14) BUN/creatini ne ratio 19 9-23 Not Available [address], [address], 07/15/2024 06:21:09 07/15/19 25 07/15/2024 COMP. METAB OLIC PANEL (14) sodium 142 mmol/ L 134-14 4 Not Available [address], [address], 07/15/2024 06:21:09 07/15/19 25 07/15/2024 COMP. METAB OLIC PANEL (14) potassium 4.6 mmol/ L 3.5-5. 2 Not Available [address], [address], 07/15/2024 06:21:09 07/15/19 25 07/15/2024 COMP. METAB OLIC PANEL (14) chloride 104 mmol/ L 96-106 Not Available [address], [address], 07/15/2024 06:21:09 07/15/19 25 07/15/2024 COMP. METAB OLIC PANEL (14) carbon dioxide, total 25 mmol/ L 20-29 Not Available [address], [address], 07/15/2024 06:21:09 07/15/19 25 07/15/2024 COMP. METAB OLIC PANEL (14) calcium 9.3 mg/dL 8.7-10 .2 Not Available [address], [address], 07/15/2024 06:21:09 07/15/19 25 07/15/2024 COMP. METAB OLIC PANEL (14) protein, total 6.8 g/dL 6.0-8. 5 Not Available [address], [address], 07/15/2024 06:21:09 07/15/19 25 07/15/2024 COMP. METAB OLIC PANEL (14) albumin 4.3 g/dL 3.9-4. 9 Not Available [address], [address], 07/15/2024 06:21:09 07/15/19 25 07/15/2024 COMP. METAB OLIC PANEL (14) globulin, total 2.5 g/dL 1.5-4. 5 Not Available [address], [address], 07/15/2024 06:21:09 07/15/19 25 07/15/2024 COMP. METAB OLIC PANEL (14) A/G ratio 2.0 1.2-2. 2 Not Available [address], [address], 07/15/2024 06:21:09 07/15/19 25 07/15/2024 COMP. METAB OLIC PANEL (14) bilirubin, total 0.6 mg/dL 0.0-1. 2 Not Available [address], [address], 07/15/2024 06:21:09 07/15/19 25 07/15/2024 COMP. METAB OLIC PANEL (14) alkaline phosphatase 109 IU/L 44-121 Not Available [address], [address], 07/15/2024 06:21:09 07/15/19 25 07/15/2024 COMP. METAB OLIC PANEL (14) AST (SGOT) 27 U/L 0-40 Not Available [address], [address], 07/15/2024 06:21:09 07/15/19 25 07/15/2024 COMP. METAB OLIC PANEL (14) ALT (SGPT) 35 IU/L 0-32 above high normal Not Available [facility] & [address], [address], 07/15/2024 06:21:09 07/15/1907/15/2024 CARDI OVASC ULAR REPOR T interpretati on Note Suppl hannaevangelist won repor t is avail able. Not Available [address], [address], 07/15/2024 06:21:10 07/15/19 25 07/15/2024 CARDI OVASC ULAR REPOR T pdf . Not Available [facility] & [address], [address], 07/15/2024 06:21:10 07/15/1907/15/2024 URIC ACID uric acid 4.7 mg/dL 2.5-7. 1 Not Available [address], [address], 07/15/2024 06:21:11 07/15/19 25 07/14/2024 CBC, PLATE LET, NO DIFFE RENTI AL WBC 11.4 x10e3 /uL 3.4-10 .8 above high normal Not Available [address], [address], 07/15/2024 06:21:12 07/15/1907/14/2024 CBC, PLATE LET, NO DIFFE RENTI AL RBC 4.93 x10e6 /uL 3.77-5 .28 Not Available [address], [address], 07/15/2024 06:21:12 07/15/1907/14/2024 CBC, PLATE LET, NO DIFFE RENTI AL hemoglobin 15.3 g/dL 11.1-1 5.9 Not Available [address], [address], 07/15/2024 06:21:12 07/15/1907/14/2024 CBC, PLATE LET, NO DIFFE RENTI AL hematocrit 46.3 % 34.0-4 6.6 Not Available [address], [address], 07/15/2024 06:21:12 07/15/1907/14/2024 CBC, PLATE LET, NO DIFFE RENTI AL MCV 94 fL 79-97 Not Available [address], [address], 07/15/2024 06:21:12 07/15/1907/14/2024 CBC, PLATE LET, NO DIFFE RENTI AL MCH 31.0 pg 26.6-3 3.0 Not Available [address], [address], 07/15/2024 06:21:12 07/15/1907/14/2024 CBC, PLATE LET, NO DIFFE RENTI AL MCHC 33.0 g/dL 31.5-3 5.7 Not Available [address], [address], 07/15/2024 06:21:12 07/15/1907/14/2024 CBC, PLATE LET, NO DIFFE RENTI AL RDW 13.8 % 11.5-1 4.5 Not Available [address], [address], 07/15/2024 06:21:12 07/15/1907/14/2024 CBC, PLATE LET, NO DIFFE RENTI AL platelets 479 x10e3 /uL 150-45 0 above high normal Mean Plate let Volum e 9.3 fL 8.9-1 2.7 N Not Available [address], [address], 07/15/2024 06:21:12 07/15/1907/14/2024 CBC, PLATE LET, NO DIFFE JOHN AL NRBC 0 % 0-0 Not Available [facility] [address] [place], [address], 07/15/2024 06:21:12 07/15/19 25 07/15/2024 NUVIA+L IPASE amylase 51 U/L 31-110 Not Available [facility] ([facility]) [address] [facility], [place], [address], 07/15/2024 13:11:24 07/15/1907/15/2024 NUVIA+L IPASE lipase 37 U/L 14-72 Not Available [facility] ([facility]) [address] [facility], [place], [address], 07/15/2024 13:11:24 07/15/1907/14/2024 HbA1c (hemo globi n A1c), blood HbA1c 5.5 Not Available In-Office Order Internal Use Only DO Not Attach Compendium DO Not Attach Compendium, Do Not Delete/merge, [id number] 07/14/2024 12:40:43 11/26/19 24 11/25/2023 XR, chest No observ [facility]ion [facility] ed. [facility] [address] [place], [address], 11/26/2023 09:18:23 07/15/19 25 07/14/2024 XR, ankle No observ ation record ed. [facility] [address] [place], [address], 07/14/2024 15:18:33 07/15/19 25 07/14/2024 XR, foot No observ ation record ed. [facility] [address] [place], [address], 07/14/2024 15:18:48 08/31/19 25 08/30/2024 US, doppl er, venou s No observ ation record ed. [facility] [address] [facility], [place], [address], 08/31/2024 17:00:44 10/08/19 25 10/07/2024 elect rocar diogr am No observ ation record ed. [place] In-Office Order Internal Use Only DO Not Attach Compendium DO Not Attach Compendium, Do Not Delete/merge, [id number] 10/07/2024 13:01:22 10/08/19 elect rocar diogr am No observ ation record ed. Not Available 2024 13:01:22 Result Notes None recorded. Procedures Surgical History Date Name Laterality Status Provider Name and Address Organization Details Recorded Time 10/03/19 22 Date of Last Mammogram completed Kaela Ontiveros MA [facility] 03/03/2022 14:49:26 05/04/19 21 Date of Last Pap Smear completed Tabitha Pimentel MA [facility] 04/02/2021 10:09:12 05/04/19 21 Total hysterectomy completed Tabitha Pimentel MA [facility] 12/01/2023 14:49:43 01/03/20 20 colonoscopy completed Tabitha Pimentel MA [facility] 04/02/2021 10:12:50 05/04/19 14 Cholecystectomy completed Tabitha Pimentel MA [facility] 04/02/2021 10:11:45 05/04/19 08 Breast augmentation w/implt completed Tabitha Pimentel MA [facility] 04/02/2021 10:13:45 tonsilectomy/adenoi ds completed Tabitha Pimentel MA [facility] 04/02/2021 10:12:04 Imaging Results None recorded. Procedure Notes None recorded. Medical Equipment None Reported. Allergies Allergen ID Allergen Name Allergen Category Reaction Reaction Severity Criticality Documentation Date Start Date Code Code System Note Provider Name and Address Organization Details Recorded Time 040876 acetamino phen / hydrocodo ne medicatio n nausea Not available Not available 04/02/2021 44651 2 RxNorm HEIDI Andrew [place] Mirlande [facility] 10:08:22 690971 hydrocodo ne Not available Not available Not available low 10/07/20242021 5489 RxNorm unrec ogniz ed react ion (text : Nause a and/o r Vomit ing, code: 19517 000) [facility] Shantelle Singh RN null, [facility] 10:20:39 305977 Medicinal product acting as adhesive (product) environme nt,medica tion itching swelling Not available Not available Not available 10/07/20242016 74796 2009 SNOMED Rash Shantelle Singh RN null, [facility] 10:20:41 Medications Name Sig Start Date Stop Date [...] completed Not Available Not Available Not Available Lasix 20 mg tablet Take 1 tablet every day by oral route. 2024 active Not Available Not Available Not Avai lable lisinopril 10 mg tablet 01/13 completed Not [...] completed Not Available Not Available Not Available Klor-Con M20 mEq tablet,exte nded release Take 1 tablet every day by oral route. 2024 active Not Available Not Available Not Avai lable Paxlovid 300 mg (150 mg x 2)-100 [...] Updated DateTime 4 173.99 cm 25.2 kg/m2 06993.5 2 g 100 % 100 % 89 /min 18 /min 97.6 [degF] 140 mm[Hg] 92 mm[Hg] Andreia Bill MA [place] [facility] 4 11:53:12 Date Recorded Body height Body mass index (BMI) Body weight Oxygen saturation Oxygen saturation in Arterial blood by Pulse oximetry Heart rate Respiratory rate Systolic blood pressure Diastolic blood pressure Provider Name and Address Organization Details Last Updated DateTime 5 173.99 cm 28.6 kg/m2 94760.1 4 g 98 % 98 % 97 /min 16 /min 130 mm[Hg] 82 mm[Hg] Andreia Bill [place] [facility] 5 12:13:29 Date Recorded Body height Body mass index (BMI) Body weight Respiratory rate Oxygen saturation Oxygen saturation in Arterial blood by Pulse oximetry Heart rate Systolic blood pressure Diastolic blood pressure Provider Name and Address Organization Details Last Updated DateTime 5 173.99 cm 28.7 kg/m2 49274.0 2 g 16 /min 98 % 98 % 92 /min 126 mm[Hg] 80 mm[Hg] Andreia Bill MA [facility] 5 17:30:39 Date Recorded Body height Body mass index (BMI) Body weight Oxygen saturation Oxygen saturation in Arterial blood by Pulse oximetry Heart rate Systolic blood pressure Diastolic blood pressure Provider Name and Address Organization Details Last Updated DateTime 5 173.99 cm 29.5 kg/m2 33895.7 g 98 % 98 % 98 /min 128 mm[Hg] 78 mm[Hg] Taibtha Pimentel MA [facility] 5 11:48:41 Date Recorded Body height Body mass index (BMI) Body weight Heart rate Oxygen saturation Oxygen saturation in Arterial blood by Pulse oximetry Systolic blood pressure Diastolic blood pressure Provider Name and Address Organization Details Last Updated DateTime 5 173.99 cm 30.1 kg/m2 51961.0 7 g 99 /min 96 % 96 % 134 mm[Hg] 70 mm[Hg] Shantelle Singh RN [facility] 5 10:22:49 Social History Question Answer Notes LastModified by Organizat ion Details LastModified Time Tobacco Smoking Status Current Every Day Smoker Tabitha Pimentel MA null, [facility] 04/02/2021 10:10:18 Are You Blind Or Do You Have [...] No Information not available 04/02/2021 Are You Deaf Or Do You Have Serious Difficulty Hearing? No Information not available 03/03/2022 What Type Of Diet Are You Following? REGULAR Information not available 04/02/2021 What Was The Date Of Your Most Recent Tobacco Screening? 10/07/2024 Information not available 10/07/2024 What Is Your Relationship Status? Information not available 04/02/2021 Do You Have Smoke And Carbon Monoxide Detectors In Your Home? Yes Information not available 04/02/2021 Are You Passively Exposed To Smoke? Yes Information no t available 04/02/2021 How Much Tobacco Do You Smoke? 0.5 PPD Information not available 07/01/2023 Has Tobacco Cessation Counseling Been Provided? Yes Information not available 04/02/2021 On What Date Was Tobacco Cessation Counseling Provided? 10/07/2024 Information not available 10/07/2024 Sex: Female Functional Status Question Answer Note LastModified by Organizat ion Details LastModified Time Do you use any illicit or recreational drugs? No Information not available 04/02/2021 Do you or have you ever used any other forms of tobacco or nicotine? No Information not available 04/02/2021 What is your level of alcohol consumption? Occasional Rarely Information not available 07/01/2023 Are you currently employed? Yes Information not available 04/02/2021 Are you able to care for yourself? Yes Information not available 04/02/2021 What is your occupation? [employer] Information not available 07/01/2023 What is your exercise level? Occasional Information not available 03/03/2022 Mental Status Question Answer Note LastModified by Organization D etails LastModified Time Do you feel stressed (tense, restless, nervous, or anxious, or unable to sleep at night)? [id number] Information not available 04/02/2021 Family History Relationship Description Onset Age of this Age Resolved Age Notes LastModified by Organization Details LastModified Time Father Chronic obstructive pulmonary disease [email or web address] Not available 2024 10:55:52 Medical History Condition Response Coronary Artery Disease N Other N High Blood Pressure N Atrial Fibrillation N Thyroid Problems N Kidney or Bladder Problems N GI Problems Y Depression Y COPD Y Blood Clots N Skin Problems N Eating Disorder N Anemia Y Heart Attack (PR) N Anxiety Disorder N Diabetes N Muscle, [...] Recorded Time Influenza, split virus, quadrivalent, PF 3 completed Tabitha Pimentel MA [facility], [place] - [facility] 12/22/2022 10:20:01 Influenza, split virus, quadrivalent, preservative 7 completed Not Available [facility] 10/07/2024 10:00:45 Past Encounters Encounter ID Performer Location Encounter Start Date Encounter Closed Date Diagnosis/Indication Diagnosis SNOMED-CT Code Diagnosis ICD10 Code Diagnosis Note [id number] Sabas Jhaveri PA-C [facility] [address] [place] [address] 04/02/2021 10:03:23 04/02/2021 12:05:38 Adult health examination 825357364 Z00.00 Long-term drug therapy 792598667 Z79.899 Tobacco de pendence syndrome 06837705 F17.200 Chronic ob structive pulmonary disease 99812118 J41.0 [id number] CLAUDIA Mccabe [address] [place] [address] 04/23/2021 17:24:09 04/23/2021 19:13:43 Thyroid stimulating hormone level above reference range 950683735 R79.89 [id number] Charlie Hairston MD [facility] [address] [place] [address] 06/24/2021 17:17:04 06/24/2021 18:06:10 Peripheral vascular disease 427695826 I73.89 Pain in le ft lower limb 548442386 M79.605 Peripheral arterial insufficiency 0696368135 83694 I73.9 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 277784253 E06.3 [id number] Charlie Hairston MD [facility] [address] [place] [address] 08/23/2021 10:42:03 08/23/2021 11:32:39 Edema of lower extremity 085156707 R60.0 Peripheral vascular disease 199176584 I73.89 [id number] Sabas Jhaveri PA-C [facility] [address] [place] [address] 03/03/2022 14:42:15 03/03/2022 15:27:48 History of pancreatitis 8292927906 9107 Z87.19 lipase was extremely elevated [id number] Sabas Jhaveri PA-C [facility] [address] [place] [address] 08/08/2022 14:26:15 08/11/2022 12:17:23 Persistent cough 192793758 R05.3 Overweight 164516255 E66 .3 Osteoarthritis 778654168 M15.0 [id number] Charlie Hairston MD [facility] [address] [place] [address] 01/13/2023 15:30:03 01/15/2023 15:30:53 COVID-19 241388762 U07.1 Overweight 463750729 E66 .3 [id number] Sabas Jhaveri PA-C [facility] [address] [place] [address] 07/01/2023 11:30:07 07/02/2023 11:34:31 Acute urinary tract infection 733363575 N10 Acute pancreatitis 90333 6007 K85.00 urged patient to return to hospital but she refuses Nausea 324172042 R11.0 Overweight 194148348 E66 .3 [id number] Charlie Hairston MD [facility] [address] [place] [address] 07/14/2024 12:04:54 07/15/2024 08:49:51 Pain of left ankle joint 9924675410 4519031 M25.572 go to ER rule out DVT gout or injury Overweight 587640610 E66 .3 Chronic pancreatitis 235 152831 K86.1 [id number] Charlie Hairston MD [facility] [address] [place] [address] 07/26/2024 17:25:07 07/29/2024 09:14:12 Bilateral foot joint pain 8096817512 6845015 M79.672 Overweight 891102563 E66 .3 [id number] Charlie Hairston MD [facility] [address] [place] [address] 08/23/2024 11:40:51 08/26/2024 09:25:14 Idiopathic livedo reticularis 636338572 R23.1 Bilateral lower limb edema 951165832 R60.0 Edema of l ower extremity 264889880 R60.0 [id number] Ricci Dietrich MD [facility] [place] [address] [place] [address] 10/07/2024 09:58:44 10/13/2024 10:23:21 Smoker 10119567 F17.200 Nicotine cessation for cardiovasc ular risk reduction reinforced . Declines need for pharmaceut ical interventi on. Edema of l ower extremity 391269567 R60.0 R06.09 Z86.16 initiate furosemide 20 mg daily. Initiate potassium chloride 20 mEq daily. Encouraged hydration, limiting sodium, postural precaution s lower extremity compressio n socks. Encouraged to reach out to us with the update on symptoms 7 days after initiating furosemide to consider further up titration if indicated. Encouraged to obtain lab work within 7-10 days. Obtain echocardio gram to assess for structural /valvular heart disease. We will plan close interval follow-up for additional cardiac evaluation if indicated. Encouraged ongoing discussion s with PCP for noncardiac workup. Obese class I [id number] 96673 E66.811 Health Concerns Section Related Observation LastModified by Organization Detai ls LastModified Time None Recorded Concern Status LastModified by Organization Details LastModified Time None Recorded Advance Directives Directive None Recorded Payers Insurance Date Sequence Insurance Name Policy Number Policy Blas Covered Member ID Blas Member ID Guarantor Name 07/14/2024 1 [facility] (MEDICAID HMO) Sanjuanita Dequasie [id number] Sanjuanita Dequasie 10/14/2024 1 [facility] - DOS ON OR AFTER 20 (MEDICAID REPLACEMENT - HMO) Sanjuanita Dequasie [id number] Sanjuanita Dequasie Notes Date Note Type Note Provider Name and Address Organization Details Recorded Time 07/01/2023 text/html reports severe pancreatitis..also reports uti...was admitted got rocephin and morphine then checked out ama... Sabas Jhaveri PA-C Attn: Accounting,[address] [place], [place], [address] [place] [address], [facility] 07/01/2023 12:10:21 07/14/2024 text/html last night her d og (Belgian Bulldog) hit her ankle with a chain and caused immediate pain and today redness and swelling... Sabas Jhaveri PA-C Attn: Accounting,[address] [place], [address], [facility] 07/14/2024 12:42:38 07/26/2024 text/html see note from 3-13...now both feet are red and a little puffy...painful and parts are numb Sabas Jhaveri PA-C Attn: Accounting,[address] [place], [address], [facility] 07/26/2024 18:01:49 08/23/2024 text/html now rt foot is swollen...edema...jany ateral skin mottling and delayed cap refill... Sabas Jhaveri PA-C Attn: Accounting,[address] [place], [address], [facility] 08/23/2024 12:15:48 10/07/2024 text/html I had the pleasu re of seeing this patient as a new consultation from Sabas Jhaveri PA-C for recommendations regarding evaluation and management of cardiac HR of dyspnea and lower extremity edema. Pulmonary: Very pleasant 49-year-old with no known cardiac history. Reports history of COVID-19. Reports NYHA class 2 symptoms. Reports increasing lower extremity edema, right greater than left with recent vascular evaluation removal revealing unremarkable arterial circulation. Reports increasing skin discoloration right lower extremity. Reports of those vascular surgery consultation are not available for me for review at the time of dictation. Denies orthopnea or PND. Denies chest pain or pressure. Denies palpitations, presyncope or syncope. Cardiac diagnostics:12 lead EKG 10/07/2024: Sinus rhythm, no ST-T changes, no Q-waves Lower extremity venous duplex, 08/30/2024: No DVT in the right lower extremity Ricci Dietrich MD Attn: Accounting,[address] [place], [address], [facility] 10/12/2024 15:40:11 OBGyn Episode No OBEpisode recorded.
--- OUTSIDE RECORDS SUMMARY | 2024-10-18 15:28 | XMS_ITS | Clinical Summary ---
Author Organization [facility] Address [facility] [place] [address] Care Team Providers Care Governor Assembler Name Role Phone Joe Shepard MD Primary Care Provider [phone] Juan Manuel Elam MD Unavailable Allergies Active [...] 2:37 PM CDT Height 172.7 cm (5' 8) 09/22/2016 2:37 PM CDT Body Mass Index [...] - 19+ 3-dose series) 1993 Pneumococcal Vaccine: 50+ Ye ars (1 of 2 - PCV) 1993 Cervical Cancer Screening Pa p with HPV Testing (Age 30 to 64) Every 5 Years 2004 Cervical Cancer Screening with HPV 2004 Mammogram Screening 2014 COVID-19 Vaccine ( - 2023-2 5 season) 2024 Zoster Vaccines (1 of 2) 2024 Meningococcal B Vaccine Aged Out No l onger eligible based on patient's age to complete this topic Meningococcal Vaccine Aged Out No raz mariann eligible based on patient's age to complete this topic RSV Immunizations Under 20 Months Aged Out No longer eligible based on patient's age to complete this topic Procedures Procedure Name Priority Date/Time Associated Diagnosis Comments COLONOSCOPY Routine LOADER MAGAZINE GRINDER from Last 3 Months or Most Recently Relevant to Health Maintenance Results * Colonoscopy ( LOADER MAGAZINE GRINDER) Narrative [facility] TO EPIC CONVERSION - LOADER MAGAZINE GRINDER Documented hx of procedure Procedure Note , Generic ConversionMD - 03/07/2018 Documented hx of procedure Generic Conversion Md [facility] PROCEDURE ORDERABLES Final Result [facility] TO EPIC CONVERSION from Last 3 Months or Most Recently Relevant to Health Maintenance Insurance MEDICAID [place]ID [place] Care Teams Governor Assembler Relationship Specialty Start Date End Date Joe Shepard MD [address] [place] [phone] PCP - General FAMILY PRACTICE 09/18/16 Juan Manuel Elam MD [address] [phone] INTERNAL MEDICINE 09/18/16
--- OUTSIDE RECORDS SUMMARY | 2024-10-18 15:28 | XMS_ITS | Encounter Summary ---
Author Organization [facility] Address [facility] [place] [address] Care Team Providers Care Policy Cancellation Clerk Name Role Phone Joe Shepard MD Primary Care Provider [phone] Juan Manuel Elam MD Unavailable Encounter Details Date Type Department Care Team (Late st Contact Info) Description 10/09/2018 Abstract SFL CONVERSION [address] [place] [address] , Generic MD Nicolas Social History [...] on filedocumented in this encounter Care Teams Policy Cancellation Clerk Relationship Specialty Start Date End Date Joe Shepard MD [address] [place] [address] [phone] PCP - General FAMILY PRACTICE 09/18/16 [place] [address] [phone] INTERNAL MEDICINE 09/18/16 documented as of this encounter
--- OUTSIDE RECORDS SUMMARY | 2024-10-18 15:28 | XMS_ITS | Clinical Summary ---
Author Organization [facility] Address [address] [place] [address] Care Team Providers Care Feed Management Advisor Name Role Phone Wagner Jhaveri Primary Care Provider [phone] Source Comments [facility],non-owned Affiliates and Associated Physician Practices is amultiple site organization consisting of ambulatory clinics and hospital sitesin [place], [place], [place] and [place]. This disclosure is being madepursuant to the Care Everywhere program and may not contain all information available regarding this patient. Last updated 18.[facility] Allergies Active Allergy Reactions Criticality Noted Date Comments Adhesive Sensitivity Itching,Swelling Medium 7 Rash Hydrocodone Nausea and/or Vomiting Low 12/13/2021 Hydrocodone-Acetaminophen Nausea and/or Vomiting 09/29/2024 Medications * Be aware that medications may not be up to date on this document. Alwaysverify current medications with the patient. albuterol HFA (Proventil; Ventolin; Proair) 108 (90 Base) MCG/ACT inhaler 11/26/2023 Act mariola Active Problems Problem Noted Date Diagnosed Date Leg pain, bilateral 09/02/2024 Tobacco abuse 09/02/2024 Leg swelling 09/01/2024 Encounters Date Type Department Care Team Description 09/29/2024 9:30 AM CDT Office Visit [facility] - Surgery [address], [address] [place] [address] Jevon Cardona MD Leg swelling (Primary Dx); Leg pain, bilateral 09/29/2024 Travel 09/28/2024 12:31 PM CDT - 09/28/2024 11:59 PM CDT Hospital Encounter [facility] - Lab [address], [address] [place] [address] Jevon Cardona MD Discharge Disposition: Home or Self Care 09/01/2024 9:45 AM CDT Office Visit [facility] - Surgery [address] [facility], [address] [place] [address] Jevon Cardona MD Leg swelling (Primary Dx); PAD (peripheral artery disease); Leg pain, bilateral; Tobacco abuse from Last 3 Months Family History Medical History Relation Name Comments CAD (Coronary Artery Disease) Father CAD (Coronary Artery Disease) Mother Other Mother PAGETS Thyroid Disease Mother None Known Sister Relation Name Status Comments Father Mother Alive Sister Social History Tobacco Use Types Packs/Day Years Used Date Smoking Tobacco: Every Day Cigarettes Smokeless Tobacco: Never Tobacco Cessation:Ready to Q uit: Not Asked; Counseling Given: No Alcohol Use Standard Drinks/Week Comments Not Currently 0 (1 standard drink = 0.6 oz pur e alcohol) RARELY Comments No Sex and Gender Information Value Date Recorded Sex Assigned at Not on file 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 Gender Identity Not on file Sexual Orientation Not on file Last Filed Vital Signs Vital Sign Reading Time Taken Comments Blood Pressure - - Pulse - - Temperature - - Respiratory Rate - - Oxygen Saturation - - Inhaled Oxygen Concentration - - Weight 88.5 kg (195 lb) 09/29/2024 9:22 AM CDT Height 172.7 cm (5' 8) 09/29/2024 9:22 AM CDT Body Mass Index 29.65 09/29/2024 9:22 AM CDT Plan of Treatment Health Maintenance Due Date Last Done Comments COLOGUARD (AGES 45-75) - COL ON CA SCREENING 1974 COLON MONITORING 1974 COLONOSCOPY - COLON CA SCREENING 1974 CT COLONOGRAPHY - COLON CA SCREENING 1974 Colorectal Cancer Screening 1974 FIT - COLON CA SCREENING 1974 FLEX SIG - COLON CA SCREENING 1974 LIPID TESTING 1974 MAMMOGRAM 1974 HIV SCREENING 1989 HEPATITIS C SCREENING 09/18/1992 DTAP/TDAP/TD VACCINES (1 - Tdap) 1993 HEPATITIS B VACCINE (1 of 3 - 19+ 3-dose series) 1993 PNEUMOCOCCAL VACCINE 50+ (1 of 2 - PCV) 1993 COVID-19 VACCINE (1 - 2023-2 5 season) 2024 DEPRESSION SCREENING 05/04/2024 SCREENING FOR DIABETES 09/01/2024 ZOSTER VACCINE (1 of 2) 2024 INFLUENZA VACCINE (Season Ended) 2025 12/21/19 HIB VACCINE Aged Out No longer eligi [...] Procedure Name Priority Date/Time Associated Diagnosis Comments VAS BILATERAL VENOUS DUPLEX LE Routine 09/28/2024 1:36 PM CDT Leg swelling VAS ARTERIAL ANKLE ARM INDEX Routine 09/28/2024 1:36 PM CDT PAD (peripheral artery disease) IMAGING/RADIOLOGY/X RAY RESULTS ORDER 08/30/2024 from Last 3 Months Results * VAS Arterial Ankle Arm Index (09/28/2024 1:36 PM CDT) Anatomical Region Laterality Modality Ankle / Foot, Upper Extremity In travascular Ultrasound 09/28/2024 1:35 PM CDT Narrative Procedure Note Jevon Andrews Sr., MD - 09/28/2024 [facility] [address] [place] [address] Lower Extremity Arterial Doppler Report Pat.Name: SANJUANITA WONG Pat.ID: [id number] St.Date: 09/28/2024 Exam Time: 1:35:00 PM Study Type:TAM/PVR Age: 4 1975,49Y Sex: FEMALE Sonogrphr: Jess Cai RDMS, RVT Pat. Stat.:Outpatient CPT - 4: 20725 Reason for Study: Cold extremities History / Clinical: Smoking - current Procedures: Ankle Brachial Index Race: [facility] Visit ID: [id number] ++++++++++++++++++++++++++++++++++++ SUMMARY: ++++++++++++++++++++++++++++++++++++ No evidence for significant arterial insufficiency of either the right or left lower extremity at rest. ++++++++++++++++++++++++++++++++++++ FINDINGS: ++++++++++++++++++++++++++++++++++++ Procedure: The arterial vasculature of the lower extremities was evaluated by analysis of Doppler pressures and waveforms obtained in the legs at rest. Study Quality: This study is of adequate technical quality. Doppler Waveforms: Right Left Common Fem Triphasic Triphasic Popliteal Triphasic Triphasic Posterior Tibial Triphasic Triphasic Dorsalis Pedis Triphasic Triphasic ++++++++++++++++++++++++++++++++++++ MEASUREMENTS: ++++++++++++++++++++++++++++++++++++ PRESSURES Right TAM (DP) TAM (DP) 1.1 Right TAM (PT) TAM (PT) 1.2 Right Ankle DP AnkleDP P 158 mmHg Right Ankle PT AnklePT P 167 mmHg Right Brachial Brach P 146 mmHg Left TAM (DP) TAM (DP) 1.1 Left TAM (PT) TAM (PT) 1.2 Left Ankle DP AnkleDP P 154 mmHg Left Ankle PT AnklePT P 169 mmHg Left Brachial Brach P 140 mmHg Signed 09/28/2024 03:58 PM Jevon Andrews MD, RPVI us Jevon Cardona MD VASCULAR LAB ORDERABLE S Edited * VAS Bilateral Venous Duplex Le (09/28/2024 1:36 PM CDT) Anatomical Region Laterality Modality Lower Extremity Intravascular Ul trasound 09/28/2024 12:4 7 PM CDT Narrative Procedure Note Jevon Andrews Sr., MD - 09/28/2024 [facility] [address] [place] [address] Lower Extremity Venous Ultrasound Report Pat.Name: SANJUANITA WONG Pat.ID: [id number] .Date: 09/28/2024 Refer.MD: Jevon Cardona Exam Time: 12:47:00 PM Study Type:LE Venous Age: 4 1975,49Y Sex: FEMALE Sonogrphr: Jess Cai RDMS, RVT Pat. Stat.:Outpatient CPT - 4: [id number] Reason for Study: Swelling -Leg, bilateral History / Clinical: Smoking - current Procedures: Venous Reflux Complete - Bilateral Race: [facility] Visit ID: [id number] ++++++++++++++++++++++++++++++++++++ SUMMARY: ++++++++++++++++++++++++++++++++++++ All superficial and deep veins seen in the bilateral legs are patent and compressible. There was no reflux identified in either the right or left great saphenous vein. The course of the great saphenous vein is relatively straight throughout. No reflux was seen in the deep system. No significant varicosities could be identified. ++++++++++++++++++++++++++++++++++++ FINDINGS: ++++++++++++++++++++++++++++++++++++ Procedure: B-mode imaging and flow Dopper was used to evaluate for venous insufficiency with patient in reverse Trendelenberg with the rapid inflator. Study Quality: This study is of adequate technical quality. Reflux Rt: All deep and superficial vessels seen appear patent and compressible, no venous aneurysms identified. No reflux >500 milliseconds seen in the superficial and deep venous system(s). The course of the great saphenous vein is straight. Great saphenous vein measures 5.1 mm in the prox thigh, immediately below the saphenofemoral junction, 4.2 mm at the proximal thigh and 2.1 mm at the knee in transverse. No small saphenous vein seen. Reflux Lt: All deep and superficial vessels seen appear patent and compressible, no venous aneurysms identified. No reflux >500 milliseconds seen in the superficial and deep system(s). The course of the great saphenous vein is straight. Great saphenous vein measures 6.7 mm in the prox thigh, immediately below the saphenofemoral junction, 4.9 mm at the proximal thigh and 2.4 mm at the knee in transverse . No small saphenous vein seen. Signed 09/28/2024 03:55 PM Jevon Andrews MD, [facility] Jevon Cardona MD VASCULAR LAB ORDERABLE S Edited * IMAGING/RADIOLOGY/XRAY RESULTS ORDER (08/30/2024) Anatomical Region Laterality Modality Other 08/30/2024 Narrative 08/30/2024 Ordered by an unspecified provider. us Scanned Document IMAGING Final Result from Last 3 Months Insurance [facility] Care Teams Feed Management Advisor Relationship Specialty Start Date End Date Wagner Jhaveri PA [address] [place] [address] PCP - General 10/08/21
--- OUTSIDE RECORDS SUMMARY | 2024-10-18 15:28 | XMS_ITS | Clinical Summary ---
Author Organization [facility] Address [address] [place] [address] Care Team Providers Care Gas Flow Regulator Name Role Phone Trina Tracy MD Unavailable [phone] Wagner Jhaveri Primary Care Provider [phone] Allergies Active Allergy Reactions Criticality Noted Date [...] needed. Assessment & Plan (05/21/2021 3:15 PM ANESTHESIOLOGY TECH): Patient with family history of thyroid disease. [...] on file Legal Sex Female 9:46 AM ANESTHESIOLOGY TECH Gender Identity Not on file Sexual Orientation [...] <65 (1 of 2 - PCV) 1993 Zoster Vaccine (1 of 2) 2024 Influenza Vaccine (Season Ended) 2025 04/08/20 17 Insurance [facility] Care Teams Gas Flow Regulator Relationship Specialty Start Date End Date Wagner Jhaveri PA [address] [place] [address] PCP - General Family Practice 09/11/21 Trina Tracy MD Surgeon Vascular Surgery 09/11/21
== END 2024-10-18 14:31 | disposition home or self-care (01) ==
PROVIDERS: PCP Physician Assistant; Visit Provider Internal Medicine
DX: R60.0 Localized edema (principal); Z86.16 Personal history of COVID-19; R06.09 Other forms of dyspnea
CPT/HCPCS: 36415; 80053; 83880

== ENCOUNTER 2025-01-16 08:48 | Outpatient (CLI) | payer OTHER, SELFPAY ==
--- NOTE | ~2025-01-16 | XR_ITS ---
EXAM/ PROCEDURE: XR hip LT 2V w AP pelvis - 01/16/2025 9:00 CDT HISTORY: 49 years old Female with M25.552 - Pain in left hip COMPARISON: None available TECHNIQUE: Three view(s) FINDINGS/ IMPRESSION: There are no fractures or dislocations.Joint space narrowing, subchondral sclerosis, subchondral cyst formation and osteophyte formation, compatible with mild osteoarthritis. Reviewed, dictated and finalized at location N.
--- NOTE | ~2025-01-16 | XR_ITS ---
EXAM/ PROCEDURE: XR hip RT min 2V - 01/16/2025 9:00 CDT HISTORY: 49 years old Female with M25.551 - Pain in right hip COMPARISON: None available TECHNIQUE: Two view(s) FINDINGS/ IMPRESSION: There are no fractures or dislocations.Joint space narrowing, subchondral sclerosis, subchondral cyst formation and osteophyte formation, compatible with mild osteoarthritis. Reviewed, dictated and finalized at location N.
--- OUTSIDE RECORDS SUMMARY | 2025-01-16 09:24 | XMS_ITS | Clinical Summary ---
Author Organization [facility] Address [address] [place] [address] Care Team Providers Care Inventory Planner Name Role Phone Wagner Jhaveri Primary Care Provider [phone] Source Comments [facility],non-owned Affiliates and Associated Physician Practices is amultiple site organization consisting of ambulatory clinics and hospital sitesin [place], [place], [place] and [place]. This disclosure is being madepursuant to the Care Everywhere program and may not contain all information available regarding this patient. 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
--- OUTSIDE RECORDS SUMMARY | 2025-01-16 09:24 | XMS_ITS | Clinical Summary ---
Author Organization [facility] Address [address] [place] [address] Care Team Providers Care Wall Mirror Department Supervisor Name Role Phone Trina Tracy MD Unavailable [phone] Wagner Jhaveri Primary Care Provider [phone] Allergies Active Allergy Reactions Criticality Noted Date [...] needed. Assessment & Plan (05/21/2021 3:15 PM WHEAT BUYER): Patient with family history of thyroid disease. 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
== END 2025-01-16 08:49 | disposition home or self-care (01) ==
LOC: CHSIMG 08:50
PROVIDERS: PCP Physician Assistant; Visit Provider Orthopaedic Surgery
DX: M25.551 Pain in right hip (principal); M25.552 Pain in left hip
CPT/HCPCS: 73502

== ENCOUNTER 2025-01-23 07:47 | Outpatient (RCR) | payer OTHER, SELFPAY ==
--- NOTE | 2025-01-23 08:02 | OPREHPOC ---
Outpatient Therapy Plan of Care This is a Multidisciplinary Plan of Care that may contain components documented by all disciplines (PT, OT, and ST.) PT Problem 1 PT Problem #1 Knowledge Deficit PT Goal 1 Goal / Goal Update Independent and compliant with HEP. Target Visit 2 PT Problem 2 PT Problem #2 Pain PT Goal 1 Goal / Goal Update Pt to report no worse than 4/10 bilat hip pain. Target Visit 10 PT Problem 3 PT Problem #3 Impaired Strength PT Goal 1 Goal / Goal Update Pt to improve gross bilat hip strength to 4+/5. Target Visit 10 PT Problem 4 PT Problem #4 Impaired Functional Mobility PT Goal 1 Goal / Goal Update Pt to report 10% reduction in perceived disability on LEFS. Pt to report being able to stand for more than 1 hour at work before needing a seated rest break. Pt to report being able to climb stairs reciprocally with only 1 handrail. Target Visit 10
--- NOTE | 2025-01-23 08:02 | PTOPEVAL1 ---
Assessment and note entered by Radha Lopez, PT Evaluation Information Assessment Status Evaluation ICD-10 Condition Codes (PT) Pain in right hip M25.551,Pain in left hip M25.552 Other ICD-10 Condition Codes ( M16.0 PT) Onset 01/16/2025 Subjective Information Patient reports her hip pain started a few years ago and it's been getting worse over time. She reports she was supposed to get a L labral repair a few years ago but ended up not going through with it. She reports that wouldn't describe her pain as actual pain, more like her leg gives out on her and she cannot go up stairs without holding onto the railings. She reports both legs tend to give out and it's a different leg each day . When getting out of the car she has to stand for a few seconds to make sure her legs won't give out on her when she goes to walk. 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 Reported Pain Level Pain Score 0: Self Report Assessment PT Clinical Summary Mrs. Pedersen is a 49 yo female presenting to skilled PT evaluation for bilateral hip pain with a diagnosis of bilateral primary hip arthritis. She demonstrates pain with both passive and active ROM of the hips particularly in flexion and rotation. She also demonstrates moderate hip mm weakness in all muscle groups along with pain reproduced with resistive testing and positional changes. Her pain interferes with her ability to perform functional and occupational tasks such as navigating stairs and standing for prolonged times at work. She will benefit from skilled PT intervention to address these deficits and improve hip stability for improved tolerance to activities at home and at work. Plan of Care Interventions Electrical Stimulation,Gait Training,Hot Pack/Cold Pack,Manual Therapy,Neuro Re-education,Patient/ Caregiver Education,Therapeutic Activities, Therapeutic Exercise,Self-Care/Home Management PT Services Indicated Yes Treatment Frequency and 2x/week for 10 visits Duration These treatments will address the objective and functional deficits as defined above. The patient will be advanced safely and appropriately in order for the patient to progress towards his/her prior level of function. Additional exercises will be introduced and as well as a comprehensive home exercise program upon discharge, if needed, ?to ensure carryover of functional gains achieved in the clinic. This treatment plan has been reviewed and agreement upon by the patient.
--- NOTE | 2025-02-02 10:32 | PCPTNOTE ---
No call no show this date.
== END 2025-04-23 23:59 | disposition home or self-care (01) ==
LOC: CHSPT 07:47
PROVIDERS: Visit Provider Orthopaedic Surgery
DX: M16.0 Bilateral primary osteoarthritis of hip (principal)
CPT/HCPCS: 97014; 97110; 97140; 97161; G0283

== ENCOUNTER 2025-02-03 11:04 | Emergency (ER) | payer OTHER, SELFPAY ==
--- NOTE | ~2025-02-03 | CT_ITS ---
CT ABDOMEN AND PELVIS WITHOUT CONTRAST Clinical History: Rt. flank pain, Pt. passed kidney stones x20 minutes prior Comparison: CT abdomen pelvis 06/28/2023 Technique: Unenhanced axial images lung bases to symphysis pubis Coronal, sagittal reformats CT images acquired with automatic exposure control for dose reduction DLP: 370 mGy-cm Findings: Without intravenous contrast, sensitivity for detecting visceral parenchymal abnormalities decreased. Lung bases: Clear. Visualized heart and pericardium: Unremarkable. Liver: Unremarkable. Gallbladder: Removed. Spleen: Unremarkable. Pancreas: Unremarkable. Adrenal glands: Unremarkable. Kidneys: Right kidney- mild hydronephrosis. Stones versus parenchymal and/or calyceal calcifications. Left kidney- No hydronephrosis. No renal stones. Distal esophagus/stomach: Unremarkable. Small bowel loops: Normal caliber and wall thickness. Colon: Normal caliber and wall thickness. Normal RLQ appendix. Nodes: No enlarged nodes. Peritoneum: No ascites. No free intraperitoneal air. Urinary bladder: Unremarkable. Uterus: Removed. Adnexa: No masses. Bones: No acute bony abnormality. Soft tissues: Breast implants. Unopacified abdominal aorta: No aneurysmal dilatation. IMPRESSION: 1. Mild hydronephrosis right kidney but no stone or obstruction noted. 2. Otherwise no acute findings or significant change. Reviewed, dictated and finalized at location R.
[2025-02-03 11:04] VITALS: BP 137/75; PULSE 88; RESP 16; TEMP 36.6; O2SAT 100
--- OUTSIDE RECORDS SUMMARY | 2025-02-03 11:06 | XMS_ITS | Data Portability ---
Author Organization [facility] Beth Kruger Address [address] [place] [address] Care Team Providers Care Director Of Bands Name Role Phone SABAS JHAVERI Primary Care Provider Assessment No assessment recorded. Plan of Treatment Reminders Order Date Submit Date Provider Last Modified By Organization Details Last Modified Time Details Appointments None recorded. Lab BMP, serum or plasma 2024 025 [facility] (Lab), [address] [place] [address], [address], 5 12:59:33 TSH + free T4, serum 2024 025 [facility] (Lab), [address] [place] [address], [address], 5 12:59:33 CMP, serum or plasma 2024 025 [email or web address] [address] [place] [address], [address], 5 13:29:53 pro BNP (pro B-type natriureti c peptide), serum or plasma 2024 025 [facility] (Lab), [address] [place] [address], [address], 5 13:26:23 ESR (erythrocy te sedimentat ion rate), blood 2024 025 [facility], [address] [place] [address], [address], 5 07:44:10 uric acid, serum or plasma 2024 025 [facility], [address] [place] [address] 2, [place], [address], 5 06:21:11 CBC 2024 025 [facility], [address] [place] [address] 2, [place], [address], 5 06:21:12 CMP, serum or plasma 2024 025 [facility], [address] [place] [address] 2, [place], [address], 5 06:21:09 lipid panel, serum 2024 025 [facility], [address] [place] [address], [place], [address], 5 06:21:08 HbA1c (hemoglobi n A1c), blood 2024 025 [facility] In-Office Order, Internal Use Only DO Not Attach Compendium DO Not Attach Compendium, Do Not Delete/merge, [id number] 13:02:23 amylase + lipase, serum 2024 025 [facility], [address] [place] [address], [place], [address], 5 13:11:24 Referral vascular surgeon referral 2024 025 [facility], [address] , [facility] [address], [place], [address], 20:36:11 Procedures None recorded. Surgeries None recorded. Imaging US, echocardio gram, transthora cic, complete, w/ color flow 2024 025 [facility], [address], [address], [place], [address], 5 12:04:34 electrocar diogram 2024 025 [email or web address] In-Office Order, Internal Use Only DO Not Attach Compendium DO Not Attach Compendium, Do Not Delete/merge, [id number] 10:58:36 US, echocardio gram, transthora cic, complete, w/ color flow 2024 025 [facility], [address], [address], [place], [address], 5 10:01:06 US, doppler, venous 2024 025 [facility], [address] [place], [address], 5 18:19:40 Medication Orders Lasix 20 mg tablet 2024 025 [facility], [address] [place], [address], 5 10:44:58 Lasix 20 mg tablet 2024 025 [facility], [address] [place], [address], 5 10:10:00 Klor-Con M20 mEq tablet,ext ended release 2024 025 [facility], [address] [place], [address], 5 10:58:37 furosemide 20 mg tablet 2024 025 [facility], [address] [place], [address], 5 10:09:58 Depo-Medro l 80 mg/mL suspension for injection 2024 025 [email or web address] Not available 11:46:34 Patient TargetsNo targets recorded. Patient Instructions Encounter Date Encounter Id Patient Instructions Last Modified By Organization Details Last Modified Time 07/14/2024 [id number] A healthy lifestyle: care instructions [email or web address] Not available 07/14/2024 12:36:29 pancreatitis: care instructions [email or web address] Not available 07/14/2024 12:41:28 07/26/2024 [id number] A healthy lifestyle: care instructions [email or web address] Not available 07/26/2024 18:00:04 10/07/2024 [id number] Quitting Tobacco : Care Instructions [email or web address] Not available 10/07/2024 10:58:36 A healthy lifestyle: care instructions [email or web address] Not available 10/12/2024 15:39:49 11/11/2024 [id number] Quitting Tobacco : Care Instructions [email or web address] Not available 11/11/2024 10:44:56 A healthy lifestyle: care instructions [email or web address] Not available 11/11/2024 10:44:56 Reason for Referral Vascular Surgeon 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 Referring Physician: Sabas Jhaveri, Family Medicine, Encounter Date: 08/23/2024 Results Created Date Observation Date Name Description Value Unit Range Abnormal Flag Note LastModifiedBy Organization Detail LastModifiedTime 07/15/1907/15/2024 LIPID PANEL cholesterol, total 180 mg/dL 100-19 9 Not Available [facility] [place] [id number] [place], [address], 07/15/2024 06:21:08 07/15/1907/15/2024 LIPID PANEL triglyceride s 93 mg/dL 0-149 Not Available [facility] [address] [place], [address], 07/15/2024 06:21:08 07/15/19 25 07/15/2024 LIPID PANEL HDL cholesterol 63 mg/dL 40-999 Not Available [facility] [address] [place], [address], 07/15/2024 06:21:08 07/15/19 25 07/15/2024 LIPID PANEL VLDL cholesterol gabriel 19 mg/dL 5-40 Not Available [address], [address], 07/15/2024 06:21:08 07/15/19 25 07/15/2024 LIPID PANEL LDL chol calc (nih) 111 mg/dL 0-99 above high normal Not Available [address], [address], 07/15/2024 06:21:08 07/15/19 25 07/15/2024 COMP. METAB OLIC PANEL (14) glucose 84 mg/dL 70-99 Not Available [address], [address], 07/15/2024 06:21:09 07/15/19 25 07/15/2024 COMP. METAB OLIC PANEL (14) BUN 14 mg/dL 6-24 Not Available [address], [address], 07/15/2024 06:21:09 07/15/19 25 07/15/2024 COMP. METAB OLIC PANEL (14) creatinine 0.74 mg/dL 0.76-1 .27 below low normal Not Available [address], [address], 07/15/2024 06:21:09 07/15/19 25 07/15/2024 COMP. METAB OLIC PANEL (14) eGFR 99 >=60 Units for eGFR value s are mL/mi n/1.7 3 The eGFR Calcu latio n has not been valid ated for patie nts under the age of 18. If test resul ts are displ ayed for a patie nt under the age of 18, disre barbara that value . Not Available [address] [place], [address], 07/15/2024 06:21:09 07/15/19 25 07/15/2024 COMP. METAB OLIC PANEL (14) BUN/creatini ne ratio 19 9-23 Not Available [address], [address], 07/15/2024 06:21:09 07/15/19 25 07/15/2024 COMP. METAB OLIC PANEL (14) sodium 142 mmol/ L 134-14 4 Not Available [address], [address], 07/15/2024 06:21:09 07/15/19 25 07/15/2024 COMP. METAB OLIC PANEL (14) potassium 4.6 mmol/ L 3.5-5. 2 Not Available [address], [address], 07/15/2024 06:21:09 07/15/19 25 07/15/2024 COMP. METAB OLIC PANEL (14) chloride 104 mmol/ L 96-106 Not Available [address], [address], 07/15/2024 06:21:09 07/15/19 25 07/15/2024 COMP. METAB OLIC PANEL (14) carbon dioxide, total 25 mmol/ L 20-29 Not Available [address], [address], 07/15/2024 06:21:09 07/15/19 25 07/15/2024 COMP. METAB OLIC PANEL (14) calcium 9.3 mg/dL 8.7-10 .2 Not Available [address], [address], 07/15/2024 06:21:09 07/15/19 25 07/15/2024 COMP. METAB OLIC PANEL (14) protein, total 6.8 g/dL 6.0-8. 5 Not Available [address], [address], 07/15/2024 06:21:09 07/15/19 25 07/15/2024 COMP. METAB OLIC PANEL (14) albumin 4.3 g/dL 3.9-4. 9 Not Available [address], [address], 07/15/2024 06:21:09 07/15/1907/15/2024 COMP. METAB OLIC PANEL (14) globulin, total 2.5 g/dL 1.5-4. 5 Not Available [address], [address], 07/15/2024 06:21:09 07/15/19 25 07/15/2024 COMP. METAB OLIC PANEL (14) A/G ratio 2.0 1.2-2. 2 Not Available [address], [address], 07/15/2024 06:21:09 07/15/1907/15/2024 COMP. METAB OLIC PANEL (14) bilirubin, total 0.6 mg/dL 0.0-1. 2 Not Available [address], [address], 07/15/2024 06:21:09 07/15/19 25 07/15/2024 COMP. METAB OLIC PANEL (14) alkaline phosphatase 109 IU/L 44-121 Not Available [address], [address], 07/15/2024 06:21:09 07/15/19 25 07/15/2024 COMP. METAB OLIC PANEL (14) AST (SGOT) 27 U/L 0-40 Not Available [facility] & [address], [address], 07/15/2024 06:21:09 07/15/1907/15/2024 COMP. METAB OLIC PANEL (14) ALT (SGPT) 35 IU/L 0-32 above high normal Not Available [address], [address], 07/15/2024 06:21:09 07/15/1907/15/2024 CARDI OVASC ULAR REPOR T interpretati on Note Suppl ement al repor t is avail able. Not Available [address], [address], 07/15/2024 06:21:10 07/15/1907/15/2024 CARDI OVASC ULAR REPOR T pdf . Not Available [address], [address], 07/15/2024 06:21:10 07/15/1907/15/2024 URIC ACID uric acid 4.7 mg/dL 2.5-7. 1 Not Available [address], [address], 07/15/2024 06:21:11 07/15/1907/14/2024 CBC, PLATE LET, NO DIFFE RENTI AL WBC 11.4 x10e3 /uL 3.4-10 .8 above high normal Not Available [address], [address], 07/15/2024 06:21:12 07/15/1907/14/2024 CBC, PLATE LET, NO DIFFE RENTI AL RBC 4.93 x10e6 /uL 3.77-5 .28 Not Available [address], [address], 07/15/2024 06:21:12 07/15/19 25 07/14/2024 CBC, PLATE LET, NO DIFFE RENTI AL hemoglobin 15.3 g/dL 11.1-1 5.9 Not Available [address], [address], 07/15/2024 06:21:12 07/15/1907/14/2024 CBC, PLATE LET, NO DIFFE RENTI AL hematocrit 46.3 % 34.0-4 6.6 Not Available [address], [address], 07/15/2024 06:21:12 07/15/1907/14/2024 CBC, PLATE LET, NO DIFFE RENTI AL MCV 94 fL 79-97 Not Available [address], [address], 07/15/2024 06:21:12 07/15/1907/14/2024 CBC, PLATE LET, NO DIFFE RENTI AL MCH 31.0 pg 26.6-3 3.0 Not Available [address], [address], 07/15/2024 06:21:12 07/15/1907/14/2024 CBC, PLATE LET, NO DIFFE RENTI AL MCHC 33.0 g/dL 31.5-3 5.7 Not Available [address], [address], 07/15/2024 06:21:12 07/15/1907/14/2024 CBC, PLATE LET, NO DIFFE RENTI AL RDW 13.8 % 11.5-1 4.5 Not Available [address], [address], 07/15/2024 06:21:12 07/15/1907/14/2024 CBC, PLATE LET, NO DIFFE RENTI AL platelets 479 x10e3 /uL 150-45 0 above high normal Mean Plate let Volum e 9.3 fL 8.9-1 2.7 N Not Available [facility] [address] [place], [address], 07/15/2024 06:21:12 07/15/19 25 07/14/2024 CBC, PLATE LET, NO DIFFE RENTI AL NRBC 0 % 0-0 Not Available [address], [address], 07/15/2024 06:21:12 07/15/19 25 07/15/2024 NUVIA+L IPASE amylase 51 U/L 31-110 Not Available [facility]) [address] [place], [address], 07/15/2024 13:11:24 07/15/19 25 07/15/2024 NUVIA+L IPASE lipase 37 U/L 14-72 Not Available [facility] ([facility]) [address] [place], [address], 07/15/2024 13:11:24 07/15/19 25 07/14/2024 HbA1c (hemo globi n A1c), blood HbA1c 5.5 Not Available In-Office Order Internal Use Only DO Not Attach Compendium DO Not Attach Compendium, Do Not Delete/merge, [id number] 07/14/2024 12:40:43 07/15/19 25 07/14/2024 XR, [facility] observ [facility]ion [facility] [address] [place], [address], 07/14/2024 15:18:33 07/15/19 25 07/14/2024 XR, foot No observ [facility]ion [facility] [address] [place], [address], 07/14/2024 15:18:48 08/31/19 25 08/30/2024 US, doppl er, venou s No observ ation record ed. [facility] [address] [place], [address], 08/31/2024 17:00:44 10/08/19 25 10/07/2024 elect rocar diogr am No observ ation record ed. [facility] In-Office Order Internal Use Only DO Not Attach Compendium DO Not Attach Compendium, Do Not Delete/merge, [id number] 10/07/2024 13:01:22 10/08/19 elect rocar diogr am No observ ation record ed. [email or web address] Not Available 2024 13:01:22 01/18/20 25 01/16/2025 XR, hip, unila teral No observ [facility]ion [facility] ed. [facility] [address] [place], [address], 01/17/2025 11:42:10 01/18/20 25 01/16/2025 XR, hip, unila teral No observ ation record ed. [facility] [address] [place], [address], 01/17/2025 11:42:25 Result Notes None recorded. Procedures Surgical History Date Name Laterality Status Provider Name and Address Organization Details Recorded Time 10/03/19 22 Date of Last Mammogram completed HEIDI Diaz SI 03/03/2022 14:49:26 05/04/19 21 Date of Last Pap Smear completed HEIDI Andrew 04/02/2021 10:09:12 05/04/19 21 Total hysterectomy completed HEIDI Andrew SIHang 12/01/2023 14:49:43 01/03/20 20 colonoscopy completed HEIDI Andrew 04/02/2021 10:12:50 05/04/19 14 Cholecystectomy completed HEIDI Andrew SI 04/02/2021 10:11:45 05/04/19 08 Breast augmentation w/implt completed HEIDI Andrew KATHRYN 04/02/2021 10:13:45 tonsilectomy/adenoi ds completed Tabitha Pimentel MA [facility] 04/02/2021 10:12:04 Imaging Results None recorded. Procedure Notes None recorded. Medical Equipment None Reported. Allergies Allergen ID Allergen Name Allergen Category Reaction Reaction Severity Criticality Documentation Date Start Date Code Code System Note Provider Name and Address Organization Details Recorded Time 494193 acetamino phen / hydrocodo ne medicatio n nausea Not available Not available 04/02/2021 56289 2 RxNorm Tabitha Pimentel MA null, [facility] 1 10:08:22 609975 hydrocodo ne Not available Not available Not available low 10/07/20242021 5489 RxNorm unrec ogniz ed react ion (text : Nause a and/o r Vomit ing, code: 49064 000) (from exter nal sourc e) Shantelle Singh RN null, [facility] 5 10:20:39 719535 Adhesive agent (substanc e) environme nt,medica tion itching swelling Not available Not available Not available 10/07/20242016 54789 0007 SNOMED Rash Shantelle Singh RN null, [facility] 5 10:20:41 Medications Name Sig Start Date Stop Date Status Note LastModified by Organization Details LastModified Time medroxyprog esterone 10 mg tablet 04/02 completed Not Available Not Available Not Available Lasix 40 mg tablet Take 1 tablet every day by oral route. 2024 active Not Available Not Available Not Avai lable ondansetron HCl 4 mg tablet Take 1 [...] Not Available Lasix 20 mg tablet Take 40 mg in the morning and 20 mg in the afternoon 2024 active Not Available Not Available Not [...] Pulse oximetry Heart rate Respiratory rate Systolic And Diastolic Provider Name and Address Organization Details Last Updated DateTime 5 173.99 cm 28.6 kg/m2 04795.1 4 g 98 % 98 % 97 /min 16 /min 130/82 mm[Hg] Andreia Bill MA [facility] 5 12:13:29 Date Recorded Body height Body mass index (BMI) Body weight Respiratory rate Oxygen saturation Oxygen saturation in Arterial blood by Pulse oximetry Heart rate Systolic And Diastolic Provider Name and Address Organization Details Last Updated DateTime 5 173.99 cm 28.7 kg/m2 89409.0 2 g 16 /min 98 % 98 % 92 /min 126/80 mm[Hg] Andreia Bill MA [facility] 5 17:30:39 Date Recorded Body height Body mass index (BMI) Body weight Oxygen saturation Oxygen saturation in Arterial blood by Pulse oximetry Heart rate Systolic And Diastolic Provider Name and Address Organization Details Last Updated DateTime 5 173.99 cm 29.5 kg/m2 33773.7 g 98 % 98 % 98 /min 128/78 mm[Hg] Tabitha Pimentel MA [facility] 5 11:48:41 Date Recorded Body height Body mass index (BMI) Body weight Heart rate Oxygen saturation Oxygen saturation in Arterial blood by Pulse oximetry Systolic And Diastolic Provider Name and Address Organization Details Last Updated DateTime 5 173.99 cm 30.1 kg/m2 66567.0 7 g 99 /min 96 % 96 % 134/70 mm[Hg] Shantelle Singh RN [facility] 5 10:22:49 Date Recorded Body height Body mass index (BMI) Body weight Heart rate Oxygen saturation Oxygen saturation in Arterial blood by Pulse oximetry Systolic And Diastolic Provider Name and Address Organization Details Last Updated DateTime 5 173.99 cm 28.5 kg/m2 47517.5 5 g 101 /min 97 % 97 % 130/76 mm[Hg] Shantelle Singh RN [facility] 5 10:11:32 Social History Question Answer Notes LastModified by Organizat ion Details LastModified Time Tobacco Smoking Status Current Every Day Smoker Tabitha Pimentel MA null, [facility] 04/02/2021 10:10:18 Are You Blind Or Do [...] Date Of Your Most Recent Tobacco Screening? 11/11/2024 Information not available 11/11/2024 What Is Your Relationship Status? Information not [...] What Date Was Tobacco Cessation Counseling Provided? 11/11/2024 Information not available 11/11/2024 Sex: Female Functional Status Question Answer Note [...] 04/02/2021 Are you able to care for yourself independently? Yes Information not available 04/02/2021 What is your occupation? [employer] Information not available 07/01/2023 What is your exercise level? Occasional Information not available 03/03/2022 Mental Status Question Answer Note LastModified by Organization D etails LastModified Time Do you feel stressed (tense, restless, nervous, or anxious, or unable to sleep at night)? [id number] Information not available 04/02/2021 Family History Relationship Description Onset Age of this Age Resolved Age Notes LastModified by Organization Details LastModified Time Father Chronic obstructive pulmonary disease [email or web address] Not available 2024 10:55:52 Medical History Condition Response Coronary Artery Disease N Other N High Blood Pressure N Atrial Fibrillation N Thyroid Problems N Kidney or Bladder Problems N GI Problems Y Depression Y COPD Y Blood Clots N Skin Problems N Eating Disorder N Anemia Y Heart Attack ([place]) N Anxiety Disorder N Diabetes N Muscle, [...] quadrivalent, PF 3 completed Tabitha Pimentel MA [facility] [place] - [facility] 12/22/2022 10:20:01 Influenza, split virus, quadrivalent, preservative 7 completed Not Available [facility] 11/11/2024 10:03:45 Past Encounters Encounter ID Performer Location Encounter Start Date Encounter Closed Date Diagnosis/Indication Diagnosis SNOMED-CT Code Diagnosis ICD10 Code Diagnosis IMO Codes Diagnosis Note [id number] Sabas Jhaveri PA-C [facility] [address] [place] [address] 04/02/2021 10:03:23 04/02/2021 12:05:38 Adult health examination 936856438 Z00.00 Long-term drug therapy 349968090 Z79.899 Tobacco de pendence syndrome 05256285 F17.200 Chronic ob structive pulmonary disease 49386513 J41.0 [id number] Sabas Jhaveri PA-C [facility] [address] [place] [address] 04/23/2021 17:24:09 04/23/2021 19:13:43 Thyroid stimulating hormone level above reference range 147859729 R79.89 [id number] Charlie Hairston MD [address] [address] 06/24/2021 17:17:04 06/24/2021 18:06:10 Peripheral vascular disease 745378721 I73.89 Pain in le ft lower limb 300048605 M79.605 Peripheral arterial insufficiency 7333112503 19702 I73.9 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 [id number] Charlie Hairston MD [address] [address] 08/23/2021 10:42:03 08/23/2021 11:32:39 Edema of lower extremity 268628977 R60.0 Peripheral vascular disease 383911248 I73.89 [id number] Sabas Jhaveri PA-C [address] [address] 03/03/2022 14:42:15 03/03/2022 15:27:48 History of pancreatitis 1077271115 9107 Z87.19 lipase was extremely elevated [id number] Sabas Jhaveri PA-C [facility] [address] [place] [address] 08/08/2022 14:26:15 08/11/2022 12:17:23 Persistent cough 062259007 R05.3 Overweight 677137987 E66 .3 Osteoarthritis 318740233 M15.0 [id number] Charlie Hairston MD [address] [address] 01/13/2023 15:30:03 01/15/2023 15:30:53 COVID-19 805127370 U07.1 Overweight 547082643 E66 .3 [id number] Sabas Jhaveri PA-C [facility] [address] [place] [address] 07/01/2023 11:30:07 07/02/2023 11:34:31 Acute urinary tract infection 898812390 N10 Acute pancreatitis 06458 6007 K85.00 urged patient to return to hospital but she refuses Nausea 045887814 R11.0 Overweight 743051514 E66 .3 [id number] Charlie Hairston MD [facility] [address] [place] [address] 07/14/2024 12:04:54 07/15/2024 08:49:51 Pain of left ankle joint 0019402746 9380199 M25.572 go to ER rule out DVT gout or injury Overweight 420032839 E66 .3 Chronic pancreatitis 235 898563 K86.1 [id number] Charlie Hairston MD [facility] [address] [place] [address] 07/26/2024 17:25:07 07/29/2024 09:14:12 Bilateral foot joint pain 4173564639 1501367 M79.672 Overweight 815450269 E66 .3 [id number] Charlie Hairston MD [facility] [address] [place] [address] 08/23/2024 11:40:51 08/26/2024 09:25:14 Idiopathic livedo reticularis 227092823 R23.1 900350 Bilateral lower limb edema 332152372 R60.0 3924903129 Edema of l ower extremity 994796579 R60.0 [id number] Ricci Dietrich MD [facility] [address] [place] [address] 10/07/2024 09:58:44 10/13/2024 10:23:21 Smoker 82809302 F17.200 Nicotine cessation for cardiovasc ular risk reduction reinforced . Declines need for pharmaceut ical interventi on. Edema of l ower extremity 095636962 R60.0 R06.09 Z86.16 48153 initiate furosemide 20 mg daily. Initiate potassium [...] PCP for noncardiac workup. Obese class I 7540797010 56185 E66.277 [id number] Ricci Dietrich MD [facility] [address] [place] [address] 11/11/2024 10:02:17 11/14/2024 11:31:54 Dyspnea on exertion 33608567 R06.09 R60.0 R00.2 928151 In light of ongoing symptoms of dyspnea with concern for BNP being spuriously low with BMI greater than 30, we will again request echocardio gram which was previously denied by her insurance. Patient does not appear to be responding to diuretics and we may need to consider addition of SGLT2 inhibitors if she has significan t systolic or diastolic dysfunctio n noted on her echocardio gram. In the interim we will up titrate her furosemide to 40 mg in the morning and 20 mg in the afternoon. She will continue current dose of potassium. We will obtain a follow-up basic metabolic panel. In addition given reports of palpitatio ns we will obtain thyroid panel. We encouraged self rhythm monitoring and based on her symptom report we will consider a 14 versus 30 day event monitor. Red flag symptoms to seek medical attention in the interim reviewed at length. Smoker 60730147 F17.200 007101 Discussed cardiovasc ular risks of ongoing nicotine use. Reinforced importance of complete nicotine cessation for cardiovasc ular risk reduction amongst other health benefits. Currently declines need for pharmacoth erapy. Encouraged ongoing discussion s with care team including PCP for additional resources to achieve the goal of complete nicotine cessation. Obese class I 0125678695 80101 E66.811 5094961482 Ongoing efforts at diet/exerc ise reinforced for weight management and cardiovasc ular risk reduction. Health Concerns Section Related Observation LastModified by Organization Detai ls LastModified Time None Recorded Concern Status LastModified by Organization Details LastModified Time None Recorded Advance Directives Directive None Recorded Payers Insurance Date Sequence Insurance Name Policy Number Policy Blas Covered Member ID Blas Member ID Guarantor Name 07/14/2024 1 [facility] (MEDICAID HMO) Sanjuanita Pedersen [id number] Sanjuanita Dequasimelody 01/10/2025 1 [facility] - DOS ON OR AFTER 20 (MEDICAID REPLACEMENT - HMO) Sanjuanita Pedersen [id number] Sanjuanita Dequasimelody Notes Date Note Type Note Provider Name and Address Organization Details Recorded Time 07/14/2024 text/html ROS as noted in the HPI last night her dog (Anne Sheppardg) hit her ankle with a chain and caused immediate pain and today redness and swelling... Sabas Jhaveri PA-C Attn: [address] [place], [address], [facility] 07/14/2024 12:42:38 07/26/2024 text/html ROS as noted in the HPI see note from 3-13...now both feet are red and a little puffy...painful and parts are numb Sabas Jhaveri PA-C Attn: [address] [place], [address], [facility] 07/26/2024 18:01:49 08/23/2024 text/html ROS as noted in the HPI now rt foot is swollen...edema...jany ateral skin mottling and delayed cap refill... Sabas Jhaveri PA-C Attn: [address] [place], [address], [facility] 08/23/2024 12:15:48 10/07/2024 text/html ROS as noted in the HPI I had the pleasure of seeing this patient as a new [...] extremity Ricci Dietrich MD Attn: [address] [place], [address], [facility] 10/12/2024 15:40:11 11/11/2024 text/html ROS as noted in the HPI patient presents for follow-up of lower extremity edema. Noticing increasing lower extremity edema despite adjusting diuretics. No chest pain or pressure. Reports palpitations off and on. Reports NYHA class 2-3 dyspnea. Denies presyncope or syncope. No recent COVID. Denies history of DVT/PE. Ricci Dietrich MD Attn: [address] [facility], [place], [address], [facility] 11/11/2024 14:04:09 OBGyn Episode No OBEpisode recorded.
--- OUTSIDE RECORDS SUMMARY | 2025-02-03 11:06 | XMS_ITS | Clinical Summary ---
Author Organization [facility] [address] Address [address] [place] [address] Care Team Providers Care Silviculture Teacher Name Role Phone Trina Tracy MD Unavailable [phone] Wagner Jhaveri Primary Care Provider [phone] Allergies Active Allergy Reactions Criticality Noted Date [...] needed. Assessment & Plan (05/21/2021 3:15 PM HOG SCALDER): Patient with family history of thyroid disease. [...] on file Legal Sex Female 9:46 AM HOG SCALDER Gender Identity Not on file Sexual Orientation [...] Plan of Treatment Not on file Insurance [facility] Care Teams Silviculture Teacher Relationship Specialty Start Date End Date Wagner Jhaveri PA [address] [place] [address] PCP - General Family Practice 09/11/21 Trina Tracy MD Surgeon Vascular Surgery 09/11/21
--- OUTSIDE RECORDS SUMMARY | 2025-02-03 11:06 | XMS_ITS | Clinical Summary ---
Author Organization [facility] Address [address] [place] [address] Care Team Providers Care Personal Lines Advisor Name Role Phone Wagner Jhaveri Primary Care Provider [phone] Source Comments [facility],non-owned Affiliates and Associated Physician Practices is amultiple site organization consisting of ambulatory clinics and hospital sitesin [place], [place], [place] and [place]. This disclosure is being madepursuant to the Care Everywhere program and may not contain all information available regarding this patient. 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
--- NOTE | 2025-02-03 11:07 | ED_ITS ---
HPI - Abdominal Pain General Chief Complaint: Urogenital-Female Stated Complaint: abdominal pain Source: patient Mode of arrival: ambulatory Limitations: no limitations History of Present Illness HPI narrative: Patient is a 49-year-old female with right flank pain for the past day. She was working and the pain got worse. She had near-syncope due to pain. By the time she got to the emergency room the pain was decreased. She passed 1-3 stone possibility in the cup or larger stone broken into pieces. No nausea vomiting or diarrhea. MD elicited complaint: flank pain (Right) Pertinent past history: other (Known kidney stones x2 in the right kidney for 10 years) Onset (ago): day(s) (One) Pain Consistency: constant Location: R flank Severity: severe Pain scale (0-10): 0 (Pain was initially severe and now down to 0 after passing the stones) Quality: stabbing and sharp Radiation: RLQ and suprapubic Migration to: no migration Exacerbating factors: nothing Relieving factors: other (Passing of stones and collected in the emergency room to urine cup) Context: confirms history of similar episodes Associated symptoms: denies other symptoms Treatments prior to arrival: other (None) Related Data Home Medications ?Medication ?Instructions ?Recorded ?Confirmed ?Last Taken ?Type furosemide 20 mg tablet (Lasix) 20 mg PO BID 01/16/25 01/16/25 Unknown History Allergies Allergy/AdvReac Type Severity Reaction Status Date / Time latex Allergy Severe Rash Verified 02/03/25 11:24 hydrocodone AdvReac Intermediate Nausea and Verified 02/03/25 11:24 Vomiting Review of Systems 2 Review of Systems: All systems reviewed & are unremarkable except as noted in HPI and below Constitutional: Constitutional: Reports no additional constitutional complaints Eyes: Eyes: Reports no additional eye complaints ENT: Reports system reviewed and no additional complaints, except as documented Cardiovascular: Cardiovascular: Reports no additional cardiovascular complaints Respiratory: Respiratory: Reports no additional respiratory complaints Gastrointestinal: Gastrointestinal: Reports no additional gastrointestinal complaints Genitourinary: Genitourinary: Reports no additional female genitourinary complaints Musculoskeletal: Musculoskeletal: Reports no additional musculoskeletal complaints Integumentary/Breasts: Skin/Breast: Reports system reviewed and no additional complaints, except as docu Neurologic: Reports system reviewed and no additional complaints, except as documented Psychiatric: Psychiatric: Reports no additional psychiatric complaints Endocrine: Endocrine: Reports no additional endocrine complaints Hematologic/Lymphatic: Hematologic/Lymphatic: Reports no additional hematologic/lymphatic complaints Allergic/Immunologic: Allergic/Immunologic: Reports no additional allergic/immunologic complaints [facility] Past Medical History Medical History Bilateral hip joint arthritis Pancreatitis Right rotator cuff tendinitis Impingement of right shoulder Acetabular labrum tear Vision changes Weight gain Iliotibial band syndrome of both sides Lumbar radiculopathy, acute Asthma no inhalers Surgical History Surgical History History of laparoscopy History of section History of tonsillectomy and adenoidectomy History of myringotomy History of colonoscopy History of surgery Fistulectomy History of breast augmentation History of robot-assisted laparoscopic hysterectomy History of cholecystectomy Family History Family History Other Arthritis Hypertension Paget disease of bone Social History Social History Smoking packs per day: 1 Smoking cigarettes per day: 20.0 Years smoked: 30 Smoking pack-years: 30.00 Smoking status: Current every day smoker Tobacco type: cigarettes Second hand tobacco smoke exposure: Yes Alcohol intake: current Drinks per week: 1 Substance use: former Substance use type: does not use Other substance usage details: cocaine Do You Feel Safe in your Home?: Yes Lack of Transportation: No Lack of Food: Sometimes True Current Housing: I Have Housing Concerned About Future Housing: No Difficulty Paying Gas/Electric Bills: No Difficulty Paying for Meds: No Currently Unemployed: No Education: Trade/Vocational Certificate Difficulty w/ Childcare or Family Care: No Living arrangements: with family Occupation/Education: occupation 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[employer] Gender identity (if verbalized by the patient): Female Spiritual care concerns: No Exam 2 Const: General: healthy appearing Nutritional Appearance: well nourished Orientation/consciousness: patient oriented x3 HENMT: Head: normal to inspection Ears: external ears normal F bryan/Nose/Sinus: Normal external nose present Eyes: Conjunctivae: conjunctivae normal Pupils: Equal, round and reactive pupils present EOM: EOMs intact bilaterally Neck: Neck: normal visual inspection Chest: Chest palpation & inspection: normal inspection of the chest Resp: Effort & Inspection: normal respiratory effort and not labored A uscultation: clear to auscultation bilaterally and no crackles Cardio: Rate: regular rate Rhythm: regular rhythm Heart sounds: no murmurs GI: Inspection: non-distended GI Palp: Yes Soft to palpation, No Tenderness to palpation present (GI), No Guarding due to palpation present (GI), No Rigid due to palpation, No Hernia present, No Palpable mass present and No Rebound tenderness present Auscultation: normal bowel sounds : General: Yes bladder normal to palpation Back/Spine/Pelvis: Back: no CVA tenderness Skin: General skin exam: normal color Rashes: no rashes Wounds: no wounds Neuro: General: patient oriented x3, moves all extremities and no meningeal signs Extrem: General: normal to inspection, no clubbing, cyanosis or edema and no pedal edema Psych: Mental Status: mental status grossly normal Affect: normal affect Attitude: cooperative Course Vital Signs Vital signs: Vital Signs Temperature 36.6 C 02/03/25 11:04 Pulse Rate 88 02/03/25 11:04 Respiratory Rate 16 02/03/25 11:04 Blood Pressure 137/75 02/03/25 11:04 Pulse Oximetry 100 02/03/25 11:04 Oxygen Delivery Room Air 02/03/25 11:04 Temperature 36.6 C 02/03/25 11:04 Pulse Rate 88 02/03/25 11:04 Respiratory Rate 16 02/03/25 11:04 Blood Pressure 137/75 02/03/25 11:04 Pulse Oximetry 100 02/03/25 11:04 Oxygen Delivery Room Air 02/03/25 11:04 MDM - Abdominal Pain MDM Narrative Medical decision making narrative: Patient is a 49-year-old female with right flank pain and passing of stone in the emergency room here for evaluation. We will check the CT scan for reassurance. Check labs. Urinalysis. Lab Data Attestation: I reviewed the patient's lab results. 02/03/25 11:22 02/03/25 11:22 Labs: Lab Results 02/03/25 Range/Units 11:22 WBC 13.2 H (4.8-10.8) K/mm3 RBC 4.43 (4.20-5.40) M/mm3 Hgb 13.4 (12.0-15.0) g/dL Hct 41.9 (35.0-49.0) % MCV 94.6 (78.0-102.0) fL MCH 30.2 (27.0-31.0) pg MCHC 32.0 (32-36) g/dL RDW 14.0 (11.6-14.4) % Plt Count 465 H (150-420) K/mm3 MPV 9.4 (9.2-11.8) fl Immature Gran % (Auto) 0.5 H (0.0-0.0) % Neut % (Auto) 59.4 (50.0-70.0) % Lymph % (Auto) 28.3 (18.0-42.0) % Isabella % (Auto) 9.3 (2.0-11.0) % Eos % (Auto) 1.7 (1.0-6.0) % Baso % (Auto) 0.8 (0.0-1.0) % Lymph # (Auto) 3.73 (1.10-4.50) K/mm3 Isabella # (Auto) 1.22 H (0.10-0.90) K/mm3 Eos # (Auto) 0.22 (0.02-0.50) K/mm3 Baso # (Auto) 0.11 H (0.00-0.10) K/mm3 Abs Immat Gran (auto) 0.06 H (0.00-0.00) K/mm3 Absolute Neuts (auto) 7.83 H (1.70-7.20) K/mm3 Absolute Nucleated RBC 0.00 (0.00-0.00) K/mm3 Nucleated RBC % 0.0 (0-0.0) % PT 9.5 (9.50-12.1) Seconds INR 0.8 APTT 27.3 (23.9-30.70) Sec Sodium 139 (137-145) mmol/L Potassium 4.1 (3.4-5.0) mmol/L Chloride 101 (98-107) mmol/L Carbon Dioxide 31 H (22-30) mmol/L Anion Gap 7 (4-12) mmol/L BUN 15 (7-17) mg/dL Creatinine 0.66 L (0.7-1.0) mg/dL Estim Creat Clear Calc 103 ml/min Estimated GFR > 60 (59 - ) Glucose 107 (65-110) mg/dL Calculated Osmolality 288 (285-295) mOsm/kg Lactic Acid 0.8 (0.4-2.0) mmol/L Calcium 9.9 (8.4-10.2) mg/dL Total Bilirubin 0.4 (0.2-1.3) mg/dL AST 40 H (14-36) U/L ALT 63 H (6-35) U/L Alkaline Phosphatase 84 (38-126) U/L Total Protein 8.4 H (6.3-8.2) g/dL Albumin 4.4 (3.5-5.1) g/dL Urine Color Light yellow (Yellow) Urine Appearance Clear (Clear) Urine pH 5.5 (5.0-8.0) Ur Specific [place] 1.015 (1.010-1.020) Urine Protein Negative (Negative) Urine Glucose (UA) Negative (Negative) Urine Ketones Negative (Negative) Ur Blood (Man) 2+ H (Negative) Urine Nitrate Negative (Negative) Urine Bilirubin Negative (Negative) Urine Urobilinogen 0.2 (0.2-1.0) mg/dL Leukocyte Esterase Rfl Negative (Negative) GEREMIAS/UL Urine RBC 3-5 H (0-2) /hpf Urine WBC None seen (0-3) /hpf Ur Squamous Epith Cells Rare (Few) /hpf Urine Bacteria Trace (None) /hpf Imaging Data Attestation: I personally reviewed and interpreted this imaging study as follows: Radiologist's impression: ITS Impressions Abdomen/Pelvis CT 02/03/25 11:47 IMPRESSION: 1. Mild hydronephrosis right kidney but no stone or obstruction noted. 2. Otherwise no acute findings or significant change. Discharge Plan Discharge Clinical Impression: Calculus, ureteral Patient Disposition: Home Condition: Stable Instructions: Kidney Stones (ED) Additional Instructions: Please follow-up with urologist. Please bring the kidney stone to the appointment. Patient Language: Yakut Prescriptions: No Action azithromycin [Zithromax] 250 mg tablet 250 mg PO DAILY 4 Days Qty: 4 0RF Rx Instructions: start on day 2 of therapy albuterol sulfate 90 mcg/actuation HFA aerosol inhaler 1 inh inhalation QID PRN (Reason: shortness of breath or wheezing) Qty: 8.5 0RF furosemide [Lasix] 20 mg tablet 20 mg PO BID Follow-up/Referrals: Emilio,KOBE Pierre [Primary Care Provider] Time of Disposition: 12:13
--- NOTE | 2025-02-03 11:15 | PC.NURSE ---
Patient able to urinate in bedside commode. multiple black stone like substances noted in urine. Patient reports she has not been able to urinate significant amount until now. Patient reports pain has resolved completely.
[2025-02-03 11:27] LABS: Hematocrit 41.9 % (35.0-49.0); Hemoglobin 13.4 g/dL (12.0-15.0); Immature Granulocyte Percent A 0.5 % (0.0-0.0); Lymphocytes Absolute Auto 3.73 K/mm3 (1.10-4.50); Mean Corpuscular HGB Conc 32.0 g/dL (32-36); Mean Corpuscular Hemoglobin 30.2 pg (27.0-31.0); Mean Corpuscular Volume 94.6 fL (78.0-102.0); Nucleated Red Blood Cells Absolute Auto 0.00 K/mm3 (0.00-0.00); Nucleated Red Blood Cells Perc 0.0 % (0-0.0); Platelet Count Result 465 K/mm3 (150-420); Red Blood Count 4.43 M/mm3 (4.20-5.40); White Blood Count 13.2 K/mm3 (4.8-10.8)
[2025-02-03 11:28] LABS: Add Urine Microscopic? YES; Appearance Urine Clear (Clear); Glucose Urine UA Negative (Negative); Leukocyte Esterase Ur Negative LEU/UL (Negative); Nitrate Urine Negative (Negative); Specific Grav Ur 1.015 (1.010-1.020)
[2025-02-03 11:39] LABS: Alanine Aminotransferase 63 U/L (6-35); Albumin Level 4.4 g/dL (3.5-5.1); Alkaline Phosphatase 84 U/L (38-126); Anion Gap 7 mmol/L (4-12); Aspartate Amino Transferase 40 U/L (14-36); Bilirubin,Total 0.4 mg/dL (0.2-1.3); Blood Urea Nitrogen 15 mg/dL (7-17); Calcium 9.9 mg/dL (8.4-10.2); Carbon Dioxide 31 mmol/L (22-30); Chloride 101 mmol/L (98-107); Estimated CRCL calculation 103 ml/min; Estimated Glomerular Filt Rate > 60; Glucose 107 mg/dL (65-110); Osmolality Calculated 288 mOsm/kg (285-295); Potassium 4.1 mmol/L (3.4-5.0); Sodium 139 mmol/L (137-145); Total Protein 8.4 g/dL (6.3-8.2)
[2025-02-03 11:41] LABS: INR 0.8; Partial Thromboplastin Time 27.3 Sec (23.9-30.70); Prothrombin Time 9.5 Seconds (9.50-12.1)
[2025-02-03 12:18] VITALS: BP 146/91; PULSE 86; RESP 17; TEMP 36.6; O2SAT 100
== END 2025-02-03 12:18 | disposition home or self-care (01) ==
PROVIDERS: Emergency Provider Emergency Medicine; PCP Physician Assistant
DX: N20.1 Calculus of ureter (principal); F17.210 Nicotine dependence, cigarettes, uncomplicated
CPT/HCPCS: 36415; 74176; 80053; 81001; 83605; 85025; 85610; 85730; 99284